=== PATIENT | female | born 1965 | race Caucasian/White ===

== ENCOUNTER 2019-06-23 15:31 | Emergency (ER) | payer OTHER, SELFPAY ==
[2019-06-23 15:43] VITALS: BP 150/81; PULSE 102; RESP 18; TEMP 36.6; O2SAT 99
--- NOTE | 2019-06-23 15:55 | ED.GENADULT ---
HPI - General Adult General Chief complaint: Upper Respiratory Infection Stated complaint: Ear/Nose/Throat Time Seen by Provider: 06/23/19 16:07 Source: patient and RN notes reviewed Mode of arrival: ambulatory Limitations: no limitations History of Present Illness HPI narrative: This patient's had onset of left ear pain without any drainage from the ear. The right eardrum is been mildly painful. She has not had any drainage from the right ear either. He is also had a sore throat without any fever. She has had no nasal drainage no cough. She is had no rashes. She has had no nausea, no vomiting, no diarrhea. She said no hematuria, no dysuria, no pyuria. She has had no rashes. Has not been traveling. She has had no known exposure to anyone with strep throat, mono, influenza, bronchitis, pneumonia that she is aware of. Related Data Allergies Allergy/AdvReac Type Severity Reaction Status Date / Time No Known Allergies Allergy Verified 05/04/19 08:27 Review of Systems Review of Systems: Narrative: CONSTITUTIONAL: Denies fever, chills, or sweats. Noncontributory except as pertains to the past medical history and history of present illness. EYES: Denies visual changes, redness, or discharge. ENT: Denies rhinorrhea, congestion, sore throat, or otalgia. CARDIOVASCULAR: Denies chest pain, palpitations, or edema. RESPIRATORY: Denies cough or dyspnea. GASTROINTESTINAL: Denies abdominal pain, nausea, vomiting, or diarrhea. GENITOURINARY: Denies dysuria or hematuria. SKIN: Denies rash or itching. MUSCULOSKELETAL: Denies back pain, joint pain, or myalgia. NEUROLOGIC: Denies headache, numbness, or weakness. PSYCHIATRIC: Denies anxiety or depression. [facility] Social History Social History Smoking status: Current every day smoker Alcohol intake: never Comments At time of signature, I have reviewed and agree with nursing past medical, surgical, social, and family history.Please see nursing chart for further information. There is no relevant family history pertinent to the presenting complaint. Exam Narrative: Exam Narrative: GENERAL: Well-appearing, well-nourished, and in no acute distress. HEAD: Normocephalic, atraumatic. EYES: PERRLA and EOMI. EARS: The right eardrum and canal are normal. The left eardrum is mildly erythematous, mildly bulging, but not perforated. The canal is clear. NOSE: Nares clear, no rhinorrhea or epistaxis. THROAT:Mucous membranes moist.Oropharynx is erythematous with mild exudates present. NECK: Supple. No adenopathy of the neck, supraclavicular, axillary, or inguinal areas. RESPIRATORY: No respiratory distress. Airway patent. Respirations non-labored. Clear to auscultation. There are no wheezes, no rales, no retractions, no use accessory muscles of respirations. Patient's not cyanotic and not dyspneic. Pulse ox on room air is 99% current temperature is 36.6 ?C. HEART: Regular rate and rhythm. No murmur heard. Normal peripheral pulses. ABDOMEN: Soft, nontender, nondistended, normal active bowel sounds.No masses. No rebound or guarding, No organomegaly. No CVA pain. No pain McBurney's point. Patient is a negative Orozco sign and negative Rovsing sign. There are no pulsatile masses and no audible bruits. EXTREMITIES: No clubbing/cyanosis/ edema Normal strength & range of motion. SKIN: Warm, dry.Normal color. There are no skin lesions or skin rashes. Patient is well-nourished well-hydrated has moist mucous membranes and no tenting of the skin. NEURO: Alert and oriented. CN 2-12 grossly intact. No focal deficits. PSYCH: Normal mood and affect. Course Vital Signs Vital signs: Vital Signs Temperature 36.6 C 06/23/19 15:43 Pulse Rate 102 H 06/23/19 15:43 Respiratory Rate 18 06/23/19 15:43 Blood Pressure 150/81 H 06/23/19 15:43 Pulse Oximetry 99 06/23/19 15:43 Temperature 36.6 C 06/23/19 15:43 Pulse Rate 102 H 06/23/19 15:43 Re
== END 2019-06-23 16:16 | disposition home or self-care (01) ==
PROVIDERS: Emergency Provider Family Medicine; PCP Internal Medicine
DX: H66.92 Otitis media, unspecified, left ear (principal); J02.9 Acute pharyngitis, unspecified; E78.00 Pure hypercholesterolemia, unspecified; I10 Essential (primary) hypertension; K21.9 Gastro-esophageal reflux disease without esophagitis; M79.7 Fibromyalgia
CPT/HCPCS: 87081; 87880; 99213; G0463

== ENCOUNTER 2019-08-10 09:36 | Outpatient (CLI) | payer OTHER, SELFPAY ==
--- NOTE | ~2019-08-10 | MR_ITS ---
EXAMINATION: MR shoulder RT wo con DATE: 08/10/2019 10:43 INDICATION: Right shoulder pain TECHNIQUE: Magnetic resonance imaging (MRI) of the right shoulder was performed without intravenous c ontrast. Sequences included axial PD-weighted FS FSE, coronal oblique PD-weighted FS FSE, coronal obl ique T2-weighted FS FSE, sagittal PD-weighted FS FSE, and sagittal T1-weighted SE. COMPARISON: Right shoulder radiographs dated 08/02/2019 FINDINGS: Coracoacromial arch: The acromion undersurface is curved in morphology (type II). The coracoacromial ligament is normal. M ild to moderate acromioclavicular osteoarthritis with small inferiorly directed osteophytes. Rotator cuff: Supraspinatus and mild infraspinatus tendinopathy without discrete tear. The subscapularis and teres minor tendons are normal. Normal rotator cuff muscle bulk and signal. Biceps tendon, glenoid labrum and glenohumeral cartilage: Long head of the biceps tendon is normal. Linear increased signal consistent with SLAP tear at the 10 :30-12:00 position of the posterosuperior glenoid labrum. Glenohumeral cartilage is normal. Fluid: Physiologic amount of fluid in the glenohumeral joint and biceps tendon sheath. No loose osteochondra l bodies. No abnormally increased fluid signal at the subacromial/subdeltoid bursa to suggest bursiti s. Bones: Likely osteoarthritis related mild marrow edema at both sides of the acromioclavicular joint. Bone ma rrow signal is otherwise normal. No fracture or pathologic marrow replacing process. IMPRESSION: 1. SLAP tear at the 10:30-12:00 position of the posterior superior glenoid labrum. 2. Moderate supraspinatus and mild infraspinatus tendinopathy without discrete tear. 3. Mild to moderate acromioclavicular osteoarthritis. Reviewed, dictated and finalized at location A. IMPRESSION: 1. SLAP tear at the 10:30-12:00 position of the posterior superior glenoid labr um. 2. Moderate supraspinatus and mild infraspinatus tendinopathy without discrete tear. 3. Mild to moderate acromioclavicular osteoarthritis.
== END 2019-08-10 09:37 | disposition home or self-care (01) ==
PROVIDERS: PCP Internal Medicine; Visit Provider Orthopaedic Surgery
DX: M19.011 Primary osteoarthritis, right shoulder (principal); S43.431A Superior glenoid labrum lesion of right shoulder, initial encounter; X58.XXXA Exposure to other specified factors, initial encounter
CPT/HCPCS: 73221

== ENCOUNTER 2019-11-10 00:35 | Outpatient (CLI) | payer OTHER, SELFPAY ==
[2019-11-10 16:19] LABS: SARS-CoV-2 RNA PCR Negative
== END 2019-11-10 00:36 | disposition home or self-care (01) ==
LOC: ANHCOVIDDT 00:35
PROVIDERS: PCP Internal Medicine; Visit Provider Orthopaedic Surgery
DX: Z01.818 Encounter for other preprocedural examination (principal); Z11.59 Encounter for screening for other viral diseases
CPT/HCPCS: 87635; C9803; U0003

== ENCOUNTER 2019-11-10 08:31 | Outpatient (CLI) | payer OTHER, SELFPAY ==
--- NOTE | 2019-11-10 | ECG_ITS ---
Measurements Intervals Murray Rate: 81 P: 22 NC: 129 QRS: 84 QRSD: 101 T: 67 QT: 396 QTc: 462 Interpretive Statements SINUS RHYTHM NORMAL ECG Electronically Signed On 11-10-2019 11:26:46 CDT by Felton Sanders D.O.
[2019-11-10 09:17] LABS: Hematocrit 39.5 % (37.0-47.0); Hemoglobin 12.7 g/dL (12.0-15.0)
== END 2019-11-10 08:32 | disposition home or self-care (01) ==
PROVIDERS: PCP Internal Medicine; Visit Provider Anesthesiology
DX: Z01.812 Encounter for preprocedural laboratory examination (principal); D64.9 Anemia, unspecified
CPT/HCPCS: 36415; 85014; 85018; 93005

== ENCOUNTER 2019-11-13 01:22 | Day surgery (SDC) | payer OTHER, SELFPAY ==
[2019-11-05 13:43] VITALS: BMI 34.5
--- NOTE | 2019-11-12 14:23 | WPDANESEPPF ---
Anes - Initial Pre Proc Eval Procedure: Operation Date: 11/13/19 07:30 Proposed Procedures p Right Shoulder Arthroscopy with Superior Labral Anterior To Posterior Tear Repair - Grayson Dubon MD Date/Time: 11/12/19 14:23 Surgeon: Grayson Dubon MD Pre Op Diagnosis: Right SLAP Tear Patient Data Age: 54 Gender: F Height: 1.5 m Weight: 77.56 kg Allergies Allergy/AdvReac Type Severity Reaction Status Date / Time No Known Allergies Allergy Verified 11/13/19 06:25 Home Medications Medication Instructions Recorded Confirmed Type aspirin 81 mg tablet,delayed 81 mg PO DAILY #30 tablet 03/29/19 11/05/19 Rx release esomeprazole magnesium 20 mg 40 mg PO DAILY #60 cap 03/29/19 11/05/19 Rx capsule,delayed release ferrous sulfate 325 mg (65 mg 325 mg PO DAILY #30 tablet 03/29/19 11/05/19 Rx iron) tablet amlodipine 10 mg tablet 10 mg PO DAILY #90 tablet 05/25/19 11/05/19 Rx atorvastatin 20 mg tablet 20 mg PO DAILY #90 tablet 05/25/19 11/05/19 Rx multivitamin 1 tablet PO DAILY 06/29/19 11/05/19 History famotidine 20 mg tablet 20 mg PO DAILY #90 tablet 09/18/19 11/05/19 Rx cyclobenzaprine 10 mg tablet 10 mg PO TID PRN #90 tablet 10/22/19 11/05/19 Rx dicyclomine 20 mg tablet 20 mg PO TID #90 tablet 10/22/19 11/05/19 Rx tramadol 50 mg tablet 50 mg PO Q6H PRN 11/01/19 11/05/19 History L.acid-L.casei-B.bif-B.sandra-FOS 2 cap PO DAILY 11/05/19 11/05/19 History [Probiotic Blend] albuterol sulfate 1.25 mg INHALATION DIRECTED PRN 11/05/19 11/05/19 History albuterol sulfate [ProAir HFA] 1 puff INHALATION QID PRN 11/05/19 11/05/19 History chlorhexidine gluconate 4 % 1 applic TOPICAL ONCE #237 ml 11/05/19 11/05/19 Rx topical liquid Patient hx anesthesia problems: none Family hx anesthesia problems: none PMFSH Past Medical History Medical History Asthma Back pain Essential (primary) hypertension Fibromyalgia Gastro-esophageal reflux disease with esophagitis Hypercholesterolemia IBS (irritable bowel syndrome) Mixed hyperlipidemia Obesity Otalgia of both ears Otalgia of left ear Pharyngitis SLAP lesion of right shoulder Tobacco abuse Family History Family History Sibling Patient's brother is in good health Family history of malignant neoplasm Father Family history of alcoholism Mother Family history of malignant neoplasm of breast in first degree relative Other Family history of arthritis Hypertension Social History Social History Smoking status: Current every day smoker Alcohol intake: never Anes - Eval Final PreProcedure Day of Procedure 11/12/19 14:23 Patient weight: obese Heart: regular rate and rhythm Lungs: clear to auscultation and normal air movement Airway: Mallampati scale class II Neurological: alert and oriented Last oral intake: >/= 8 hours ASA classification: III Emergent: no Anesthetic plan: proceed Anesthesia type and monitoring: general LMA and ETT Informed Consent: The patient's anesthetic plan and its attendant risks and benefits were discussed with the patient/family/POA. Questions were solicited and answers provided to the satisfaction of the patient/family/POA.
[2019-11-13] VITALS (8 sets, daily range): BP systolic 122–141; BP diastolic 52–79; PULSE 78–95; RESP 12–20; TEMP 36.1–36.3; O2SAT 94–100
[2019-11-13] MEDS: CELECOXIB 200 MG CAPSULE PO (06:45)
[2019-11-13] MEDS: LACTATED RINGERS 1,000 ML 30 ML IV CONT ×2 (06:45→10:04)
--- NOTE | 2019-11-13 07:00 | WPDANESPNB ---
Anes - Peripheral Nerve Block Date/Time: 11/13/19 07:00 I have discussed with the patient/family/POA the placement of a peripheral nerve block for post-operative pain management, including associated risks, benefits, complications, and side effects. Alternative methods of post-operative analgesia were detailed. Questions were solicited and answers provided to the satisfaction of the patient/family/POA. Time-Out: A pre-procedural Time-Out was completed immediately before starting the procedure and confirmed: Patient Identification, Site, Procedure, Patient Position and the Availability of Requisite Equipment. Clinical Indications: Acute post-operative pain management requested by the operative surgeon. Nerve Block Insertion Note Anes-nerve block: supraclavicular right Patient position: supine Skin prep: chlorhexidine Needle: 22 gauge, stimulating, insulated echogenic needle. Needle length: 80 mm Technique: ultrasound (in plane) Injectate: bupivacaine 0.5% with epi 5 mcg/ml (20cc) Observations: tolerated well Complications: none Procedure start time:: 730 Procedure end time::
--- NOTE | 2019-11-13 07:28 | WPDHPUPDATE1 ---
History and Physical Update Update Date/Time: 11/13/19 07:28 History and Physical has been reviewed, including an updated exam of the patient. There are NO changes in the patient's condition. Risks, benefits, and alternatives have been discussed and questions answered. Patient agrees to proceed with procedure.
[2019-11-13] MEDS: ceFAZolin 2 GM/D5W 50 ML 2 GM/50 ML BAG IVPB (07:42)
--- NOTE | 2019-11-13 09:54 | PM.OP ---
Procedure Note - Brief Procedure Note - Brief Date of procedure: 11/13/19 Pre-op diagnosis: Right SLAP Tear Post-op diagnosis: same Procedure performed: repair of slap lesion, chondroplasty and synovectomy right shoulder Anesthesia: GETA Surgeon: Grayson Dubon MD Estimated blood loss (mL): 10 Condition: stable Disposition: PACU
--- NOTE | 2019-11-13 11:50 | OP_ITS ---
DATE OF PROCEDURE: 11/13/2019 PREOPERATIVE DIAGNOSIS: Right shoulder SLAP tear. POSTOPERATIVE DIAGNOSIS: Right shoulder SLAP tear and partial articular-sided rotator cuff tear. PROCEDURE PERFORMED: Right shoulder arthroscopy with SLAP lesion repair, chondroplasty and synovectomy and rotator cuff debridement. SURGEON: Grayson Dubon M.D. ANESTHESIA: General. COMPLICATIONS: None. INDICATIONS: This is a 54-year-old female with a history of SLAP tear. She had attempted nonoperative treatments. She was unable to benefit from the treatment. She had physical therapy and injections. She was indicated for SLAP repair. DESCRIPTION OF PROCEDURE: The patient was taken to the operating room in stable condition and placed in supine position. General anesthesia was induced and she was placed in the beach chair position and the right shoulder was prepped and draped sterilely from the fingers to the axillary and cervical region. Posterior portal was used 1 cm distal and medial to the angle of the acromion and then camera was introduced. The 1st thing was noticed was the SLAP tear both in the 1 o'clock position and 11 o'clock position. The biceps tendon was intact. There was a partial articular-sided rotator cuff tear. There was chondromalacia grade 2 in the glenoid and on the humeral head. A shaver was then introduced through an anterior portal and chondroplasty was performed on the glenoid. The rotator cuff tear was then debrided. There was no full-thickness tear. The edge of the superior labrum then was also debrided and synovectomy was performed in that region as well. Once that was performed, then a bur was used to bur the superior glenoid region until there was good bleeding bone. Once that was performed, then an arthroscopic suture hook passer was placed in through the anterior labrum from medial to lateral and there was a good bite of tissue. The looped suture passer was left in and the hook was removed. Then, a #2 fiber tape then was passed through the looped suture shuttle and then eventually passed through the superior labrum. Once that was performed, then the #2 fiber tape was looped upon itself and tensioned over the labrum. A drill guide was placed on the edge of the superior anterior glenoid and a drill was used for a starter hole and the suture then was passed through an Arthrex suture anchor and the anchor then was inserted into the rim of the glenoid. There was an excellent bite. The tire shop mechanic was removed and stability of the repair was checked and it was excellent. Next, in a similar fashion, another suture passer was inserted through the posterior labrum and a #2 fiber tape also passed through the posterior labrum and cinched down. Another Arthrex suture anchor then was prepared. The drill guide was used for preliminary drill. The #2 fiber tape was passed through the suture anchor and the suture anchor was inserted into the posterior glenoid rim. The bite was excellent. Both sutures were cut. Stability of the repair was assessed. The repair was stable. The shoulder joint then was irrigated thoroughly. The instruments were removed after thorough irrigation of the shoulder joint. The wounds were approximated with 4-0 nylon suture. Sterile dressing was applied. The patient was extubated and sent to Recovery. Anjel Pavel MT: Breonna
== END 2019-11-13 12:10 | disposition home or self-care (01) ==
PROVIDERS: PCP Internal Medicine; Visit Provider Orthopaedic Surgery
PROC: (CPT 29805; principal; 2019-11-13 07:30)
DX: S43.431A Superior glenoid labrum lesion of right shoulder, initial encounter (principal); M75.101 Unspecified rotator cuff tear or rupture of right shoulder, not specified as traumatic; G89.18 Other acute postprocedural pain; I10 Essential (primary) hypertension; E78.2 Mixed hyperlipidemia; M79.7 Fibromyalgia; K21.9 Gastro-esophageal reflux disease without esophagitis; E78.00 Pure hypercholesterolemia, unspecified; K58.9 Irritable bowel syndrome, unspecified; E66.9 Obesity, unspecified; Z68.35 Body mass index [BMI] 35.0-35.9, adult; Z79.82 Long term (current) use of aspirin; F17.200 Nicotine dependence, unspecified, uncomplicated; X58.XXXA Exposure to other specified factors, initial encounter
CPT/HCPCS: 29807; 64415; A9270; J0330; J0690; J1100; J2250; J2405; J2704; J3010; J7120

== ENCOUNTER 2019-11-22 08:32 | Outpatient (CLI) | payer OTHER, SELFPAY ==
[2019-11-22 09:05] LABS: Add Urine Microscopic? YES; Appearance Urine Cloudy (Clear); Bacteria Urine Trace /hpf; Bilirubin Urine Negative (Negative); Blood Urine Negative (Negative); Color Urine Yellow (Yellow); Glucose Urine UA Negative (Negative); Ketones Urine Negative (Negative); Leukocyte Esterase Ur Trace LEU/UL (Negative); Mucus Urine Heavy /lpf; Nitrate Urine Negative (Negative); Protein Urine 1+ mg/dL (Negative); RBC Urine 0-2 /hpf (0-2); Specific Grav Ur 1.026 (1.001-1.035); Squamous Epithelial Cell Urine Many /hpf (Few)
[2019-11-22 09:13] LABS: Alanine Aminotransferase 18 U/L (4-35); Albumin Level 4.3 g/dL (3.5-5.1); Alkaline Phosphatase 103 U/L (38-126); Aspartate Amino Transferase 18 U/L (14-36); Bilirubin,Total 0.3 mg/dL (0.2-1.3); Blood Urea Nitrogen 18 mg/dL (7-17); Calcium 9.4 mg/dL (8.4-10.2); Carbon Dioxide 25 mmol/L (22-30); Chloride 106 mmol/L (98-107); Cholesterol 203 mg/dL (0-200); Estimated Glomerular Filt Rate > 60; Glucose 87 mg/dL (65-105); HDL Direct 37 mg/dL; Potassium 4.2 mmol/L (3.4-5.0); Sodium 139 mmol/L (137-145); Triglycerides 277 mg/dL (<150)
[2019-11-22 09:25] LABS: LDL Cholesterol Direct 115 mg/dL
== END 2019-11-22 08:33 | disposition home or self-care (01) ==
LOC: ANHLAB 08:33
PROVIDERS: PCP Internal Medicine; Visit Provider Nurse Practitioner
DX: E78.5 Hyperlipidemia, unspecified (principal); M54.9 Dorsalgia, unspecified
CPT/HCPCS: 36415; 80053; 80061; 81001

== ENCOUNTER 2019-12-31 12:38 | Emergency (ER) | payer OTHER, SELFPAY ==
[2019-12-31 12:45] VITALS: BP 169/81; PULSE 100; RESP 20; TEMP 36.8; O2SAT 98
--- NOTE | 2019-12-31 12:54 | ED.GENADULT ---
HPI - General Adult General Chief complaint: Upper Respiratory Infection Stated complaint: sinus congestion/cough Time Seen by Provider: 12/31/19 12:55 Source: patient and RN notes reviewed Mode of arrival: ambulatory Limitations: no limitations History of Present Illness HPI narrative: This is a 54 years old female presents to the office for an evaluation of sinus congestion for 1 week. Symptom has been worsening for the last few day. Symptoms include sinus headache, sore throat, ear pain, cough with tightness in her chest. She used to smoke a pack a day and quit recently due to her right shoulder surgery. 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 Denies direct contact with cold with patient. She supposed to go back to work on Tuesday. Related Data Home Medications Medication Instructions Recorded Confirmed multivitamin 1 tablet PO DAILY 06/29/19 12/31/19 Probiotic Blend 2 cap PO DAILY 11/05/19 12/31/19 albuterol sulfate 1.25 mg INHALATION DIRECTED PRN 11/05/19 12/31/19 albuterol sulfate [ProAir HFA] 1 puff INHALATION QID PRN 11/05/19 12/31/19 Allergies Allergy/AdvReac Type Severity Reaction Status Date / Time No Known Allergies Allergy Verified 12/31/19 12:39 Review of Systems Review of Systems: Narrative: CONSTITUTIONAL: Denies fever. Reports very tired ENT: Reports congestion, sore throat, otalgia. CARDIOVASCULAR: Denies chest pain, palpitation RESPIRATORY: Reports dyspnea with cough GASTROINTESTINAL: Denies abdominal pain, nausea, vomiting, diarrhea. SKIN: Denies rash MUSCULOSKELETAL: Reports right shoulder pain; recently had surgery. NEUROLOGIC: Denies lightheaded/dizziness All other systems reviewed are negative, except as documented in HPI. [facility] Past Medical History Medical History Asthma Back pain Essential (primary) hypertension Fibromyalgia Gastro-esophageal reflux disease with esophagitis Hypercholesterolemia IBS (irritable bowel syndrome) Mixed hyperlipidemia Obesity Otalgia of both ears Otalgia of left ear Pharyngitis SLAP lesion of right shoulder Tobacco abuse Family History Family History Sibling Patient's brother is in good health Family history of malignant neoplasm Father Family history of alcoholism Mother Family history of malignant neoplasm of breast in first degree relative Other Family history of arthritis Hypertension Social History Social History (Updated 12/31/19 @ 13:50 by VANDANA Martin) Smoking status: Former smoker Alcohol intake: never Comments At time of signature, I agree with nursing past medical, surgical, social and family history. There is no relevant family history pertinent to the presenting complaint. Exam Narrative: Exam Narrative: GENERAL: This is a well-nourished, well-developed patient, in no apparent distress. Older than state age. EYES: Sclera clear/white. Vision is grossly intact. EARS: External ears normal, auditory canals clear and without drainage, TMs normal without perforation. Hearing grossly intact. NOSE: External nose normal with no obvious nasal discharge, nares without redness, no rhinorrhea. THROAT: Mucous membranes moist, posterior pharynx erythema with drainage. NECK: Neck supple, non-tender without lymphadenopathy, masses or thyromegaly. CARDIOVASCULAR: Regular rate and rhythm without murmurs, gallops, or rubs. RESPIRATORY: Diminished breath sounds throughout, occasional noted during examination. Breath sounds equal bilaterally. No wheezes, rales, or rhonchi. GASTROINTESTINAL: Abdomen soft, non-tender, nondistended. Bowel sounds are active. No hepato-splenomegaly, or palpable masses. No guarding. SKIN: warm, intact with no suspicious lesions or rash, good texture and turgor. NEURO: awake, alert, and oriented to person, place and time. There wer
== END 2019-12-31 13:10 | disposition home or self-care (01) ==
PROVIDERS: Emergency Provider Nurse Practitioner; PCP Internal Medicine
DX: J06.9 Acute upper respiratory infection, unspecified (principal); R05 Cough; Z87.891 Personal history of nicotine dependence; J45.909 Unspecified asthma, uncomplicated; I10 Essential (primary) hypertension; M79.7 Fibromyalgia; K21.9 Gastro-esophageal reflux disease without esophagitis; E78.00 Pure hypercholesterolemia, unspecified; E78.5 Hyperlipidemia, unspecified; E66.9 Obesity, unspecified; Z68.45 Body mass index [BMI] 70 or greater, adult
CPT/HCPCS: 99213; G0463

== ENCOUNTER 2020-02-25 15:10 | Emergency (ER) | payer OTHER, SELFPAY ==
[2020-02-25 15:20] VITALS: BP 144/83; PULSE 90; RESP 24; TEMP 36.8; O2SAT 100
--- NOTE | 2020-02-25 16:13 | ED.URI ---
HPI - URI/Sore Throat General Chief Complaint: Upper Respiratory Infection Stated Complaint: right ear pain/sore throat Time Seen by Provider: 02/25/20 16:25 Source: patient and RN notes reviewed Mode of arrival: ambulatory Limitations: no limitations History of Present Illness HPI Narrative: 54 year old female who presents to [facility] with complaints of right ear pain and sore throat which started this morning. Patient states that she works for [employer] and has had known exposure to strep and needs test to return to work.Patient denies any nasal drainage or feelings of congestion, denies any acute cough with mucous production, denies any wheezing or acute shortness of breath.Patient states no fevers chills or sweats, denies any nausea, vomiting or any headache pain. Patient does have history of asthma and has had former tobacco abuse. MD elicited complaint: sore throat and other (ear pain) Pertinent past history: pneumonia and asthma Onset (ago): day(s) (this morning) Consistency: constant Severity: moderate Pain scale (0-10): 5 Able to tolerate fluids by mouth: Yes Exacerbating factors: swallowing Context: sick contacts Associated symptoms: ear pain (right) Treatments prior to arrival: other (Coricidin) Related Data Home Medications Medication Instructions Recorded Confirmed multivitamin 1 tablet PO DAILY 06/29/19 02/25/20 albuterol sulfate 1.25 mg INHALATION DIRECTED PRN 11/05/19 02/25/20 albuterol sulfate [ProAir HFA] 1 puff INHALATION QID PRN 11/05/19 02/25/20 famotidine 20 mg PO DAILY 02/25/20 02/25/20 rabeprazole 20 mg PO EVERY OTHER DAY 02/25/20 02/25/20 rabeprazole [AcipHex] 20 mg PO DAILY 02/25/20 02/25/20 Allergies Allergy/AdvReac Type Severity Reaction Status Date / Time No Known Allergies Allergy Verified 02/25/20 15:38 Review of Systems Review of Systems: Narrative: CONSTITUTIONAL: Denies fever, chills, or sweats. EYES: Denies visual changes, redness, or discharge. ENT: Denies rhinorrhea, congestion,positive for sore throat, right otalgia. CARDIOVASCULAR: Denies chest pain, palpitations, or edema. RESPIRATORY: Denies cough or dyspnea. GASTROINTESTINAL: Denies abdominal pain, nausea, vomiting, or diarrhea. GENITOURINARY: Denies dysuria or hematuria. SKIN: Denies rash or itching. MUSCULOSKELETAL: Denies back pain, joint pain, or myalgia. NEUROLOGIC: Denies headache, numbness, or weakness. PSYCHIATRIC: positive history of anxiety or depression. All systems reviewed & are unremarkable except as noted in HPI and below PMFSH Past Medical History Medical History (Updated 02/27/20 @ 12:57 by Ginna Aparicio NP) Asthma Back pain Cough Essential (primary) hypertension Fibromyalgia Gastro-esophageal reflux disease with esophagitis Hypercholesterolemia IBS (irritable bowel syndrome) Mixed hyperlipidemia Obesity Otalgia of both ears Otalgia of left ear Pharyngitis Rotator cuff tear SLAP lesion of right shoulder Tobacco abuse quit 2015 Surgical History Surgical History (Updated 02/27/20 @ 12:50 by Ginna Aparicio NP) H/O dilation and curettage H/O: hysterectomy History of carpal tunnel release of both wrists History of section History of right knee surgery related to fracture Status post shoulder surgery Family History Family History Sibling Patient's brother is in good health Family history of malignant neoplasm Father Family history of alcoholism Mother Family history of malignant neoplasm of breast in first degree relative Other Family history of arthritis Hypertension Social History Social History (Updated 02/27/20 @ 12:51 by Ginna Aparicio NP) Smoking packs per day: 1 Smoking cigarettes per day: 20.0 Years smoked: 41 Smoking pack-years: 41.00 Smoking status: Former smoker Tobacco type: cigarettes Smoking end date: 05/23/15 Alcohol intake: never Living arrangements: with family G
== END 2020-02-25 16:45 | disposition home or self-care (01) ==
PROVIDERS: Emergency Provider Registered Nurse; PCP Internal Medicine
DX: H60.91 Unspecified otitis externa, right ear (principal); J02.9 Acute pharyngitis, unspecified; Z87.891 Personal history of nicotine dependence; J45.909 Unspecified asthma, uncomplicated; I10 Essential (primary) hypertension; M79.7 Fibromyalgia; K21.9 Gastro-esophageal reflux disease without esophagitis; E78.00 Pure hypercholesterolemia, unspecified; E78.2 Mixed hyperlipidemia
CPT/HCPCS: 87081; 87880; 99213; G0463

== ENCOUNTER 2020-02-29 07:55 | Outpatient (CLI) | payer OTHER, SELFPAY ==
--- NOTE | ~2020-02-29 | MR_ITS ---
EXAMINATION: MR shoulder RT wo con DATE: 02/29/2020 08:32 INDICATION: Right shoulder pain TECHNIQUE: Magnetic resonance imaging (MRI) of the right shoulder was performed without intravenous c ontrast. Sequences included axial PD-weighted FS FSE, coronal oblique PD-weighted FS FSE, coronal obl ique T2-weighted FS FSE, sagittal PD-weighted FS FSE, and sagittal T1-weighted SE. COMPARISON: Right shoulder radiograph dated 02/08/2020 and MRI dated 08/10/2019 FINDINGS: Coracoacromial arch: The acromion undersurface is curved in morphology (type II). The coracoacromial ligament is normal. M oderate acromioclavicular osteoarthritis. Rotator cuff: Normal progression of now severe tendinopathy of the distal supraspinatus with small articular sided tear measuring approximately 5 mm AP along the superior facet footplate of the supraspinatus tendon w hich appears to involve no greater than one third of the tendon thickness. Mild infraspinatus and sub scapularis tendinopathy without discrete tear. The teres minor tendon is normal. Normal rotator cuff muscle bulk and signal. Biceps tendon, glenoid labrum and glenohumeral cartilage: Mild tendinopathy and longitudinal split tear of the long head biceps tendon. There are suture anchor s at the superior glenoid labrum consistent with prior labral repair which appears grossly intact. Re mainder of the labrum is normal. Glenohumeral cartilage is normal. Fluid: Increased fluid and mild synovitis in the long head biceps tendon sheath which is disproportionate to the physiologic amount fluid in the glenohumeral joint consistent with bicipital tenosynovitis. No l oose osteochondral bodies. Small amount of fluid in the subacromial/subdeltoid bursa consistent with mild bursitis. Bones: No fracture or pathologic marrow replacing process. IMPRESSION: 1. Interval progression of now severe supraspinatus tendinopathy with small mild articular sided tear at its superior facet footplate. 2. Bicipital tenosynovitis with mild tendinopathy and longitudinal split tearing of the long head bic eps tendon. 3. Intact appearing repair of the superior glenoid labrum. 4. Mild subacromial/subdeltoid bursitis. 5. Moderate glenohumeral osteoarthritis. Reviewed, dictated and finalized at location A. IMPRESSION: 1. Interval progression of now severe supraspinatus tendinopathy with small mil d articular sided tear at its superior facet footplate. 2. Bicipital tenosynovitis with mild tendinopathy and longitudinal split tearin g of the long head biceps tendon. 3. Intact appearing repair of the superior glenoid labrum. 4. Mild subacromial/subdeltoid bursitis. 5. Moderate glenohumeral osteoarthritis.
== END 2020-02-29 07:56 ==
PROVIDERS: PCP Internal Medicine; Visit Provider Nurse Practitioner Family
DX: M25.511 Pain in right shoulder (principal); M75.81 Other shoulder lesions, right shoulder; S46.011A Strain of muscle(s) and tendon(s) of the rotator cuff of right shoulder, initial encounter; S46.111A Strain of muscle, fascia and tendon of long head of biceps, right arm, initial encounter; M75.51 Bursitis of right shoulder; M19.011 Primary osteoarthritis, right shoulder
CPT/HCPCS: 73221

== ENCOUNTER 2020-04-18 10:01 | Outpatient (CLI) | payer OTHER, SELFPAY ==
[2020-04-18 10:47] LABS: LDL Cholesterol Direct 93 mg/dL
[2020-04-18 11:18] LABS: Alanine Aminotransferase 21 U/L (4-35); Albumin Level 4.1 g/dL (3.5-5.1); Alkaline Phosphatase 118 U/L (38-126); Anion Gap 7 mmol/L (8-16); Aspartate Amino Transferase 18 U/L (14-36); Bilirubin,Total 0.3 mg/dL (0.2-1.3); Blood Urea Nitrogen 21 mg/dL (7-17); Calcium 9.4 mg/dL (8.4-10.2); Carbon Dioxide 27 mmol/L (22-30); Chloride 107 mmol/L (98-107); Cholesterol 169 mg/dL (0-200); Estimated Glomerular Filt Rate > 60; Glucose 51 mg/dL (65-105); HDL Direct 44 mg/dL; Potassium 4.7 mmol/L (3.4-5.0); Sodium 141 mmol/L (137-145); Triglycerides 259 mg/dL (<150)
== END 2020-04-18 10:02 | disposition home or self-care (01) ==
PROVIDERS: PCP Internal Medicine; Visit Provider Nurse Practitioner
DX: E78.2 Mixed hyperlipidemia (principal); I10 Essential (primary) hypertension
CPT/HCPCS: 36415; 80053; 80061

== ENCOUNTER 2020-04-21 09:18 | Outpatient (CLI) | payer OTHER, SELFPAY ==
--- NOTE | ~2020-04-21 | XR_ITS ---
XR_[id number] 04/21/2020 09:38 Indication: Cervicalgia Procedure: 4 view cervical spine Comparison: 06/28/2017 Findings: There is mild multilevel uncinate and facet hypertrophy. Normal cervical alignment. There i s disc narrowing at C5-6 and C6-7. There are prominent ventral osteophytes at these levels. Lung apic es are normal. Odontoid process within normal limits. Impression: 1: Mild-moderate cervical spondylosis. Reviewed, dictated and finalized at location B. EMS MGR Impression: 1: Mild-moderate cervical spondylosis.
== END 2020-04-21 09:19 | disposition home or self-care (01) ==
PROVIDERS: PCP Internal Medicine; Visit Provider Internal Medicine
DX: M47.812 Spondylosis without myelopathy or radiculopathy, cervical region (principal)
CPT/HCPCS: 72040

== ENCOUNTER 2020-07-21 08:00 | Outpatient (RCR) | payer OTHER, SELFPAY ==
--- NOTE | 2020-06-23 16:20 | PTOPEVAL ---
PHYSICAL THERAPY EVALUATION Thank you for referring Ginna Allan to [facility].? Ginna was evaluated today for the dx of cervical pain/OA and right shoulder tendonitis. The patient is scheduled to be seen for therapy?2x/week for 4 weeks. Please review, sign, date and return this plan of care RASHMI. I agree with and certify that the following plan of care is medically necessary. Referring Physician Date Attending Provider: VANDANA ParsonsPT Outpatient Evaluation Start: 06/23/20 13:18 Freq: Status: Active Protocol: Document 06/23/20 15:00 MLV (Rec: 06/23/20 16:01 MLV [id number]) Assessment Status Evaluation Evaluation Information Problem Diagnosis neck pain; right RTC tendonitis Onset 10/2019 right shoulder SLAP tear repair;neck pain 03/2020 Cause none Additional Evaluation Detail The patient reports having shoulder pain creating surgical repair and the neck pain started after feeling stressed over COVID concerns. Patient reports taking meds for COVID anxiety issues. The patient's shoulder is better since surgery but still has some symptoms with daily activities. The neck pain is constant and worse when lying down. 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 Patient is active with her grandkids. The patient's pain is worse in evening after work and when trying to sleep Diagnostic Tests X-Rays For This Problem Yes: neck OA Previous Treatments Previous Treatments For This Problem home therapy after shoulder surgery;pain mgmt for neck with no relief Pain Assessment Timing of Pain Assessment Timing of Pain Assessment Assessment Pain Scale Pain Scale Used Numeric (1 - 10) Self Report Pain Assessment Right Shoulder(s) Reported Pain Level 0 Pain Description Sharp,Stabbing Pain Frequency Acute Greatest Pain Intensity 10 Pain Aggravating Factors Exercise/Activity,Lifting
--- NOTE | 2020-07-21 08:44 | PTOPEVAL ---
PHYSICAL THERAPY DISCHARGE SUMMARY Thank you for referring Ginna Allan to [facility].? The patient has been seen 8 visits for dx of cerivical and shoulder pain. The patient has met her goals partially and has peaked with skilled PT needs. D/C PT at this time. Please review, sign, date and return this plan of care. I agree with and certify the following plan of care. Referring Physician Date Attending Provider: VANDANA Parsons *PT Outpatient Discharge Start: 06/23/20 13:18 Freq: Status: Active Protocol: Document 07/21/20 07:57 MLV (Rec: 07/21/20 08:09 MLV [id number]) Assessment Status Discharge Evaluation Information Problem Diagnosis neck pain; right RTC tendonitis Onset 10/2019 right shoulder SLAP tear repair;neck pain 03/2020 Cause none Additional Evaluation Detail Patient reports her right shoulder is good/able to reach without limits and has no pain. Patient states her neck is no better with level of pain. Patient has a follow up with her MD regarding her neck pain. Patient denies trouble with her exercises and plans to continue on her own. Pain Assessment Timing of Pain Assessment Timing of Pain Assessment Assessment Pain Scale Pain Scale Used Numeric (1 - 10) Self Report Pain Assessment Right Shoulder(s) Reported Pain Level 0 Neck Reported Pain Level 7 Pain Description Burning Pain Score Pain Score 0,7: Self Report Interventions Used Interventions Used By Clinicians Education,Electrical Stimulation,Exercise,Heat, Manual Therapy Techniques Pain Relief Interventions Used By Exercise,Heat,Ice,Inactivity/ Patient Rest Cervical and Lumbar ROM Cervical ROM Cervical Flexion (0-70) 45 Query Text:Passive in Degrees Cervical Extension (0-70) 50 Query Text:Active in Degrees Cervical Lateral Flexion Right (0-50) 37 Query Text:Active in Degrees Cervical Lateral Flexion Left (0-50) 39 Query Text:Active in Degrees Cervical Rotation Right (0-90) 60 Query Text:Active in Degrees Cervical Rotation Left (0-90) 40 Query Text:Active in Degrees Cervical ROM Comments pain at left side of neck with left head rotation Palpation Assessment Palpation Palpation 50% decrease in tightnes
== END 2020-07-21 14:09 | disposition home or self-care (01) ==
LOC: ANHPT 08:00
PROVIDERS: Family Provider Internal Medicine; PCP Internal Medicine; Visit Provider Nurse Practitioner Family
DX: M54.2 Cervicalgia (principal); M75.81 Other shoulder lesions, right shoulder
CPT/HCPCS: 97014; 97110; 97140; 97162; G0283

== ENCOUNTER 2020-08-20 11:00 | Outpatient (RCR) | payer OTHER, SELFPAY ==
--- NOTE | 2020-08-05 10:25 | PTOPEVAL ---
PHYSICAL THERAPY EVALUATION AND PLAN OF CARE 08-05-20 Thank you for referring Ginna Allan to [facility], for the diagnosis of cervicalgia. Ginna is scheduled to be seen for therapy? 2 x/week for 2 weeks. Please review, sign, date and return this plan of care RASHMI. I agree with and certify that the following plan of care is medically necessary. Referring Physician Date Attending Provider: Sky Patricia DO PT Outpatient Evaluation Document 08/05/20 09:25 RAMAN (Rec: 08/05/20 10:25 RAMAN [id number]) Past Medical History Source of Past Medical History Recalled from Previous Visit, Confirmed with Patient/Family Neurological History Hx Seizures Yes: REPORTS STRESS SEIZURES- LAST 10 YEARS AGO Cardiovascular History Hx Heart Murmur Yes: R/T RHEUMATIC FEVER Hx Hypercholesterolemia Yes Hx Hypertension Yes: meds Hx Mitral Valve Prolapse Yes: meds Respiratory History Hx Asthma Yes Hx Pneumonia Yes Gastrointestinal History Hx Gastroesophageal Reflux Disease Yes Hx Irritable Bowel Yes Hx Ulcer Yes Hx Other Gastrointestinal Disorders Yes: CHRONIC BLOOD IN STOOL Genitourinary History Hx Kidney Stones Yes: surgery with stent 2x; laser 1x Hx Other Genitourinary Disorders Yes: INCONTINENCE- controlled now Musculoskeletal History Hx Arthritis Yes: RA-hands and neck Hx Back Pain Yes Hx Degenerative Disk Disease Yes: lumbar Hx Fibromyalgia Yes Hx Orthopedic Surgery Yes: FRAN CARPAL TUNNEL, LT ULNAR NERVE RELEASE, RT KNEE SURGERY Hx Other Musculoskeletal Disorders Yes: RIGHT SHOULDER SLAP TEAR October 2019 Hematological History Hx Anemia Yes Endocrine History Hx Endocrine Disorders No Significant History HEENT History Hx Tonsillectomy Yes Integumentary History Hx Other Skin Disorders Yes: SKIN GRAFTS FOR IZAGUIRRE head to toe izaguirre -1 yr hospital Reproductive History Hx Section Yes: X2 Hx Hysterectomy Yes: 2002 Hx Tubal Ligation Yes: 1991 Hx Other Reproductive Disorders Yes: D&C 1990 MISCARRIAGE Psychosocial History Hx Anxiety Yes Hx Bipolar Disorder Yes Hx Depression Yes Hx Suicide Attempt Yes Hx Other Psychiatric Disorders Yes: OCD Pain History Has Past Pain Affected Your Daily Life Yes: BACK PAIN Anesthesia History Hx Other Anesth
--- NOTE | 2020-08-20 11:46 | PTOPEVAL ---
PHYSICAL THERAPY DISCHARGE 08-20-20 Refer to the clinical summary below for her status today, compared with the initial evaluation. The goals were partially achieved. She continues to have cervical pain and headaches, with decreased active ROM of neck and L shoulder. Thank you for referring Ginna Allan to [facility].? Please review, sign, date and return this discharge RASHMI. I agree with and certify that the following plan of care is medically necessary. Referring Physician Date Attending Provider: Sky Patricia DO Document 08/20/20 11:05 RAMAN (Rec: 08/20/20 11:46 RAMAN [id number]) Assessment Status Discharge Subjective Information Ginna reports: neck pain is Query Text:As Reported By Patient/ the same; have more headaches, Family now daily and pain so bad end up crying at the end of the day; to call dr and follow up after therapy, to see about scheduling an MRI; doing home exercises for neck and stretches help neck; She agrees with discharge from PT services. Pain Assessment Timing of Pain Assessment Timing of Pain Assessment Assessment Pain Scale Pain Scale Used Numeric (1 - 10) Self Report Pain Assessment Bilateral Spine, Cervical Reported Pain Level 4 Pain Description Sharp Pain Radiation Left Shoulder Pain Frequency Chronic,Continuous Other Pain Description L side neck and posterior L shoulder Lowest Pain Intensity 4 Greatest Pain Intensity 8 Pain Aggravating Factors Exercise/Activity Other Pain Aggravating Factors move head Pain Behaviors Anxious,Grimacing,Guarding Pain Score Pain Score 4: Self Report Additional Pain Score Comments Oswestry self assessment 46% limitation in activity headache daily- start towards end of day, take tylenol and go to sleep with headache; is taking an anti inflammatory med- feel it is helping; awaken from sleep 4-5x/night due to neck pain; have home TENS unit; to obtain tape- leukotape for muscle support; Interventions Used Interventions Used By Clinicians Education,Taping Pain Relief Interventions Used By Exercise,Heat,Inactivity/Rest, Patient Medication,TENS Other Alleviating
== END 2020-08-21 11:53 | disposition home or self-care (01) ==
LOC: ANHPT 11:00
PROVIDERS: PCP Internal Medicine; Visit Provider Internal Medicine
DX: M54.2 Cervicalgia (principal)
CPT/HCPCS: 97012; 97014; 97110; 97140; 97162; G0283

== ENCOUNTER → 2020-10-18 07:50 | Outpatient (CLI) | payer OTHER, SELFPAY ==
--- NOTE | ~2020-10-18 | MM_ITS ---
EXAMINATION: MM screening ailyn BI w ambreen HISTORY: Screening TECHNIQUE: Craniocaudal and mediolateral oblique 3-D tomosynthesis images were obtained and synthetic 2-D images were generated. CAD analysis was submitted and interpreted. COMPARISON: No prior mammogram is available for comparison at this institution. BREAST PARENCHYMAL COMPOSITION: There are scattered areas of fibroglandular density. FINDINGS: There is no evidence of suspicious mass, calcification, or architectural distortion to sugg est malignancy in either breast. There has been no suspicious interval change. IMPRESSION: 1. No mammographic evidence of malignancy. 2. Recommend routine screening mammography in one year. BI-RADS Category 1: Negative Reviewed, dictated and finalized at location A.
== END ==
PROVIDERS: PCP Internal Medicine; Visit Provider Internal Medicine
DX: Z12.31 Encounter for screening mammogram for malignant neoplasm of breast (principal); R92.8 Other abnormal and inconclusive findings on diagnostic imaging of breast
CPT/HCPCS: 77063; 77067

== ENCOUNTER 2020-10-18 08:39 | Outpatient (CLI) | payer OTHER, SELFPAY ==
[2020-10-18 09:05] LABS: Alanine Aminotransferase 15 U/L (4-35); Albumin Level 4.4 g/dL (3.5-5.1); Alkaline Phosphatase 75 U/L (38-126); Anion Gap 9 mmol/L (8-16); Aspartate Amino Transferase 20 U/L (14-36); Bilirubin,Total 0.2 mg/dL (0.2-1.3); Blood Urea Nitrogen 24 mg/dL (7-17); Calcium 10.1 mg/dL (8.4-10.2); Carbon Dioxide 26 mmol/L (22-30); Chloride 109 mmol/L (98-107); Cholesterol 200 mg/dL (0-200); Estimated Glomerular Filt Rate 51; Glucose 94 mg/dL (65-105); HDL Direct 42 mg/dL; Potassium 4.9 mmol/L (3.4-5.0); Sodium 144 mmol/L (137-145); Triglycerides 223 mg/dL (<150)
[2020-10-18 09:16] LABS: LDL Cholesterol Direct 95 mg/dL
== END 2020-10-18 08:40 | disposition home or self-care (01) ==
PROVIDERS: PCP Internal Medicine; Visit Provider Internal Medicine
DX: I10 Essential (primary) hypertension (principal); Z51.81 Encounter for therapeutic drug level monitoring; E78.5 Hyperlipidemia, unspecified
CPT/HCPCS: 36415; 80053; 80061

== ENCOUNTER 2020-11-03 10:30 | Outpatient (RCR) | payer OTHER, SELFPAY ==
[2020-10-08 13:21] VITALS: BP_SYST 106
--- NOTE | 2020-10-08 14:11 | PTOPEVAL ---
PHYSICAL THERAPY EVALUATION AND PLAN OF CARE Thank you for referring Ginna Allan to [facility].? The patient is scheduled to be seen for therapy 2x/week for 3 weeks. Please review, sign, date and return this plan of care RASHMI. I agree with and certify that the following plan of care is medically necessary. Referring Physician Date Attending Provider: Grayson Dubon MD Evaluation Outpatient Past Medical History Neurological History Hx Seizures Yes: REPORTS STRESS SEIZURES- LAST 10 YEARS AGO Cardiovascular History Hx Heart Murmur Yes: R/T RHEUMATIC FEVER Hx Hypercholesterolemia Yes Hx Hypertension Yes: meds Hx Mitral Valve Prolapse Yes: meds Respiratory History Hx Asthma Yes Hx Pneumonia Yes Gastrointestinal History Hx Gastroesophageal Reflux Disease Yes Hx Irritable Bowel Yes Hx Ulcer Yes Hx Other Gastrointestinal Disorders Yes: CHRONIC BLOOD IN STOOL Genitourinary History Hx Kidney Stones Yes: surgery with stent 2x; laser 1x Hx Other Genitourinary Disorders Yes: INCONTINENCE- controlled now Musculoskeletal History Hx Arthritis Yes: RA-hands and neck Hx Back Pain Yes Hx Degenerative Disk Disease Yes: lumbar Hx Fibromyalgia Yes Hx Orthopedic Surgery Yes: FRAN CARPAL TUNNEL, LT ULNAR NERVE RELEASE, RT KNEE SURGERY Hx Other Musculoskeletal Disorders Yes: RIGHT SHOULDER SLAP TEAR October 2019 Hematological History Hx Anemia Yes Endocrine History Hx Endocrine Disorders No Significant History HEENT History Hx Tonsillectomy Yes Integumentary History Hx Other Skin Disorders Yes: SKIN GRAFTS FOR IZAGUIRRE head to toe [place]re -1 yr hospital Reproductive History Hx Section Yes: X2 Hx Hysterectomy Yes: 2002 Hx Tubal Ligation Yes: 1991 Hx Other Reproductive Disorders Yes: D&C 1990 MISCARRIAGE Psychosocial History Hx Anxiety Yes Hx Bipolar Disorder Yes Hx Depression Yes Hx Suicide Attempt Yes Hx Other Psychiatric Disorders Yes: OCD Pain History Has Past Pain Affected Your Daily Life Yes: BACK PAIN Anesthesia History Hx Other Anesthesia Reactions Yes: SEVERE SEGURA CAUSED BY SPINAL Other History Hx Cancer Yes: UTERINE CANCER- hysterectomy,no other tx> 20 yr ago Hx MRSA
--- NOTE | 2020-10-30 08:26 | PTOPEVAL ---
PHYSICAL THERAPY Thank you for referring Ginna Allan to [facility].? The patient is scheduled to be seen for therapy? 2x/week for 3 weeks for continued treatment of right shoulder and initiating treatment of cervical radiculopathy. Please review, sign, date and return this plan of care RASHMI. I agree with and certify that the following plan of care is medically necessary. 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 We have a new order to work on her neck. She is losing sleep due to neck pain. Neck pain started when she started to get anxiety in April. States it is very tight and painful. States she has done therapy for her neck before and she tries to do her exerices from then and they are just giving her headaches. Self Report Pain Assessment Spine, Cervical Reported Pain Level 7 Pain Description Sharp,Tightness Pain Frequency Chronic,Continuous Greatest Pain Intensity 10 Right Shoulder(s) Reported Pain Level 3 Pain Description Aching Pain Score Pain Score 3,7: Self Report Interventions Used Interventions Used By Clinicians Exercise,Joint Mobilization, Mobilization,Manual Therapy Techniques Cervical and Lumbar ROM Cervical ROM Cervical Rotation Right (0-90) 59 Query Text:Active in Degrees Cervical Rotation Left (0-90) 47 Query Text:Active in Degrees Upper Extremity Range of Motion Scapular/ Shoulder Range of Motion Right Shoulder Flexion - Active 140 Shoulder Abduction - Active 110 Shoulder Medial Rotation - Active right PSIS Query Text:Reach Behind the Back Upper Extremity Muscle Strength Testing Scapular/Shoulder Right Shoulder Flexion Strength 3+ Fair + Shoulder Abduction Strength 3 Fair Shoulder Medial Rotation Strength 4- Good - Shoulder Lateral Rotation Strength 4- Good - Muscle Length Testing Mus
--- NOTE | 2020-11-05 09:18 | PCPTNOTE ---
Patient did not show up for scheduled appointment this date. Called and left voicemail about missed appointment and reminded of upcoming appointment on 11/11/2020 @ 09:45am.
--- NOTE | 2020-11-11 10:12 | PCPTNOTE ---
Patient did not show up for scheduled appointment this date. Called & left a message.
--- NOTE | 2020-11-13 08:36 | PCPTNOTE ---
Patient did not show up for scheduled appointment this date. Called and left of message that she would be discharged if she does not come in for her next appointment.
--- NOTE | 2020-11-17 08:37 | PCPTNOTE ---
Patient no showed to appointment this date. Patient was called but no answer. Left voicemail asking patient to call clinic to discuss possible reschedule.
--- NOTE | 2020-11-20 07:49 | PCPTNOTE ---
Patient did not show up for scheduled appointment this date.
--- NOTE | 2020-11-20 07:49 | PCPTNOTE ---
PHYSICAL THERAPY DISCHARGE NOTE Attending Provider: Grayson Dubon MD Patient:Ginna Allan Date of :1965 Patient has not returned for any further treatments since 11/03/2020, therefore she will be discharged at this time. Patient?s initial visit was on 10/08/2020 and had a total of 8 visits. She was seen for 6 visits for her right shoulder pain and 2 visits for her neck pain. She no showed 5 visits consecutively violating the attendance policy. The goals have been partially met. Thank you for referring this patient to [facility]. Please review, sign, date and return this discharge summary RASHMI. I have been updated about the patient's current status and I agree with discharge from the above service at this time. Referring Physician Date
== END 2020-11-20 17:04 | disposition home or self-care (01) ==
LOC: ANHPT 10:30
PROVIDERS: PCP Internal Medicine; Visit Provider Orthopaedic Surgery
DX: M75.21 Bicipital tendinitis, right shoulder (principal)
CPT/HCPCS: 97014; 97110; 97140; 97161; G0283

== ENCOUNTER 2021-01-14 17:27 | Outpatient (CLI) | payer OTHER, SELFPAY ==
--- NOTE | ~2021-01-14 | CT_ITS ---
EXAMINATION: CT abdomen pelvis w con DATE: 01/14/2021 18:33 INDICATION: Gastroenteritis, colitis for one month TECHNIQUE: Computed tomography (CT) of the abdomen and pelvis was performed with 100 cc Omnipaque 350 intravenous contrast. Automated exposure control and iterative reconstruction technique were employe d. Exam dose: 577.13 mGy-cm total exam DLP. COMPARISON: None. FINDINGS: There is bilateral primarily dependent lower lobe patchy atelectasis. Normal heart size. No pericardial or pleural effusion. The liver, gallbladder, bile ducts, pancreas, pancreatic duct, spleen, and adrenal glands are unremar kable. Bilateral renal cysts are noted, measuring up to 3.5 cm on the right, 1.5 cm on the left. 2.5 mm nonobstructing lower pole right renal calculus. No ureteral calculus or hydroureteronephrosis. There is atherosclerotic calcification of the abdominal aorta but no abdominal aortic aneurysm. No in traperitoneal or retroperitoneal or pelvic mass lesion or adenopathy or ascites. Status post hysterectomy. The urinary bladder is unremarkable. There is minimal diverticulosis of the colon; no CT evidence of diverticulitis. There is a prominent amount of fecal material in the transverse and right colon. The appendix measures up to 10.7 mm diameter. There is thickening of the wall of the appendix, minima l periappendiceal fat stranding. There is some opaque material within the appendiceal lumen, possibly appendicolith. The appendix is directed cephalad, situated beneath the right hepatic lobe. Small fat containing umbilical hernia. Included skeletal structures are unremarkable other than some prominent degenerative change at the ap ophyseal joints at the lumbosacral area. IMPRESSION: The appendix measures up to 10.7 mm diameter, with wall thickening, minimal periappendic eal fat stranding, suggestive of appendicitis. Clinical correlation is advised. Minimal diverticulosis of the colon 2.5 mm nonobstructing lower pole right renal calculus Bilateral renal cysts Dr. Watson contacted Dr. France's exchange at [phone] on 01/14/2021 at 1910 hours. Reviewed, dictated and finalized at [facility]. Reviewed, dictated and finalized at location A. shortness of breath for 3 weeks IMPRESSION: The appendix measures up to 10.7 mm diameter, with wall thickening , minimal periappendiceal fat stranding, suggestive of appendicitis. Clinical c orrelation is advised. Minimal diverticulosis of the colon 2.5 mm nonobstructing lower pole right renal calculus Bilateral renal cysts Dr. Watson contacted Dr. France's exchange at [phone] on 01/14/2021 at 191 0 hours.
== END 2021-01-14 17:28 | disposition home or self-care (01) ==
LOC: ANHIMG 17:28
PROVIDERS: PCP Internal Medicine; Visit Provider Family Medicine
DX: K52.9 Noninfective gastroenteritis and colitis, unspecified (principal); K57.30 Diverticulosis of large intestine without perforation or abscess without bleeding; N20.0 Calculus of kidney; N28.1 Cyst of kidney, acquired
CPT/HCPCS: 74177; Q9967

== ENCOUNTER 2021-06-09 18:40 | Emergency (ER) | payer OTHER, SELFPAY ==
--- NOTE | ~2021-06-09 | XR_ITS ---
EXAMINATION: XR wrist LT min 3V DATE: 06/09/2021 19:00 INDICATION: Left wrist pain. TECHNIQUE: 4 views of left wrist were obtained. COMPARISON: None. FINDINGS: Bone alignment is normal. No fracture. There is mild osteoarthritis of triscaphe joint and second metacarpophalangeal joint. IMPRESSION: 1. Mild polyarticular osteoarthritis. Reviewed, dictated and finalized at location A. ERY WORKER
[2021-06-09 18:47] VITALS: BP 154/92; PULSE 120; RESP 20; TEMP 36.8; O2SAT 100
--- NOTE | 2021-06-09 18:48 | ED.UPPEXIN ---
HPI - Extremity Injury (Upper) General Chief Complaint: Extremity Injury, Upper Stated Complaint: injury to left hand/numbness Time Seen by Provider: 06/09/21 18:49 Source: patient and RN notes reviewed History of Present Illness HPI narrative: Patient is a 56-year-old female who presents the urgent care with complaints of left hand swelling, bruising, pain. Patient states that she was helping her friend who works at [employer], get down a metal container. Patient states she is not an employee at [employer]. States that the metal container fell and smashed her left hand/wrist into the wall. Patient has not done anything for pain prior to arrival. States that the incident happened approximately 25 minutes ago. No other acute complaints. Patient is visibly upset and in pain otherwise no acute distress noted. Patient aware of the plan of care. Some parts of this dictation were generated by voice recognition software and may contain typographical and/or grammatical inaccuracies. Related Data Home Medications Medication Instructions Recorded Confirmed multivitamin 1 tablet PO DAILY 06/29/19 11/06/20 albuterol sulfate 1.25 mg INHALATION DIRECTED PRN 11/05/19 11/06/20 omega-3 fatty acids 1,000 mg 1,000 mg PO DAILY 07/24/20 11/06/20 capsule Allergies Allergy/AdvReac Type Severity Reaction Status Date / Time No Known Allergies Allergy Verified 11/06/20 09:35 Review of Systems Review of Systems: CONSTITUTIONAL: Denies fever, chills, or sweats. EYES: Denies visual changes, redness, or discharge. ENT: Denies rhinorrhea, congestion, sore throat, or otalgia. CARDIOVASCULAR: Denies chest pain, palpitations, or edema. RESPIRATORY: Denies cough or dyspnea. GASTROINTESTINAL: Denies abdominal pain, nausea, vomiting, or diarrhea. GENITOURINARY: Denies dysuria or hematuria. SKIN: Abrasion to the left hand and left wrist MUSCULOSKELETAL: Reports of left hand and wrist pain and swelling NEUROLOGIC: Denies headache, numbness, or weakness. All other systems reviewed are negative, except as documented in HPI. [facility] Past Medical History Medical History Asthma Back pain Biceps tendonitis Cough Essential (primary) hypertension Fibromyalgia Gastro-esophageal reflux disease with esophagitis Hypercholesterolemia IBS (irritable bowel syndrome) Mixed hyperlipidemia Obesity Otalgia of both ears Otalgia of left ear Pharyngitis Rotator cuff tear Rotator cuff tendinitis SLAP lesion of right shoulder Tobacco abuse quit 2016 Surgical History Surgical History H/O dilation and curettage H/O: hysterectomy History of carpal tunnel release of both wrists History of section History of right knee surgery related to fracture Status post shoulder surgery Family History Family History Sibling Patient's brother is in good health Family history of malignant neoplasm Father Family history of alcoholism Mother Family history of malignant neoplasm of breast in first degree relative Other Family history of arthritis Hypertension Social History Social History Smoking packs per day: 1 Smoking cigarettes per day: 20.0 Years smoked: 41 Smoking pack-years: 41.00 Tobacco type: cigarettes Second hand tobacco smoke exposure: Yes Smoking end date: 05/23/15 Alcohol intake: never Gender identity (if verbalized by the patient): Female Comments At the time of my signature, I reviewed and agree with the nursing past medical, surgical, social, and family history. There is no relevant family history pertinent to the patient complaint. Exam Narrative: GENERAL: This is a well-nourished, well-developed patient, in no apparent distress. HEAD: normocephalic, atraumatic. EYES: PERRL. Sclera clear/white. Vision is
== END 2021-06-09 19:28 | disposition home or self-care (01) ==
PROVIDERS: Emergency Provider Nurse Practitioner Family; PCP Family Medicine
DX: S60.212A Contusion of left wrist, initial encounter (principal); S60.222A Contusion of left hand, initial encounter; X58.XXXA Exposure to other specified factors, initial encounter; J45.909 Unspecified asthma, uncomplicated; I10 Essential (primary) hypertension; K21.00 Gastro-esophageal reflux disease with esophagitis, without bleeding; E78.00 Pure hypercholesterolemia, unspecified; E78.2 Mixed hyperlipidemia; Z87.891 Personal history of nicotine dependence
CPT/HCPCS: 73110; 99213; G0463

== ENCOUNTER 2021-09-19 08:21 | Emergency (ER) | payer OTHER, SELFPAY ==
[2021-09-19 08:25] VITALS: BP 149/84; PULSE 114; RESP 22; TEMP 36.6; O2SAT 100
--- NOTE | 2021-09-19 08:26 | ED.URI ---
HPI - URI/Sore Throat General Chief Complaint: Upper Respiratory Infection Stated Complaint: nausea headache body ache sore throat Time Seen by Provider: 09/19/21 08:27 Source: patient and RN notes reviewed History of Present Illness HPI Narrative: Patient is a 56-year-old female who presents the urgent care with complaints of nausea, headache, body aches and sore throat. Patient states her symptoms started yesterday. Denies of any vomiting or abdominal pain. Denies of any known exposures to COVID or influenza. Patient states that she was forced to stay at work all day yesterday and seems like it has gotten worse. Patient has been taking DayQuil and NyQuil. No other acute complaints. No acute distress noted. Patient aware of the plan of care. Some parts of this dictation were generated by voice recognition software and may contain typographical and/or grammatical inaccuracies. Related Data Home Medications Medication Instructions Recorded Confirmed escitalopram oxalate 20 mg PO DAILY 06/09/21 09/19/21 tramadol 50 mg PO TID PRN 06/09/21 09/19/21 spironolactone 50 mg PO DAILY 09/19/21 09/19/21 Allergies Allergy/AdvReac Type Severity Reaction Status Date / Time No Known Allergies Allergy Verified 09/19/21 08:57 Review of Systems Review of Systems: CONSTITUTIONAL: Reports of chills, sweats EYES: Denies visual changes, redness, or discharge. ENT: Reports of postnasal drainage, sore throat CARDIOVASCULAR: Denies chest pain, palpitations, or edema. RESPIRATORY: Reports a mild cough without dyspnea GASTROINTESTINAL: Reports of nausea. Denies abdominal pain,vomiting, or diarrhea. GENITOURINARY: Denies dysuria or hematuria. SKIN: Denies rash or itching. MUSCULOSKELETAL: Denies back pain, joint pain. Reports body aches NEUROLOGIC: Reports of headache All other systems reviewed are negative, except as documented in HPI. [facility] Past Medical History Medical History Asthma Back pain Biceps tendonitis Cough Essential (primary) hypertension Fibromyalgia Gastro-esophageal reflux disease with esophagitis Hypercholesterolemia IBS (irritable bowel syndrome) Mixed hyperlipidemia Obesity Otalgia of both ears Otalgia of left ear Pharyngitis Rotator cuff tear Rotator cuff tendinitis SLAP lesion of right shoulder Tobacco abuse quit 2015 Surgical History Surgical History H/O dilation and curettage H/O: hysterectomy History of carpal tunnel release of both wrists History of section History of right knee surgery related to fracture Status post shoulder surgery Family History Family History Sibling Patient's brother is in good health Family history of malignant neoplasm Father Family history of alcoholism Mother Family history of malignant neoplasm of breast in first degree relative Other Family history of arthritis Hypertension Social History Social History Smoking packs per day: 1 Smoking cigarettes per day: 20.0 Years smoked: 41 Smoking pack-years: 41.00 Tobacco type: cigarettes Second hand tobacco smoke exposure: Yes Smoking end date: 05/23/15 Alcohol intake: never Gender identity (if verbalized by the patient): Female Comments At the time of my signature, I reviewed and agree with the nursing past medical, surgical, social, and family history. There is no relevant family history pertinent to the patient complaint. Exam Narrative: GENERAL: This is a well-nourished, well-developed patient. Appears fatigued HEAD: normocephalic, atraumatic. EYES: PERRL. Sclera clear/white. Vision is grossly intact. EARS: External ears normal, auditory canals clear and without drainage, TMs normal without perforation. Hearing grossly intact. NOSE: External nose normal with no obvious nasal dis
[2021-09-19] MEDS: ONDANSETRON HCL ODT 4 MG TABLET PO (08:50)
== END 2021-09-19 09:05 | disposition home or self-care (01) ==
PROVIDERS: Emergency Provider Nurse Practitioner Family; PCP Family Medicine
DX: B34.9 Viral infection, unspecified (principal); I10 Essential (primary) hypertension; F17.210 Nicotine dependence, cigarettes, uncomplicated; Z20.822 Contact with and (suspected) exposure to COVID-19
CPT/HCPCS: 87081; 87426; 87804; 87880; 99213; A9270; C9803; G0463

== ENCOUNTER 2022-02-04 09:02 | Outpatient (CLI) | payer OTHER, SELFPAY ==
--- NOTE | ~2022-02-04 | MR_ITS ---
EXAMINATION: MR shoulder RT wo con DATE: 02/04/2022 09:59 INDICATION: Right shoulder pain post injury TECHNIQUE: Magnetic resonance imaging (MRI) of the right shoulder was performed without intravenous c ontrast. Sequences included axial PD-weighted FS FSE, coronal oblique PD-weighted FS FSE, coronal obl ique T2-weighted FS FSE, sagittal PD-weighted FS FSE, and sagittal T1-weighted SE. COMPARISON: None. FINDINGS: Coracoacromial arch: The acromion undersurface is curved in morphology (type II). The coracoacromial ligament is normal. M oderate acromioclavicular osteoarthritis with subarticular edema at both sides of the joint space. Rotator cuff: Moderate to severe supraspinatus and mild infraspinatus tendinopathy without discrete tear. The teres minor tendon is normal. Mild subscapularis tendinopathy. Normal rotator cuff muscle bulk and signal. Biceps tendon, glenoid labrum and glenohumeral cartilage: Long head of the biceps tendon is normal. A couple suture anchors at the superior glenoid consistent with intact prior SLAP tear repair with no evident residual or recurrent tear. Glenohumeral cartilage is normal. Fluid: Physiologic amount of fluid in the glenohumeral joint and biceps tendon sheath. No loose osteochondr al bodies. No abnormal increased fluid signal in the subacromial/subdeltoid bursa to suggest bursitis . Bones: Aside from at the acromioclavicular joint, there is normal marrow signal with no edema, fracture or p athologic marrow replacing process. Mild cystic change at the middle facet of the greater tuberosity. IMPRESSION: 1. Moderate to severe supraspinatus tendinopathy and mild infraspinatus and subscapularis tendinopath y without discrete tear. 2. Moderate acromioclavicular osteoarthritis. 3. Intact appearing repair of the superior glenoid labrum. Reviewed, dictated and finalized at location A. IMPRESSION: 1. Moderate to severe supraspinatus tendinopathy and mild infraspinatus and sub scapularis tendinopathy without discrete tear. 2. Moderate acromioclavicular osteoarthritis. 3. Intact appearing repair of the superior glenoid labrum.
== END 2022-02-04 09:03 | disposition home or self-care (01) ==
PROVIDERS: PCP Family Medicine; Visit Provider Nurse Practitioner Family
DX: M25.519 Pain in unspecified shoulder (principal); S49.90XA Unspecified injury of shoulder and upper arm, unspecified arm, initial encounter; M75.81 Other shoulder lesions, right shoulder; M19.011 Primary osteoarthritis, right shoulder; Z98.890 Other specified postprocedural states
CPT/HCPCS: 73221

== ENCOUNTER 2022-05-11 09:58 | Emergency (ER) | payer OTHER, SELFPAY ==
[2022-05-11 10:07] VITALS: BP 109/65; PULSE 103; RESP 16; TEMP 36.5; O2SAT 100
--- NOTE | 2022-05-11 11:17 | ED.URI ---
HPI - URI/Sore Throat General Chief Complaint: Upper Respiratory Infection Stated Complaint: Ear Pain/Cough Time Seen by Provider: 05/11/22 11:26 Source: patient and RN notes reviewed Mode of arrival: ambulatory Limitations: no limitations History of Present Illness HPI Narrative: 57-year-old female presents concern for 2 day history of cough and right ear pain. Reports she started getting body aches today. She reports she has taken Robitussin without relief. Reports exposure to [place] elicited complaint: cough and sore throat Related Data Home Medications Medication Instructions Recorded Confirmed escitalopram oxalate 20 mg tablet 20 mg PO DAILY 06/09/21 05/11/22 spironolactone 50 mg tablet 50 mg PO DAILY 09/19/21 05/11/22 hydrocodone 5 mg-acetaminophen 325 1 tablet PO Q8H PRN pain 01/21/22 05/11/22 mg tablet varenicline 1 mg tablet (Chantix) 1 mg PO BID 01/21/22 05/11/22 Allergies Allergy/AdvReac Type Severity Reaction Status Date / Time No Known Allergies Allergy Verified 05/11/22 10:11 Review of Systems Review of Systems: CONSTITUTIONAL: Reports malaise. Denies chills, sweats, or fever. EYES: Denies visual changes, redness, or discharge. ENT: Reports rhinorrhea, congestion and sore throat. Reports right ear pain CARDIOVASCULAR: Denies chest pain, palpitations, or edema. RESPIRATORY: Reports cough. Denies dyspnea. GASTROINTESTINAL: Denies abdominal pain, nausea, vomiting, diarrhea SKIN: Denies rash or itching. MUSCULOSKELETAL: Reports myalgia. NEUROLOGIC: Denies headache. All systems reviewed & are unremarkable except as noted in HPI and below PMFSH Past Medical History Medical History (Updated 05/11/22 @ 11:23 by Rebekah Otero NP) Asthma Back pain Biceps tendonitis Cough Essential (primary) hypertension Fibromyalgia Gastro-esophageal reflux disease with esophagitis Hypercholesterolemia IBS (irritable bowel syndrome) Mixed hyperlipidemia Obesity Otalgia of both ears Otalgia of left ear Pharyngitis Rotator cuff injury Rotator cuff tear Rotator cuff tendinitis Shoulder injury Shoulder pain SLAP lesion of right shoulder Tobacco abuse quit 2015 Surgical History Surgical History H/O dilation and curettage H/O: hysterectomy History of carpal tunnel release of both wrists History of section History of right knee surgery related to fracture Status post shoulder surgery Family History Family History Sibling Patient's brother is in good health Family history of malignant neoplasm Father Family history of alcoholism Mother Family history of malignant neoplasm of breast in first degree relative Other Family history of arthritis Hypertension Social History Social History Smoking packs per day: 1 Smoking cigarettes per day: 20.0 Years smoked: 41 Smoking pack-years: 41.00 Smoking status: Former smoker (Pt. is on Chantix and stopped smoking on 01/15/22) Tobacco type: cigarettes Second hand tobacco smoke exposure: Yes Smoking end date: 05/23/15 Alcohol intake: never Gender identity (if verbalized by the patient): Female Comments At time of signature, agree with nursing past medical, surgical, social and family history. There is no relevant family history pertinent to the presenting complaint Exam Narrative: GENERAL: Well-appearing, well-nourished, and in no acute distress. HEAD: Normocephalic EYES: PERRLA, conjunctivae clear ENT: Nares clear, turbinates edematous and erythematous, clear discharge. Mucous membranes moist. TM pearly molina with dull light reflex bilaterally; no tragal tenderness. Oropharynx not erythematous without lesions. Tonsils not enlarged and without exudate, no drooling, no hoarseness, no trismus, uvula midline. NECK: Supple. No lymphadenopathy CHEST: Clear to auscultation, breat
== END 2022-05-11 11:33 | disposition home or self-care (01) ==
PROVIDERS: Emergency Provider Nurse Practitioner; PCP Family Medicine
DX: H66.90 Otitis media, unspecified, unspecified ear (principal); B34.9 Viral infection, unspecified; E78.2 Mixed hyperlipidemia; I10 Essential (primary) hypertension; Z87.891 Personal history of nicotine dependence; Z20.822 Contact with and (suspected) exposure to COVID-19; Z79.891 Long term (current) use of opiate analgesic
CPT/HCPCS: 87426; 99213; C9803; G0463

== ENCOUNTER 2022-09-29 09:55 | Outpatient (CLI) | payer OTHER, SELFPAY ==
--- NOTE | ~2022-09-29 | US_ITS ---
EXAMINATION:US venous doppler LE LT INDICATION:Left leg swelling TECHNIQUE: Multiple grayscale, color flow and Doppler images of the left lower extremity deep venous systems were obtained and reviewed. COMPARISON:No prior studies for comparison. FINDINGS: The common femoral, superficial femoral and popliteal veins demonstrate normal respiratory variation, augmentation and compressibility. Color flow is also seen within the posterior tibial, pe roneal, greater saphenous and profunda veins. IMPRESSION: 1: No lower extremity deep venous thrombosis. Reviewed, dictated and finalized at location B.
== END 2022-09-29 09:56 | disposition home or self-care (01) ==
PROVIDERS: PCP Family Medicine; Visit Provider Family Medicine
DX: R22.42 Localized swelling, mass and lump, left lower limb (principal)
CPT/HCPCS: 93971

== ENCOUNTER 2023-07-25 10:09 | Emergency (ER) | payer OTHER, SELFPAY ==
--- NOTE | ~2023-07-25 | XR_ITS ---
EXAMINATION: XR shoulder RT min 2V DATE: 07/25/2023 11:39 INDICATION: Right shoulder pain. Fall. TECHNIQUE: 4 views of right shoulder were obtained. COMPARISON: Right shoulder radiographs 01/21/2022 FINDINGS: Bone alignment is normal. No fracture. There is mild osteoarthritis of glenohumeral joint a nd severe osteoarthritis of acromioclavicular joint. IMPRESSION: 1. Polyarticular osteoarthritis. Reviewed, dictated and finalized at location E. Y RECORD CLERK
--- NOTE | ~2023-07-25 | CT_ITS ---
EXAMINATION: CT abdomen pelvis w con INDICATION: Epigastric pain after fall TECHNIQUE: Computed tomographic images of the abdomen and pelvis were obtained after the administrati on of 100 cc of Omnipaque 350 intravenous contrast. The dose-length product (DLP) was 1046.69 mGy-cm. Automated exposure control and iterative reconstruction technique were employed. COMPARISON: 01/14/2021 FINDINGS: Minimal dependent atelectasis is present in the lung bases. The heart size is normal. Punct ate calcifications in an otherwise normal spleen likely represent healed granulomatous disease. The l iver, pancreas, gallbladder, and adrenal glands are normal. There is mild intrahepatic and extrahepat ic biliary dilatation. There is a 2 mm nonobstructing stone of the right kidney lower pole. Cysts of the kidneys measure up to 3.2 cm on the right. There is calcified atherosclerosis of the aorta and ma ny of the other arteries. No pathologically enlarged abdominal or pelvic lymph nodes are identified. No free intraperitoneal gas or evidence of bowel obstruction. A moderate volume of colonic stool is p resent. There is midline infiltration of the subcutaneous epigastric fat. There is mild lumbar spondy losis. IMPRESSION: 1. Midline infiltration of the subcutaneous epigastric fat, consistent with history of trauma. No acu te related intra-abdominal findings. 2. Mild intrahepatic and extrahepatic biliary dilatation. Recommend correlation with liver function t ests. Consider MRCP or ERCP. Reviewed, dictated and finalized at location B. INIA LINE ATTENDANT IMPRESSION: 1. Midline infiltration of the subcutaneous epigastric fat, consistent with his tory of trauma. No acute related intra-abdominal findings. 2. Mild intrahepatic and extrahepatic biliary dilatation. Recommend correlation with liver function tests. Consider MRCP or ERCP.
[2023-07-25 10:33] VITALS: BP 175/88; PULSE 91; RESP 20; TEMP 36.4; O2SAT 96
--- NOTE | 2023-07-25 10:45 | ECG_ITS ---
Measurements Intervals [place] Rate: 96 P: 2 VT: 125 QRS: 82 QRSD: 102 T: 67 QT: 380 QTc: 481 Interpretive Statements SINUS RHYTHM BASELINE ARTIFACT- I, II, III, AVR, AVF, V4-V6 NORMAL ECG COMPARED TO ECG 11/10/2019 09:43:35 NO SIGNIFICANT CHANGES Electronically Signed On 07-25-2023 10:58:22 RADIOLOGY ORDERLY by Felton Sanders D.O.
[2023-07-25 11:13] LABS: Basophils Absolute Auto 0.1 K/mm3 (0.0-0.1); Eosinophils Absolute Auto 0.2 K/mm3 (0-0.3); Eosinophils Percent Auto 2.8 % (0-4.4); Hemoglobin 11.7 g/dL (12.0-15.0); Immature Granulocyte Absolute 0.04 K/mm3 (0.00-0.031); Immature Granulocyte Percent A 0.5 % (0-0.5); Lymphocytes Absolute Auto 2.49 K/mm3 (0.9-3.2); Lymphocytes Percent Auto 30.5 % (18.3-44.2); Mean Corpuscular HGB Conc 30.8 g/dl (32-36); Mean Corpuscular Volume 87.8 fl (80-100); Mean Platelet Volume 9.6 fl (7.4-10.4); Monocytes Absolute Auto 0.6 K/mm3 (0.1-0.6); Monocytes Percent Auto 7.8 % (2.6-8.5); Neutrophils Absolute Auto 4.7 K/mm3 (1.3-6.7); Neutrophils Percent Auto 57.4 % (45.5-73.1); Platelet Count Result 251 k/mm3 (150-375); Red Blood Count 4.33 M/mm3 (4.2-5.4); Red Cell Distribution Width 16.7 % (11.5-14.5); White Blood Count 8.2 K/mm3 (4.5-10.0)
[2023-07-25 11:24] LABS: INR 0.9; Prothrombin Time 12.6 Seconds (11.1-14.7)
--- NOTE | 2023-07-25 11:24 | PC.NURSE ---
Pt at x-ray
[2023-07-25 11:25] LABS: Alanine Aminotransferase 24 U/L (6-35); Albumin Level 4.3 g/dL (3.5-5.1); Alkaline Phosphatase 116 U/L (38-126); Anion Gap 9 mmol/L (8-16); Aspartate Amino Transferase 25 U/L (14-36); Bilirubin,Total 0.4 mg/dL (0.2-1.3); Blood Urea Nitrogen 22 mg/dL (7-17); Calcium 9.4 mg/dL (8.4-10.2); Carbon Dioxide 21 mmol/L (22-30); Chloride 108 mmol/L (98-107); Estimated Glomerular Filt Rate > 60; Glucose 93 mg/dL (65-110); Partial Thromboplastin Time 26.9 SECONDS (22.3-36.8); Potassium 3.8 mmol/L (3.4-5.0); Sodium 138 mmol/L (137-145)
[2023-07-25] MEDS: MORPHINE SULFATE (*CRX) 4 MG/ML INJ IV PUSH (11:45)
[2023-07-25 12:57] VITALS: BP 154/66; PULSE 96; RESP 16; O2SAT 100
--- NOTE | 2023-07-25 12:57 | ED.FALL ---
HPI - Fall General Chief Complaint: Fall Stated Complaint: abdominal bruising following a fall Time Seen by Provider: 07/25/23 10:45 History of Present Illness HPI Narrative: Patient is a 58-year-old female who presents ER for evaluation after 2 falls. Her last fall was 2 days ago when she just rolled out of bed on her stomach. She has bruising to her epigastric region. She denies striking her head or losing consciousness. No fevers or chills or sweats. Patient also had a fall 1 week ago where she landed on her right shoulder and has had pain and limited range of movement since then. Patient ran out of for hydrocodones at home which were helping her pain and she did not get them refilled told this morning. She thinks is why her pain is worse at this time. Related Data Home Medications Medication Instructions Recorded Confirmed escitalopram oxalate 20 mg tablet 20 mg PO DAILY 06/09/21 05/11/22 spironolactone 50 mg tablet 50 mg PO DAILY 09/19/21 05/11/22 hydrocodone 5 mg-acetaminophen 325 1 tablet PO Q8H PRN pain 01/21/22 05/11/22 mg tablet varenicline 1 mg tablet (Chantix) 1 mg PO BID 01/21/22 05/11/22 Allergies Allergy/AdvReac Type Severity Reaction Status Date / Time No Known Allergies Allergy Verified 05/11/22 10:11 Review of Systems Review of Systems: All systems reviewed & are unremarkable except as noted in HPI and below Constitutional: Constitutional: Reports no additional constitutional complaints ENT: Reports system reviewed and no additional complaints, except as documented Cardiovascular: Cardiovascular: Reports no additional cardiovascular complaints Respiratory: Respiratory: Reports no additional respiratory complaints Gastrointestinal: Gastrointestinal: Reports abdominal pain, Denies diarrhea, Denies nausea and Denies vomiting Genitourinary: Genitourinary: Reports no additional female genitourinary complaints Musculoskeletal: Musculoskeletal: Denies myalgias, Reports arthralgias and Denies joint swelling [facility] Past Medical History Medical History (Updated 07/25/23 @ 15:34 by Alen Damon MD) Asthma Back pain Biceps tendonitis Cough Essential (primary) hypertension Fibromyalgia Gastro-esophageal reflux disease with esophagitis Hypercholesterolemia IBS (irritable bowel syndrome) Mixed hyperlipidemia Obesity Otalgia of both ears Otalgia of left ear Pharyngitis Rotator cuff injury Rotator cuff tear Rotator cuff tendinitis Shoulder injury Shoulder pain SLAP lesion of right shoulder Tobacco abuse quit 2016 Surgical History Surgical History H/O dilation and curettage H/O: hysterectomy History of carpal tunnel release of both wrists History of section History of right knee surgery related to fracture Status post shoulder surgery Family History Family History Sibling Patient's brother is in good health Family history of malignant neoplasm Father Family history of alcoholism Mother Family history of malignant neoplasm of breast in first degree relative Other Family history of arthritis Hypertension Social History Social History Smoking packs per day: 1 Smoking cigarettes per day: 20.0 Years smoked: 41 Smoking pack-years: 41.00 Smoking status: Former smoker (Pt. is on Chantix and stopped smoking on 01/15/22) Tobacco type: cigarettes Second hand tobacco smoke exposure: Yes Smoking end date: 05/23/15 Alcohol intake: never Living arrangements: with family Gender identity (if verbalized by the patient): Female Exam Narrative: GENERAL: Well-appearing, well-nourished, and in no acute distress. HEAD: Normocephalic, atraumatic. EYES: PERRL and EOMI. ENT: Mucous membranes moist. NECK: Supple. CHEST: Clear to auscultation. No respiratory distress. HEART: Regular rate and rhyt
[2023-07-25 13:19] VITALS: BP 150/74; PULSE 89; RESP 20; TEMP 36.8; O2SAT 99
[2023-07-25 16:05] VITALS: BP 104/61; PULSE 88; RESP 20; TEMP 36.6; O2SAT 100
== END 2023-07-25 16:06 | disposition home or self-care (01) ==
PROVIDERS: Emergency Provider Emergency Medicine; PCP Family Medicine
DX: S30.1XXA Contusion of abdominal wall, initial encounter (principal); M19.011 Primary osteoarthritis, right shoulder; J45.909 Unspecified asthma, uncomplicated; I10 Essential (primary) hypertension; E78.00 Pure hypercholesterolemia, unspecified; E66.9 Obesity, unspecified; Z68.33 Body mass index [BMI] 33.0-33.9, adult; K21.00 Gastro-esophageal reflux disease with esophagitis, without bleeding; K58.9 Irritable bowel syndrome, unspecified; M79.7 Fibromyalgia; Z87.891 Personal history of nicotine dependence; Z90.710 Acquired absence of both cervix and uterus; Z79.82 Long term (current) use of aspirin; R93.2 Abnormal findings on diagnostic imaging of liver and biliary tract; W06.XXXA Fall from bed, initial encounter
CPT/HCPCS: 36415; 73030; 74177; 80053; 85025; 85610; 85730; 93005; 96374; 99284; J2270; Q9967

== ENCOUNTER 2023-11-12 11:21 | Emergency (ER) | payer OTHER, SELFPAY ==
--- NOTE | ~2023-11-12 | XR_ITS ---
XR foot LT min 3V DATE: 11/12/2023 12:17 INDICATION: Dropped onto, distal foot and toes. Bruising, pain TECHNIQUE: 4 views COMPARISON: None FINDINGS: There is a linear oblique mildly laterally displaced fracture of the proximal shaft of the proximal phalanx of the third digit. No other fracture or dislocation. No periosteal reaction or bone destruction. IMPRESSION: Shaft fracture of proximal phalanx of the third digit Reviewed, dictated and finalized at location A.
[2023-11-12 11:29] VITALS: BP 158/70; PULSE 87; RESP 20; TEMP 36.5; O2SAT 100
--- NOTE | 2023-11-12 12:15 | ED.LOWEXIN ---
HPI - Extremity Injury (Lower) General Chief Complaint: Extremity Injury, Lower Stated Complaint: Left Foot Injury Time Seen by Provider: 11/12/23 12:15 Source: patient, RN notes reviewed and old records reviewed Mode of arrival: ambulatory Limitations: no limitations History of Present Illness HPI Narrative: 58-year-old female to [facility] for left foot pain since yesterday. Patient reports that last night she dropped her from metal cup from waist height onto her left dorsal foot/ toes. Patient states it was full, with ice, and was really heavy. Patient has attempted to treat at home with Tylenol without relief. Patient endorses numbness to 2nd and 3rd toe. Patient denies ankle pain or pain radiating to the leg. Patient states she has been ambulating on left heel to prevent additional pain. Patient hypertensive in triage. Patient very anxious regarding pain. Respirations even and nonlabored. Patient in no acute distress Related Data Home Medications Medication Instructions Recorded Confirmed spironolactone 50 mg tablet 50 mg PO DAILY 09/19/21 11/12/23 hydrocodone 5 mg-acetaminophen 325 1 tablet PO Q8H PRN pain 01/21/22 11/12/23 mg tablet levetiracetam 500 mg tablet 500 mg PO BID 11/12/23 11/12/23 montelukast 10 mg tablet 10 mg PO DAILY 11/12/23 11/12/23 pantoprazole 40 mg tablet,delayed mg PO 11/12/23 release phentermine 37.5 mg tablet 37.5 mg PO DAILY 11/12/23 11/12/23 pregabalin 100 mg capsule 100 mg PO TID 11/12/23 11/12/23 Allergies Allergy/AdvReac Type Severity Reaction Status Date / Time No Known Allergies Allergy Verified 05/11/22 10:11 Review of Systems Review of Systems: All systems reviewed & are unremarkable except as noted in HPI and below Constitutional: Constitutional: Reports no additional constitutional complaints Eyes: Eyes: Reports no additional eye complaints ENT: Reports system reviewed and no additional complaints, except as documented Cardiovascular: Cardiovascular: Reports no additional cardiovascular complaints, Denies chest pain and Denies dyspnea Respiratory: Respiratory: Reports no additional respiratory complaints, Denies cough and Denies dyspnea Musculoskeletal: Musculoskeletal: Reports as per HPI (left dorsal foot pain and pain in all toes per pt), Denies deformity, Reports limited range of motion ( all digits left foot) and Reports numbness ( 2nd and 3rd toe of left foot) Neurologic: Reports system reviewed and no additional complaints, except as documented Psychiatric: Psychiatric: Reports no additional psychiatric complaints [facility] Past Medical History Medical History Asthma Back pain Biceps tendonitis Cough Essential (primary) hypertension Fibromyalgia Gastro-esophageal reflux disease with esophagitis Hypercholesterolemia IBS (irritable bowel syndrome) Mixed hyperlipidemia Obesity Otalgia of both ears Otalgia of left ear Pharyngitis Rotator cuff injury Rotator cuff tear Rotator cuff tendinitis Shoulder injury Shoulder pain SLAP lesion of right shoulder Tobacco abuse quit 2015 Surgical History Surgical History H/O dilation and curettage H/O: hysterectomy History of carpal tunnel release of both wrists History of section History of right knee surgery related to fracture Status post shoulder surgery Family History Family History Sibling Patient's brother is in good health Family history of malignant neoplasm Father Family history of alcoholism Mother Family history of malignant neoplasm of breast in first degree relative Other Family history of arthritis Hypertension Social History Social History Smoking packs per day: 1 Smoking cigarettes per day: 20.0 Years smoked: 41 Smoking p
== END 2023-11-12 13:08 | disposition home or self-care (01) ==
PROVIDERS: Emergency Provider Nurse Practitioner Family; PCP Physician Assistant
DX: S92.512A Displaced fracture of proximal phalanx of left lesser toe(s), initial encounter for closed fracture (principal); W20.8XXA Other cause of strike by thrown, projected or falling object, initial encounter; Z87.891 Personal history of nicotine dependence; J45.909 Unspecified asthma, uncomplicated; I10 Essential (primary) hypertension; M79.7 Fibromyalgia; K21.00 Gastro-esophageal reflux disease with esophagitis, without bleeding; E78.00 Pure hypercholesterolemia, unspecified; E78.2 Mixed hyperlipidemia; E66.9 Obesity, unspecified; Z68.30 Body mass index [BMI] 30.0-30.9, adult
CPT/HCPCS: 73630; 99214; G0463

== ENCOUNTER 2023-12-09 23:15 | Emergency (ER) | payer OTHER, SELFPAY ==
[2023-12-09 23:16] VITALS: BP 159/74; PULSE 82; RESP 20; TEMP 36.6; O2SAT 100
[2023-12-09 23:18] VITALS: PULSE 82; RESP 17; O2SAT 100
[2023-12-09 23:19] VITALS: BP 159/74; PULSE 82; RESP 19; O2SAT 100
[2023-12-09 23:21] VITALS: PULSE 83
--- NOTE | 2023-12-09 23:21 | ECG_ITS ---
Test Date: 2023-12-09 23:25:35 Measurements Intervals [place] Rate: 77 P: 34 GA: 128 QRS: 78 QRSD: 90 T: 68 QT: 396 QTc: 451 Interpretive Statements SINUS RHYTHM BORDERLINE ST-T WAVE ABNORMALITY- LAT/HIGH LAT LEADS BORDERLINE ECG No previous ECG available for comparison Electronically Signed On 12-10-2023 08:50:09 CDT by Felton Sanders D.O.
[2023-12-09 23:30] VITALS: PULSE 83; RESP 14; O2SAT 99
[2023-12-09 23:31] VITALS: BP 151/79; PULSE 79; RESP 14; O2SAT 100
[2023-12-10] VITALS (21 sets, daily range): BP systolic 100–151; BP diastolic 40–80; PULSE 66–87; RESP 12–17; O2SAT 90–100
[2023-12-10 00:11] LABS: Basophils Absolute Auto 0.1 K/mm3 (0.0-0.1); Basophils Percent Auto 0.8 % (0.2-1.2); Eosinophils Absolute Auto 0.2 K/mm3 (0-0.3); Eosinophils Percent Auto 2.8 % (0-4.4); Hematocrit 35.9 % (37.0-47.0); Hemoglobin 11.5 g/dL (12.0-15.0); Immature Granulocyte Absolute 0.02 K/mm3 (0.00-0.031); Immature Granulocyte Percent A 0.3 % (0-0.5); Lymphocytes Percent Auto 26.6 % (18.3-44.2); Mean Corpuscular Hemoglobin 27.4 pg (26-34); Mean Corpuscular Volume 85.7 fl (80-100); Mean Platelet Volume 10.3 fl (7.4-10.4); Monocytes Absolute Auto 0.7 K/mm3 (0.1-0.6); Monocytes Percent Auto 11.6 % (2.6-8.5); Neutrophils Absolute Auto 3.7 K/mm3 (1.3-6.7); Neutrophils Percent Auto 57.9 % (45.5-73.1); Platelet Count Result 179 k/mm3 (150-375); Red Blood Count 4.19 M/mm3 (4.2-5.4); Red Cell Distribution Width 14.8 % (11.5-14.5); White Blood Count 6.4 K/mm3 (4.5-10.0)
[2023-12-10 00:23] LABS: Alanine Aminotransferase 14 U/L (6-35); Albumin Level 4.2 g/dL (3.5-5.1); Alkaline Phosphatase 103 U/L (38-126); Anion Gap 14 mmol/L (4-12); Aspartate Amino Transferase 20 U/L (14-36); Bilirubin,Total 0.4 mg/dL (0.2-1.3); Blood Urea Nitrogen 21 mg/dL (7-17); Calcium 9.7 mg/dL (8.4-10.2); Carbon Dioxide 20 mmol/L (22-30); Chloride 105 mmol/L (98-107); Estimated Glomerular Filt Rate 35; Glucose 103 mg/dL (65-110); Potassium 3.3 mmol/L (3.4-5.0); Sodium 139 mmol/L (137-145)
[2023-12-10 00:36] LABS: INR 1.1; Prothrombin Time 15.1 Seconds (11.1-14.7)
[2023-12-10 00:37] LABS: Partial Thromboplastin Time 33.9 Seconds (22.3-36.8)
[2023-12-10] MEDS: ONDANSETRON INJ 4 MG/2 ML VIAL IV PUSH (01:23)
[2023-12-10] MEDS: SODIUM CHLORIDE 0.9% IV 1,000 ML 999 ML IV CONT (01:23)
--- NOTE | 2023-12-10 01:41 | ED.GENADULT ---
HPI - General Adult General Chief complaint: Unspecified Stated complaint: Dizziness / Fluctuating B/P Time Seen by Provider: 12/10/23 00:21 History of Present Illness HPI narrative: This is a 58-year-old female presenting for high blood pressure. The patient had an episode of low blood pressure unknown reasons on September 22 of this year. Since then she has been keeping very close track of her blood pressure. Today she had an episode of vomiting in morning had some dry heaves later in the day. When she took her blood pressure when she was nauseous and vomiting was elevated in the 180s. She then came to the hospital for evaluation. At this time the patient is asymptomatic. She denies fevers chills chest pain difficulty breathing or abdominal pain. She denies having low blood pressure readings today. Related Data Home Medications Medication Instructions Recorded Confirmed spironolactone 50 mg tablet 50 mg PO DAILY 09/19/21 11/12/23 hydrocodone 5 mg-acetaminophen 325 1 tablet PO Q8H PRN pain 01/21/22 11/12/23 mg tablet levetiracetam 500 mg tablet 500 mg PO BID 11/12/23 11/12/23 montelukast 10 mg tablet 10 mg PO DAILY 11/12/23 11/12/23 pantoprazole 40 mg tablet,delayed mg PO 11/12/23 release phentermine 37.5 mg tablet 37.5 mg PO DAILY 11/12/23 11/12/23 pregabalin 100 mg capsule 100 mg PO TID 11/12/23 11/12/23 duloxetine 60 mg capsule,delayed mg PO 12/09/23 release esomeprazole magnesium 20 mg 20 mg PO DAILY 12/09/23 12/09/23 capsule,delayed release ibuprofen 800 mg tablet mg 12/09/23 varenicline 1 mg tablet mg 12/09/23 Allergies Allergy/AdvReac Type Severity Reaction Status Date / Time No Known Allergies Allergy Verified 12/09/23 23:22 [facility] Past Medical History Medical History Asthma Back pain Biceps tendonitis Cough Essential (primary) hypertension Fibromyalgia Gastro-esophageal reflux disease with esophagitis Hypercholesterolemia IBS (irritable bowel syndrome) Mixed hyperlipidemia Obesity Otalgia of both ears Otalgia of left ear Pharyngitis Rotator cuff injury Rotator cuff tear Rotator cuff tendinitis Shoulder injury Shoulder pain SLAP lesion of right shoulder Tobacco abuse quit 2016 Surgical History Surgical History H/O dilation and curettage H/O: hysterectomy History of carpal tunnel release of both wrists History of section History of right knee surgery related to fracture Status post shoulder surgery Family History Family History Sibling Patient's brother is in good health Family history of malignant neoplasm Father Family history of alcoholism Mother Family history of malignant neoplasm of breast in first degree relative Other Family history of arthritis Hypertension Social History Social History Smoking packs per day: 1 Smoking cigarettes per day: 20.0 Years smoked: 41 Smoking pack-years: 41.00 Smoking status: Former smoker (Pt. is on Chantix and stopped smoking on 01/15/22) Tobacco type: cigarettes Second hand tobacco smoke exposure: Yes Smoking end date: 05/23/15 Alcohol intake: never Living arrangements: with family Gender identity (if verbalized by the patient): Female Exam Narrative: APPEARANCE: No apparent distress. Head: atraumatic. EYES: EOMI, NOSE: Atraumatic NECK: Trachea midline RESPIRATORY: No increased rate of breathing, clear to auscultation CARDIOVASCULAR: RRR, no peripheral edema ABDOMINAL: Non-distended soft nontender no guarding rebound MUSCULOSKELETAl: No obvious deformities NEURO: Alert. Moving 4/4 extremities SKIN:: Warm, dry. Normal color PSYCHIATRIC: Normal affect Course Vital Signs Vital signs: Vital Signs Temperature 97.8 F 12/09/23 23:16 Pulse Rate 82 12/09/23 2
[2023-12-10] MEDS: POTASSIUM CHLORIDE 20 MEQ PACKET (FOR LIQUID) 40 MEQ PO (02:04)
[2023-12-10 03:39] LABS: Appearance Urine Clear (Clear); Bacteria Urine None Seen /hpf; Bilirubin Urine Negative (Negative); Blood Urine Negative (Negative); Color Urine Yellow (Yellow); Glucose Urine UA Negative (Negative); Hyaline Casts Urine Present /lpf; Ketones Urine Trace mg/dL (Negative); Leukocyte Esterase Ur Trace LEU/UL (Negative); Need Manual Microscopic Reviewed; Nitrate Urine Negative (Negative); Non Pathogenic Casts >20; Protein Urine Negative (Negative); RBC Urine 0-2 /hpf (0-2); Specific Grav Ur 1.015 (1.001-1.035); Squamous Epithelial Cell Urine Occasional /hpf (Few); Urobilinogen Urine 0.2 mg/dL (<2.0); WBC Urine 0-5 /hpf (0-3); pH Urine 5.5 (5.0-9.0)
[2023-12-10 03:40] LABS: Add Urine Microscopic? YES
== END 2023-12-10 05:06 | disposition home or self-care (01) ==
PROVIDERS: Physician Assistant; Emergency Provider Emergency Medicine; PCP Physician Assistant
DX: R11.2 Nausea with vomiting, unspecified (principal); I10 Essential (primary) hypertension; J45.909 Unspecified asthma, uncomplicated; E78.2 Mixed hyperlipidemia; E66.9 Obesity, unspecified; K21.00 Gastro-esophageal reflux disease with esophagitis, without bleeding; K58.9 Irritable bowel syndrome, unspecified; Z87.891 Personal history of nicotine dependence; Z90.710 Acquired absence of both cervix and uterus; R94.31 Abnormal electrocardiogram [ECG] [EKG]; Z79.82 Long term (current) use of aspirin; Z79.899 Other long term (current) drug therapy
CPT/HCPCS: 36415; 80053; 81001; 85025; 85610; 85730; 93005; 96361; 96374; 99284; A9270; J2405; J7030

== ENCOUNTER 2024-05-03 18:03 | Observation (INO) | payer MEDICAID, SELFPAY ==
--- NOTE | ~2024-05-03 | XR_ITS ---
EXAMINATION: XR chest 1V portable DATE: 05/03/2024 18:38 INDICATION: Chest pain. TECHNIQUE: A single frontal view of the chest was obtained. COMPARISON: Chest 2 views 04/28/19, CT abdomen and pelvis 07/25/2023 FINDINGS: There is no pneumonia, pleural effusion, or pneumothorax. The heart size is normal. IMPRESSION: 1. No acute cardiopulmonary disease. Reviewed, dictated and finalized at location A. [employer]
--- NOTE | 2024-05-03 09:05 | ECG_ITS ---
Test Date: 2024-05-03 21:07:46 Measurements Intervals [place] Rate: 84 P: 40 MN: 104 QRS: 83 QRSD: 98 T: 65 QT: 421 QTc: 499 Interpretive Statements SINUS RHYTHM WITH SHORT MN INTERVAL Compared to ECG 05/03/2024 17:59:03 No significant changes Electronically Signed On 05-04-2024 18:34:51 COPY SUPERVISOR by Abraham Marsh M.D.
[2024-05-03 17:55] VITALS: PULSE 98; RESP 20; TEMP 36.7; O2SAT 100
--- NOTE | 2024-05-03 18:03 | ECG_ITS ---
Test Date: 2024-05-03 17:59:03 Measurements Intervals [place] Rate: 92 P: 48 MA: 119 QRS: 81 QRSD: 98 T: 73 QT: 393 QTc: 487 Interpretive Statements SINUS RHYTHM WITH SHORT MA INTERVAL Compared to ECG 12/09/2023 23:25:35 no changes Electronically Signed On 05-04-2024 18:32:42 [facility] by Abraham Marsh M.D.
[2024-05-03 18:05] VITALS: PULSE 92
[2024-05-03 18:06] VITALS: O2SAT 100
[2024-05-03 18:20] LABS: Basophils Absolute Auto 0.1 K/mm3 (0.0-0.1); Basophils Percent Auto 1.2 % (0.2-1.2); Eosinophils Absolute Auto 0.2 K/mm3 (0-0.3); Eosinophils Percent Auto 2.6 % (0-4.4); Hematocrit 35.8 % (37.0-47.0); Hemoglobin 11.4 g/dL (12.0-15.0); Immature Granulocyte Absolute 0.01 K/mm3 (0.00-0.031); Immature Granulocyte Percent A 0.2 % (0-0.5); Lymphocytes Percent Auto 36.7 % (18.3-44.2); Mean Corpuscular HGB Conc 31.8 g/dl (32-36); Mean Corpuscular Hemoglobin 27.6 pg (26-34); Mean Corpuscular Volume 86.7 fl (80-100); Mean Platelet Volume 9.7 fl (7.4-10.4); Monocytes Absolute Auto 0.5 K/mm3 (0.1-0.6); Monocytes Percent Auto 9.3 % (2.6-8.5); Neutrophils Absolute Auto 2.9 K/mm3 (1.3-6.7); Platelet Count Result 228 k/mm3 (150-375); Red Blood Count 4.13 M/mm3 (4.2-5.4); Red Cell Distribution Width 15.9 % (11.5-14.5); White Blood Count 5.7 K/mm3 (4.5-10.0)
[2024-05-03 18:26] LABS: Alanine Aminotransferase 11 U/L (6-35); Albumin Level 3.8 g/dL (3.5-5.1); Alkaline Phosphatase 102 U/L (38-126); Anion Gap 6 mmol/L (4-12); Aspartate Amino Transferase 15 U/L (14-36); Bilirubin,Total 0.3 mg/dL (0.2-1.3); Blood Urea Nitrogen 13 mg/dL (7-17); Carbon Dioxide 18 mmol/L (22-30); Chloride 117 mmol/L (98-107); Estimated Glomerular Filt Rate > 60; Glucose 94 mg/dL (65-110); Lipase 317 U/L (23-300); Sodium 141 mmol/L (137-145)
[2024-05-03 18:32] LABS: INR 1.1; Partial Thromboplastin Time 27.6 Seconds (22.3-36.8)
[2024-05-03 18:41] LABS: Troponin I 0.039 ng/mL (0.000-0.034)
[2024-05-03 19:37] VITALS: BP 109/95; PULSE 99; RESP 16; O2SAT 98
--- NOTE | 2024-05-03 19:51 | ED_ITS ---
HPI - Chest Pain General Chief Complaint: Chest Pain Stated Complaint: multiple complaints Time Seen by Provider: 05/03/24 18:30 Source: patient, EMS and RN notes reviewed Mode of arrival: EMS Limitations: no limitations History of Present Illness HPI narrative: Patient presents after report of a seizure versus pseudo-seizure. She has a history of this and family was with her witnessed 60-90 seconds of seizure-like activity after which she was reportedly postictal by EMS; family thought it looked like her normal seizure semiology. She states she continues to be tired, exhausted and drained which is common for her after having a seizure. Her neurologist is Dr. Rios through [facility] in [place]. She takes Keppra daily. When EMS arrived she was complaining of intermittent chest pain. She states this has happened before. It had resolved at the time of presentation to the emergency department she does state it comes and goes. She has been nauseated and vomiting and has Zofran at home for this. She has a prescription for acetaminophen p.r.n. and she occasionally takes this when her headaches are bad but she also was alternating this with [id number] Tylenol in between. Her eyes have been dry, burning and itchy which she attributed to allergies. No vision changes/blurred vision/diplopia. No trauma. Not on anticoagulation. No fever. She does have neck pain but she believes secondary to known stenosis since this is chronic. Has photophobia and phonophobia. No eye pain. Her chest pain has been occurring intermittently. Denies any cardiac history other than having paroxysmal afib while having covid in 2019, no afib since to her knowledge. Also history of a murmur since having rheumatic fever earlier. EMS administered an additional 3 tablets 81mg asa since she took 81mg this AM. She gets SOB with her CP. Had become diaphoretic during. Patient previously saw Dr. Allen Kaplan as her PCP. After they , she saw someone else briefly who helped manage her medical conditions but she is due to establish with Dr Watson coming up. In regarsds to cardiac history, previously told HTN but now hypotension after losing weight. History of hyperlipidemia. No CT/TIA/CVA. Has been cutting down on smoking, still smokes but less so while on Chantix for the past 3 months. Related Data Home Medications ?Medication ?Instructions ?Recorded ?Confirmed ?Last Taken ?Type hydrocodone 5 mg-acetaminophen 325 1 tablet PO Q8H PRN pain 01/21/22 05/04/24 Unknown History mg tablet montelukast 10 mg tablet 10 mg PO DAILY 11/12/23 05/04/24 05/04/24 History pantoprazole 40 mg tablet,delayed 40 mg PO DAILY 11/12/23 05/04/24 05/03/24 History release pregabalin 100 mg capsule 100 mg PO TID 11/12/23 05/04/24 Unknown History duloxetine 60 mg capsule,delayed 60 mg PO DAILY 12/09/23 05/04/24 05/04/24 History release esomeprazole magnesium 20 mg 20 mg PO DAILY 12/09/23 05/04/24 05/04/24 History capsule,delayed release Allergies Allergy/AdvReac Type Severity Reaction Status Date / Time No Known Allergies Allergy Verified 12/09/23 23:22 [facility] Past Medical History Medical History (Updated 05/03/24 @ 21:38 by Iram Diaz MD) Paroxysmal A-fib in 2019 when had COVID Rotator cuff injury Shoulder pain Shoulder injury Biceps tendonitis Rotator cuff tendinitis Rotator cuff tear Cough Obesity Tobacco abuse quit 2015 Back pain IBS (irritable bowel syndrome) Asthma Hypercholesterolemia SLAP lesion of right shoulder Pharyngitis Otalgia of left ear Otalgia of both ears Essential (primary) hypertension Fibromyalgia Gastro-esophageal reflux disease with esophagitis Mixed hyperlipidemia Surgical History Surgical History History of right knee surgery related to fracture H/O dilation and curettage History of carpal tunnel release of both wrists History of section H/O: hysterectomy Status post shoulder surgery Family History Family History Sibling Patient's brother is in good health Family history of malignant neoplasm Father Family history of alcoholism Mother Family history of malignant neoplasm of breast in first degree relative Other Family history of arthritis Hypertension Social History Social History Smoking packs per day: 1 Smoking cigarettes per day: 20.0 Years smoked: 49 Smoking pack-years: 49.00 Smoking status: Current every day smoker Tobacco type: cigarettes Second hand tobacco smoke exposure: Yes Smoking end date: 05/23/15 Additional smoking assessment comments: on chantex Alcohol intake: never Substance use: never Do You Feel Safe in your Home?: Yes Lack of Transportation: No Lack of Food: Never True Current Housing: I Have Housing Concerned About Future Housing: No Difficulty Paying Gas/Electric Bills: No Difficulty Paying for Meds: YES Currently Unemployed: No Education: High School Diploma/GED Difficulty w/ Childcare or Family Care: No Living arrangements: with family Gender identity (if verbalized by the patient): Female Spiritual care concerns: No Exam 2 Narrative: GENERAL: Well-appearing, well-nourished, and in no acute distress. HEAD: Normocephalic, atraumatic. EYES: Non injected, non icteric. PERRL. ENT: Nares clear, no rhinorrhea or epistaxis. NECK: Supple. Patient states history of stenosis but is able to demonstrate significant ROM. Not held in fixed position. CHEST: Speaking in full sentences. No respiratory distress. HEART: Regular rate and rhythm. . ABDOMEN: Soft, nondistended. EXTREMITIES: Normal range of motion. No lower extremity edema. SKIN: Warm, dry, no rash. NEURO: No focal deficits. Alert and oriented x3. No sensory deficits throughout. Speaks clearly without aphasia or dysarthria. No abnormal movements appreciated. PSYCH: Normal mood and affect. Course Vital Signs Vital signs: Vital Signs Temperature 98.0 F 05/03/24 17:55 Pulse Rate 98 05/03/24 17:55 Respiratory Rate 20 05/03/24 17:55 Pulse Oximetry 100 05/03/24 17:55 Oxygen Delivery Room Air 05/03/24 17:55 Temperature 97.5 F L 05/04/24 12:00 Pulse Rate 96 05/04/24 16:00 Respiratory Rate 20 05/04/24 12:00 Blood Pressure 121/62 05/04/24 12:00 Pulse Oximetry 99 05/04/24 16:00 Oxygen Delivery Room Air 05/04/24 16:00 MDM - Chest Pain MDM Narrative Medical decision making narrative: Patient presents after seizure versus pseudoseizure by report. 60-90 seconds of seizure like activity was witnessed after which patient was reportedly postictal. On Keppra. Patient was complaining of a post-seizure headache but also intermittent chest pain. In the emergency department she is afebrile with vital signs notable for elevation in diastolic blood pressure. HEART SCORE History 2 highly suspicious 1 moderately suspicious 0 slightly suspicious History score [address] depression/elevation not due to LBBB, LVH, or digoxin [address] depression but LBBB, LVH, nonspecific repolarization changes 0 normal ECG score 0 Age 2 >/= 65 1 45-64 0 <45 Age score 1 Risk factors (HTN, hypercholesterolemia, DM, obesity with BMI >30, current smoker or cessation </=3mo), positive fam hx with parent or sibling with CVD before age 65, atherosclerotic disease (prior CT, PCI/CABG, CVA/TIA, or peripheral arterial disease) 2 >/= 3 risk factors or history of atherosclerotic dz 1 - 1-2 risk factors 0 no known risk factors Risk factor score 2 (HLD, borderline obesity, smoking history, family history) Initial Troponin 2 >3 times normal limit 1 1-3 times normal limit 0 less than or equal to normal limit Troponin score 1 Total HEART Score 4 with a positive troponin. Patient takes a daily 81 mg of aspirin and EMS had already administered 3 additional tablets. After obtaining the patient's history and performing a physical exam, the headache is most likely due to benign etiology. The neurological examination is non-focal, there are no high-risk features on history, vital signs are stable, and the patient is non-toxic appearing. The Ddx for the patient's headache is tension headache, migraine, or other headache of non-emergent etiology. Unlikely SAH: headache is non-thunderclap. Headache is gradual, non-maximal at onset and similar to headaches in the past. Unlikely subdural/epidural hematoma: no history of trauma, no anticoagulation Unlikely meningitis: afebrile, no meningismus, mild photophobia Unlikely temporal arteritis: No vision changes. Unlikely acute angle glaucoma: PERRL, no eye pain Unlikely carbon monoxide poisoning: no other house members with similar symptoms The patient's headache was treated symptomatically with ketorolac, benadryl compazine. On reassessment, headache improving but still present. Will give magnesium. Second troponin rising but EKG continues to be normal. Patient to be admitted to the IMU for continued monitoring. Heparing gtt started. Notified cardiology Dr Demarco. Patient discussed with Dr Meier. Differential Diagnosis Differential diagnosis: Likely stable angina, unstable angina pectoris, atypical chest pain, st elevation myocardial infarction, chest pain, biliary colic and other (acetaminophen overdose (accidental); ) Lab Data Attestation: I reviewed the patient's lab results. Lab results narrative: Normocytic anemia, stable from previous 05/04/24 02:03 05/03/24 18:11 Labs: Lab Results 05/03/24 05/03/24 05/03/24 Range/Units 18:10 18:11 21:04 WBC 5.7 (4.5-10.0) K/mm3 RBC 4.13 L (4.2-5.4) M/mm3 Hgb 11.4 L (12.0-15.0) g/dL Hct 35.8 L (37.0-47.0) % MCV 86.7 (80-100) fl MCH 27.6 (26-34) pg MCHC 31.8 L (32-36) g/dl RDW 15.9 H (11.5-14.5) % Plt Count 228 (150-375) k/mm3 MPV 9.7 (7.4-10.4) fl Immature Gran % (Auto) 0.2 (0-0.5) % Neut % (Auto) 50.0 (45.5-73.1) % Lymph % (Auto) 36.7 (18.3-44.2) % [place] % (Auto) 9.3 H (2.6-8.5) % Eos % (Auto) 2.6 (0-4.4) % Baso % (Auto) 1.2 (0.2-1.2) % Lymph # (Auto) 2.10 (0.9-3.2) K/mm3 [place] # (Auto) 0.5 (0.1-0.6) K/mm3 Eos # (Auto) 0.2 (0-0.3) K/mm3 Baso # (Auto) 0.1 (0.0-0.1) K/mm3 Abs Immat Gran (auto) 0.01 (0.00-0.031) K/mm3 Absolute Neuts (auto) 2.9 (1.3-6.7) K/mm3 Absolute Nucleated RBC 0.000 (0.0-0.012) K/mm3 Nucleated RBC % 0.0 (0.0-0.2) % PT 14.0 (11.1-14.7) Seconds INR 1.1 APTT 27.6 (22.3-36.8) Seconds Sodium 141 (137-145) mmol/L Potassium 4.0 (3.4-5.0) mmol/L Chloride 117 H (98-107) mmol/L Carbon Dioxide 18 L (22-30) mmol/L Anion Gap 6 (4-12) mmol/L BUN 13 D (7-17) mg/dL Creatinine 0.80 (0.7-1.0) mg/dL Estim Creat Clear Calc Not Reportable Estimated GFR > 60 (59 - ) Glucose 94 (65-110) mg/dL Calcium 9.0 (8.4-10.2) mg/dL Magnesium 1.6 (1.6-2.3) mg/dL Total Bilirubin 0.3 (0.2-1.3) mg/dL AST 15 (14-36) U/L ALT 11 (6-35) U/L Alkaline Phosphatase 102 (38-126) U/L Troponin I 0.039 H* 0.051 H* D (0.000-0.034) ng/mL Total Protein 6.0 L (6.3-8.2) g/dL Albumin 3.8 (3.5-5.1) g/dL Lipase 317 H (23-300) U/L Salicylates 1.2 L (2-20) mg/dL Acetaminophen < 10 L (10-30) ug/mL Imaging Data Radiologist's impression: No acute cardiopulmonary disease ECG Data EKG #1: Attestation: I personally reviewed and interpreted this ECG as follows: ECG completion date: 05/03/24 ECG completion time: 17:59 Interpretation: Normal sinus rhythm at a rate of 92 beats per minute. ID interval 119. QRS 98. QT/QTC 393/442. Good R-wave progression across the precordial leads. No T- wave inversions. Normal axis. EKG #2: Attestation: I personally reviewed and interpreted this ECG as follows: ECG completion date: 05/03/24 ECG completion time: 21:07 Interpretation: Normal sinus rhythm at a rate of 84 beats per minute. ID interval 104. QRS 98. QT/QTC 421/462. Good R-wave progression across the precordial leads. No T- wave inversions. Normal axis. Discharge Plan Discharge Clinical Impression: Non-ST elevation CT (NSTEMI), Normocytic anemia, Headache, Seizure-like activity Patient Disposition: Still a Patient Condition: Stable
[2024-05-03 20:29] LABS: Acetaminophen < 10 ug/mL (10-30); Salicylate 1.2 mg/dL (2-20)
[2024-05-03] MEDS: SODIUM CHLORIDE 0.9% IV 1,000 ML 999 ML IV CONT (20:38)
[2024-05-03] MEDS: PROCHLORPERAZINE EDISYLATE 10 MG/2 ML VIAL 5 MG IV PUSH (20:38)
[2024-05-03] MEDS: KETOROLAC 15 MG/ML VIAL (*BKC) IV PUSH (20:39)
[2024-05-03] MEDS: diphenhydrAMINE HCl INJ 50 MG/ML VIAL 25 MG IV PUSH (20:39)
[2024-05-03 20:40] LABS: Magnesium 1.6 mg/dL (1.6-2.3)
[2024-05-03] MEDS: MAGNESIUM SULF 1 GM/D5W 100 ML 1 GM/100 ML BAG IVPB (21:20)
[2024-05-03 21:38] LABS: Troponin I 0.051 ng/mL (0.000-0.034)
[2024-05-03] MEDS: HEPARIN SODIUM 5,000 UNITS/ML VIAL 3000 UNITS IV PUSH (22:20)
[2024-05-03] MEDS: HEPARIN SOD/D5W 100 UNITS/ML 25,000 UNITS/250 ML BAG 6 UNITS IV CONT (22:20)
[2024-05-03] MEDS: NITROGLYCERIN SL 0.4 MG TABLET SUBLINGUAL (22:21)
[2024-05-03 22:24] VITALS: BP 127/61; PULSE 88; RESP 14; O2SAT 100
[2024-05-03 23:36] VITALS: BP 107/62; PULSE 67; RESP 14; O2SAT 100
[2024-05-04] VITALS (9 sets, daily range): BP systolic 111–132; BP diastolic 62–70; PULSE 76–96; RESP 15–20; TEMP 36.4–37.1; O2SAT 99–100; BMI 29.4
--- NOTE | 2024-05-04 | ECHO_ITS ---
Patient Info Name: Ginna Allan Age: 59 years : 1965 Gender: Female Ht: 51 in Wt: 145 lbs BSA: 1.59 m2 HR: 94 bpm BP: 111 / 70 mmHg Technical Quality: Fair Exam Date: 05/04/2024 11:29 AM Exam Location: Echo Lab Patient Status: Outpatient Admit Date: 05/03/2024 Staff Ordering Physician: Stefan Brewer MD/juan) Cafe Site Attendant: Celestine Ro RDCS Attending Provider: John Meier MD Referring Physician: Osman JOHNSON; Exam Type: CA echo doppler color flow Study Info Indications - TYPE 2 CT - SEIZURE Complete two-dimensional, color flow and Doppler transthoracic echocardiogram is performed. Summary 1. Complete two-dimensional, color flow and Doppler transthoracic echocardiogram is performed. 2. Left atrial chamber dimension is enlarged. 3. Left ventricular chamber dimension is normal. 4. Left ventricular wall thickness is mildly increased. 5. Left ventricular systolic function is normal with an ejection fraction by Biplane Method of Discs of 56 %. 6. The left ventricular diastolic function is grade I diastolic dysfunction. 7. Right ventricular chamber dimension is normal. 8. Right ventricular systolic function is normal. 9. The mitral valve has normal leaflets. 10. There is moderate to severe mitral valve regurgitation. Recommendations * Consider ANGY to further assess mitral valve. Left Ventricle Left ventricular chamber dimension is normal. Left ventricular wall thickness is mildly increased. Left ventricular systolic function is normal with an ejection fraction by Biplane Method of Discs of 56 %. The left ventricular diastolic function is grade I diastolic dysfunction. Right Ventricle Right ventricular chamber dimension is normal. Right ventricular systolic function is normal. Left Atria Left atrial chamber dimension is enlarged. Right Atria Right atrial chamber dimension is normal. Mitral Valve There is moderate to severe mitral valve regurgitation. The mitral valve has normal leaflets. Tricuspid Valve There is mild tricuspid valve regurgitation. Pericardium/Pleural There is no pericardial effusion. Inferior Vena Cava Normal inferior vena cava with >50% collapse upon inspiration consistent with normal right atrial pressure, 3 mmHg. Aorta The aortic root size at the sinus of Valsalva is normal. The prox ascending aorta size is normal. Left Ventricular Outflow Tract Name Value Normal LVOT 2D LVOT Diameter 2.1 cm LVOT Doppler LVOT Peak Gradient 4 mmHg LVOT Mean Gradient 2 mmHg LVOT VTI 24 cm LVOT VTI/AV VTI Ratio 0.8 LVOT Stroke Volume 85 ml LVOT CO 6.3 l/min LVOT CI 4.0 l/min/m2 Pulmonic Valve Name Value Normal RVOT Doppler RVOT Peak Gradient 1 mmHg PV Doppler PV Peak Gradient 3 mmHg Mitral Valve Name Value Normal MV Doppler MV Peak Gradient 11 mmHg MV Mean Gradient 6 mmHg MV Decel [place] 922 cm/s2 MV PHT 36 ms MV Area (PHT) 6.1 cm2 4.0-5.0 MV Area (Cont Eq VTI) 1.9 cm2 MV Regurgitation Doppler MR ERO (PISA) 0.13 cm2 MR Volume (PISA) 24 ml MV Diastolic Function MV E Peak Velocity 114 cm/s MV A Peak Velocity 122 cm/s MV E/A 0.9 MV Decel Time 124 ms MV Annular TDI MV E/e' (Septal) 17.0 <=8.0 MV E/e' (Lateral) 19.0 <=8.0 MV E/e' (Average) 18.0 Tricuspid Valve Name Value Normal TV Regurgitation Doppler TR Peak Velocity 266 cm/s TR Peak Gradient 28 mmHg Estimated PAP/RSVP RA Pressure 3 mmHg <=5 PA Systolic Pressure 31 mmHg <36 RV Systolic Pressure 31 mmHg <36 Aorta Name Value Normal Ascending Aorta Ao Root Diameter (MM) 2.8 cm Ao Root Diam Index (MM) 1.8 cm/m2 Aortic Valve Name Value Normal AV Doppler AV Peak Velocity 144 cm/s AV Peak Gradient 7 mmHg AV Mean Gradient 4 mmHg AV VTI 30 cm AV Area (Cont Eq VTI) 2.8 cm2 >=3.0 AV Area (Cont Eq Olegario) 2.7 cm2 AV Regurgitation 2D LVOT Area 3.6 cm2 Ventricles Name Value Normal LV Dimensions 2D/MM IVS Diastolic Thickness (2D) 1.1 cm 0.6-1.0 LVID Diastole (2D) 4.5 cm 3.8-5.2 LVIW Diastolic Thickness (2D) 1.3 cm 0.6-0.9 LVID Systole (2D) 3.3 cm 2.2-3.5 LVOT Diameter 2.1 cm LV Mass (2D Cubed) 200.82 g 67.00-162.00 LV Mass Index (2D Cubed) 127 g/m2 43-95 Relative Wall Thickness (2D) 0.58 LV Fractional Shortening/Ejection Fraction 2D/MM LV Fractional Shortening (2D) 27 % 27-45 LV EF (2D Teicholz) 52 % 54-74 LV Diastolic Volume (4C MOD) 80 ml LV EF (4C MOD) 51 % LV Diastolic Volume (2C MOD) 73 ml LV EF (2C MOD) 63 % LV Diastolic Volume (BP MOD) 77 ml 46-106 LV Diastolic Volume Index (BP MOD) 48 ml/m2 29-61 LV Systolic Volume (BP MOD) 34 ml 14-42 LV Systolic Volume Index (BP MOD) 21 ml/m2 8-24 LV EF (BP MOD) 56 % 54-74 LV Diastolic Length (4C) 6.7 cm LV Systolic Length (4C) 5.4 cm LV Stroke Volume (4C MOD) 41 ml Atria Name Value Normal LA Dimensions LA Dimension (MM) 4.3 cm 2.7-3.8 LA Volume (4C A-L) 83 ml LA Volume (BP A-L) 67 ml RA Dimensions RA Area (4C) 9.9 cm2 <=18.0 Report Signatures
--- NOTE | 2024-05-04 00:03 | P.HP_ITS ---
H&P: HPI History of Present Illness Date/Time: 05/04/24 00:03 Chief Complaint: Seizure Narrative: This 59-year-old female with past medical history significant for COPD/emphysema, tobacco dependence, seizure disorder, chronic back pain, fibromyalgia, GERD. patient was brought to the emergency room after family witnessed a seizure episode. Patient has no recollection of events states that has had a productive cough with pearly thick white sputum however has improved denies any wheezing denies fevers rigors or chills denies nausea vomiting or diarrhea denies abdominal pain. In the emergency room patient was complaining of chest pain and preliminary workup was significant for slight elevation of troponins with a normal looking EKG. Patient states that she is not aware of any heart conditions. Patient has been admitted for further evaluation management and treatment. EXAMINATION: XR chest 1V portable DATE: 05/03/2024 18:38 INDICATION: Chest pain. TECHNIQUE: A single frontal view of the chest was obtained. COMPARISON: Chest 2 views 04/28/19, CT abdomen and pelvis 07/25/2023 FINDINGS: There is no pneumonia, pleural effusion, or pneumothorax. The heart size is normal. IMPRESSION: 1. No acute cardiopulmonary disease. Review of Systems Review of Systems: Seizure disorder, productive cough improving PMFSH Past Medical History Medical History (Updated 05/03/24 @ 21:38 by Iram Diaz MD) Paroxysmal A-fib in 2019 when had COVID Rotator cuff injury Shoulder pain Shoulder injury Biceps tendonitis Rotator cuff tendinitis Rotator cuff tear Cough Obesity Tobacco abuse quit 2016 Back pain IBS (irritable bowel syndrome) Asthma Hypercholesterolemia SLAP lesion of right shoulder Pharyngitis Otalgia of left ear Otalgia of both ears Essential (primary) hypertension Fibromyalgia Gastro-esophageal reflux disease with esophagitis Mixed hyperlipidemia Surgical History Surgical History History of right knee surgery related to fracture H/O dilation and curettage History of carpal tunnel release of both wrists History of section H/O: hysterectomy Status post shoulder surgery Family History Family History Sibling Patient's brother is in good health Family history of malignant neoplasm Father Family history of alcoholism Mother Family history of malignant neoplasm of breast in first degree relative Other Family history of arthritis Hypertension Social History Social History Smoking packs per day: 1 Smoking cigarettes per day: 20.0 Years smoked: 49 Smoking pack-years: 49.00 Smoking status: Current every day smoker Tobacco type: cigarettes Second hand tobacco smoke exposure: Yes Smoking end date: 05/23/15 Additional smoking assessment comments: on chantex Alcohol intake: never Substance use: never Do You Feel Safe in your Home?: Yes Lack of Transportation: No Lack of Food: Never True Current Housing: I Have Housing Concerned About Future Housing: No Difficulty Paying Gas/Electric Bills: No Difficulty Paying for Meds: YES Currently Unemployed: No Education: High School Diploma/GED Difficulty w/ Childcare or Family Care: No Living arrangements: with family Gender identity (if verbalized by the patient): Female Spiritual care concerns: No Meds Home Medications and Allergies Home Medications ?Medication ?Instructions ?Recorded ?Confirmed ?Type aspirin 81 mg tablet,delayed 81 mg PO DAILY #30 tabs 03/29/19 11/12/23 Rx release ferrous sulfate 325 mg (65 mg 325 mg PO DAILY #30 tabs 03/29/19 11/12/23 Rx iron) tablet dicyclomine 20 mg tablet See Rx Instructions .Route 12/09/20 11/12/23 Rx .COMPLEX #90 tabs cyclobenzaprine 10 mg tablet See Rx Instructions .Route 01/12/21 11/12/23 Rx .COMPLEX #90 tabs spironolactone 50 mg tablet 50 mg PO DAILY 09/19/21 11/12/23 History atorvastatin 40 mg tablet 40 mg PO DAILY #90 tabs 10/21/21 11/12/23 Rx hydrocodone 5 mg-acetaminophen 325 1 tablet PO Q8H PRN pain 01/21/22 11/12/23 History mg tablet levetiracetam 500 mg tablet 500 mg PO BID 11/12/23 11/12/23 History montelukast 10 mg tablet 10 mg PO DAILY 11/12/23 11/12/23 History pantoprazole 40 mg tablet,delayed mg PO 11/12/23 History release phentermine 37.5 mg tablet 37.5 mg PO DAILY 11/12/23 11/12/23 History pregabalin 100 mg capsule 100 mg PO TID 11/12/23 11/12/23 History duloxetine 60 mg capsule,delayed mg PO 12/09/23 History release esomeprazole magnesium 20 mg 20 mg PO DAILY 12/09/23 12/09/23 History capsule,delayed release ibuprofen 800 mg tablet mg 12/09/23 History varenicline 1 mg tablet mg 12/09/23 History ondansetron 4 mg disintegrating 4 mg PO Q8H PRN nausea and 12/10/23 Rx tablet vomiting #30 tabs Allergies Allergy/AdvReac Type Severity Reaction Status Date / Time No Known Allergies Allergy Verified 12/09/23 23:22 Vital Signs Vital Signs - 24 hr 05/03/24 17:55 05/03/24 18:05 05/03/24 18:06 Temperature 98.0 F Pulse Rate 98 92 Respiratory Rate 20 Blood Pressure Pulse Oximetry 100 100 Oxygen Delivery Room Air Room Air 05/03/24 19:37 05/03/24 22:24 05/03/24 23:36 Temperature Pulse Rate 99 88 67 Respiratory Rate 16 14 14 Blood Pressure 109/95 H 127/61 107/62 Pulse Oximetry 98 100 100 Oxygen Delivery Exam Narrative: patient is laying in a stretcher. Const: General: comfortable, no acute distress, well developed, alert, awake and average body habitus Nutritional Appearance: average body habitus Orientation/consciousness: patient oriented x3 Other: looks older than his stated age HENMT: Head: normal to inspection, normocephalic and atraumatic Ears: hearing grossly normal bilaterally Face/Nose/Sinus: normal facial exam Face and sinus: normal facial exam Eyes: General: appearance normal, both eyes and all related structures Pupils: Equal, round and reactive pupils present EOM: EOMs intact bilaterally Neck: Neck: full ROM, no lymphadenopathy and no JVD Thyroid: thyroid normal Lymphatic: no lymphadenopathy noted Resp: Effort & Inspection: normal respiratory effort and able to speak in complete sentences Auscultation: clear to auscultation bilaterally and diminished lung sounds Cardio: Jugular venous distension: no JVD Rate: regular rate Rhythm: regular rhythm Heart sounds: S1 normal heart sound present and S2 normal heart sound present GI: GI Palp: Yes Soft to palpation and Yes No hepatosplenomegaly present : General: Yes deferred Skin: Rashes: no rashes Wounds: no wounds Neuro: General: patient oriented x3 and CN's II-XI intact bilaterally Cranial nerves: Yes CN's II-XII intact bilaterally and Yes Equal, round and reactive pupils present Cognition (Neuro): normal cognition Speech: normal speech Gait exam (Neuro): Unable to assess gait Motor exam (neuro): 5/5 motor strength present throughout Extrem: General: normal to inspection, full ROM, no joint enlargement and no pedal edema H&P: Results Labs Labs: Short CBC 05/03/24 Range/Units 18:11 WBC 5.7 (4.5-10.0) K/mm3 Hgb 11.4 L (12.0-15.0) g/dL Hct 35.8 L (37.0-47.0) % Plt Count 228 (150-375) k/mm3 BMP 05/03/24 18:11 Sodium 141 Potassium 4.0 Chloride 117 H Carbon Dioxide 18 L BUN 13 D Creatinine 0.80 Glucose 94 Calcium 9.0 Cardiac Enzymes 05/03/24 05/03/24 Range/Units 18:11 21:04 Troponin I 0.039 H* 0.051 H* D (0.000-0.034) ng/mL Liver Function 05/03/24 Range/Units 18:11 Total Bilirubin 0.3 (0.2-1.3) mg/dL AST 15 (14-36) U/L ALT 11 (6-35) U/L Alkaline Phosphatase 102 (38-126) U/L Albumin 3.8 (3.5-5.1) g/dL Assessment and Plan Assessment and plan (1) Seizure-like activity: Code(s): R56.9 - Unspecified convulsions Status: Acute Assessment and Plan: admit to IMU seizure precautions supportive care continue to monitor (2) Non-ST elevation OK (NSTEMI): Code(s): I21.4 - Non-ST elevation (NSTEMI) myocardial infarction Status: Acute Assessment and Plan: currently on heparin drip cardiology consult (3) Normocytic anemia: Code(s): D64.9 - Anemia, unspecified Status: Acute Assessment and Plan: follow-up in outpatient setting (4) Gastro-esophageal reflux disease with esophagitis: Code(s): K21.0 - Gastro-esophageal reflux disease with esophagitis Status: Acute Assessment and Plan: PPI (5) Essential (primary) hypertension: Code(s): I10 - Essential (primary) hypertension Status: Acute Assessment and Plan: resume home meds as needed (6) Back pain: Code(s): M54.9 - Dorsalgia, unspecified Status: Acute Assessment and Plan: Tylenol p.r.n. (7) Fibromyalgia: Code(s): M79.7 - Fibromyalgia Status: Acute Assessment and Plan: resume home meds Hospitalist [facility] Advance Care Plan I have confirmed that the patient's Advanced Care Plan is present, code status is documented, or surrogate decision maker is listed in patient medical record.: Yes Medication Reconciliation I have utilized all available resources to obtain, update and review the patients current medications (includes all prescriptions, OTC, herbals, cannabis, and nutritional supplements).: Yes
--- NOTE | 2024-05-04 01:25 | ADMGEN ---
This patient, Ginna Allan, was admitted to IMU Room 205-01. Patient/family oriented to hospital policies and general routines including ID bracelet, bed and alarms, visiting hours, pain management, procedures, bathroom and other care routines, personal items, smoking policy, room service/diet, and visiting hours. Information on how to activate the Rapid Response Team has been discussed. Patient/Family are encouraged to report perceived risks to care and to ask questions if they do not understand what they are told or what they should do.
[2024-05-04 02:07] LABS: Basophils Absolute Auto 0.1 K/mm3 (0.0-0.1); Basophils Percent Auto 1.2 % (0.2-1.2); Eosinophils Absolute Auto 0.2 K/mm3 (0-0.3); Eosinophils Percent Auto 3.4 % (0-4.4); Hematocrit 32.8 % (37.0-47.0); Hemoglobin 10.7 g/dL (12.0-15.0); Immature Granulocyte Absolute 0.01 K/mm3 (0.00-0.031); Immature Granulocyte Percent A 0.2 % (0-0.5); Lymphocytes Absolute Auto 2.44 K/mm3 (0.9-3.2); Mean Corpuscular HGB Conc 32.6 g/dl (32-36); Mean Corpuscular Hemoglobin 28.5 pg (26-34); Mean Corpuscular Volume 87.5 fl (80-100); Mean Platelet Volume 9.5 fl (7.4-10.4); Monocytes Absolute Auto 0.4 K/mm3 (0.1-0.6); Monocytes Percent Auto 7.4 % (2.6-8.5); Neutrophils Absolute Auto 2.7 K/mm3 (1.3-6.7); Neutrophils Percent Auto 45.8 % (45.5-73.1); Platelet Count Result 199 k/mm3 (150-375); Red Blood Count 3.75 M/mm3 (4.2-5.4); White Blood Count 5.8 K/mm3 (4.5-10.0)
[2024-05-04 02:29] LABS: Troponin I 0.029 ng/mL (0.000-0.034)
[2024-05-04 03:02] LABS: Partial Thromboplastin Time 67.5 Seconds (22.3-36.8)
[2024-05-04] MEDS: HEPARIN SODIUM 5,000 UNITS/ML VIAL 2000 UNITS IV PUSH (06:31)
[2024-05-04] MEDS: ACETAMINOPHEN 325 MG TABLET 650 MG PO ×2 (09:08→13:15)
[2024-05-04 09:57] LABS: Add Urine Microscopic? NO; Appearance Urine Clear (Clear); Bilirubin Urine Negative (Negative); Blood Urine Negative (Negative); Color Urine Yellow (Yellow); Glucose Urine UA Negative (Negative); Ketones Urine Negative (Negative); Leukocyte Esterase Ur Negative LEU/UL (Negative); Nitrate Urine Negative (Negative); Protein Urine Negative (Negative); Specific Grav Ur 1.015 (1.001-1.035); Urobilinogen Urine 0.2 mg/dL (<2.0); pH Urine 5.5 (5.0-9.0)
[2024-05-04] MEDS: levETIRAcetam 500 MG TABLET PO (10:39)
--- NOTE | 2024-05-04 14:42 | P.CONCA_ITS ---
Assessment and Plan Assessment and plan (1) Seizure-like activity: Code(s): R56.9 - Unspecified convulsions Status: Acute Plan 1. Type 2 VT, in the setting of seizure 2. Chronic smoker -this presentation most likely is due to type 2 VT in the setting of a seizure activity. However her history is suggestive of stable angina -discussed with her we will get exercise MPI done for her -aspirin once daily, moderate intensity - Statin to be started -low-dose beta-maurice to be started and symptoms to be monitored -heparin can be discontinued History of Present Illness History of Present Illness Consult date/time: 05/04/24 14:42 Reason For Visit: NSTEMI Narrative: Ms Ginna Allan is a 59-year-old pleasant lady who is known to have seizure on Keppra, chronic smoker, has normal was admitted within the episode of seizure- like activity. Cardiology consulted for chest pain and elevated troponin. While EN route from home to the hospital after the seizure she felt retrosternal chest pain which resolved by itself. Her EKG shows normal sinus rhythm with no dynamic ST or T-wave changes In flat; 0.039, 0.05, 0.029 She does give a history of intermittent episodes of retrosternal chest pain on [id number] exertion she improved with activity. She did have a stress test done 5 years ago for these episodes which was apparently normal (not available for me to review) She denies any prior CAD, mi or CVA She has been smoking for the past 40 he has plans to quit now Review of Systems 2 Review of Systems: Seizure disorder, productive cough improving PMFSH Past Medical History Medical History (Updated 05/03/24 @ 21:38 by Iram Diaz MD) Paroxysmal A-fib in 2019 when had COVID Rotator cuff injury Shoulder pain Shoulder injury Biceps tendonitis Rotator cuff tendinitis Rotator cuff tear Cough Obesity Tobacco abuse quit 2016 Back pain IBS (irritable bowel syndrome) Asthma Hypercholesterolemia SLAP lesion of right shoulder Pharyngitis Otalgia of left ear Otalgia of both ears Essential (primary) hypertension Fibromyalgia Gastro-esophageal reflux disease with esophagitis Mixed hyperlipidemia Surgical History Surgical History History of right knee surgery related to fracture H/O dilation and curettage History of carpal tunnel release of both wrists History of section H/O: hysterectomy Status post shoulder surgery Family History Family History Sibling Patient's brother is in good health Family history of malignant neoplasm Father Family history of alcoholism Mother Family history of malignant neoplasm of breast in first degree relative Other Family history of arthritis Hypertension Social History Social History Smoking packs per day: 1 Smoking cigarettes per day: 20.0 Years smoked: 49 Smoking pack-years: 49.00 Smoking status: Current every day smoker Tobacco type: cigarettes Second hand tobacco smoke exposure: Yes Smoking end date: 05/23/15 Additional smoking assessment comments: on chantex Alcohol intake: never Substance use: never Do You Feel Safe in your Home?: Yes Lack of Transportation: No Lack of Food: Never True Current Housing: I Have Housing Concerned About Future Housing: No Difficulty Paying Gas/Electric Bills: No Difficulty Paying for Meds: YES Currently Unemployed: No Education: High School Diploma/GED Difficulty w/ Childcare or Family Care: No Living arrangements: with family Gender identity (if verbalized by the patient): Female Spiritual care concerns: No Meds Home Medications and Allergies Home Medications ?Medication ?Instructions ?Recorded ?Confirmed ?Type aspirin 81 mg tablet,delayed 81 mg PO DAILY #30 tabs 03/29/19 05/04/24 Rx release ferrous sulfate 325 mg (65 mg 325 mg PO DAILY #30 tabs 03/29/19 05/04/24 Rx iron) tablet dicyclomine 20 mg tablet See Rx Instructions .Route 12/09/20 05/04/24 Rx .COMPLEX #90 tabs cyclobenzaprine 10 mg tablet See Rx Instructions .Route 01/12/21 05/04/24 Rx .COMPLEX #90 tabs spironolactone 50 mg tablet 50 mg PO DAILY 09/19/21 05/04/24 History atorvastatin 40 mg tablet 40 mg PO DAILY #90 tabs 10/21/21 05/04/24 Rx hydrocodone 5 mg-acetaminophen 325 1 tablet PO Q8H PRN pain 01/21/22 05/04/24 History mg tablet levetiracetam 500 mg tablet 500 mg PO BID 11/12/23 05/04/24 History montelukast 10 mg tablet 10 mg PO DAILY 11/12/23 05/04/24 History pantoprazole 40 mg tablet,delayed 40 mg PO DAILY 11/12/23 05/04/24 History release pregabalin 100 mg capsule 100 mg PO TID 11/12/23 05/04/24 History duloxetine 60 mg capsule,delayed 60 mg PO DAILY 12/09/23 05/04/24 History release esomeprazole magnesium 20 mg 20 mg PO DAILY 12/09/23 05/04/24 History capsule,delayed release ondansetron 4 mg disintegrating 4 mg PO Q8H PRN nausea and 12/10/23 05/04/24 Rx tablet vomiting #30 tabs Allergies Allergy/AdvReac Type Severity Reaction Status Date / Time No Known Allergies Allergy Verified 12/09/23 23:22 Vital Signs Vital Signs - 24 hr 05/03/24 17:55 05/03/24 18:05 05/03/24 18:06 Temperature 36.7 C Pulse Rate 98 92 Respiratory Rate 20 Blood Pressure Pulse Oximetry 100 100 Oxygen Delivery Room Air Room Air 05/03/24 19:37 05/03/24 22:24 05/03/24 23:36 Temperature Pulse Rate 99 88 67 Respiratory Rate 16 14 14 Blood Pressure 109/95 H 127/61 107/62 Pulse Oximetry 98 100 100 Oxygen Delivery 05/04/24 01:24 05/04/24 02:00 05/04/24 04:00 Temperature 36.6 C 36.8 C Pulse Rate 84 79 76 Respiratory Rate 15 16 Blood Pressure 119/62 132/62 Pulse Oximetry 100 100 Oxygen Delivery 05/04/24 04:00 05/04/24 04:00 05/04/24 06:00 Temperature Pulse Rate 76 79 77 Respiratory Rate 16 Blood Pressure Pulse Oximetry 100 Oxygen Delivery Room Air 05/04/24 08:00 05/04/24 08:00 05/04/24 08:00 Temperature 37.1 C Pulse Rate 94 90 Respiratory Rate 18 Blood Pressure 111/70 Pulse Oximetry 99 99 Oxygen Delivery Room Air 05/04/24 10:00 05/04/24 12:00 05/04/24 12:00 Temperature 36.4 C L Pulse Rate 96 86 Respiratory Rate 20 Blood Pressure 121/62 Pulse Oximetry 100 100 Oxygen Delivery Room Air Exam 2 Narrative: patient is laying in a stretcher. Const: General: comfortable, no acute distress, well developed, alert, awake and average body habitus Nutritional Appearance: average body habitus O rientation/consciousness: patient oriented x3 Other: looks older than his stated age HENMT: Head: normal to inspection, normocephalic and atraumatic Ears: h earing grossly normal bilaterally Face/Nose/Sinus: normal facial exam Face and sinus: normal facial exam Eyes: General: appearance normal, both eyes and all related structures P upils: Equal, round and reactive pupils present EOM: EOMs intact bilaterally Neck: Neck: full ROM, no lymphadenopathy and no JVD Thyroid: thyroid normal Lymphatic: no lymphadenopathy noted Resp: Effort & Inspection: normal respiratory effort and able to speak in complete sentences Auscultation: clear to auscultation bilaterally and diminished lung sounds Cardio: Jugular venous distension: no JVD Rate: regular rate Rhythm: r egular rhythm Heart sounds: S1 normal heart sound present and S2 normal heart sound present : General: Yes deferred Skin: Rashes: no rashes Wounds: no wounds Neuro: General: patient oriented x3, CN's II-XI intact bilaterally and Unable to assess gait Cranial nerves: Yes CN's II-XII intact bilaterally and Yes Equal, round and reactive pupils present Cognition (Neuro): normal cognition Speech: normal speech Gait exam (Neuro): Unable to assess gait Motor exam (neuro): 5/5 motor strength present throughout Extrem: General: normal to inspection, full ROM, no joint enlargement and no pedal edema Results Labs and Meds 05/04/24 02:03 05/03/24 18:11 Lab results: Cardiac Enzymes 05/03/24 05/03/24 05/04/24 Range/Units 18:11 21:04 02:03 AST 15 (14-36) U/L Troponin I 0.039 H* 0.051 H* D 0.029 D (0.000-0.034) ng/mL Coagulation 05/03/24 05/04/24 Range/Units 18:11 02:02 PT 14.0 (11.1-14.7) Seconds APTT 27.6 67.5 H (22.3-36.8) Seconds CBC 05/03/24 05/04/24 Range/Units 18:11 02:03 WBC 5.7 5.8 (4.5-10.0) K/mm3 RBC 4.13 L 3.75 L (4.2-5.4) M/mm3 Hgb 11.4 L 10.7 L (12.0-15.0) g/dL Hct 35.8 L 32.8 L (37.0-47.0) % Plt Count 228 199 (150-375) k/mm3 Lymph # (Auto) 2.10 2.44 (0.9-3.2) K/mm3 [place] # (Auto) 0.5 0.4 (0.1-0.6) K/mm3 Eos # (Auto) 0.2 0.2 (0-0.3) K/mm3 Baso # (Auto) 0.1 0.1 (0.0-0.1) K/mm3 Comprehensive Metabolic Panel 05/03/24 Range/Units 18:11 Sodium 141 (137-145) mmol/L Potassium 4.0 (3.4-5.0) mmol/L Chloride 117 H (98-107) mmol/L Carbon Dioxide 18 L (22-30) mmol/L BUN 13 D (7-17) mg/dL Creatinine 0.80 (0.7-1.0) mg/dL Glucose 94 (65-110) mg/dL Calcium 9.0 (8.4-10.2) mg/dL AST 15 (14-36) U/L ALT 11 (6-35) U/L Alkaline Phosphatase 102 (38-126) U/L Total Protein 6.0 L (6.3-8.2) g/dL Albumin 3.8 (3.5-5.1) g/dL Intake and Output 05/03/24 05/04/24 05/04/24 23:59 07:59 15:59 Intake Total 1100 49 240 Output Total 400 300 Balance 1100 -351 -60 Intake: IV 1100 49 Heparin Sod/D5w 100 Units/ml 25 49 ,000 units In 250 ml @ 700 UNITS/HR 7 mls/hr IV CONT .Q24H [facility] Rx#:[id number] Sodium Chloride 0.9% IV 1,000 1000 ml @ 999 mls/hr IV CONT .Q1H1M STA Rx#:[id number] Magnesium Sulf 1 gm/D5w 100 ml 100 1 gm In 100 ml @ 100 mls/hr IVPB ONCE ONE Rx#:[id number] Oral 240 Output: Urine 400 300 Patient Weight 05/04/24 23:59 Weight 66.1 kg
--- NOTE | 2024-05-04 16:39 | P.DS_ITS ---
DS: Admitting Diagnosis Discharge Date 05/04/24 Admitting Diagnosis Chest Discomfort DS: Discharge Diagnosis Discharge Diagnosis (1) Non-ST elevation DE (NSTEMI): Code(s): I21.4 - Non-ST elevation (NSTEMI) myocardial infarction Status: Acute Assessment and Plan: - Initial Troponin mildly elevated but repeat level wnl. - EKG with no ischemic changes and pt maintains SR on telemetry monitoring. - Pt had ECHO done that shows mod-severe mitral regurgitation. - Case discussed in details with cardiology and she's been cleared for discharge. - Patient will f/u outpatient with air control electronics operator for ANGY and Stress-test. - Pt denies any symptoms and states she feels normal and wants to go home. - Patient initially presented with seizure-like activity but states it was just muscle tightness and not a seizure. Denies Hx of seizures. - Patient currently has no symptoms and is medically stable for discharge, with no acute distress noted or reported prior to discharge. - Continue aspirin and statin. - Unable to tolerate beta blockers due to episodes of low BP. Plan Discharge Home. DS: Summary Hospital Course Reason for hospitalization: Chest Discomfort Hospital Course: - Patient was admitted for further work-up on chest discomfort. She had 2 troponin levels checked, initial with mild elevation and repeat level normal. EKG was normal and did not show any acute ischemic changes. Pt has also maintained SR on telemetry. Pt had TT ECHO done that shows mod-severe mitral regurgitation. Patient case discussed in details with cardiology and she's been cleared for discharge, to f/u outpatient with air control electronics operator for ANGY and Stress-test. Pt denies any symptoms and states she feels normal and wants to go home. Patient initially presented with seizure-like activity but states it was just muscle tightness and not a seizure. She's been on seizure medications but she ran out, but states she hasn't had any seizures in a long while, can't recall last seizure. Patient currently has no symptoms and is medically stable for discharge, with no acute distress noted or reported prior to discharge. As mentioned, pt to f/u with the air control electronics operator outpatient for ANGY and Stress Test. Patient also counseled on smoking cessation and states she has been cutting down and doesn't think will smoke any more after hospital admission. Declines nicotine patch or gums and states has been working on cessation and is determined not to smoke again and daugther with to offer support. Time spent discussing smoking cessation with patient: 3 to 10 minutes Status at Discharge Functional status at discharge: independent ambulation Overall status at discharge: patient is back to baseline Time Spent with Patient Time attestation: Total time spent providing and/or coordinating discharge services: Time spent: Greater than 30 minutes Exam Narrative: General: Well appearing, no acute distress. HEENT: Atraumatic, PERRL, EOM, moist mucosa. NECK: Supple. Lungs: Clear bilaterally. Heart: RRR, no murmurs. Abdomen: Soft, non-tender, non-distended, +ve bowel sounds X4 quadrants. Extremities: Acyanotic, no edema. Skin: Warm and dry with no lesions. Neuro: Well oriented. CN II-XII grossly intact. Psych: Calm and co-operative. DS: Data Data Completed and Pending Labs on day of discharge: Labs from last 24 hours 05/04/24 05/04/24 05/04/24 09:51 02:03 02:02 WBC 5.8 RBC 3.75 L Hgb 10.7 L Hct 32.8 L MCV 87.5 MCH 28.5 MCHC 32.6 RDW 16.0 H Plt Count 199 MPV 9.5 Immature Gran % (Auto) 0.2 Neut % (Auto) 45.8 Lymph % (Auto) 42.0 [place] % (Auto) 7.4 Eos % (Auto) 3.4 Baso % (Auto) 1.2 Lymph # (Auto) 2.44 [place]pson # (Auto) 0.4 Eos # (Auto) 0.2 Baso # (Auto) 0.1 Abs Immat Gran (auto) 0.01 Absolute Neuts (auto) 2.7 Absolute Nucleated RBC 0.000 Nucleated RBC % 0.0 PT INR APTT 67.5 H Sodium Potassium Chloride Carbon Dioxide Anion Gap BUN Creatinine Estim Creat Clear Calc Estimated GFR Glucose Calcium Magnesium Total Bilirubin AST ALT Alkaline Phosphatase Troponin I 0.029 D Total Protein Albumin Lipase Urine Color Yellow Urine Appearance Clear Urine pH 5.5 Ur Specific [place] 1.015 Urine Protein Negative Urine Glucose (UA) Negative Urine Ketones Negative Ur Blood (Man) Negative Urine Nitrate Negative Urine Bilirubin Negative Urine Urobilinogen 0.2 Leukocyte Esterase Rfl Negative Salicylates Acetaminophen 05/03/24 05/03/24 05/03/24 21:04 18:11 18:10 WBC 5.7 RBC 4.13 L Hgb 11.4 L Hct 35.8 L MCV 86.7 MCH 27.6 MCHC 31.8 L RDW 15.9 H Plt Count 228 MPV 9.7 Immature Gran % (Auto) 0.2 Neut % (Auto) 50.0 Lymph % (Auto) 36.7 [place] % (Auto) 9.3 H Eos % (Auto) 2.6 Baso % (Auto) 1.2 Lymph # (Auto) 2.10 [place] # (Auto) 0.5 Eos # (Auto) 0.2 Baso # (Auto) 0.1 Abs Immat Gran (auto) 0.01 Absolute Neuts (auto) 2.9 Absolute Nucleated RBC 0.000 Nucleated RBC % 0.0 PT 14.0 INR 1.1 APTT 27.6 Sodium 141 Potassium 4.0 Chloride 117 H Carbon Dioxide 18 L Anion Gap 6 BUN 13 D Creatinine 0.80 Estim Creat Clear Calc Not Reportable Estimated GFR > 60 Glucose 94 Calcium 9.0 Magnesium 1.6 Total Bilirubin 0.3 AST 15 ALT 11 Alkaline Phosphatase 102 Troponin I 0.051 H* D 0.039 H* Total Protein 6.0 L Albumin 3.8 Lipase 317 H Urine Color Urine Appearance Urine pH Ur Specific [place] Urine Protein Urine Glucose (UA) Urine Ketones Ur Blood (Man) Urine Nitrate Urine Bilirubin Urine Urobilinogen Leukocyte Esterase Rfl Salicylates 1.2 L Acetaminophen < 10 L Discharge Plan Discharge Attending physician on discharge: Elpidio Carcamo Consulting providers: Jl Demarco Discharging Clinician: Shania Barnes Anticipated Discharge Date/Time: 05/04/24 17:01 Patient Disposition: Home, Self-Care Activity: as tolerated Diet: heart healthy Patient Instructions: Antibiotic Form Patient Language: Bulgarian Stand Alone Forms: General Discharge Information Follow-up/Referrals: Jl Demarco MD [Physician] - 1 Week Ranjan Watson MD [Primary Care Provider] - 1 Week Discharge Medications: New metoprolol tartrate 25 mg Tablet 6.25 mg PO Q12HR Qty: 30 0RF Continued montelukast 10 mg tablet 10 mg PO DAILY pantoprazole 40 mg tablet,delayed release (DR/EC) 40 mg PO DAILY pregabalin 100 mg capsule 100 mg PO TID aspirin 81 mg tablet,delayed release (DR/EC) 81 mg PO DAILY Qty: 30 0RF ferrous sulfate 325 mg (65 mg iron) tablet 325 mg PO DAILY Qty: 30 0RF hydrocodone-acetaminophen 5-325 mg tablet 1 tablet PO Q8H PRN (Reason: pain) esomeprazole magnesium 20 mg Capsule,Delayed Release(Dr/Ec) 20 mg PO DAILY duloxetine 60 mg capsule,delayed release(DR/EC) 60 mg PO DAILY ondansetron 4 mg tablet,disintegrating 4 mg PO Q8H PRN (Reason: nausea and vomiting) Qty: 30 0RF levetiracetam 500 mg tablet 500 mg PO BID Qty: 60 0RF dicyclomine 20 mg tablet See Rx Instructions .ROUTE .COMPLEX Qty: 90 4RF Dose Instruction: TAKE 1 TABLET BY MOUTH THREE TIMES A DAY Rx Instructions: TAKE 1 TABLET BY MOUTH THREE TIMES A DAY cyclobenzaprine 10 mg tablet See Rx Instructions .ROUTE .COMPLEX Qty: 90 0RF Dose Instruction: TAKE 1 TABLET BY MOUTH 3 TIMES A DAY NEEDED FOR MUSCLE SPASM Rx Instructions: TAKE 1 TABLET BY MOUTH 3 TIMES A DAY NEEDED FOR MUSCLE SPASM atorvastatin 40 mg tablet 40 mg PO DAILY Qty: 90 1RF Changed spironolactone 50 mg tablet 25 mg PO DAILY Qty: 30 0RF Date of admission: 05/03/24 21:42 Primary Care Provider: Ranjan Watson Admitting Provider: John Meier V. Attending physician on admission: John Meier V. Condition: Stable Quality If No VTE Prophylaxis Answer both mechanical and pharmacologic: Reason no mechanical VTE proph: low risk/not indicated Reason no pharmacologic proph: low risk/not indicated Hospitalist MIPS Heart Failure (Exclusion) Patient has history of Heart Transplant or Left Ventricular Assistive Device?: No IF YES, STOP HERE Heart Failure (Qualifier) Patient has current or prior documentation of LVEF less than or equal to 40%, or mod/servere depressed LVSF?: No IF NO, STOP HERE
== END 2024-05-04 17:57 | disposition home or self-care (01) ==
LOC: ANHED 19:19 → ANHIMU 05-04 08:25
PROVIDERS: Admitting Provider Internal Medicine; Emergency Provider Student in an Organized Health Care Education/Training Program; PCP Family Medicine; Visit Provider Internal Medicine
DX: I21.4 Non-ST elevation (NSTEMI) myocardial infarction (principal); I34.0 Nonrheumatic mitral (valve) insufficiency; R56.9 Unspecified convulsions; D64.9 Anemia, unspecified; K21.00 Gastro-esophageal reflux disease with esophagitis, without bleeding; I10 Essential (primary) hypertension; M79.7 Fibromyalgia; M54.9 Dorsalgia, unspecified; G89.29 Other chronic pain; R51.9 Headache, unspecified; F17.210 Nicotine dependence, cigarettes, uncomplicated; J43.9 Emphysema, unspecified; E78.2 Mixed hyperlipidemia; Z98.890 Other specified postprocedural states; Z79.82 Long term (current) use of aspirin; Z79.899 Other long term (current) drug therapy; Z86.16 Personal history of COVID-19
CPT/HCPCS: 36415; 71045; 80053; 80143; 80179; 81003; 83690; 83735; 84484; 85025; 85610; 85730; 93005; 93306; 96361; 96365; 96366; 96375; 99285; A9270; G0378; G0379; J0780; J1200; J1644; J1885; J3475; J7030

== ENCOUNTER 2024-07-15 12:22 | Emergency (ER) | payer MEDICAID, SELFPAY ==
--- NOTE | ~2024-07-15 | XR_ITS ---
EXAMINATION: XR chest 2V DATE: 07/15/2024 13:02 INDICATION: Productive cough. TECHNIQUE: Frontal and lateral views of the chest were obtained on 3 radiographs. COMPARISON: Chest single view 05/03/2024 FINDINGS: There is no pneumonia, pleural effusion, or pneumothorax. The heart size is normal. There a re old healed right rib fractures. IMPRESSION: 1. No acute cardiopulmonary disease. Reviewed, dictated and finalized at location A. E ASSISTANT
[2024-07-15 12:33] VITALS: BP 147/79; PULSE 111; RESP 16; TEMP 37.1; O2SAT 98
--- NOTE | 2024-07-15 12:51 | ED.URI ---
HPI - URI/Sore Throat General Chief Complaint: Upper Respiratory Infection Stated Complaint: ear pain,bodyaches,fever Time Seen by Provider: 07/15/24 12:23 Source: patient Mode of arrival: ambulatory Limitations: no limitations History of Present Illness HPI Narrative: 59-year-old female presents to [facility] with complaints of body aches, nonproductive cough, chest congestion, decreased appetite intermittent fevers for the past 4-5 days. Patient reports that she recently watched her grandchild who was recently diagnosed with influenza A. Patient is an ex-smoker, reporting that she quit smoking 90 days ago. Patient reports history of asthma. Patient has been taking [id number] NyQuil and zinc with little relief. Patient's has been currently similar symptoms. MD elicited complaint: rhinorrhea and nasal congestion Onset (ago): day(s) (4-5) Able to tolerate fluids by mouth: Yes Treatments prior to arrival: cold medicine Related Data Home Medications ?Medication ?Instructions ?Recorded ?Confirmed ?Last Taken ?Type montelukast 10 mg tablet 10 mg PO DAILY 11/12/23 07/15/24 06/06/24 History pantoprazole 40 mg tablet,delayed 40 mg PO DAILY 11/12/23 07/15/24 06/06/24 History release pregabalin 100 mg capsule 100 mg PO TID 11/12/23 07/15/24 06/06/24 History duloxetine 60 mg capsule,delayed 60 mg PO DAILY 12/09/23 07/15/24 06/06/24 History release esomeprazole magnesium 20 mg 40 mg PO DAILY 12/09/23 07/15/24 06/06/24 History capsule,delayed release varenicline tartrate 1 mg tablet 1 mg PO BID 06/06/24 07/15/24 06/06/24 History nitroglycerin 0.4 mg sublingual 0.4 mg sublingual Q5M PRN chest 07/15/24 07/15/24 Unknown History tablet pain Allergies Allergy/AdvReac Type Severity Reaction Status Date / Time No Known Allergies Allergy Verified 07/15/24 12:25 Review of Systems Constitutional: Constitutional: Reports chills, Reports fatigue and Reports fever(s) ENT: Denies epistaxis, Reports nasal congestion and Denies sore throat Respiratory: Respiratory: Reports chest congestion, Reports cough, Denies dyspnea and Denies wheezing Gastrointestinal: Gastrointestinal: Denies diarrhea, Denies nausea and Denies vomiting Integumentary/Breasts: Skin/Breast: Denies erythema and Denies rash Neurologic: Denies dizziness, Denies syncope and Denies headache(s) [facility] Past Medical History Medical History Paroxysmal A-fib in 2019 when had COVID Rotator cuff injury Shoulder pain Shoulder injury Biceps tendonitis Rotator cuff tendinitis Rotator cuff tear Cough Obesity Tobacco abuse quit 2016 Back pain IBS (irritable bowel syndrome) Asthma Hypercholesterolemia SLAP lesion of right shoulder Pharyngitis Otalgia of left ear Otalgia of both ears Essential (primary) hypertension Fibromyalgia Gastro-esophageal reflux disease with esophagitis Mixed hyperlipidemia Surgical History Surgical History History of right knee surgery related to fracture H/O dilation and curettage History of carpal tunnel release of both wrists History of section H/O: hysterectomy Status post shoulder surgery Family History Family History Sibling Patient's brother is in good health Family history of malignant neoplasm Father Family history of alcoholism Mother Family history of malignant neoplasm of breast in first degree relative Other Family history of arthritis Hypertension Social History Social History Smoking packs per day: 1 Smoking cigarettes per day: 20.0 Years smoked: 49 Smoking pack-years: 49.00 Smoking status: Current every day smoker Tobacco type: cigarettes Second hand tobacco smoke exposure: Yes Smoking end date: 05/23/15 Additional smoking assessment comments: on chantex Alcohol intake: never Substance use: never Substance use type: marijuana Do You Feel Safe in your Home?: Yes Lack of Transportation: No Lack of Food: Never True Current Housing: I Have Housing Concerned About Future Housing: No Difficulty Paying Gas/Electric Bills: No Difficulty Paying for Meds: YES Currently Unemployed: No Education: High School Diploma/GED Difficulty w/ Childcare or Family Care: No Living arrangements: with family Gender identity (if verbalized by the patient): Female Spiritual care concerns: No Comments At time of signature, I agree with nursing past medical, surgical, social and family history. There is no relevant family history pertinent to the presenting complaint. Exam Const: General: healthy appearing and no acute distress Nutritional Appearance: well nourished Orientation/consciousness: patient oriented x3 Limitations: no limitations HENMT: Head: normal to inspection Ears: external ears normal, TM's normal bilaterally and EAC's normal Mouth: Yes Normal oral and palatal mucosa present, Yes lip normal and Yes moist mucous membranes Teeth and gingiva: dentition normal Throat: posterior oropharynx normal and uvula midline Eyes: Conjunctivae: conjunctivae normal Neck: Neck: normal visual inspection Resp: Effort & Inspection: normal respiratory effort Auscultation: clear to auscultation bilaterally, no crackles, no rales, no rhonchi and wheezes expiratory wheezes ( Noted throughout, worse to left lower lobe) Cardio: Rate: regular rate Rhythm: regular rhythm Heart sounds: no murmurs Skin: General skin exam: normal color Rashes: no rashes Wounds: no wounds Neuro: General: patient oriented x3 and moves all extremities Speech: normal speech Gait exam (Neuro): Normal gait present Psych: Affect: normal affect Attitude: cooperative Course Course Level of Care: Express Care Visit Vital Signs Vital signs: Vital Signs Temperature 37.1 C 07/15/24 12:33 Pulse Rate 111 H 07/15/24 12:33 Respiratory Rate 16 07/15/24 12:33 Blood Pressure 147/79 H 07/15/24 12:33 Pulse Oximetry 98 07/15/24 12:33 Oxygen Delivery Room Air 07/15/24 12:33 Temperature 37.1 C 07/15/24 12:33 Pulse Rate 111 H 07/15/24 12:33 Respiratory Rate 16 07/15/24 12:33 Blood Pressure 147/79 H 07/15/24 12:33 Pulse Oximetry 98 07/15/24 12:33 Oxygen Delivery Room Air 07/15/24 12:33 MDM - URI/Sore Throat MDM Narrative Medical decision making narrative: discussed positive influenza A results and negative chest x-ray with patient. Will place patient on prednisone and cough medication due to wheezing. Patient understands importance of follow-up with primary care provider in 24-48 hours. Patient understands importance of proceeding to the emergency room if symptoms worsen. Differential Diagnosis Differential diagnosis: Likely sinusitis, viral infection and bronchitis Lab Data Labs: positive influenza, negative COVID Imaging Data Radiologist's impression: Ordering Physician: Meenu Rivas APRN Date of Service: 07/15/24 Procedure(s): XR chest 2V Accession Number(s): [id number] cc: Ranjan Watson MD; Meenu Rivas APRN~ EXAMINATION: XR chest 2V DATE: 07/15/2024 13:02 INDICATION: Productive cough. TECHNIQUE: Frontal and lateral views of the chest were obtained on 3 radiographs. COMPARISON: Chest single view 05/03/2024 FINDINGS: There is no pneumonia, pleural effusion, or pneumothorax. The heart size is normal. There are old healed right rib fractures. IMPRESSION: 1. No acute cardiopulmonary disease. Reviewed, dictated and finalized at location A. PULLING MACHINE TENDER Please be advised this is a medical document. It is intended for [id number] communication. It is written in medical language and may contain unfamiliar abbreviations or verbiage. Medical documents are intended to carry relevant information, facts as evident, and the clinical opinion of the practitioner at the time of the encounter. This report may have been done utilizing a voice recognition system. Attempts have been made to correct errors. However, there may be uncorrected grammatical, spelling, and recognition errors present. The file time of this note does not necessarily represent the time of service. Dictated By: Sami Griffith MD 07/15/24 1306 Signed By: <Electronically signed by Sami Griffith MD in OV> 07/15/24 1307 Critical Care Time Critical Care Time Critical Care Time: No Discharge Plan Discharge Clinical Impression: Influenza Patient Disposition: Home, Self-Care Condition: Stable Instructions: Influenza (ED) Additional Instructions: you are testing positive today for influenza a, please self quarantine until you are fever free for 24 hours without the help of Motrin or Tylenol take prednisone as prescribed Take cough medication as needed follow-up with primary care provider in 48 hours to re-evaluate symptoms Proceed immediately to the emergency room if symptoms worsen Patient Language: Greek Prescriptions: New prednisone 20 mg tablet 40 mg PO DAILY 5 Days Qty: 10 0RF benzonatate 100 mg capsule 100 mg PO BID PRN (Reason: cough) Qty: 14 0RF No Action montelukast 10 mg tablet 10 mg PO DAILY pantoprazole 40 mg tablet,delayed release (DR/EC) 40 mg PO DAILY pregabalin 100 mg capsule 100 mg PO TID nitroglycerin 0.4 mg tablet, sublingual 0.4 mg sublingual Q5M PRN (Reason: chest pain) aspirin 81 mg tablet,delayed release (DR/EC) 81 mg PO DAILY Qty: 30 0RF ferrous sulfate 325 mg (65 mg iron) tablet 325 mg PO DAILY Qty: 30 0RF esomeprazole magnesium 20 mg Capsule,Delayed Release(Dr/Ec) 40 mg PO DAILY duloxetine 60 mg capsule,delayed release(DR/EC) 60 mg PO DAILY ondansetron 4 mg tablet,disintegrating 4 mg PO Q8H PRN (Reason: nausea and vomiting) Qty: 30 0RF levetiracetam 500 mg tablet 500 mg PO BID Qty: 60 0RF varenicline tartrate 1 mg tablet 1 mg PO BID dicyclomine 20 mg tablet See Rx Instructions .ROUTE .COMPLEX Qty: 90 4RF Dose Instruction: TAKE 1 TABLET BY MOUTH THREE TIMES A DAY Rx Instructions: TAKE 1 TABLET BY MOUTH THREE TIMES A DAY atorvastatin 40 mg tablet 40 mg PO DAILY Qty: 90 1RF Follow-up/Referrals: Ranjan Watson MD [Primary Care Provider] -
[2024-07-15 13:29] LABS: EDCOVIDSCREEN Negative (Negative); EDINFLUASCREEN Positive (Negative); EDINFLUBSCREEN Negative (Negative)
== END 2024-07-15 13:22 | disposition home or self-care (01) ==
PROVIDERS: Emergency Provider Nurse Practitioner Family; PCP Family Medicine
DX: J10.1 Influenza due to other identified influenza virus with other respiratory manifestations (principal); Z20.822 Contact with and (suspected) exposure to COVID-19; Z87.891 Personal history of nicotine dependence; E78.2 Mixed hyperlipidemia; I10 Essential (primary) hypertension; I48.91 Unspecified atrial fibrillation; E66.9 Obesity, unspecified; Z68.32 Body mass index [BMI] 32.0-32.9, adult; J45.909 Unspecified asthma, uncomplicated; E78.00 Pure hypercholesterolemia, unspecified; M79.7 Fibromyalgia; K21.00 Gastro-esophageal reflux disease with esophagitis, without bleeding
CPT/HCPCS: 71046; 87426; 87804; 99213; G0463

== ENCOUNTER 2024-07-26 10:46 | Outpatient (CLI) | payer MEDICAID, SELFPAY ==
--- NOTE | ~2024-07-26 | XR_ITS ---
XR hip LT 2V w AP pelvis Ordering provider: Ranjan Watson MD History: . M54.50 - Low back pain, unspecified . Comparison: None. FINDINGS: BONES: No acute fracture or dislocation. HIP JOINT SPACES: Normal. SACROILIAC JOINT SPACES/LUMBAR SPINE: The sacroiliac joint shows a right sacroiliitis. Mild degenerat haroon changes of the visualized lower lumbar spine. PUBIC SYMPHYSIS: Normal. SOFT TISSUES: Normal. IMPRESSION: No acute osseous abnormality pelvis and left hip. Right sacroiliitis. Reviewed, dictated and finalized at location A. [place] STORE ASSOCIATE
--- NOTE | ~2024-07-26 | XR_ITS ---
3 VIEWS LUMBAR SPINE Ordering provider: Ranjan Watson MD History: . M54.50 - Low back pain, unspecified . Comparison: None. FINDINGS: VERTEBRAL BODIES: No visible fracture or subluxation. Dextroscoliosis. Degenerative changes of the sp ine. Severe bending of the coccyx. DISK SPACES: Normal. Facet joint disease at the level of L5-S1. SOFT TISSUES: Atherosclerotic changes of the aorta. IMPRESSION: No acute osseous abnormality lumbar spine. Reviewed, dictated and finalized at location A. AINABLE AGRICULTURE SPECIALIST
--- NOTE | ~2024-07-26 | XR_ITS ---
HISTORY: M54.6 - Pain in thoracic spine COMPARISON: Reference is made to a plain film evaluation of the chest dated 07/15/2024 TECHNIQUE: 2 views of the thoracic spine were performed. FINDINGS: No acute compression fracture is present. Degenerative disease is identified at the level of T9/T10 with osteophyte formation, disc space narro wing and endplate changes. Diffuse bony demineralization is also present. 9 degrees of levoscoliotic curvature of the lower thoracic spine is present. IMPRESSION: Degenerative disease without acute compression fracture, as detailed above. Reviewed, dictated and finalized at location A. ASSEMBLER FOR PULLER OVER IMPRESSION: Degenerative disease without acute compression fracture, as detail ed above.
--- OUTSIDE RECORDS SUMMARY | 2024-07-26 12:24 | XMS_ITS | Clinical Summary ---
Author Organization [facility] Address [address] [place] [address] Care Team Providers Care Rectifier Operator Name Role Phone Taty West PA Unavailable [phone] Esperanza Moffett NP Unavailable [phone] Ranjan Watson MD Primary Care Provider [phone] Allergies No known active allergies Medications aspirin 81 mg chewable tablet Take 1 tablet (81 mg total) by mouth daily Active multivitamin capsule Take 1 capsule by mouth daily Active escitalopram (LEXAPRO) 10 mg tablet Take 1 tablet (10 mg total) by mouth daily Active atorvastatin (LIPITOR) 40 mg tablet Take 1 tablet (40 mg total) by mouth daily Active pantoprazole DR (PROTONIX) 40 mg EC tabletIndication s:Mucositis Prophylaxis Take 1 tablet (40 mg total) by mouth daily 30 tablet 11 4 09/27/19 25 Active albuterol HFA (PROVENTIL HFA,VENTOLIN HFA,PROAIR HFA) 90 mcg/actuation inhaler INHALE 2 PUFFS BY MOUTH FOUR TIMES DAILY NEEDED FOR SHORTNESS OF BREATH 8 Active spironolactone (ALDACTONE) 50 mg tablet Take 1 tablet (50 mg total) by mouth daily Active pregabalin (LYRICA) 100 mg capsule Take 1 capsule (100 mg total) by mouth 3 (three) times a day Active DULoxetine DR (CYMBALTA) 60 mg capsule Take 1 tablet by mouth daily Active esomeprazole DR (NexIUM) 40 mg capsule Take by mouth 9 Active HYDROcodone-acet aminophen (NORCO) 5-325 mg per tablet Take 1 tablet by mouth every 6 (six) hours as needed 2 Active ferrous sulfate 325 mg (65 mg of elemental iron) tablet Take by mouth 9 Active levETIRAcetam (KEPPRA) 500 mg tabletIndication s: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) Take 1 tablet (500 mg total) by mouth 2 (two) times a day 60 tablet 11 4 10/08/19 25 Active oxyCODONE-acetam inophen (PERCOCET) 5-325 mg per tabletIndication s:Pain Take 1 tablet by mouth every 4 (four) hours as needed for pain 20 tablet 4 Active Additional Information Patient not taking.Reported on 06/21/2024 tiZANidine (ZANAFLEX) 4 mg tablet TAKE 1 TABLET BY MOUTH THREE TIMES DAILY NEEDED FOR MUSCLE PAIN Active nitroglycerin (NITROSTAT) 0.4 mg SL tabletIndication s:Chest tightness PLACE 1 TABLET UNDER THE TONGUE EVERY 5 MINUTES NEEDED FOR CHEST PAIN(MAX= 3 TABLETS) 50 tablet 5 Active Active Problems Problem Noted Date Diagnosed Date Coronary artery disease invo lving [place] coronary artery of [place] heart without angina pectoris 06/21/2024 Tobacco abuse 05/10/2024 Nonrheumatic mitral valve regurgitation 05/10/20 24 Elevated troponin 05/10/2024 Musculoskeletal chest pain 05/10/2024 Hyperlipidemia LDL goal <70 05/10/2024 Epigastric abdominal pain 11/03/2023 Nausea and vomiting 11/03/2023 Esophageal dysphagia 11/03/2023 BRBPR (bright red blood per rectum) 11/03/2023 Low iron 11/03/2023 Abdominal pain 11/03/2023 Complex partial seizure evolving to generalized seizure 09/23/2023 Moderate malnutrition 12/18/2020 COVID-19 12/17/2020 Assessment & Plan (12/17/2020 11:18 AM CDT): No respiratory compromise, will treat symptomatically and monitor for worsening symptoms. Requires minimum of 10 day isolation from the date of symptom onset (12/15/20). Dehydration 12/17/2020 Assessment & Plan (12/17/2020 11:11 AM CDT): Due to poor appetite, vomiting, and diarrhea from COVID-19. Patient has been attempting to increase fluid intake, but has not been enough to keep up with her losses. Given IV fluid resuscitation in the ED, will continue maintenance IV fluids while p.o. intake is poor. Acute kidney injury 12/17/2020 Assessment & Plan (12/17/2020 11:12 AM CDT): Baseline renal function is unknown, however there may be some baseline CKD with the patient's history polycystic kidney disease. Monitor creatinine with IV hydration. Acute bacterial sinusitis 12/17/2020 Assessment & Plan (12/17/2020 11:18 AM CDT): The thick, yellow sputum expectorated is concerning for acute bacterial sinusitis with tenderness to palpation under her eyes and nasal congestion and lack of pulmonary infiltrates or consolidation on chest x-ray (imaging personally reviewed). Will start 5 day course of Augmentin. Polycystic kidney disease IBS (irritable bowel syndrome) Hypertension GERD (gastroesophageal reflux disease) Anxiety Low back pain Encounters Date Type Department Care Team Description 06/21/2024 8:00 AM LINTING MACHINE OPERATOR Office Visit [facility] Medical [facility] Cardiology [address] [place] [address] [place] [phone] Jl Demarco MD Coronary artery disease involving [place] coronary artery of [place] heart without angina pectoris (Primary Dx); Nonrheumatic mitral valve regurgitation; Primary hypertension; Hyperlipidemia LDL goal <70; Musculoskeletal chest pain 06/21/2024 Orders Only [facility] Medical [facility] Cardiology [address] [place] [phone] Ishmael Breen MD 06/14/2024 Orders Only [facility] Medical [facility] Cardiology [address] [place] [phone] David Perera MD 06/07/2024 Orders Only [facility] Information Management [facility] [address] David Perera MD 05/18/2024 Telephone [facility] Medical [facility] Cardiology [address] [place] [address] [address] [place] [phone] Jl Demarco MD 05/10/2024 1:15 PM LINTING MACHINE OPERATOR Office Visit [facility] Cardiology [address] [place] [address] [place] [phone] Jl Demarco MD Elevated troponin (Primary Dx); Nonrheumatic mitral valve regurgitation; Primary hypertension; 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); Tobacco abuse; Chest tightness; Hyperlipidemia LDL goal <70 05/10/2024 Orders Only [facility] Cardiology [address] [place] [address] [place] [phone] Ishmael Breen MD 05/10/2024 Telephone [facility] Cardiology [address] [place] [address] [place] [phone] Jl Demarco MD [facility] from Last 3 Months Surgical History Surgery Date Site/Laterality Comments SKIN GRAFT All body TONSILLECTOMY HYSTERECTOMY HAND SURGERY SHOULDER ARTHROSCOPY W/ SUPE RIOR LABRAL ANTERIOR POSTERIOR LESION REPAIR R shoulder Medical History Medical History Date Comments Hypertension GERD (gastroesophageal reflux disease) IBS (irritable bowel syndrome) Murmur Polycystic kidney disease Anxiety Low back pain Family History Medical History Relation Name Comments Alcohol abuse Brother Drug abuse Brother Cancer Maternal Grandmother breast Tuberculosis Maternal Grandmother Cancer Mother breast Heart attack Mother Alcohol abuse Sister Drug abuse Sister Relation Name Status Comments Brother Maternal Grandmother Mother Sister Social History Tobacco Use Types Packs/Day Years Used Date Smoking Tobacco: Every Day Cigarettes 0.8 88 Tobacco Cessation:Ready to Q uit: Not Asked; Counseling Given: Not Answered AUDIT-C Answer Date Recorded Q1: How often do you have a drink containing alc ohol? Never 09/23/2023 Average Number of Drinks Not on file 024 Frequency of Binge Drinking Not on file 07/2023 Personal Safety Answer Date Recorded Have you ever been in or are you currently in a harmful physical or emotional relationship or is someone making you feel afraid or unsafe? Denies 12/07/2023 Comments No Sex and Gender Information Value Date Recorded Sex Assigned at Not on file Legal Sex Female 10:58 AM LINTING MACHINE OPERATOR Gender Identity Not on file Sexual Orientation Not on file Obstetrics History Last Filed Vital Signs Vital Sign Reading Time Taken Comments Blood Pressure 98/60 06/21/2024 7:56 AM LINTING MACHINE OPERATOR Pulse 74 06/21/2024 7:56 AM LINTING MACHINE OPERATOR Temperature 36.6 C (97.9 F) 12/07/2023 11:08 AM CDT Respiratory Rate 16 12/07/2023 11:08 AM CDT Oxygen Saturation 99% 06/21/2024 7:56 AM LINTING MACHINE OPERATOR Inhaled Oxygen Concentration - - Weight 72.6 kg (160 lb) 06/21/2024 7:56 AM LINTING MACHINE OPERATOR Height 149.9 cm (4' 11 ) 06/21/2024 7:56 AM LINTING MACHINE OPERATOR Body Mass Index 32.32 06/21/2024 7:56 AM LINTING MACHINE OPERATOR Plan of Treatment Health Maintenance Due Date Last Done Comments Breast Cancer Screening-Mammogram 1963 Colon Cancer Screening-Colonoscopy 1963 Depression Screening 1963 Hepatitis C Screening 1963 DTaP/Tdap/Td Vaccine (1 - Tdap) 1974 Hepatitis B Screening 1981 Regular Well Visit/Exam 18-64 1981 Lung Cancer Screening 2013 Zoster Vaccine (2 of 2) 03/06/2018 01/09/2018, 11/07 Pneumococcal vaccine <65 (2 of 2 - PCV) 02/28/2019 02/28/2018 Covid-19 Vaccine (2023-2 5 season) 2024 02/22/2022, 01/27/2021, 01/06/2021, Additional history exists Influenza Vaccine (#1) 2024 , 04/22/2021, 03/01/2020, Additional history exists Procedures Procedure Name Priority Date/Time Associated Diagnosis Comments CARDIOLOGY DOCUMENT SCAN Routine 06/07/2024 1:11 PM LINTING MACHINE OPERATOR TRANSTHORACIC ECHO (TTE) COMPLETE W DOPPLER/CF Routine 06/07/2024 9:05 AM LINTING MACHINE OPERATOR CARDIOLOGY DOCUMENT SCAN 06/07/2024 POCT LIPID PANEL Routine 05/10/2024 1:08 PM LINTING MACHINE OPERATOR Hyperlipidemia LDL goal <70 TRANSTHORACIC ECHO (TTE) COMPLETE W DOPPLER/CF Routine 05/03/2024 3:54 PM LINTING MACHINE OPERATOR ECG 12-LEAD Routine 05/03/2024 3:54 PM LINTING MACHINE OPERATOR from Last 3 Months Results * Cardiology Document Scan (06/07/2024 1:11 PM LINTING MACHINE OPERATOR) Anatomical Region Laterality Modality Other Result [facility] David Perera MD CV CARDIAC SERVICES PROCEDURES F inal Result * Transthoracic Echo (TTE) Complete W Doppler/CF (06/07/2024 9:05 AM LINTING MACHINE OPERATOR) Anatomical Region Laterality Modality Ultrasound Result [facility] Historical Provider CV ECHO PROCEDURES Edited Result - Final * Cardiology Document Scan (06/07/2024) Anatomical Region Laterality Modality Other Result [facility] David Perera MD CV CARDIAC SERVICES PROCEDURES F inal Result * POCT lipid panel (05/10/2024 1:08 PM LINTING MACHINE OPERATOR) Cholesterol, POC 154 mg/dL HDL, POC 39 mg/dL Triglycerides, POC 176 mg/dL LDL Cholesterol POC 80 mg/dL Chol/HDL Ratio, POC 2.0 Non-HDL Cholesterol, POC 115 mg/dL Cholesterol Total, POC 154 mg/dL Capillary blood 05/10/2024 1 :08 PM LINTING MACHINE OPERATOR Result [facility] Jl Demarco MD POINT OF CARE TEST ORDERA BLES Final Result * Transthoracic Echo (TTE) Complete W Doppler/CF (05/03/2024 3:54 PM LINTING MACHINE OPERATOR) Anatomical Region Laterality Modality Ultrasound Result [facility] Historical Provider CV ECHO PROCEDURES Edited Result - Final * ECG 12 lead (05/03/2024 3:54 PM LINTING MACHINE OPERATOR) Result [facility] Historical Provider ECG ORDERABLES Edited Re sult - Final from Last 3 Months Insurance [facility] IDPA Advance Directives For more information, please contact: [phone] * Full Code (Latest Code Status on File) Date Activated Date Inactivated Comments 09/24/2023 12:54 AM 09/26/2023 7:18 PM * Full Code Date Activated Date Inactivated Comments 12/17/2020 6:54 AM 12/18/2020 10:48 PM Care Teams Rectifier Operator Relationship Specialty Start Date End Date Ranjan Watson MD [address] [place] [address] PCP - General Family Practice 1/30/25 Taty West PA [address] [facility] [address] [place] [address] Gastroenterology 09/26/23 Esperanza Moffett NP [address] [facility] [address] [place] [address] Neurology 09/26/23
--- OUTSIDE RECORDS SUMMARY | 2024-07-26 12:24 | XMS_ITS | Encounter Summary ---
Author Organization [facility] Healthcare Address [address] [place] [address] Care Team Providers Care Electrical Apprentice Name Role Phone Taty West Unavailable [phone] Esperanza Moffett NP Unavailable [phone] Darnell Blanchard Primary Care Provider + Ranjan Watson MD Primary Care Provider [phone] Reason for Visit * Auth/Cert Specialty Diagnoses / Procedures Referred By Surekha t Referred To Contact Diagnoses Epigastric abdominal pain Nausea and vomiting, unspecified vomiting type Esophageal dysphagia Gastroesophageal reflux disease, unspecified whether esophagitis present BRBPR (bright red blood per rectum) Low iron Abdominal pain Epigastric abdominal pain [R10.13] Nausea and vomiting, unspecified vomiting type [R11.2] Esophageal dysphagia [R13.19] Gastroesophageal reflux disease, unspecified whether esophagitis present [K21.9] BRBPR (bright red blood per rectum) [K62.5] Low iron [E61.1] Abdominal pain [R10.9] Procedures SD COLONOSCOPY FLX DX W/COLLJ SPEC WHEN PFRMD SD ESOPHAGOGASTRODUODENOSCOPY TRANSORAL DIAGNOSTIC COLONOSCOPY ESOPHAGOGASTRODUODENOSCOPY Referral ID Status Reason Start Date Expiration Date Visits Re quested Visits Authorized [id number] 1 1 Encounter Details Date Type Department Care Team (Late st Contact Info) Description 02/02/2024 Hospital Encounter [facility] [address] [place] [phone] Jesus Tay MD [address] [place] [address] [place] [address] Social History Tobacco Use Types Packs/Day Years Used Date Smoking Tobacco: Every Day Cigarettes 0.8 88 AUDIT-C Answer Date Recorded Q1: How often [...] on file Legal Sex Female 10:58 AM SPINAL SURGEON Gender Identity Not on file Sexual Orientation Not on file documented as of this encounter Plan of Treatment Not on file documented as of this encounter Visit Diagnoses Diagnosis GERD (gastroesophageal reflux disease) Esophageal reflux Epigastric abdominal pain Abdominal pain, epigastric Nausea and vomiting Nausea with vomiting Esophageal dysphagia Dysphagia, pharyngoesophageal phase BRBPR (bright red blood per rectum) Hemorrhage of rectum and anus Low iron Unspecified iron deficiency anemia Abdominal pain Abdominal pain, unspecified site documented in this encounter Admitting Diagnoses Diagnosis GERD (gastroesophageal reflux disease) Esophageal reflux Epigastric abdominal pain Abdominal pain, epigastric Nausea and vomiting Nausea with vomiting Esophageal dysphagia Dysphagia, pharyngoesophageal phase BRBPR (bright red blood per rectum) Hemorrhage of rectum and anus Low iron Unspecified iron deficiency anemia Abdominal pain Abdominal pain, unspecified site documented in this encounter Care Teams Electrical Apprentice Relationship Specialty Start Date End Date Darnell Blanchard PA [address] [place] [address] PCP - General Internal Medicine 10/13/23 06/20/24 Ranjan Watson MD [address] [place] [address] PCP - General Family Practice 06/21/24 Taty West PA [address] [facility] [address] [place] [address] Gastroenterology 09/26/23 Esperanza Moffett NP [address] [facility] [address] [place] [address] Neurology 09/26/23 documented as of this encounter
--- OUTSIDE RECORDS SUMMARY | 2024-07-26 12:24 | XMS_ITS | Encounter Summary ---
Author Organization [facility] Healthcare Address [address] [place] [address] Care Team Providers Care Back Up Worker Name Role Phone Taty West Unavailable [phone] SQL DEVELOPER Unavailable [phone] Darnell Blanchard Primary Care Provider + Ranjan Watson MD Primary Care Provider [phone] Encounter Details Date Type Department Care Team (Late st Contact Info) Description 06/07/2024 Orders Only [facility] [place] Information Management [address] [place] [id number] David Perrea MD [address] [address] Social History Tobacco Use Types Packs/Day Years [...] on file Legal Sex 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:58 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 Gender Identity Not on file Sexual Orientation Not on file documented as of this encounter Plan of Treatment Not on file documented as of this encounter Procedures Procedure Name Priority Date/Time Associated Diagnosis Comments CARDIOLOGY DOCUMENT SCAN 06/07/2024 documented in this encounter Results * Cardiology Document Scan (06/07/2024) Anatomical Region Laterality Modality Other David Perera MD CV CARDIAC SERVICES PROCEDURES F inal Result documented in this encounter Visit Diagnoses Not on filedocumented in this encounter Care Teams Back Up Worker Relationship Specialty Start Date End Date Darnell Blanchard PA [address] [place] [address] PCP - General Internal Medicine 10/13/23 06/20/24 Ranjan Watson MD [address] [place] [address] PCP - General Family Practice 06/21/24 Taty West PA [address] [place] [address] [address] [place] [address] Gastroenterology 09/26/23 Esperanza Moffett NP [address] [place] [address] [address] [place] [address] Neurology 09/26/23 documented as of this encounter
--- OUTSIDE RECORDS SUMMARY | 2024-07-26 12:24 | XMS_ITS | Referral Summary ---
Author Organization [facility] Address [address] [place] [address] Care Team Providers Care Telephone Assembler Name Role Phone Chay Peñaloza MD Primary Care Provider [phone] Source Comments [facility] [employer],non-owned Affiliates and Associated Physician Practices is amultiple site organization consisting of ambulatory clinics and hospital sitesin [place], [place], [place] and [place]. This disclosure is being madepursuant to the Care Everywhere program and may not contain all information available regarding this patient. Last updated 18.[facility] [employer] Allergies No known active allergies Medications * Be aware that medications may not be up to date on this document. Alwaysverify current medications with the patient. Medication Sig Dispensed Refills Start Date End Date Status ATORVASTATIN CALCIUM PO Active CYCLOBENZAPRINE HCL PO Active AMLODIPINE BESYLATE PO Active DICYCLOMINE HCL PO Active Esomeprazole Magnesium (NEXIUM PO) Active albuterol HFA (PROAIR HFA) 108 (90 BASE) MCG/ACT inhaler Inhale 2 puffs by mouth every 4 hours as needed for Shortness of Breath, Wheezing or Cough 1 Inhaler 05/28/2017 Active lisinopril (PRINIVIL; ZESTRIL) 10 MG tablet Take 10 mg by mouth once daily Active busPIRone (BUSPAR) 10 MG tablet Take 10 mg by mouth 3 times daily Active etodolac (LODINE) 300 MG capsule Take 300 mg by mouth 2 times daily Active [place]-3 Fatty Acids (FISH OIL PO) Active Social History Tobacco Use Types Packs/Day Years Used Date Smoking Tobacco: Passive [place]o [place] Exposure - Never Smoker Smokeless Tobacco: Never Sex and Gender Information Value Date Recorded Sex Assigned at Not on file Gender Identity Not on file Sexual Orientation Not on file Last Filed Vital Signs Vital Sign Reading Time Taken Comments Blood Pressure 128/76 08/01/2020 7:28 PM ASSISTANT CORPORATE CONTROLLER Pulse 102 08/01/2020 7:28 PM ASSISTANT CORPORATE CONTROLLER Temperature 36.7 C (98.1 F) 08/01/2020 7:28 PM ASSISTANT CORPORATE CONTROLLER Respiratory Rate 20 08/01/2020 7:28 PM ASSISTANT CORPORATE CONTROLLER Oxygen Saturation 92% 08/01/2020 7:28 PM ASSISTANT CORPORATE CONTROLLER Inhaled Oxygen Concentration - - Weight 73.5 kg (162 lb) 05/28/2017 11:53 AM ASSISTANT CORPORATE CONTROLLER Height 149.9 cm (4' 11 ) 05/28/2017 11:53 AM ASSISTANT CORPORATE CONTROLLER Body Mass Index 32.72 05/28/2017 11:53 AM ASSISTANT CORPORATE CONTROLLER Plan of Treatment Not on file Care Teams Telephone Assembler Relationship Specialty Start Date End Date Chay Peñaloza MD [address] [place] [phone] PCP - General 08/11/21
--- OUTSIDE RECORDS SUMMARY | 2024-07-26 12:24 | XMS_ITS | Patient Health Summary ---
Author Organization [facility] Address [address] [place] [address] Care Team Providers Care Field Specialist Name Role Phone Chay Peñaloza MD Primary Care Provider [phone] Note from [facility],non-owned Affiliates and Associated Physician Practices is amultiple site organization consisting of ambulatory clinics and hospital sitesin [place], [place], [place] and [place]. This disclosure is being madepursuant to the Care Everywhere program and may not contain all information available regarding this patient. Last updated 18.[facility] Allergies No known active allergies Medications * Be aware that medications may not be up to date on this document. Alwaysverify current medications with the patient. * ATORVASTATIN CALCIUM PO * CYCLOBENZAPRINE HCL PO * AMLODIPINE BESYLATE PO * DICYCLOMINE HCL PO * Esomeprazole Magnesium (NEXIUM PO) * albuterol HFA (PROAIR HFA) 108 (90 BASE) MCG/ACT inhaler(Started 05/28/2017) Inhale 2 puffs by mouth every 4 hours as needed for Shortness of Breath, Wheezing or Cough * lisinopril (PRINIVIL; ZESTRIL) 10 MG tablet Take 10 mg by mouth once daily * busPIRone (BUSPAR) 10 MG tablet Take 10 mg by mouth 3 times daily * etodolac (LODINE) 300 MG capsule Take 300 mg by mouth 2 times daily * [place]-3 Fatty Acids (FISH OIL PO) Social History Tobacco Use Types Packs/Day Years Used Date Smoking Tobacco: Passive Smo [place] Exposure - Never Smoker Smokeless Tobacco: Never Sex and Gender Information Value Date Recorded Sex Assigned at Not on file Gender Identity Not on file Sexual Orientation Not on file Last Filed Vital Signs Vital Sign Reading Time Taken Comments Blood Pressure 128/76 08/01/2020 7:28 PM TELETYPESETTER OPERATOR Pulse 102 08/01/2020 7:28 PM TELETYPESETTER OPERATOR Temperature 36.7 C (98.1 F) 08/01/2020 7:28 PM TELETYPESETTER OPERATOR Respiratory Rate 20 08/01/2020 7:28 PM TELETYPESETTER OPERATOR Oxygen Saturation 92% 08/01/2020 7:28 PM TELETYPESETTER OPERATOR Inhaled Oxygen Concentration - - Weight 73.5 kg (162 lb) 05/28/2017 11:53 AM TELETYPESETTER OPERATOR Height 149.9 cm (4' 11 ) 05/28/2017 11:53 AM TELETYPESETTER OPERATOR Body Mass Index 32.72 05/28/2017 11:53 AM TELETYPESETTER OPERATOR Procedures * STREP A SCREEN - POINT OF CARE (AMB) STL(Performed 08/01/2020) Performed for Acute nasopharyngitis (common cold) * STREP A SCREEN - POINT OF CARE (AMB) STL(Performed 05/28/2017) Performed for Acute maxillary sinusitis, recurrence not specified Results * STREP A SCREEN - POINT OF CARE (AMB) STL (08/01/2020 7:43 PM TELETYPESETTER OPERATOR) Only the most recent of2 resultswithin the time period is included. Strep A Rapid POCT Negative Negative [facility] Strep A Internal Control Present [facility] Lot # [id number] [facility] Expiration Date 05/22/21 [facility] Throat ENTIRE THROAT (SURFACE REGION OF NECK) / Unknown 08/01/2020 7:43 PM TELETYPESETTER OPERATOR Telma Mcallister [place] [employer] MANAGER LAB - POINT OF CA RE ORDERABLES [facility] [address] [place] [id number], [facility] [phone] Care Teams Field Specialist Relationship Specialty Start Date End Date Chay Peñaloza MD [address] [place] [address] PCP - General 08/11/21
--- OUTSIDE RECORDS SUMMARY | 2024-07-26 12:24 | XMS_ITS | Referral Summary ---
Author Organization [facility] Address [address] [place] [address] Care Team Providers Care Vertical Boring Mill Operator Name Role Phone Taty West PA Unavailable [phone] Esperanza Moffett NP Unavailable [phone] Ranjan Watson MD Primary Care Provider [phone] Encounters Date Type Department Care Team Description 06/21/2024 Orders Only [facility] Medical [facility] Cardiology [address] [facility] [address] [place] [phone] ProviderIshmael MD 06/21/2024 8:00 AM OFFICE ADMINISTRATOR Office Visit [facility] Cardiology [address] [place] [address] [address] [place] [phone] Jl Demarco MD Coronary artery disease involving levelock coronary artery of levelock heart without angina pectoris (Primary Dx); Nonrheumatic mitral valve regurgitation; Primary hypertension; Hyperlipidemia LDL goal <70; Musculoskeletal chest pain 06/14/2024 Orders Only [facility] Medical [facility] Cardiology [address] [facility] [address] [place] [phone] David Perera MD 06/07/[address] [facility] Health Information Management [address] [place] [phone] David Perera MD 05/18/2024 Telephone [facility] Medical [facility] Cardiology [address] [facility] [address] [place] [phone] Jl Demarco MD 05/10/2024 Orders Only [facility] Medical [facility] Cardiology [address] [place] [phone] ProviderIshmael MD 05/10/2024 Telephone [facility] Cardiology [address] [place] [phone] Jl Demarco MD [facility] 05/10/2024 1:15 PM OFFICE ADMINISTRATOR Office Visit [facility] Cardiology [address] [place] [phone] Jl Demarco MD Elevated troponin (Primary Dx); Nonrheumatic mitral valve regurgitation; Primary hypertension; 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); Tobacco abuse; Chest tightness; Hyperlipidemia LDL goal <70 from Last 3 Months Allergies No known active allergies Medications aspirin [...] Diagnosed Date Coronary artery disease invo lving levelock coronary artery of levelock heart without angina pectoris 06/21/2024 Tobacco abuse [...] (gastroesophageal reflux disease) Anxiety Low back pain Social History Tobacco Use Types Packs/Day Years [...] on file Legal Sex Female 10:58 AM OFFICE ADMINISTRATOR Gender Identity Not on file Sexual Orientation Not on file Last Filed Vital Signs Vital Sign Reading Time Taken Comments Blood Pressure 98/60 06/21/2024 7:56 AM OFFICE ADMINISTRATOR Pulse 74 06/21/2024 7:56 AM OFFICE ADMINISTRATOR Temperature 36.6 C (97.9 F) 12/07/2023 11:08 AM CDT Respiratory Rate 16 12/07/2023 11:08 AM CDT Oxygen Saturation 99% 06/21/2024 7:56 AM OFFICE ADMINISTRATOR Inhaled Oxygen Concentration - - Weight 72.6 kg (160 lb) 06/21/2024 7:56 AM OFFICE ADMINISTRATOR Height 149.9 cm (4' 11 ) 06/21/2024 7:56 AM OFFICE ADMINISTRATOR Body Mass Index 32.32 06/21/2024 7:56 AM OFFICE ADMINISTRATOR Plan of Treatment Not on file Procedures Procedure Name Priority Date/Time Associated Diagnosis Comments CARDIOLOGY DOCUMENT SCAN Routine 06/07/2024 1:11 PM OFFICE ADMINISTRATOR TRANSTHORACIC ECHO (TTE) COMPLETE W DOPPLER/CF Routine 06/07/2024 9:05 AM OFFICE ADMINISTRATOR CARDIOLOGY DOCUMENT SCAN 06/07/2024 POCT LIPID PANEL Routine 05/10/2024 1:08 PM OFFICE ADMINISTRATOR Hyperlipidemia LDL goal <70 TRANSTHORACIC ECHO (TTE) COMPLETE W DOPPLER/CF Routine 05/03/2024 3:54 PM OFFICE ADMINISTRATOR ECG 12-LEAD Routine 05/03/2024 3:54 PM OFFICE ADMINISTRATOR from Last 3 Months Results * Cardiology Document Scan (06/07/2024 1:11 PM OFFICE ADMINISTRATOR) Anatomical Region Laterality Modality Other us David Perera MD CV CARDIAC SERVICES PROCEDURES F inal Result * Transthoracic Echo (TTE) Complete W Doppler/CF (06/07/2024 9:05 AM OFFICE ADMINISTRATOR) Anatomical Region Laterality Modality Ultrasound Ishmael Breen MD CV ECHO PROCEDURES Edited Result - Final * Cardiology Document Scan (06/07/2024) Anatomical Region Laterality Modality Other David Perera MD CV CARDIAC SERVICES PROCEDURES F inal Result * POCT lipid panel (05/10/2024 1:08 PM OFFICE ADMINISTRATOR) Cholesterol, POC 154 mg/dL HDL, POC 39 mg/dL Triglycerides, POC 176 mg/dL LDL Cholesterol POC 80 mg/dL Chol/HDL Ratio, POC 2.0 Non-HDL Cholesterol, POC 115 mg/dL Cholesterol Total, POC 154 mg/dL Capillary blood 05/10/2024 1 :08 PM OFFICE ADMINISTRATOR Jl Demarco MD POINT OF CARE TEST ORDERA BLES Final Result * Transthoracic Echo (TTE) Complete W Doppler/CF (05/03/2024 3:54 PM OFFICE ADMINISTRATOR) Anatomical Region Laterality Modality Ultrasound Historical Provider CV ECHO PROCEDURES Edited Result - Final * ECG 12 lead (05/03/2024 3:54 PM OFFICE ADMINISTRATOR) Historical Provider ECG ORDERABLES Edited Re sult - Final from Last 3 Months Insurance Advance Directives For more information, please contact: [phone] * Full Code (Latest Code Status on File) Date Activated Date Inactivated Comments 09/24/2023 12:54 AM 09/26/2023 7:18 PM * Full Code Date Activated Date Inactivated Comments 12/17/2020 6:54 AM 12/18/2020 10:48 PM Care Teams Vertical Boring Mill Operator Relationship Specialty Start Date End Date Ranjan Watson MD [address] [place] [address] PCP - General Family Practice 06/21/24 Taty West PA [address] [place] [address] [address] [place] [address] Gastroenterology 09/26/23 Esperanza Moffett, SENIOR APPLICATIONS DEVELOPER [address] [place] [address] [address] [place] [address] Neurology 09/26/23
--- OUTSIDE RECORDS SUMMARY | 2024-07-26 12:24 | XMS_ITS | Clinical Summary ---
Author Organization [facility] Address [address] [place] [address] Care Team Providers Care Director Of Grants Name Role Phone Chay Peñaloza MD Primary Care Provider [phone] Source Comments [facility],non-owned Affiliates and Associated Physician Practices is amultiple site organization consisting of ambulatory clinics and hospital sitesin [place], [place], [place] and [place]. This disclosure is being madepursuant to the Care Everywhere program and may not contain all information available regarding this patient. Last updated 18.[facility] Allergies No known active allergies Medications * [...] mg by mouth 2 times daily Active [place]-3 Fatty Acids (FISH OIL PO) Active Social [...] Comments Blood Pressure 128/76 08/01/2020 7:28 PM DRYWALL HANGER HELPER Pulse 102 08/01/2020 7:28 PM DRYWALL HANGER HELPER Temperature 36.7 C (98.1 F) 08/01/2020 7:28 PM DRYWALL HANGER HELPER Respiratory Rate 20 08/01/2020 7:28 PM DRYWALL HANGER HELPER Oxygen Saturation 92% 08/01/2020 7:28 PM DRYWALL HANGER HELPER Inhaled Oxygen Concentration - - Weight 73.5 kg (162 lb) 05/28/2017 11:53 AM DRYWALL HANGER HELPER Height 149.9 cm (4' 11 ) 05/28/2017 11:53 AM DRYWALL HANGER HELPER Body Mass Index 32.72 05/28/2017 11:53 AM DRYWALL HANGER HELPER Plan of Treatment Health Maintenance Due Date Last Done Comments COLOGUARD (AGES 45-75) - COL ON CA SCREENING 1963 COLON MONITORING 1963 COLONOSCOPY - COLON CA SCREENING 1963 CT COLONOGRAPHY - COLON CA SCREENING 1963 Colorectal Cancer Screening 1963 FIT - COLON CA SCREENING 1963 FLEX SIG - COLON CA SCREENING 1963 MAMMOGRAM 1963 PAP SMEAR 1963 HIV SCREENING 1978 HEPATITIS C SCREENING 04/14/1981 DTAP/TDAP/TD VACCINES (1 - Tdap) 1982 PNEUMOCOCCAL VACCINE 50+ (1 of 1 - PCV) 2013 ZOSTER VACCINE (1 of 2) 2013 COVID-19 VACCINE (2 - 2023-2 5 season) 2024 07/28/2020 INFLUENZA VACCINE (#1) 2024 0, 02/10/2019, 02/28/2018 DEPRESSION SCREENING 05/23/2024 Respiratory Syncytial Virus (RSV) Vaccine Pt: or over 60 yrs (1 - 1-dose 75+ series) 2038 HEPATITIS B VACCINE Aged Out No longe r eligible based on patient's age to complete this topic HIB VACCINE Aged Out No longer eligi ble based on patient's age to complete this topic HPV VACCINE Aged Out No longer eligi ble based on patient's age to complete this topic MENINGOCOCCAL (Group B) VACCINE Aged Out No longer eligible b ased on patient's age to complete this topic MENINGOCOCCAL VACCINE Aged Out No sandra ranjana eligible based on patient's age to complete this topic PNEUMOCOCCAL VACCINE Aged Out No long er eligible based on patient's age to complete this topic Care Teams Director Of Grants Relationship Specialty Start Date End Date Chay Peñaloza MD [address] [place] [address] PCP - General 08/11/21
--- OUTSIDE RECORDS SUMMARY | 2024-07-26 12:25 | XMS_ITS | CONTINUITY OF CARE DOCUMENT ---
Author Name alejandra roberts Address Unknown Organization [place] [facility] Address [address] [place] [address] Phone [phone] Care Team Providers Care Finish Inspector Name Role Phone Marcy Gomez MD Unavailable [phone] ANDREE HUSAIN Unavailable [phone] ANDREE HUSAIN Unavailable [phone] PROBLEMS Condition Status Date Provider Notes Tobacco abuse active Shahram Thomas MD Chest pain - nl echo and stress test 06/2018 active Shahram Thomas MD Shortness of breath active Shahram Thomas MD Atypical chest pain completed - Shahram Thomas MD Asthma active ? Shahram Thomas MD (History of) Hyperlipidemia active ? Shahram Thomas MD Hypertension active ? Shahram Thomas MD ENCOUNTERS Date Type Provider Location Encounter Diag nosis - In-person encounter Office Visit Shahram Thomas MD [facility] Chest pain - nl echo and stress test 06/24 019 - In-person encounter Office Visit Shahram Thomas MD [facility] - In-person encounter Office Visit Shahram Thomas MD [facility] HypertensionHyperlipidemiaAsthmaAtypical chest painShortness of breathChest pain - nl echo and stress test 06/2018Tobacco abuse VITAL SIGNS Date Observation Value Provider Body Mass Index (Ratio) 35.95 kg/m2 Nelson Thomas MD oxygen saturation, oximetry 98 % Chastity Gillian respiratory rate E&M 16 /min Jorge y Gillian blood pressure, diastolic 70 mm[Hg] Candie French blood pressure, systolic 130 mm[Hg] Nevaeh French pulse rate 101 /min Nereyda French weight E&M 178 [lb_av] [facility] height E&M 59 [in_i] [facility] Body Mass Index (Ratio) 34.94 kg/m2 Nelson Thomas MD respiratory rate E&M 17 /min Rosa Maria Her pulse rate 108 /min Rosa Maria glover oxygen saturation, oximetry 98 % Rosa Maria Arden blood pressure, cuff size regular Cr adele Arden blood pressure, diastolic 60 mm[Hg] Cr [facility] blood pressure, systolic 120 mm[Hg] Cry stal Arden weight E&M 173 [lb_av] Rosa Maria glover height E&M 59 [in_i] Rosa Maria glover Body Mass Index (Ratio) 35.95 kg/m2 Nelson Thomas MD blood pressure, resting Yes Amadeo guadarrama Gillian oxygen saturation, oximetry 98 % [facility] blood pressure, diastolic 60 mm[Hg] Candie French blood pressure, systolic 120 mm[Hg] Nevaeh French respiratory rate E&M 16 /min Jorge French pulse rate 93 /min Nereyda French height E&M 59 [in_i] [facility] Gill[facility] weight E&M 178 [lb_av] [facility] ALLERGIES No Known Drug Allergies HISTORY OF MEDICATION USE Medication Status Instructions Dates Provider Indications Com ments ADVAIR HFA 230-21 MCG/ACT INHALATION AEROSOL active 2 puffs twice daily Lyric Donato PROAIR RESPICLICK 108 (90 BASE) MCG/ACT INH AEPB active use as needed for shortness of breath, 2 puffs up to 4 times per day Shahram Thoams MD ASPIRIN 325 MG ORAL TABLET active ONE TAB. DAILY Shahram Thomas MD MEDROL 4 MG ORAL TABLET THERAPY PACK active Take as directed. Shahram Thomas MD ACIDOPHILUS PROBIOTIC TABLET active one tab daily Chastity Gillian MULTIVITAMINS ORAL CAPSULE active ONE TAB. DAILY Chastity Gillian FERROUS SULFATE 325 (65 FE) MG ORAL TABLET active ONE PER DAY Chastity Gillian CYCLOBENZAPRINE HCL 10 MG ORAL TABLET active one tab three times daily Chastity Gillian #0.09, 30 days supply, Prescribed by HANS EARL, Filled 02/01/2018 DICYCLOMINE HCL 20 MG ORAL TABLET active one tab three times daily Chastity Gillian #0.09, 30 days supply, Prescribed by HANS EARL, Filled 02/01/2018 FAMOTIDINE 20 MG ORAL TABLET active one tab daily Chastity Gillian #0.03, 30 days supply, Prescribed by VLAD SHOEMAKER, Filled 01/14/2018 NEXIUM 40 MG ORAL CAPSULE DELAYED RELEASE active one tab daily Chastity Gillian AMLODIPINE BESYLATE 10 MG ORAL TABLET active one tab daily Chastity Gillian #0.03, 30 days supply, Prescribed by VLAD SHOEMAKER, Filled 01/21/2018 ATORVASTATIN CALCIUM 20 MG ORAL TABLET active one tab daily Chastity Gillian #0.03, 30 days supply, Prescribed by EBENEZER JON, Filled 01/21/2018 SOCIAL HISTORY Date Observation Value Provider number of grandchildren Shahram Thomas MD T francois Thomas MD smoking/tobacco cess ation, patient education and counseling yes Shahram Thomas MD social history reviewed E&M revi ewed - no changes required Shahram Thomas MD social history E&M Patient tuan causey smokes every day. A lcohol Use - no Smoking History: P atient currently smokes every day. P atient has been counseled to quit. Shahram Thomas MD alcohol use no Nevaehstity Gillian number of years as a smoker 42 a Nevaehstmaria luisa French smoking history, total pack/day 0.5 Nevaehity Gillian cigarette use yes Nevaehstity Gillian smoking status Current every day smoker C mike French cigarette use yes Rosa Maria Guevara ms smoking status Current every day smoker C leanne Her social history reviewed E&M revi ewed - no changes required Shahram Thomas MD social history E&M Patient tuan causey smokes every day. A lcohol Use - no Smoking History: P atient currently smokes every day. Shahram Thomas MD smoking history, total pack/day 0.5 Shahram Thomas MD number of years as a smoker 42 a Nevaehmaria luisa French cigarette use yes [facility] smoking status current every day smoker T francois Thomas MD FAMILY HISTORY Family Member Condition Mother Family History of Nesha ng Cancer: Mother Family History Breas t Cancer: INSURANCE PROVIDERS Payer name Policy type / Coverage type [place] [employer] party ID [employer] MEDICAID Medicaid [id number] ADVANCE DIRECTIVES Name Date POWER OF TEACHER EDUCATION INSTRUCTOR LIVING WILL ON FILE TREATMENT PLAN Date Name Performer Cardiology Shahram Thomas MD Cardiology Shahram Thomas MD Cardiology Shahram Thomas MD Cardiology Shahram Thomas MD Cardiology Shahram Thomas MD Cardiology Shahram Thomas MD Cardiology Shahram Thomas MD Cardiology:BP today: 120/60 H er updated medication list for this problem includes: Aspirin 325 Mg Oral Tablet (Aspirin) ..... One tab. daily Amlodipine Besylate 10 Mg Oral Tablet (Amlodipine besylate) ..... One tab daily Shahram Thomas MD Cardiology: W ill prescribe aspirin and medrol pack W ill do echo, adenosine cardiolyte and PFT and f/u s/p tests. Shahram Thomas MD Cardiology:Will do e cho, adenosine cardiolyte and PFT and f/u s/p tests. Shahram Thomas MD Cardiology:BP today: 120/60 H er updated medication list for this problem includes: Aspirin 325 Mg Oral Tablet (Aspirin) ..... One tab. daily Amlodipine Besylate 10 Mg Oral Tablet (Amlodipine besylate) ..... One tab daily Shahram Thomas MD Cardiology:Began 3 w eeks ago, and has become progressively worse. Stabbing, sharp pain is nonexertional and has associated sob. Associated regional tenderness at onset of chest pain, especially with deep inspiration. Had previous cardiac testing: stress test 2018. Uses albuterol as needed for her asthma. Had gestational diabetets with one of her children: 31, 33, 26. W ill prescribe aspirin and medrol pack, since I suspect this may be COPD exacerbation. W ill do echo, adenosine cardiolyte and PFT and f/u s/p tests. Shahram Thomas MD Cardiology:Began 3 w eeks ago, and has become progressively worse. Stabbing, sharp pain is nonexertional and has associated sob. Associated regional tenderness at onset of chest pain, especially with deep inspiration. Had previous cardiac testing: stress test 2018. Uses albuterol as needed for her asthma. Had gestational diabetets with one of her children: 31, 33, 26. Will do echo, adenosine cardiolyte and PFT and f/u s/p tests. Shahram Thomas MD Date Name DLCO - 63613 FRC - 27713 FVC - 20341 Stress Exercise Card iolite Complete Echo HISTORY OF PROCEDURES Procedure Date Procedure Name Provider Procedure Notes S tatus Stress EKG Reji Sim MD complet ed Cardiolite, 2 units Reji Sim MD completed SPECT Images Reji Sim MD compl eted FVC / MVV with bronchodilator - 17404 Shahram Thomas MD completed BLOOD COUNT HEMOGLOBIN Shahram Thomas MD completed FRC - 23858 Shahram Thomas MD complete d SpO2 w/o 6min walk/titration Shahram Thomas MD completed DLCO - 17197 Shahram Thomas MD complet ed
--- OUTSIDE RECORDS SUMMARY | 2024-07-26 12:25 | XMS_ITS | Clinical Summary ---
Author Organization [facility] Address [address] [place] [address] Phone Care Team Providers Care Professional Services Manager Name Role Phone Gallo France MD Primary Care Provider [phone] Allergies No known active allergies Medications HYDROcodone-jagdish taminophen (NORCO) 5-325 MG TabletIndicatio ns:Rib fractures Take 1 Tablet by mouth every 6 hours as needed for Moderate or more severe pain. 15 Tablet 07/27/2021 Active methylPREDNISol one (MEDROL DOSPACK) 4 MG Tablet Therapy Pack See product package insert for dosing schedule 21 Tablet 07/27/2021 Active Social History Tobacco Use Types Packs/Day Years Used Date Smoking Tobacco: Every Day Cigarettes Smokeless Tobacco: Never Comments No Sex and Gender Information Value Date Recorded Sex Assigned at Not on file Legal Sex Female 10:38 PM CDT Gender Identity Not on file Sexual Orientation Not on file Last Filed Vital Signs Vital Sign Reading Time Taken Comments Blood Pressure 119/55 07/27/2021 5:50 PM FRAME BENDER Pulse 97 07/27/2021 5:50 PM FRAME BENDER Temperature 36.3 C (97.4 F) 07/27/2021 3:53 PM FRAME BENDER Respiratory Rate 32 07/27/2021 3:53 PM FRAME BENDER Oxygen Saturation 100% 07/27/2021 5:50 PM FRAME BENDER Inhaled Oxygen Concentration - - Weight 57.2 kg (126 lb) 07/27/2021 3:53 PM FRAME BENDER Height 149.9 cm (4' 11 ) 07/27/2021 3:53 PM FRAME BENDER Body Mass Index 25.45 07/27/2021 3:53 PM FRAME BENDER Plan of Treatment Health Maintenance Due Date Last Done Comments Hepatitis C Virus (HCV) Screening 1965 TdaP Immunization 1965 Colonoscopy 2008 Colorectal Cancer Screening 2008 Cologuard 2013 Immunochemical Fecal Occult Blood 2013 Mammogram 2013 Zoster Immunization (2 of 2) 03/06/2018 01/09/2018, 11/07/2017 Pneumococcal Immunization (50+ years) (2 of 2 - PCV) 02/28/2019 02/28/2018 Influenza Immunization (#1) 2024 12/0 05/2020, 03/01/2020, 02/10/2019, Additional history exists SARS-COV-2 Immunization ( season) 2024 01/27/2021, 01/06/2021, 07/28/2020 Respiratory Syncytial Virus (RSV) Immunization (Adult) (1 - 1-dose 75+ series) 2038 Pneumococcal Immunization Combined Discontinued 02/28/2018 Hepatitis B Immunization Aged Out No longer eligible based on patient's age to complete this topic Meningococcal Immunization (ACWY) Aged Out No longer eligible based on patient's age to complete this topic Rotavirus Immunization Aged Out No lo nger eligible based on patient's age to complete this topic Insurance MEDICAID [place] Care Teams Professional Services Manager Relationship Specialty Start Date End Date Gallo France MD [address] [place] [address] [place] [address] PCP - General Mangle Roll Operator 07/27/21
== END 2024-07-26 10:47 | disposition home or self-care (01) ==
PROVIDERS: PCP Family Medicine; Visit Provider Family Medicine
DX: M51.34 Other intervertebral disc degeneration, thoracic region (principal); M46.1 Sacroiliitis, not elsewhere classified
CPT/HCPCS: 72070; 72100; 73502

== ENCOUNTER 2024-08-24 10:23 | Outpatient (CLI) | payer MEDICAID, SELFPAY ==
--- OUTSIDE RECORDS SUMMARY | 2024-08-24 10:52 | XMS_ITS | Clinical Summary ---
Author Organization [facility] Address [address] [place] [address] Care Team Providers Care Lead Ios Developer Name Role Phone Chay Peñaloza MD Primary Care Provider [phone] Source Comments [facility],non-owned Affiliates and Associated Physician Practices is amultiple site organization consisting of ambulatory clinics and hospital sitesin [place], [place], [place] and [place]. This disclosure is being madepursuant to the Care Everywhere program and may not contain all information available regarding this patient. Last updated 18.[facility] Allergies No known active allergies Medications * [...] mg by mouth 2 times daily Active [place]-3 Fatty Acids (FISH OIL PO) Active Social [...] Comments Blood Pressure 128/76 08/01/2020 7:28 PM SHEETFED PRESS OPERATOR Pulse 102 08/01/2020 7:28 PM SHEETFED PRESS OPERATOR Temperature 36.7 C (98.1 F) 08/01/2020 7:28 PM SHEETFED PRESS OPERATOR Respiratory Rate 20 08/01/2020 7:28 PM SHEETFED PRESS OPERATOR Oxygen Saturation 92% 08/01/2020 7:28 PM SHEETFED PRESS OPERATOR Inhaled Oxygen Concentration - - Weight 73.5 kg (162 lb) 05/28/2017 11:53 AM SHEETFED PRESS OPERATOR Height 149.9 cm (4' 11 ) 05/28/2017 11:53 AM SHEETFED PRESS OPERATOR Body Mass Index 32.72 05/28/2017 11:53 AM SHEETFED PRESS OPERATOR Plan of Treatment Health Maintenance Due [...] complete this topic MENINGOCOCCAL (Group B) VACCINE SHARED DECISION-MAKING Aged Out No longer eligible based on patient's age to complete this topic MENINGOCOCCAL GROUPS A/C/Y/W VACCINE Aged Out No longer eligible b ased on patient's age to complete this topic PNEUMOCOCCAL VACCINE Aged Out No long er eligible based on patient's age to complete this topic Care Teams Lead Ios Developer Relationship Specialty Start Date End Date Chay Peñaloza MD [address] [place] [address] PCP - General 08/11/21
--- OUTSIDE RECORDS SUMMARY | 2024-08-24 10:52 | XMS_ITS | CONTINUITY OF CARE DOCUMENT ---
Author Name alejandra roberts Address Unknown Organization [facility] Address [address] [facility] [address] [place] [address] Phone [phone] Care Team Providers Care Pipe Fitter Maintenance Name Role Phone Marcy Gomez MD Unavailable ANDREE HUSAIN Unavailable ANDREE HUSAIN Unavailable PROBLEMS Condition Status Date Provider Notes Hypertension active ? Shahram Thomas MD Hyperlipidemia active ? Shahram Thomas MD Asthma active ? Shahram Thomas MD (History of) Atypical chest pain completed - Shahram Thomas MD Shortness of breath active Shahram Thomas MD Chest pain - nl echo and stress test 06/2018 active Shahram Thomas MD Tobacco abuse active Shahram Thomas MD ENCOUNTERS Date Type Provider Location Encounter Diag nosis - In-person encounter Office Visit Shahram Thomas MD [facility] Chest pain - nl echo and stress test 06/24 019 - In-person encounter Office Visit Shahram Thomas MD [facility] - In-person encounter Office Visit Shahram Thomas MD [facility] HypertensionHyperlipidemiaAsthmaAtypical chest painShortness of breathChest pain [...] /min Nereyda French weight E&M 178 [lb_av] [facility] Gillian height E&M 59 [in_i] [facility] Body Mass Index (Ratio) 34.94 kg/m2 Nelson Thomas MD respiratory rate E&M 17 /min Rosa Maria Her pulse rate 108 /min Rosa Maria glover oxygen saturation, oximetry 98 % Rosa Maria Arden blood pressure, cuff size regular Cr adele Arden blood pressure, diastolic 60 mm[Hg] Cr [facility] blood pressure, systolic 120 mm[Hg] Cry stal Arden weight E&M 173 [lb_av] Rosa Maria glover height E&M 59 [in_i] Rosa Maria glover Body Mass Index (Ratio) 35.95 kg/m2 Nelson Thomas MD blood pressure, resting Yes Amadeo guadarrama Gillian oxygen saturation, oximetry 98 % [facility] blood [facility], diastolic 60 mm[Hg] Candie French blood pressure, systolic 120 mm[Hg] Nevaeh French respiratory rate E&M 16 /min Jorge French pulse rate 93 /min Nereyda French height E&M 59 [in_i] [facility] Gillian weight E&M 178 [lb_av] [facility] ALLERGIES No Known Drug Allergies HISTORY OF MEDICATION USE Medication Status Instructions Dates Provider Indications Com ments ADVAIR HFA 230-21 MCG/ACT INHALATION AEROSOL active 2 puffs twice daily Lyric Donato PROAIR RESPICLICK 108 (90 BASE) MCG/ACT INH AEPB active use as needed for shortness of breath, 2 puffs up to 4 times per day Shahram Thomas MD ASPIRIN 325 MG ORAL TABLET active [...] Gillian #0.03, 30 days supply, Prescribed by VLDA SHOEMAKER, Filled 01/21/2018 ATORVASTATIN CALCIUM 20 MG [...] a Nevaehmaria luisa French cigarette use yes [facility] Gillian smoking status current every day smoker T francois Thomas MD FAMILY HISTORY Family Member Condition Mother Family History of Nesha ng Cancer: Mother Family History Breas t Cancer: INSURANCE PROVIDERS Payer name Policy type / Coverage type Lotus red republican ID [id number] MEDICAID Medicaid [id number] ADVANCE DIRECTIVES Name Date POWER OF MINE BOSS LIVING WILL ON FILE TREATMENT PLAN Date [...] Shahram Thomas MD Date Name DLCO - 22739 FRC - 98757 FVC - 13816 Stress Exercise Card iolite Complete Echo HISTORY OF PROCEDURES Procedure Date Procedure Name Provider Procedure Notes S tatus Stress EKG Reji Sim MD complet ed Cardiolite, 2 units Reji Sim MD completed SPECT Images Reji Sim MD compl eted FVC / MVV with bronchodilator - 86747 Shahram Thomas MD completed BLOOD COUNT HEMOGLOBIN Shahram Thomas MD completed FRC - 01125 Shahram Thomas MD complete d SpO2 w/o 6min walk/titration Shahram Thomas MD completed DLCO - 25632 Shahram Thomas MD complet ed
--- OUTSIDE RECORDS SUMMARY | 2024-08-24 10:52 | XMS_ITS | Clinical Summary ---
Author Organization [facility] Address [address] [place] [address] Care Team Providers Care Etcher Aircraft Name Role Phone Taty West PA Unavailable [phone] Esperanza Moffett NP Unavailable [phone] Ranjan Watson MD Primary Care Provider [phone] Allergies No known active allergies Medications aspirin [...] Diagnosed Date Coronary artery disease invo lving [place] coronary artery of [place] heart without angina pectoris 06/21/2024 Tobacco abuse [...] Department Care Team Description 06/21/2024 8:00 AM ELECTRICAL APPLIANCE PREPARER Office Visit [facility] Medical [facility] Cardiology [address] [place] [address] [place] [phone] Jl Demarco MD Coronary artery disease involving [place] coronary artery of [place] heart without angina pectoris (Primary Dx); Nonrheumatic mitral valve regurgitation; Primary hypertension; Hyperlipidemia LDL goal <70; Musculoskeletal chest pain 06/21/2024 Orders Only [facility] Medical [facility] Cardiology [address] [place] [phone] Ishmael Breen MD 06/14/2024 Orders Only [facility] Medical [facility] Cardiology [address] [place] [phone] David Perera MD 06/07/2024 Orders Only [facility] Health Information Management [place] [address] David Perera MD from Last 3 Months Surgical History Surgery [...] on file Legal Sex Female 10:58 AM ELECTRICAL APPLIANCE PREPARER Gender Identity Not on file Sexual Orientation Not on file Obstetrics History Last Filed Vital Signs Vital Sign Reading Time Taken Comments Blood Pressure 98/60 06/21/2024 7:56 AM ELECTRICAL APPLIANCE PREPARER Pulse 74 06/21/2024 7:56 AM ELECTRICAL APPLIANCE PREPARER Temperature 36.6 C (97.9 F) 12/07/2023 11:08 AM CDT Respiratory Rate 16 12/07/2023 11:08 AM CDT Oxygen Saturation 99% 06/21/2024 7:56 AM ELECTRICAL APPLIANCE PREPARER Inhaled Oxygen Concentration - - Weight 72.6 kg (160 lb) 06/21/2024 7:56 AM ELECTRICAL APPLIANCE PREPARER Height 149.9 cm (4' 11 ) 06/21/2024 7:56 AM ELECTRICAL APPLIANCE PREPARER Body Mass Index 32.32 06/21/2024 7:56 AM ELECTRICAL APPLIANCE PREPARER Plan of Treatment Health Maintenance Due Date [...] 2 - PCV) 02/28/2019 02/28/2018 Covid-19 Vaccine (6 - 2023-2 5 season) 2024 02/22/2022, 01/27/2021, 01/06/2021, Additional history exists Influenza Vaccine (Season Ended) 2025 02/22/2022, 04/22/2021, 03/01/2020, Additional history exists Procedures Procedure Name Priority Date/Time Associated Diagnosis Comments CARDIOLOGY DOCUMENT SCAN Routine 025 1:11 PM ELECTRICAL APPLIANCE PREPARER TRANSTHORACIC ECHO (TTE) COMPLETE W DOPPLER/CF Routine 06/07/2024 9:05 AM ELECTRICAL APPLIANCE PREPARER CARDIOLOGY DOCUMENT SCAN 06/07/2024 from Last 3 Months Results * Cardiology Document Scan (06/07/2024 1:11 PM ELECTRICAL APPLIANCE PREPARER) Anatomical Region Laterality Modality Other David Perera MD CV CARDIAC SERVICES PROCEDURES F inal Result * Transthoracic Echo (TTE) Complete W Doppler/CF (06/07/2024 9:05 AM ELECTRICAL APPLIANCE PREPARER) Anatomical Region Laterality Modality Ultrasound Historical Provider CV ECHO PROCEDURES Edited Result - Final * Cardiology Document Scan (06/07/2024) Anatomical Region Laterality Modality Other David Perera MD CV CARDIAC SERVICES PROCEDURES F inal Result from Last 3 Months Insurance IDPA IDPA Member Subscriber Plan / Payer (Ef fective 2024-) Name:Ginna Romero Relation to Subscriber:Self Name:ChetnaHaroon tsaiconchita Willis Payer ID:[id number] Group ID:Not on file Type:MEDICAID MD Address: [place] [id number] Advance Directives For more information, please contact: [phone] * Full Code (Latest Code Status on File) Date Activated Date Inactivated Comments 09/24/2023 12:54 AM 09/26/2023 7:18 PM * Full Code Date Activated Date Inactivated Comments 12/17/2020 6:54 AM 12/18/2020 10:48 PM Care Teams Etcher Aircraft Relationship Specialty Start Date End Date Ranjan Watson MD [address] [place] [address] PCP - General Family Practice 06/21/24 Taty West PA [address] [place] [address] [place] [address] Gastroenterology 09/26/23 Esperanza Moffett CONSTRUCTION HELPER [address] [place] [address] [address] Neurology 09/26/23
--- OUTSIDE RECORDS SUMMARY | 2024-08-24 10:52 | XMS_ITS | Referral Summary ---
Author Organization [facility] Address [address] [place] [address] Care Team Providers Care Skirt Panel Assembler Name Role Phone Taty West PA Unavailable [phone] Esperanza Moffett NP Unavailable [phone] Ranjan Watson MD Primary Care Provider [phone] Encounters Date Type Department Care Team Description 06/21/2024 Orders Only [facility] Cardiology [address] [place] [address] [place] [phone] Ishmael Breen MD 06/21/2024 8:00 AM MIXER HELPER Office Visit [facility] Medical [facility] Cardiology [address] [place] [address] [address] Jl Demarco MD Coronary artery disease involving [place] coronary artery of [place] heart without angina pectoris (Primary Dx); Nonrheumatic mitral valve regurgitation; Primary hypertension; Hyperlipidemia LDL goal <70; Musculoskeletal chest pain 06/14/2024 Orders Only [facility] Medical [facility] Cardiology [address] [place] [address] [address] [place] [phone] David Perera MD 06/07/2024 Orders Only [facility] Health Information Management [address] [place] [address] David Perera MD from Last 3 Months Allergies No known [...] mg total) by mouth daily 30 tablet 4 09/27/19 25 Active albuterol HFA (PROVENTIL [...] 2 (two) times a day 60 tablet 4 10/08/19 25 Active oxyCODONE-acetam inophen (PERCOCET) [...] Diagnosed Date Coronary artery disease invo lving [place] coronary artery of [place] heart without angina pectoris 06/21/2024 Tobacco abuse [...] on file Legal Sex Female 10:58 AM MIXER HELPER Gender Identity Not on file Sexual Orientation Not on file Last Filed Vital Signs Vital Sign Reading Time Taken Comments Blood Pressure 98/60 06/21/2024 7:56 AM MIXER HELPER Pulse 74 06/21/2024 7:56 AM MIXER HELPER Temperature 36.6 C (97.9 F) 12/07/2023 11:08 AM CDT Respiratory Rate 16 12/07/2023 11:08 AM CDT Oxygen Saturation 99% 06/21/2024 7:56 AM MIXER HELPER Inhaled Oxygen Concentration - - Weight 72.6 kg (160 lb) 06/21/2024 7:56 AM MIXER HELPER Height 149.9 cm (4' 11 ) 06/21/2024 7:56 AM MIXER HELPER Body Mass Index 32.32 06/21/2024 7:56 AM MIXER HELPER Plan of Treatment Not on file Procedures Procedure Name Priority Date/Time Associated Diagnosis Comments CARDIOLOGY DOCUMENT SCAN Routine 025 1:11 PM MIXER HELPER TRANSTHORACIC ECHO (TTE) COMPLETE W DOPPLER/CF Routine 06/07/2024 9:05 AM MIXER HELPER CARDIOLOGY DOCUMENT SCAN 06/07/2024 from Last 3 Months Results * Cardiology Document Scan (06/07/2024 1:11 PM MIXER HELPER) Anatomical Region Laterality Modality Other us David Perera MD CV CARDIAC SERVICES PROCEDURES F inal Result * Transthoracic Echo (TTE) Complete W Doppler/CF (06/07/2024 9:05 AM MIXER HELPER) Anatomical Region Laterality Modality Ultrasound Historical Provider CV ECHO PROCEDURES Edited Result - Final * Cardiology Document Scan (06/07/2024) Anatomical Region Laterality Modality Other David Perera MD CV CARDIAC SERVICES PROCEDURES F inal Result from Last 3 Months Insurance IDPA IDPA Advance Directives For more information, please contact: [phone] * Full Code (Latest Code Status on File) Date Activated Date Inactivated Comments 09/24/2023 12:54 AM 09/26/2023 7:18 PM * Full Code Date Activated Date Inactivated Comments 12/17/2020 6:54 AM 12/18/2020 10:48 PM Care Teams Skirt Panel Assembler Relationship Specialty Start Date End Date Ranjan Watson MD [address] [place] [address] PCP - General Family Practice 06/21/24 Taty West PA [address] [place] [address] [address] [place] [address] Gastroenterology 09/26/23 Esperanza Moffett, BROADCAST OPERATIONS DIRECTOR [address] [place] [address] [address] [place] [address] Neurology 09/26/23
--- OUTSIDE RECORDS SUMMARY | 2024-08-24 10:52 | XMS_ITS | Clinical Summary ---
Author Organization [facility] Address [address] [place] [address] Phone Care Team Providers Care Char Filter Tank Tender Head Name Role Phone Gallo France MD Primary Care Provider [phone] Allergies No known active allergies Medications HYDROcodone-jagdish [...] Comments Blood Pressure 119/55 07/27/2021 5:50 PM STRIP TANK TENDER Pulse 97 07/27/2021 5:50 PM STRIP TANK TENDER Temperature 36.3 C (97.4 F) 07/27/2021 3:53 PM STRIP TANK TENDER Respiratory Rate 32 07/27/2021 3:53 PM STRIP TANK TENDER Oxygen Saturation 100% 07/27/2021 5:50 PM STRIP TANK TENDER Inhaled Oxygen Concentration - - Weight 57.2 kg (126 lb) 07/27/2021 3:53 PM STRIP TANK TENDER Height 149.9 cm (4' 11 ) 07/27/2021 3:53 PM STRIP TANK TENDER Body Mass Index 25.45 07/27/2021 3:53 PM STRIP TANK TENDER Plan of Treatment Health Maintenance Due Date Last Done Comments Hepatitis C Virus (HCV) Screening 1965 TdaP Immunization 1965 Colonoscopy 2008 Colorectal Cancer Screening 2008 Cologuard 2013 Immunochemical Fecal Occult Blood 2013 Zoster Immunization (2 of 2) 03/06/2018 [...] this topic Insurance MEDICAID [place] Care Teams Char Filter Tank Tender Head Relationship Specialty Start Date End Date Gallo France MD [address] [place] [address] [place] [address] PCP - General Health Advocate 07/27/21
--- OUTSIDE RECORDS SUMMARY | 2024-08-24 10:52 | XMS_ITS | Encounter Summary ---
Author Organization [facility] Healthcare Address [address] [place] [address] Care Team Providers Care Casting Cleaner Name Role Phone Taty West Unavailable [phone] Esperanza Moffett LOGISTICS CLERK Unavailable [phone] Darnell Blanchard Primary Care Provider + Ranjan Watson MD Primary Care Provider [phone] Encounter Details Date Type Department Care Team (Late st Contact Info) Description 06/07/2024 Orders Only [facility] Health Information Management [address] [place] [address] David Perera MD [address] [address] Social History Tobacco Use Types [...] on file Legal Sex Female 10:58 AM DIRECTOR OF PROMOTIONS Gender Identity Not on file Sexual Orientation [...] on filedocumented in this encounter Care Teams Casting Cleaner Relationship Specialty Start Date End Date Darnell Blanchard PA [address] [place] [address] PCP - General Internal Medicine 10/13/23 06/20/24 Ranjan Watson MD [address] [place] [address] PCP - General Family Practice 06/21/24 Taty West PA [address] [place] [address] [address] [place] [address] Gastroenterology 09/26/23 Esperanza Moffett NP [address] [place] [address] [address] [place] [address] Neurology 09/26/23 documented as of this encounter
--- OUTSIDE RECORDS SUMMARY | 2024-08-24 10:52 | XMS_ITS ---
Author Organization [facility] Address [address] [place] [address] Care Team Providers Care Oracle Financials Developer Name Role Phone Chay Peñaloza Primary Care Provider Medications Medication SIG (Take, Route, Frequency, Duration) Notes Start Date End Date Status Fluticasone Propionate 50 MCG/ACT 2 SPRAYS DAILY EACH NOSTRIL Nasally at night 02/03/2024 Active Baclofen 20 MG 1 tablet Administer without regards to meals as needed Orally Twice a day for 30 days As needed neck and back pain 02/03/2024 Active Social History Sex Assigned At : Social History Observation Description Sex Assigned At Female Encounters Encounter Location Date Provider Diagnosis [address] [address] 02/07/2024 Chay Peñaloza Eustachian tube dysfunction, right H69.81 and Cervicalgia M54.2 Assessments Encounter Date Diagnosis (ICD Code) Assessment Notes Treatment Notes Treatment Clinical Notes Section Notes 02/07/2024 Eustachian tube dysfunction, right (ICD-10 - H69.81) 02/07/2024 Cervicalgia (ICD-10 - M54.2) Plan Of Treatment Medication Medication Name Sig Start Date Stop Date Notes Fluticasone Propionate 50 MCG/ACT 2 SPRAYS DAILY EACH NOSTRIL Nasally at night 02/03/2024 Baclofen 20 MG 1 tablet Administer without regards to meals as needed Orally Twice a day for 30 days 02/03/2024 Progress Notes * Samantha ALLANOB:1965 (58 yo F)Acc No.[id number]:02/07/2024 Patient: Ginna SANDOVAL :1965 A ge:58 Y S ex:Female Address:[address] [place] [address] * Refills Refill Fluticasone Propionate Suspension, 50 MCG/ACT, Nasally, 1, 2 SPRAYS DAILY EACH NOSTRIL, at night, Refills=5 Refill Baclofen Tablet, 20 MG, Orally, 60 Tablet, 1 tablet Administer without regards to meals as needed, Twice a day, 30 days, Refills=0 * true * Date: Generated for Fawn mckinley/Renetta/Ruperto on: 0 08/24/2024 09:48 AM CDT
--- OUTSIDE RECORDS SUMMARY | 2024-08-24 10:52 | XMS_ITS | Encounter Summary ---
Author Organization [facility] Healthcare Address [address] [place] [address] Care Team Providers Care Intramural Director Name Role Phone Taty West Unavailable [phone] Esperanza Moffett NP Unavailable [phone] Darnell Blanchard Primary Care Provider + Ranjan Watson MD Primary Care Provider [phone] Reason for Visit * Auth/Cert Specialty Diagnoses [...] Low iron [E61.1] Abdominal pain [R10.9] Procedures FL COLONOSCOPY FLX DX W/COLLJ SPEC WHEN PFRMD FL ESOPHAGOGASTRODUODENOSCOPY TRANSORAL DIAGNOSTIC COLONOSCOPY ESOPHAGOGASTRODUODENOSCOPY Referral ID Status Reason Start Date Expiration Date Visits Re quested Visits Authorized [id number] 1 1 Encounter Details Date Type Department Care Team (Late st Contact Info) Description 02/02/2024 Hospital Encounter [facility] [address] [place] [address] Jesus Tay MD [address] [place] [address] [place] [address] Social History Tobacco Use Types Packs/Day Years [...] file Legal Sex Female 10:58 AM MIXER DRY FOOD PRODUCTS Gender Identity Not on file Sexual Orientation [...] site documented in this encounter Care Teams Intramural Director Relationship Specialty Start Date End Date Darnell Blanchard PA [address] [place] [address] PCP - General Internal Medicine 10/13/23 06/20/24 Ranjan Watson MD [address] [place] [address] PCP - General Family Practice 06/21/24 Taty West PA [address] [facility] [address] [place] [address] Gastroenterology 09/26/23 Esperanza Moffett NP [address] [facility] [address] [place] [address] Neurology 09/26/23 documented as of this encounter
[2024-08-24 11:01] LABS: Add Urine Microscopic? YES; Appearance Urine Cloudy (Clear); Bacteria Urine None Seen /hpf; Bilirubin Urine Negative (Negative); Blood Urine 3+ (Negative); Color Urine Yellow (Yellow); Glucose Urine UA Negative (Negative); Ketones Urine Negative (Negative); Leukocyte Esterase Ur 3+ LEU/UL (Negative); Nitrate Urine Negative (Negative); Non Pathogenic Casts 0-2; Protein Urine Negative (Negative); RBC Urine 0-2 /hpf (0-2); Specific Grav Ur 1.006 (1.001-1.035); Squamous Epithelial Cell Urine None Seen /hpf (Few); Urobilinogen Urine 0.2 mg/dL (<2.0); WBC Urine >100 /hpf (0-3); pH Urine 5.5 (5.0-9.0)
== END 2024-08-24 10:24 | disposition home or self-care (01) ==
LOC: ANHLAB 10:26
PROVIDERS: PCP Family Medicine; Visit Provider Nurse Practitioner Family
DX: R30.0 Dysuria (principal)
CPT/HCPCS: 81001; 87086

== ENCOUNTER 2024-08-30 12:48 | Outpatient (CLI) | payer MEDICAID, SELFPAY ==
--- NOTE | ~2024-08-30 | XR_ITS ---
Right Humerus Technique: AP and lateral views were obtained. Clinical History: Pain Findings: No fracture or dislocation is seen. Osseous alignment is anatomic. Visualized joint spaces are grossly preserved. Soft tissues are unremarkable. Impression: Unremarkable examination. No fracture or dislocation. Reviewed, dictated and finalized at location . Impression: Unremarkable examination. No fracture or dislocation.
--- NOTE | ~2024-08-30 | XR_ITS ---
AP and lateral views of the right femur Clinical History: Pain Findings: No acute fracture or dislocation is seen. Osseous alignment is anatomic. Visualized joint s paces are grossly preserved. Soft tissues are unremarkable. Impression: Unremarkable right femoral radiographs. Reviewed, dictated and finalized at location M. Impression: Unremarkable right femoral radiographs.
--- OUTSIDE RECORDS SUMMARY | 2024-08-30 13:10 | XMS_ITS | Referral Summary ---
Author Organization [facility] Address [address] [place] [address] Care Team Providers Care Circulation Manager Name Role Phone Taty West PA Unavailable [phone] Esperanza Moffett NP Unavailable [phone] Ranjan Watson MD Primary Care Provider [phone] Encounters Date Type Department Care Team Description 06/21/2024 Orders Only [facility] Cardiology [address] [place] [phone] Ishmael Breen MD 06/21/2024 8:00 AM CURING ROOM SUPERVISOR Office Visit [facility] Medical [facility] Cardiology [address] [place] [address] [address] Jl Demarco MD Coronary artery disease involving [place] coronary artery of [place] heart without angina pectoris (Primary Dx); Nonrheumatic mitral valve regurgitation; Primary hypertension; Hyperlipidemia LDL goal <70; Musculoskeletal chest pain 06/14/2024 Orders Only [facility] Medical [facility] Cardiology [address] [place] [address] [address] [place] [phone] David Perera MD 06/07/[address] [facility] Health Information Management [address] [place] [address] David Perera MD from Last 3 Months [...] Diagnosed Date Coronary artery disease invo lving [place] coronary artery of [place] heart without angina pectoris 06/21/2024 Tobacco abuse [...] on file Legal Sex Female 10:58 AM CURING ROOM SUPERVISOR Gender Identity Not on file Sexual Orientation Not on file Last Filed Vital Signs Vital Sign Reading Time Taken Comments Blood Pressure 98/60 06/21/2024 7:56 AM CURING ROOM SUPERVISOR Pulse 74 06/21/2024 7:56 AM CURING ROOM SUPERVISOR Temperature 36.6 C (97.9 F) 12/07/2023 11:08 AM CDT Respiratory Rate 16 12/07/2023 11:08 AM CDT Oxygen Saturation 99% 06/21/2024 7:56 AM CURING ROOM SUPERVISOR Inhaled Oxygen Concentration - - Weight 72.6 kg (160 lb) 06/21/2024 7:56 AM CURING ROOM SUPERVISOR Height 149.9 cm (4' 11 ) 06/21/2024 7:56 AM CURING ROOM SUPERVISOR Body Mass Index 32.32 06/21/2024 7:56 AM CURING ROOM SUPERVISOR Plan of Treatment Not on file Procedures Procedure Name Priority Date/Time Associated Diagnosis Comments CARDIOLOGY DOCUMENT SCAN Routine 025 1:11 PM CURING ROOM SUPERVISOR TRANSTHORACIC ECHO (TTE) COMPLETE W DOPPLER/CF Routine 06/07/2024 9:05 AM CURING ROOM SUPERVISOR CARDIOLOGY DOCUMENT SCAN 06/07/2024 from Last 3 Months Results * Cardiology Document Scan (06/07/2024 1:11 PM CURING ROOM SUPERVISOR) Anatomical Region Laterality Modality Other us David Perera MD CV CARDIAC SERVICES PROCEDURES F inal Result * Transthoracic Echo (TTE) Complete W Doppler/CF (06/07/2024 9:05 AM CURING ROOM SUPERVISOR) Anatomical Region Laterality Modality Ultrasound Historical Provider CV ECHO PROCEDURES Edited Result - Final * Cardiology Document Scan (06/07/2024) Anatomical Region Laterality Modality Other David Perera MD CV CARDIAC SERVICES PROCEDURES F inal Result from Last 3 Months Insurance IDPA IDPA Advance Directives For more information, please contact: [phone] * Full Code (Latest Code Status on File) Date Activated Date Inactivated Comments 09/24/2023 12:54 AM 09/26/2023 7:18 PM * Full Code Date Activated Date Inactivated Comments 12/17/2020 6:54 AM 12/18/2020 10:48 PM Care Teams Circulation Manager Relationship Specialty Start Date End Date Ranjan Watson MD [address] [place] [address] PCP - General Family Practice 06/21/24 Taty West PA [address] [place] [address] [address] [place] [address] Gastroenterology 09/26/23 Esperanza Moffett, MUCKING MACHINE OPERATOR [address] [place] [address] [address] [place] [address] Neurology 09/26/23
--- OUTSIDE RECORDS SUMMARY | 2024-08-30 13:10 | XMS_ITS | Encounter Summary ---
Author Organization [facility] Healthcare Address [address] [place] [address] Care Team Providers Care Addressograph Operator Name Role Phone Taty West Unavailable [phone] Esperanza Moffett FORGE HAND Unavailable [phone] Darnell Blanchard Primary Care Provider + Ranjan Watson MD Primary Care Provider [phone] Encounter Details Date Type Department Care Team (Late st Contact Info) Description 06/07/2024 Orders Only [facility] Information Management [address] [place] [address] David Perera MD [address] [address] Social History Tobacco Use Types [...] on file Legal Sex Female 10:58 AM DENTAL CERAMIST ASSISTANT Gender Identity Not on file Sexual Orientation [...] on filedocumented in this encounter Care Teams Addressograph Operator Relationship Specialty Start Date End Date Darnell Blanchard PA [address] [place] [address] PCP - General Internal Medicine 10/13/23 06/20/24 Ranjan Watson MD [address] [place] [address] PCP - General Family Practice 06/21/24 Taty West PA [address] [place] [address] [address] [place] [address] Gastroenterology 09/26/23 Esperanza Moffett NP [address] [place] [address] [address] [place] [address] Neurology 09/26/23 documented as of this encounter
--- OUTSIDE RECORDS SUMMARY | 2024-08-30 13:10 | XMS_ITS | CONTINUITY OF CARE DOCUMENT ---
Author Name alejandra roberts Address Unknown Organization [facility] Address [address] [facility] [address] [place] [address] Phone [phone] Care Team Providers Care Instrumentation Manager Name Role Phone Marcy Gomez MD Unavailable ANDREE HUSAIN Unavailable ANDREE HUSAIN Unavailable PROBLEMS Condition Status Date Provider Notes Shortness of breath active Shahram Thomas MD Chest pain - nl echo and stress test 06/2018 active Shahram Thomas MD Tobacco abuse active Shahram Thomas MD Atypical chest pain completed - Shahram Thomas MD Asthma active ? Shahram Thomas MD (History of) Hyperlipidemia active ? Shahram Thomas MD Hypertension active ? Shahram Thomas MD ENCOUNTERS Date Type Provider Location Encounter Diag nosis - In-person encounter Office Visit Shahram Thmoas MD [facility] Chest pain - nl echo and stress test 06/24 019 - In-person encounter Office Visit Shahram Thomas MD [facility] - In-person encounter Office Visit Shahram Thomas MD [facility] HypertensionHyperlipidemiaAsthmaAtypical chest painShortness of breathChest pain [...] /min Nereyda French weight E&M 178 [lb_av] [facility] height E&M 59 [in_i] [facility] Body Mass Index (Ratio) 34.94 kg/m2 Nelson Thomas MD respiratory rate E&M 17 /min Rosa Maria Her pulse rate 108 /min Rosa Maria glover oxygen saturation, oximetry 98 % Rosa Maria Arden blood pressure, cuff size regular Cr adele Arden blood pressure, diastolic 60 mm[Hg] Cr [facility] blood pressure, systolic 120 mm[Hg] Cry stal Arden weight E&M 173 [lb_av] Rosa Maria glover height E&M 59 [in_i] Rosa Maria glover Body Mass Index (Ratio) 35.95 kg/m2 Nelson Thomas MD blood pressure, resting Yes Amadeo guadarrama Gillian oxygen saturation, oximetry 98 % [facility], diastolic 60 mm[Hg] Candie French blood pressure, systolic 120 mm[Hg] Nevaeh French respiratory rate E&M 16 /min Jorge French pulse rate 93 /min Nereyda French height E&M 59 [in_i] [facility] weight E&M 178 [lb_av] [facility] No Known Drug Allergies [...] atient has been counseled to quit. Shahram Tohmas MD alcohol use no Nevaehstity Gillian number of years as a smoker 44 a Nevaehstmaria luisa French smoking history, total pack/day 0.5 Nevaehity Gillian cigarette use yes Nevaehstity Gillian smoking status Current every day smoker C mike rFench cigarette use yes Rosa Maria Guevara ms [...] a Nevaehmaria luisa French cigarette use yes [facility] smoking status current every day smoker T francois Thomas MD FAMILY HISTORY Family Member Condition Mother Family History of Nesha ng Cancer: Mother Family History Breas t Cancer: INSURANCE PROVIDERS Payer name Policy type / Coverage type [place] red libertarian [id number] MEDICAID Medicaid [id number] ADVANCE DIRECTIVES Name Date POWER OF INFORMATION SECURITY ASSOCIATE LIVING WILL ON FILE TREATMENT PLAN Date [...] Shahram Thomas MD Date Name DLCO - 91380 FRC - 61422 FVC - 87387 Stress Exercise Card iolite Complete Echo HISTORY OF PROCEDURES Procedure Date Procedure Name Provider Procedure Notes S tatus Stress EKG Reji Sim MD complet ed Cardiolite, 2 units Reji Sim MD completed SPECT Images Reji Sim MD compl eted FVC / MVV with bronchodilator - 89921 Shahram Thomas MD completed BLOOD COUNT HEMOGLOBIN Shahram Thomas MD completed FRC - 31501 Shahram Thomas MD complete d SpO2 w/o 6min walk/titration Shahram Thomas MD completed DLCO - 18828 Shahram Thomas MD complet ed
--- OUTSIDE RECORDS SUMMARY | 2024-08-30 13:10 | XMS_ITS | Clinical Summary ---
Author Organization [facility] Address [address] [place] [address] Care Team Providers Care Honeycomb Decapper Name Role Phone Taty West PA Unavailable [phone] Esperanza Moffett NP Unavailable [phone] Ranjan Watson MD Primary Care Provider [phone] Allergies No known active allergies Medications aspirin [...] Diagnosed Date Coronary artery disease invo lving coushatta coronary artery of [place] heart without angina pectoris 06/21/2024 Tobacco abuse [...] Department Care Team Description 06/21/2024 8:00 AM ENGAGEMENT MGR Office Visit [facility] Medical [facility] Cardiology [address] [place] [address] [place] [phone] Jl Demarco MD Coronary artery disease involving coushatta coronary artery of coushatta heart without angina pectoris (Primary Dx); Nonrheumatic mitral valve regurgitation; Primary hypertension; Hyperlipidemia LDL goal <70; Musculoskeletal chest pain 06/21/[address] [facility] Medical [facility] Cardiology [address] [place] [phone] Ishmael Breen MD 06/14/[address] [facility] Medical [facility] Cardiology [address] [place] [phone] David Perera MD 06/07/2024 Orders Only [facility] Health Information Management 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 Gender Identity Not on file Sexual Orientation Not on file Obstetrics History Last Filed Vital Signs Vital Sign Reading Time Taken Comments Blood Pressure 98/60 06/21/2024 7:56 AM ENGAGEMENT MGR Pulse 74 06/21/2024 7:56 AM ENGAGEMENT MGR Temperature 36.6 C (97.9 F) 12/07/2023 11:08 AM CDT Respiratory Rate 16 12/07/2023 11:08 AM CDT Oxygen Saturation 99% 06/21/2024 7:56 AM ENGAGEMENT MGR Inhaled Oxygen Concentration - - Weight 72.6 kg (160 lb) 06/21/2024 7:56 AM ENGAGEMENT MGR Height 149.9 cm (4' 11 ) 06/21/2024 7:56 AM ENGAGEMENT MGR Body Mass Index 32.32 06/21/2024 7:56 AM ENGAGEMENT MGR Plan of Treatment Health Maintenance Due Date [...] CARDIOLOGY DOCUMENT SCAN Routine 025 1:11 PM ENGAGEMENT MGR TRANSTHORACIC ECHO (TTE) COMPLETE W DOPPLER/CF Routine 06/07/2024 9:05 AM ENGAGEMENT MGR CARDIOLOGY DOCUMENT SCAN 06/07/2024 from Last 3 Months Results * Cardiology Document Scan (06/07/2024 1:11 PM ENGAGEMENT MGR) Anatomical Region Laterality Modality Other David Perera MD CV CARDIAC SERVICES PROCEDURES F inal Result * Transthoracic Echo (TTE) Complete W Doppler/CF (06/07/2024 9:05 AM ENGAGEMENT MGR) Anatomical Region Laterality Modality Ultrasound Historical Provider [...] Payer ID:[id number] Group ID:Not on file Type:MEDICAID [place] Address: [place] [address] Advance Directives For more information, please contact: [phone] * Full Code (Latest Code Status on File) Date Activated Date Inactivated Comments 09/24/2023 12:54 AM 09/26/2023 7:18 PM * Full Code Date Activated Date Inactivated Comments 12/17/2020 6:54 AM 12/18/2020 10:48 PM Care Teams Honeycomb Decapper Relationship Specialty Start Date End Date Ranjan Watson MD [address] [place] [address] PCP - General Family Practice 06/21/24 Taty West PA [address] [place] [address] [place] [address] Gastroenterology 09/26/23 Esperanza Moffett HEALTH INFORMATION DIRECTOR [address] [place] [address] [address] Neurology 09/26/23
--- OUTSIDE RECORDS SUMMARY | 2024-08-30 13:10 | XMS_ITS | Clinical Summary ---
Author Organization [facility] Address [address] [facility] [place] [address] Care Team Providers Care Last Model Department Supervisor Name Role Phone Chay Peñaloza MD Primary Care Provider [phone] Source Comments [facility],non-owned Affiliates and Associated Physician Practices is amultiple site organization consisting of ambulatory clinics and hospital sitesin [place], [place], [place] and [place]. This disclosure is being madepursuant to the Care Everywhere program and may not contain all information available regarding this patient. Last updated 18.[facility] Allergies No known active allergies Medications * [...] mg by mouth 2 times daily Active Motley-3 Fatty Acids (FISH OIL PO) Active Social [...] Comments Blood Pressure 128/76 08/01/2020 7:28 PM FILE CLERK Pulse 102 08/01/2020 7:28 PM FILE CLERK Temperature 36.7 C (98.1 F) 08/01/2020 7:28 PM FILE CLERK Respiratory Rate 20 08/01/2020 7:28 PM FILE CLERK Oxygen Saturation 92% 08/01/2020 7:28 PM FILE CLERK Inhaled Oxygen Concentration - - Weight 73.5 kg (162 lb) 05/28/2017 11:53 AM FILE CLERK Height 149.9 cm (4' 11 ) 05/28/2017 11:53 AM FILE CLERK Body Mass Index 32.72 05/28/2017 11:53 AM FILE CLERK Plan of Treatment Health Maintenance Due Date [...] (2 - 2023-2 5 season) 2024 07/28/2020 DEPRESSION SCREENING 05/23/2024 INFLUENZA VACCINE (Season Ended) 2025 03/01/2020, 02/10/2019, 02/28/2018 Respiratory Syncytial Virus (RSV) Vaccine Pt: or [...] age to complete this topic Care Teams Last Model Department Supervisor Relationship Specialty Start Date End Date Chay Peñaloza MD [address] [place] [address] PCP - General 08/11/21
--- OUTSIDE RECORDS SUMMARY | 2024-08-30 13:10 | XMS_ITS | Clinical Summary ---
Author Organization [facility] Address [address] [place] [address] Phone Care Team Providers Care Pharmacy Intake Technician Name Role Phone Gallo France MD Primary Care Provider [phone] Allergies No known active allergies Medications HYDROcodone-jagdish [...] Comments Blood Pressure 119/55 07/27/2021 5:50 PM JUICE BAR TEAM MEMBER Pulse 97 07/27/2021 5:50 PM JUICE BAR TEAM MEMBER Temperature 36.3 C (97.4 F) 07/27/2021 3:53 PM JUICE BAR TEAM MEMBER Respiratory Rate 32 07/27/2021 3:53 PM JUICE BAR TEAM MEMBER Oxygen Saturation 100% 07/27/2021 5:50 PM JUICE BAR TEAM MEMBER Inhaled Oxygen Concentration - - Weight 57.2 kg (126 lb) 07/27/2021 3:53 PM JUICE BAR TEAM MEMBER Height 149.9 cm (4' 11 ) 07/27/2021 3:53 PM JUICE BAR TEAM MEMBER Body Mass Index 25.45 07/27/2021 3:53 PM JUICE BAR TEAM MEMBER Plan of Treatment Health Maintenance Due Date [...] this topic Insurance MEDICAID [place] Care Teams Pharmacy Intake Technician Relationship Specialty Start Date End Date Gallo France MD [address] [place] [address] [place] [address] PCP - General Commissary Production Supervisor 07/27/21
--- OUTSIDE RECORDS SUMMARY | 2024-08-30 13:10 | XMS_ITS | Encounter Summary ---
Author Organization [facility] Healthcare Address [address] [place] [address] Care Team Providers Care Car Sales Consultant Name Role Phone Taty West Unavailable Esperanza Moffett NP Unavailable [phone] Darnell Blanchard Primary Care Provider + Ranjan Watson MD Primary Care Provider [phone] Reason for Visit * Auth/Cert Specialty Diagnoses [...] Low iron [E61.1] Abdominal pain [R10.9] Procedures OR COLONOSCOPY FLX DX W/COLLJ SPEC WHEN PFRMD OR ESOPHAGOGASTRODUODENOSCOPY TRANSORAL DIAGNOSTIC COLONOSCOPY ESOPHAGOGASTRODUODENOSCOPY Referral ID Status Reason Start Date Expiration Date Visits Re quested Visits Authorized [id number] 1 1 Encounter Details Date Type Department Care Team (Late st Contact Info) Description 02/02/2024 Hospital Encounter [facility] [address] [place] [address] Jesus Tay MD [address] [place] [address] [place] [address] Social History Tobacco Use Types Packs/Day Years [...] on file 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
== END 2024-08-30 12:49 | disposition home or self-care (01) ==
PROVIDERS: PCP Family Medicine; Visit Provider Family Medicine
DX: M79.651 Pain in right thigh (principal); M79.621 Pain in right upper arm; W19.XXXA Unspecified fall, initial encounter
CPT/HCPCS: 73060; 73552

== ENCOUNTER 2024-09-20 09:32 | Outpatient (CLI) | payer MEDICAID, SELFPAY | END 2024-09-20 09:33 | disposition home or self-care (01) | LOC: MICIMG 09:36 | PROVIDERS: PCP Family Medicine; Visit Provider Family Medicine | DX: M25.561 Pain in right knee (principal) | CPT/HCPCS: 73562 ==

== ENCOUNTER 2024-09-27 18:38 | Emergency (ER) | payer MEDICAID, SELFPAY ==
--- NOTE | ~2024-09-27 | XR_ITS ---
HISTORY: fall COMPARISON: None TECHNIQUE: One view of the pelvis was performed FINDINGS: Age-appropriate mineralization is present. Superior lateral joint space narrowing and sclerosis is identified within the bilateral femoral aceta bular joint spaces. Joint space narrowing and sclerosis is present within the pubic symphysis. No acute fracture or dislocation is appreciated. IMPRESSION: Degenerative disease, without acute fracture. Reviewed, dictated and finalized at location A.
--- NOTE | ~2024-09-27 | XR_ITS ---
HISTORY: fall COMPARISON: 07/26/2024 TECHNIQUE: 2 view lumbar spine. FINDINGS: Straightening of the normal lordotic curvature of the lumbar spine is identified. There are 5 non-rib bearing lumbar vertebral bodies. Disc spaces and vertebral body heights are well maintained. There are no lytic or sclerotic lesions. Paraspinal soft tissues demonstrate calcified atherosclerotic disease. IMPRESSION: Degenerative disease, without acute fracture. Reviewed, dictated and finalized at location A.
[2024-09-27 18:40] VITALS: BP 134/68; PULSE 122; RESP 16; TEMP 36.9; O2SAT 99
--- OUTSIDE RECORDS SUMMARY | 2024-09-27 18:40 | XMS_ITS | Referral Summary ---
Author Organization [facility] Address [address] [place] [address] Care Team Providers Care Blocker And Polisher Name Role Phone Taty West Unavailable [phone] Esperanza Moffett NP Unavailable [phone] Ranjan Watson MD Primary Care Provider [phone] Encounters Date Type Department Care Team Description 09/27/2024 Telephone [facility] Vascular and Vein Surgery at [address] [phone] Bailey Mcdonald [facility] 09/20/2024 Telephone [facility] Vascular and Vein Surgery at [address] [place] [phone] [facility] 09/20/2024 8:30 AM CDT Office Visit [facility] Cardiology at [address] [address] Jl Demarco MD Coronary artery disease involving g[place]ana coronary artery of [place] heart without angina pectoris (Primary Dx); Hyperlipidemia LDL goal <70; Primary hypertension; Nonrheumatic mitral valve regurgitation; Dizziness from Last 3 Months Allergies No known [...] Active pantoprazole DR (PROTONIX) 40 mg EC tabletIndications :Mucositis Prophylaxis Take 1 tablet (40 mg total) by mouth daily 30 tablet 11 4 Active albuterol HFA (PROVENTIL HFA,VENTOLIN HFA,PROAIR HFA) 90 mcg/actuation inhaler INHALE 2 PUFFS BY MOUTH FOUR TIMES DAILY NEEDED FOR SHORTNESS OF BREATH 8 Active spironolactone (ALDACTONE) 50 mg tablet Take 0.5 tablets (25 mg total) by mouth daily Active pregabalin (LYRICA) 100 mg capsule Take 1 capsule (100 mg total) by mouth 3 (three) times a day Active DULoxetine DR (CYMBALTA) 60 mg capsule Take 1 tablet by mouth daily Active esomeprazole DR (NexIUM) 40 mg capsule Take by mouth 9 Active HYDROcodone-aceta minophen (NORCO) 5-325 mg per tablet Take 1 tablet by mouth every 6 (six) hours as needed 2 Active ferrous sulfate 325 mg (65 mg of elemental iron) tablet Take by mouth 9 Active levETIRAcetam (KEPPRA) 500 mg tabletIndications :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) Take 1 tablet (500 mg total) by mouth 2 (two) times a day 60 tablet 11 4 025 Active oxyCODONE-acetami nophen (PERCOCET) 5-325 mg per tabletIndications :Pain Take 1 tablet by mouth every 4 (four) hours as needed for pain 20 tablet 4 Active Additional Information Patient not taking.Reported on 09/20/2024 tiZANidine (ZANAFLEX) 4 mg tablet TAKE 1 TABLET BY MOUTH THREE TIMES DAILY NEEDED FOR MUSCLE PAIN Active nitroglycerin (NITROSTAT) 0.4 mg SL tabletIndications :Chest tightness PLACE 1 TABLET UNDER THE TONGUE EVERY 5 MINUTES NEEDED FOR CHEST PAIN(MAX= 3 TABLETS) 50 tablet 5 Active QUEtiapine (SEROquel) 25 mg tablet Take 1 tablet (25 mg total) by mouth nightly Active losartan (COZAAR) 25 mg tabletIndications :Coronary artery disease involving gulkana coronary artery of g[place]ana heart without angina pectoris,Primary hypertension,Nonr heumatic mitral valve regurgitation Take 0.5 tablets (12.5 mg total) by mouth daily 15 tablet 11 5 026 Active Active Problems Problem Noted Date Diagnosed Date Dizziness 09/20/2024 Coronary artery disease invo lving gulkana coronary artery of [place] heart without angina pectoris 06/21/2024 Tobacco abuse [...] Smoking Tobacco: Every Day Cigarettes 0.8 88 Smokeless Tobacco: Never Tobacco Cessation:Ready to Q uit: Not Asked; [...] on file 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 Gender Identity Not on file Sexual Orientation Not on file Last Filed Vital Signs Vital Sign Reading Time Taken Comments Blood Pressure 120/76 09/20/2024 8:14 AM CDT Pulse 60 09/20/2024 8:14 AM CDT Temperature 36.6 C (97.9 F) 12/07/2023 11:08 AM CDT Respiratory Rate 16 12/07/2023 11:08 AM CDT Oxygen Saturation 97% 09/20/2024 8:14 AM CDT Inhaled Oxygen Concentration - - Weight 72.1 kg (159 lb) 09/20/2024 8:14 AM CDT Height 149.9 cm (4' 11 ) 09/20/2024 8:14 AM CDT Body Mass Index 32.11 09/20/2024 8:14 AM CDT Plan of Treatment Not on file Procedures Procedure Name Priority Date/Time Associated Diagnosis Comments POCT LIPID PANEL Routine 09/20/2024 8:08 AM CDT Coronary artery disease involving gulkana coronary artery of gulkana heart without angina pectoris Hyperlipidemia LDL goal <70 from Last 3 Months Results * (ABNORMAL) POCT lipid panel (09/20/2024 8:08 AM CDT) Cholesterol, POC 138 <200 MG/DL HDL, POC 39(A) >=40 mg/dL Triglycerides, POC 99 <=149 mg/dL LDL Cholesterol POC 80 <=129 mg/dL Chol/HDL Ratio, POC 3.6 NONE Non-HDL Cholesterol, POC 100 NONE mg/dL Cholesterol Total, POC 138 30 - 199 mg/dL Capillary blood 09/20/2024 8 :08 AM CDT Jl Demarco MD POINT OF CARE TEST ORDERA BLES Final Result from Last 3 Months Insurance IDPA IDPA Advance Directives For more information, please contact: [phone] * Full Code (Latest Code Status on File) Date Activated Date Inactivated Comments 09/24/2023 12:54 AM 09/26/2023 7:18 PM * Full Code Date Activated Date Inactivated Comments 12/17/2020 6:54 AM 12/18/2020 10:48 PM Care Teams Blocker And Polisher Relationship Specialty Start Date End Date Ranjan Watson MD [address] [place] [address] PCP - General Family Practice 06/21/24 Taty West PA [address] [place] [address] [address] [place] [address] Gastroenterology 09/26/23 Esperanza Moffett, GIFTY [address] [place] [address] [address] [place] [address] Neurology 09/26/23
--- OUTSIDE RECORDS SUMMARY | 2024-09-27 18:40 | XMS_ITS | Clinical Summary ---
Author Organization [facility] Address [address] [place] [address] Phone Care Team Providers Care Line Service Technician Name Role Phone Gallo France MD Primary Care Provider [phone]- [phone] Allergies No known active allergies Medications HYDROcodone-jagdish [...] Comments Blood Pressure 119/55 07/27/2021 5:50 PM ADVANCE SCOUT Pulse 97 07/27/2021 5:50 PM ADVANCE SCOUT Temperature 36.3 C (97.4 F) 07/27/2021 3:53 PM ADVANCE SCOUT Respiratory Rate 32 07/27/2021 3:53 PM ADVANCE SCOUT Oxygen Saturation 100% 07/27/2021 5:50 PM ADVANCE SCOUT Inhaled Oxygen Concentration - - Weight 57.2 kg (126 lb) 07/27/2021 3:53 PM ADVANCE SCOUT Height 149.9 cm (4' 11 ) 07/27/2021 3:53 PM ADVANCE SCOUT Body Mass Index 25.45 07/27/2021 3:53 PM ADVANCE SCOUT Plan of Treatment Health Maintenance Due Date [...] this topic Insurance MEDICAID [place] Care Teams Line Service Technician Relationship Specialty Start Date End Date Gallo France MD [address] [place] [address] [place] [address] PCP - General Porcelain Waxer 07/27/21
--- OUTSIDE RECORDS SUMMARY | 2024-09-27 18:40 | XMS_ITS | Patient Health Record ---
Author Organization [facility] Address [address] [place] [address] Care Team Providers Care Material Mover Name Role Phone Chay Peñaloza Primary Care Provider Allergies No Known Allergies Reason For Referral Reason GRIEF FROM BROTHER'S JAN 09 2024, CHRONIC MOOD DISORDER, CHRONIC PAIN Diagnosis 1 Mood disorder (F39) Referral Organization [facility] Referring Provider First Name Batsheva Referring Provider Last Name Thania Referring Provider Speciality Behavioral Health Referred Provider Specialty Behavioral H [facility] Clinical Notes Elin Vila 01/20/2024 01:45:53 PM >MICHEAL called client to explain the process of initiating therapy, no answer, vm left for client to return my call.Julito Kristina L 01/24/2024 08:12:34 AM >MICHEAL called client and left a second VM for client to return a call to explain the process of starting therapy., Elin Vila 01/27/2024 08:09:42 AM >MICHEAL called client. Client did not answer the phone. This was the 3rd try contacting client. HN mailed out the paperwork with the instructions to initiate therapy to the client (close out 02-10-24) Referral Priority Routine Reason right shoulder adhes haroon capsulitis with possible rotator cuff injury due to fall 02/29/24. Diagnosis 1 Adhesive capsulitis of right shoulder (M75.01) Referral Organization [facility] Referring Provider First Name Chay Referring Provider Last Name Jh Referring Provider Speciality Internal M edicine Referred Provider Specialty Physical The rapist General Notes Referral sent to [facility]. Letter sent to patient. Clinical Notes [facility], [employer], ph: [phone], fax: [phone] Referral Priority Routine Medications Medication SIG (Take, Route, Frequency, Duration) Notes Start Date End Date Status Baclofen 20 MG 1 tablet Administer without regards to meals as needed Orally Twice a day for 30 days As needed neck and back pain 02/03/2024 Active Ferrous Sulfate 325 (65 Fe) MG 1 tablet Orally Three times a Week Active Aspirin 81 81 MG 1 tablet Orally Once a day Active NexIUM 20 MG 1 capsule Orally Onc e a day Active hydrOXYzine Pamoate 50 MG 1 capsule at bedtime as needed Orally Once a day for 15 days As needed INSOMNIA 01/20/2024 Active Atorvastatin Calcium 40 MG 1 tablet Oral ly Once a day Active ARIPiprazole 10 MG 1 tablet Orally Once a day Active Pregabalin 100 MG 1 capsule Orally Onc e a day Active Escitalopram Oxalate 20 MG 1 tablet Oral ly Once a day Active Dicyclomine HCl 20 MG 1 tablet Orally Th ree times a day Active levETIRAcetam 500 MG 1 tablet Orally marcus ry 12 hrs Active DULoxetine HCl 60 MG 1 capsule Orally On ce a day Active Spironolactone 50 MG 1 tablet Orally Onc e a day Active Pantoprazole Sodium 40 MG 1 tablet Orall y Once a day Active ZyrTEC 10 MG 1 tablet Orally Once a day Active Montelukast Sodium 10 MG 1 tablet Orally Once a day Active Fluticasone Propionate 50 MCG/ACT 2 SPRAYS DAILY EACH NOSTRIL Nasally at night 02/03/2024 Active Zinc 50 MG 1 tablet Orally Once a day Active Acetaminophen 500 MG two tablets Orally every 6 hrs As needed pain (maximum of 6 tablets in 24 hours) 03/01/2024 Active tiZANidine HCl 4 MG 1 tablet Orally three times a day for 30 days As needed muscle pain 03/01/2024 Active Varenicline Tartrate 1 MG 1 tablet after eating with a full glass of water (BEGIN AFTER COMPLETING 0.5 MG TAB) Orally Twice a day for 30 days Active Social History Tobacco Use: Social History Observation Description Date Details (start date - stop date) Current Smoker NA - NA Sex Assigned At : Social History Observation Description Sex Assigned At Female Tobacco Control (Standard) Question Answer Notes Tobacco use: Current smoker How often do you smoke cigarettes? Every day How many cigarettes a day do you smoke? 6-10 Problems Problem Type SNOMED Code ICD Code Onset Dates Problem Status W/U Status Risk Notes Problem Tobacco user (087087309) Nicotine dependence, unspecified, uncomplicated (F17.200) Active confirmed Problem Mood disorder (52115445) Mood disorder (F39) Active confirmed Problem Chronic pain (G89.29) Active confirmed Vital Signs Heart Rate 114 /min 03/01/2024 Respiratory Rate 16 /min 03/01/2024 Blood pressure diastolic 90 mm Hg 03/01/2024 Oximetry 98 % 03/01/2024 Height 60 in 03/01/2024 Blood pressure systolic 140 mm Hg 03/01/2024 Weight 147.6 lbs 03/01/2024 BMI 28.82 kg/m2 03/01/2024 Encounters Encounter Location Date Provider Diagnosis [facility] [address] [place] [address] 01/20/2024 Chay Peñaloza Dorsalgia of multipl e sites in spine M54.9 ; Mood disorder F39 ; Screening for osteoporosis Z13.820 ; Chronic pain G89.29 ; Nicotine dependence, unspecified, uncomplicated F17.200 ; Screening for colon cancer Z12.11 and Breast cancer screening by mammogram Z12.31 [facility] [address] [place] [address] 02/03/2024 Chay Peñaloza [facility] [address] [place] [address] 02/03/2024 Chay Peñaloza Cervicalgia M54.2 an d Eustachian tube dysfunction, right H69.[address] [place] [address] 03/01/2024 Chay Peñaloza Right shoulder pain M25.511 ; Adhesive capsulitis of right shoulder M75.01 and Nicotine dependence, unspecified, uncomplicated F17.[address] [place] [address] 02/03/[address] [place] [address] 02/07/[address] [place] [address] 02/07/2024 Chay Peñaloza [address] [place] [address] 02/07/2024 Chay Peñaloza Eustachian tube dysfunction, right H69.81 and Cervicalgia M54.2 Assessments Encounter Date Diagnosis (ICD Code) Assessment Notes Treatment Notes Treatment Clinical Notes Section Notes 01/20/2024 Mood disorder (ICD-10 - F39) 01/20/2024 Dorsalgia of multiple sites in spine (ICD-10 - M54.9) 02/03/2024 Cervicalgia (ICD-10 - M54.2) 02/03/2024 Eustachian tube dysfunction, right (ICD-10 - H69.81) 02/07/2024 Eustachian tube dysfunction, right (ICD-10 - H69.81) 03/01/2024 Adhesive capsulitis of right shoulder (ICD-10 - M75.01) 03/01/2024 Right shoulder pain (ICD-10 - M25.511) ICE INTERMITTENTLY AT 30 MIN INTERVALS FOR FIRST 48-72 HOURS AFTER INJURY, THEN HEAT. 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 MELANIA SIGNED FOR [facility] [place], [facility] FOR ALL RECORDS FROM 2023. 03/01/2024 Other NO LABS RECEIVED FROM [facility] YET. DISCUSSED WITH HER THAT WILL NEED BLOOD DRAW AT F/U IN 6 WEEKS IF RESULTS NOT RECEIVED BY THEN. Plan Of Treatment Future Test Test Name Order Date DEXA Hip and Spine 01/20/[address]: Lung Cancer Screening 01/19 Mammogram Breast - Bilateral Screening 0 01/20/2024 Xray : Shoulder, right 03/01/2024 Insurance Providers Payer Name Payer Address Payer Phone Subscriber Number Group Number Insured Name Patient Relationship to Insured Coverage Start Date Coverage End Date MEDICAID [address] [facility] [place] [address] [id number] Ginna Allan Self - patient is the insured [address] [phone] [id number] Ginna Allan Self - patient is the insured 4 4 MEDICAID TELEHE[employer] [address] [facility] [place] [address] [id number] Ginna Allan Self - patient is the insured 4 Medical (General) History Surgical History Surgery Date(Month/Year) appendectomy tonsillectomy right knee repair 2c-section partial hysterectomy bilateral carpel tunnel ulner nerve release slap tear repair right shoulder Hospitalization History Reason Date(Month/Year) seizure 09/2023 Sylvie
--- OUTSIDE RECORDS SUMMARY | 2024-09-27 18:40 | XMS_ITS | CONTINUITY OF CARE DOCUMENT ---
Author Name alejandra roberts Address Unknown Organization [facility] Address [address] [place] [address] Phone [phone] Care Team Providers Care Carpenter And Joiner Name Role Phone Marcy Gomez MD Unavailable [...] In-person encounter Office Visit Shahram Thomas MD [facility] Chest pain - nl echo and stress test 06/24 019 - In-person encounter Office Visit Shahram Thomas MD [facility] - In-person encounter Office Visit Shahram Thomas MD [facility] HypertensionHyperlipidemiaAsthmaAtypical chest painShortness of breathChest pain [...] /min Nereyda French weight E&M 178 [lb_av] [facility] height E&M 59 [in_i] [facility] Body Mass Index (Ratio) 34.94 kg/m2 Nelson Thomas MD respiratory rate E&M 17 /min Rosa Maria Her pulse rate 108 /min Rosa Maria glover oxygen saturation, oximetry 98 % Rosa Maria Arden blood pressure, cuff size regular Cr adele Arden blood pressure, diastolic 60 mm[Hg] Cr [facility] blood pressure, systolic 120 mm[Hg] Cry stal Arden weight E&M 173 [lb_av] Rosa Maria glover height E&M 59 [in_i] Rosa Maria glover Body Mass Index (Ratio) 35.95 kg/m2 Nelson Thomas MD blood pressure, resting Yes Amadeo guadarrama Gillian oxygen saturation, oximetry 98 % [facility] pressure, diastolic 60 mm[Hg] Candie French blood pressure, systolic 120 mm[Hg] Nevaeh French respiratory rate E&M 16 /min Jorge French pulse rate 93 /min Nereyda French height E&M 59 [in_i] [facility] weight E&M 178 [lb_av] [facility] ALLERGIES No Known Drug Allergies HISTORY [...] a Nevaehmaria luisa French cigarette use yes [facility] smoking status current every day smoker T francois Thomas MD FAMILY HISTORY Family Member Condition Mother Family History of Nesha ng Cancer: Mother Family History Breas t Cancer: INSURANCE PROVIDERS Payer name Policy type / Coverage type [place] red green party ID [id number] MEDICAID Medicaid [id number] ADVANCE DIRECTIVES Name Date POWER OF ANNEALER HELPER LIVING WILL ON FILE TREATMENT PLAN Date [...] Shahram Thomas MD Date Name DLCO - 08165 FRC - 44422 FVC - 62721 Stress Exercise Card iolite Complete Echo HISTORY OF PROCEDURES Procedure Date Procedure Name Provider Procedure Notes S tatus Stress EKG Reji Sim MD complet ed Cardiolite, 2 units Reji Sim MD completed SPECT Images Reji Sim MD compl eted FVC / MVV with bronchodilator - 51788 Shahram Thomas MD completed BLOOD COUNT HEMOGLOBIN Shahram Thomas MD completed FRC - 41547 Shahram Thomas MD complete d SpO2 w/o 6min walk/titration Shahram Thomas MD completed DLCO - 74265 Shahram Thomas MD complet ed
--- OUTSIDE RECORDS SUMMARY | 2024-09-27 18:40 | XMS_ITS | Clinical Summary ---
Author Organization [facility] Address [address] [place] [address] Care Team Providers Care Splunk Developer Name Role Phone Taty West Unavailable [phone] Esperanza Moffett NP Unavailable [phone] Ranjan Watson MD Primary Care Provider [phone] Allergies No known active allergies Medications aspirin [...] 25 mg tabletIndications :Coronary artery disease involving [place] coronary artery of [place] heart without angina pectoris,Primary hypertension,Nonr heumatic mitral valve regurgitation Take 0.5 tablets (12.5 mg total) by mouth daily 15 tablet 11 5 026 Active Active Problems Problem Noted Date Diagnosed Date Dizziness 09/20/2024 Coronary artery disease invo lving [place] coronary artery of [place] heart without angina pectoris 06/21/2024 Tobacco abuse [...] Type Department Care Team Description 09/27/2024 Telephone [facility] Vascular and Vein Surgery at [address] [place] [address] Bailey Mcdonald RDMS 09/20/2024 8:30 AM CDT Office Visit [facility] Cardiology at [address] [place] [address] Jl Demarco MD Coronary artery disease involving [place] coronary artery of [place] heart without angina pectoris (Primary Dx); Hyperlipidemia LDL goal <70; Primary hypertension; Nonrheumatic mitral valve regurgitation; Dizziness 09/20/2024 Telephone [facility] Vascular and Vein Surgery at [address] [place] [address] Bailey Mcdonald RDMS from Last 3 Months Surgical History Surgery [...] on file 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 Gender Identity Not on file Sexual Orientation [...] 09/20/2024 8:14 AM CDT Plan of Treatment Health Maintenance Due Date [...] 8:08 AM CDT Coronary artery disease involving [place] coronary artery of [place] heart without angina pectoris Hyperlipidemia LDL goal [...] Result from Last 3 Months Insurance IDPA Member Subscriber Plan / Payer (Ef fective 2024-Present) Name:Ginna Romero Relation to Subscriber:Self Name:Ginna Romero Payer ID:[id number] Group ID:Not on file Type:[place] Address: [place] [id number] IDPA Member Subscriber Plan / Payer (Ef fective 2024-Present) Name:Ginna Romero Relation to Subscriber:Self Name:Ginna Romero Payer ID:[id number] Group ID:Not on file Type:[place] Address: [address] Advance Directives For more information, please contact: [phone] * Full Code (Latest Code Status on File) Date Activated Date Inactivated Comments 09/24/2023 12:54 AM 09/26/2023 7:18 PM * Full Code Date Activated Date Inactivated Comments 12/17/2020 6:54 AM 12/18/2020 10:48 PM Care Teams Splunk Developer Relationship Specialty Start Date End Date Ranjan Watson MD [address] [place] [address] PCP - General Family Practice 06/21/24 Taty West PA [address] [place] [address] [address] [place] [address] Gastroenterology 09/26/23 Esperanza Moffett NP [address] [place] [address] [address] [place] [address] Neurology 09/26/23
--- OUTSIDE RECORDS SUMMARY | 2024-09-27 18:40 | XMS_ITS | Encounter Summary ---
Author Organization [facility] Healthcare Address [address] [place] [address] Care Team Providers Care Human Resources Benefits Assistant Name Role Phone Taty West Unavailable [phone] Esperanza Moffett NP Unavailable [phone] Darnell Blanchard Primary Care Provider + Ranjan Watson MD Primary Care Provider [phone] Reason for Visit * Auth/Cert Specialty Diagnoses / Procedures Referred By Surekha sierra Referred To Contact Diagnoses Epigastric abdominal pain [...] Low iron [E61.1] Abdominal pain [R10.9] Procedures CA COLONOSCOPY FLX DX W/COLLJ SPEC WHEN PFRMD CA ESOPHAGOGASTRODUODENOSCOPY TRANSORAL DIAGNOSTIC COLONOSCOPY ESOPHAGOGASTRODUODENOSCOPY Referral ID Status Reason Start Date Expiration Date Visits Re quested Visits Authorized [id number] 1 1 Encounter Details Date Type Department Care Team (Late st Contact Info) Description 02/02/2024 Hospital Encounter [facility] [address] [place] [address] Jesus Tay MD [address] [place] [address] [address] Social History Tobacco Use Types Packs/Day Years Used Date Smoking Tobacco: Every Day Cigarettes 0.8 88 Smokeless Tobacco: Never AUDIT-C Answer Date Recorded Q1: How often [...] on file 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 Gender Identity Not on file Sexual Orientation [...] site documented in this encounter Care Teams Human Resources Benefits Assistant Relationship Specialty Start Date End Date Darnell Blanchard PA [address] [place] [address] PCP - General Internal Medicine 10/13/23 06/20/24 Ranjan Watson MD [address] [place] [address] PCP - General Family Practice 06/21/24 Taty West PA [address] [facility] [facility] [address] [place] [address] Gastroenterology 09/26/23 Esperanza Moffett NP [address] [facility] [facility] [address] [place] [address] Neurology 09/26/23 documented as of this encounter
--- OUTSIDE RECORDS SUMMARY | 2024-09-27 18:40 | XMS_ITS | Clinical Summary ---
Author Organization [facility] [employer] Address [address] [facility] [place] [address] Care Team Providers Care Structural Fitter Name Role Phone Chay Peñaloza MD Primary Care Provider [phone] Source Comments [facility] [employer]),non-owned Affiliates and Associated Physician Practices is amultiple site organization consisting of ambulatory clinics and hospital sitesin [place], [place], [place] and [place]. This disclosure is being madepursuant to the Care Everywhere program and may not contain all information available regarding this patient. Last updated 18.[facility] Allergies No known active allergies Medications * Be aware that medications may not be up to date on this document. Alwaysverify current medications with the patient. ATORVASTATIN CALCIUM PO Active CYCLOBENZAPRINE HCL PO Active AMLODIPINE BESYLATE PO Active DICYCLOMINE HCL PO Active Esomeprazole Magnesium (NEXIUM PO) Active albuterol HFA (PROAIR HFA) 108 (90 BASE) MCG/ACT inhaler Inhale 2 puffs by mouth every 4 hours as needed for Shortness of Breath, Wheezing or Cough 1 Inhaler 8 Active lisinopril (PRINIVIL; ZESTRIL) 10 MG tablet Take 10 mg by mouth once daily Active busPIRone (BUSPAR) 10 MG tablet Take 10 mg by mouth 3 times daily Active etodolac (LODINE) 300 MG capsule Take 300 mg by mouth 2 times daily Active [place]-3 Fatty Acids (FISH OIL PO) Active Social History Tobacco Use Types Packs/Day Years Used Date Smoking Tobacco: Passive Smo ke Exposure - Never Smoker Smokeless Tobacco: Never Comments No Sex and Gender Information Value Date Recorded Sex Assigned at Not on file Legal Sex Female 6:28 PM BUSINESS CENTER MANAGER Gender Identity Not on file Sexual Orientation Not on file Last Filed Vital Signs Vital Sign Reading Time Taken Comments Blood Pressure 128/76 08/01/2020 7:28 PM BUSINESS CENTER MANAGER Pulse 102 08/01/2020 7:28 PM BUSINESS CENTER MANAGER Temperature 36.7 C (98.1 F) 08/01/2020 7:28 PM BUSINESS CENTER MANAGER Respiratory Rate 20 08/01/2020 7:28 PM BUSINESS CENTER MANAGER Oxygen Saturation 92% 08/01/2020 7:28 PM BUSINESS CENTER MANAGER Inhaled Oxygen Concentration - - Weight 73.5 kg (162 lb) 05/28/2017 11:53 AM BUSINESS CENTER MANAGER Height 149.9 cm (4' 11 ) 05/28/2017 11:53 AM BUSINESS CENTER MANAGER Body Mass Index 32.72 05/28/2017 11:53 AM BUSINESS CENTER MANAGER Plan of Treatment Health Maintenance Due Date Last Done Comments COLOGUARD (AGES 45-75) - COL ON CA SCREENING 1963 COLON MONITORING 1963 COLONOSCOPY - COLON CA SCREENING 1963 CT COLONOGRAPHY - COLON CA SCREENING 1963 Colorectal Cancer Screening 1963 FIT - COLON CA SCREENING 1963 FLEX SIG - COLON CA SCREENING 1963 MAMMOGRAM 1963 HIV SCREENING 1978 HEPATITIS C SCREENING [...] patient's age to complete this topic Insurance [facility] Care Teams Structural Fitter Relationship Specialty Start Date End Date Chay Peñaloza MD [address] [facility] [address] [place] [address] PCP - General 08/11/21
--- OUTSIDE RECORDS SUMMARY | 2024-09-27 18:40 | XMS_ITS | Encounter Summary ---
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 Call disconnected, unable to leave voicemail. documented in this encounter Plan of Treatment Not on file documented as of this encounter Visit Diagnoses Not on filedocumented in this encounter Care Teams Supervisor Enrobing Relationship Specialty Start Date End Date Ranjan Watson MD [address] [place] [address] PCP - General Family Practice 06/21/24 Taty West PA [address] [place] [address] [address] [place] [address] Gastroenterology 09/26/23 Esperanza Moffett NP [address] [place] [address] [address] [place] [address] Neurology 09/26/23 documented as of this encounter
--- OUTSIDE RECORDS SUMMARY | 2024-09-27 18:40 | XMS_ITS | Encounter Summary ---
Author Organization [facility] Healthcare Address [address] [place] [address] Care Team Providers Care Screen Making Technician Name Role Phone Taty West Unavailable [phone] Esperanza Moffett NP Unavailable [phone] Darnell Blanchard Primary Care Provider + Ranjan Watson MD Primary Care Provider [phone] Encounter Details Date Type Department Care Team (Late st Contact Info) Description 06/07/2024 Orders Only [facility] Health Information Management [address] [place] [address] David Perera MD [address] [facility] [address] [place] [address] Social History Tobacco Use Types Packs/Day [...] on file 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 Gender Identity Not on file Sexual Orientation [...] on filedocumented in this encounter Care Teams Screen Making Technician Relationship Specialty Start Date End Date Darnell Blanchard PA [address] [place] [address] PCP - General Internal Medicine 10/13/23 06/20/24 Ranjan Watson MD [address] [place] [address] PCP - General Family Practice 06/21/24 Taty West PA [address] [place] [address] [address] [place] [address] Gastroenterology 09/26/23 Esperanza Moffett NP [address] [facility] [address] [place] [address] Neurology 09/26/23 documented as of this encounter
--- OUTSIDE RECORDS SUMMARY | 2024-09-27 18:41 | XMS_ITS | Data Portability ---
Author Organization [place] - [facility] [employer], Main Office Address [address] [place] [address] Care Team Providers Care Development Assistant Name Role Phone ANDREE BLANCHARD Primary Care Provider ANDREE BLANCHARD Referring Provider [phone] Assessment No assessment recorded. Plan of Treatment Reminders Order Date Submit Date Provider Last Modified By Organization Details Last Modified Time Details Appointments None recorded. Lab vitamin B12 + folate, serum or blood 2023 024 [email or web address] (Lab), [address] [place], [address], 4 08:35:23 vitamin D, 25-hydroxy, total, serum 2023 024 [email or web address] 2 [facility] (Lab), [address] [place], [address], 4 08:35:23 magnesium, serum or plasma 2023 024 [email or web address] 2 [facility] (Lab), [address] [place], [address], 4 08:35:23 lipid panel, serum 2023 024 [email or web address] 2 [facility] (Lab), [address] [place], [address], 4 08:35:23 CMP, serum or plasma 2023 024 [email or web address] 2 [facility] (Lab), [address] [place], [address], 4 08:35:23 CK (creatine kinase), total, serum 2023 024 [email or web address] 2 [facility] (Lab), [address] [place], [address], 4 08:35:24 TSH, serum or plasma 2023 024 [email or web address] 2 [facility] (Lab), [address] [place], [address], 4 08:35:24 CBC w/ auto diff 2023 024 [email or web address] 2 [facility] (Lab), [address] [place], [address], 4 08:35:24 glycohemogl obin, total, blood 2023 024 [email or web address] 2 [facility] (Lab), [address] [place], [address], 4 08:35:24 Referral physical therapist referral - sciatica, physical therapy has helped before Please call pt to schedule 2023 024 [email or web address] 256 [facility], [address], [place], [address], 4 08:53:59 cardiologis t referral - BP drops suddenly . Please eval and treat. Please call patient to schedule an appointment . Thank you 2023 024 [email or web address] [facility] Referral Fax Line, [address], [place], [address], 4 08:45:29 neurologist referral - Frequent falls. Please eval and treat. Please call patient to schedule an appointment . Thank you 2023 024 [email or web address] Otto Douglas MD, [address], [place], [address], 08:50:[address] referral - vascular lesion left forearm . Please biopsy . Please call patient to schedule an appointment . Thank you 2023 024 [email or web address] [facility] - Dermatology, [address] [facility], [place], [address], 08:51:58 pain management referral - BULGING DISCS LUMBAR RADICULOPAT HY. Please call patient to schedule appointment . 2023 024 [email or web address] Rogers Herrera MD, [address] [facility], [place], [address], 4 08:57:06 Procedures None recorded. Surgeries None recorded. Imaging MAMMO, screening, digital, bilateral - *Please call pt to schedule* 2023 024 [email or web address] 256 [facility], [address] [place] [address] Dr, [place], [address], 4 09:57:50 MRI, brain + brain stem, w/wo contrast - *Please call pt to schedule* 2023 024 [email or web address] 256 [facility] (Radiology), [address] [place], [address], 4 09:21:44 Medication Orders Chantix Starting Month Box 0.5 mg (11)-1 mg (42) tablets in dose pack 2023 024 [facility] #53351, [address] [facility], [place], [place], [id number], 4 09:45:34 hydrocodone 5 mg-acetamin ophen 325 mg tablet 2023 024 [facility] #22955, [address], [place], [id number], 4 09:33:20 hydrocodone 5 mg-acetamin ophen 325 mg tablet 2023 024 [email or web address], [address], [place], [id number], 4 09:14:13 ferrous sulfate 325 mg (65 mg iron) tablet 2023 024 [facility] #66428, [address], [place], [id number], 4 10:18:55 naproxen 500 mg tablet 2023 024 [facility] #36461, [address], [place], [id number], 4 10:22:44 cyclobenzap rine 10 mg tablet 2023 024 [facility] #21983, [address], [place], [id number], 4 10:18:58 aripiprazol e 2 mg tablet 2023 024 [facility] #94988, [address], [place], [id number], 4 10:18:56 triamcinolo ne acetonide 0.1 % topical ointment 2023 024 [facility] #03048, [address], [place], [id number], 4 10:25:00 hydrocodone 5 mg-acetamin ophen 325 mg tablet 2023 024 [facility] #37701, [address], [place], [id number], 4 09:14:13 aripiprazol e 2 mg tablet 2023 024 [email or web address] 200 [facility] #89957, [address], [place], [id number], 4 10:50:23 Chantix Starting Month Box 0.5 mg (11)-1 mg (42) tablets in dose pack 2023 024 [facility] #11762, [address], [place], [id number], 4 10:00:23 hydrocodone 5 mg-acetamin ophen 325 mg tablet 2023 024 [facility] #37821, [address], [place], [id number], 4 09:14:13 Contrave 8 mg-90 mg tablet,exte nded release 2023 024 [facility] [employer] [facility] #06055, [address], [place], [id number], 4 09:57:51 Depo-Medrol 80 mg/mL suspension for injection 2023 024 [email or web address] Not available 4 10:03:41 duloxetine 60 mg capsule,del ayed release 2023 024 [facility] #64065, [address], [place], [id number], 4 09:31:30 Rexulti 0.5 mg tablet 2023 024 [facility] #12826, [address] [place], [id number], 09:59:43 Patient TargetsNo targets recorded. Patient Instructions Encounter Date Encounter Id Patient Instructions Last Modified By Organization Details Last Modified Time 05/26/2023 [id number] recheck BP here free in 7 days [email or web address] Not available 05/28/2023 17:34:41 07/25/2023 [id number] recheck BP on own [email or web address] Not avai lable 07/31/2023 16:35:11 01/19/2024 [id number] counseled , wrot e down book [employer] ...... , get a therapist , sarah shelton . call neuro about her falls , she has his number . she has a walker. 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 [email or web address] Not available 01/23/2024 15:58:47 Reason for Referral Pain Management Referral for Prolapsed lumbar intervertebral disc BULGING DISCS LUMBAR RADICULOPATHY. Please call patient to schedule appointment. Referring Physician: Family Sendy Pavon, Encounter Date: 05/26/2023 Neurologist Referral for Rec urrent falls Frequent falls. Please eval and treat. Please call patient to schedule an appointment. Thank you Referring Physician: Family Sendy Pavon, Encounter Date: 08/31/2023 [employer]mut[employer]er Referral for S kin lesion vascular lesion left forearm . Please biopsy . Please call patient to schedule an appointment. Thank you Referring Physician: Family Sendy Pavon, Encounter Date: 08/31/2023 [employer] Technician Referral for He art murmur BP drops suddenly . Please eval and treat. Please call patient to schedule an appointment. Thank you Referring Physician: Family Sendy Pavon, Encounter Date: 10/19/2023 Physical Therapist Referral for Spinal stenosis of lumbar region sciatica, physical therapy has helped before Please call pt to schedule Referring Physician: Family Sendy Pavon, Encounter Date: 01/19/2024 Results Created Date Observation Date Name Description Value Unit Range Abnormal Flag Note LastModifiedBy Organization Detail LastModifiedTime 07/25/19 24 07/25/2023 XR, shoul davis, 2 or more view No observ ation record ed. [email or web address] [facility] [address] [facility] [address], [place], [address], 08/04/2023 10:51:12 07/25/19 24 07/25/2023 CT, abdom en + pelvi s, w/ contr ast No observ ation record ed. [email or web address] [facility] [address], [place], [address], 08/31/2023 10:16:35 05/04/20 24 05/03/2024 XR, chest , 2 view No observ ation record ed. [place] [id number] [facility] [address], [place], [address], 05/11/2024 09:25:09 Result Notes None recorded. Problems Name Problem SNOMED Code Status Onset Date Resolution Date Notes Provider Name and Address Organization Details Recorded Time Contusion of left hand 4145482052672 9109 Active 2021 Not Available [facility] 3 08:10:17 Complex regional pain syndrome 617303874 Active 2021 Not Available [facility] 3 08:10:17 Hyperchole sterolemia 41252341 Active 2020 Not Available [facility] 3 08:10:17 Asthma 672472334 Active 2020 Not Available [facility] 3 08:10:17 Gastroesop hageal reflux disease 416527927 Active 2020 Not Available [facility] 3 08:10:17 Carpal tunnel syndrome of left wrist 3837729173495 02 Active 2021 Not Available [facility] 3 08:10:18 Pain of left hand 3015199422532 03 Active 2021 Not Available [facility] 3 08:10:18 Pain of left hip joint 5626121419637 00 Active 2021 Not Available [facility] 3 08:10:18 Trochanter ic bursitis of left hip 8152631860418 03 Active 2021 Not Available [facility] 3 08:10:18 Depressive disorder 19575334 Active 2020 Not Available [facility] 3 08:10:18 Hypertensi ve disorder 58581653 Active 2020 Not Available [facility] 3 08:10:18 Anxiety 74585028 Active 2020 Not Available [facility] 3 08:10:18 Carpal tunnel syndrome 33866994 Active 2021 Not Available [facility] 3 08:10:18 Pulmonary emphysema 48032684 Active 2020 Not Available [facility] 3 08:10:18 Heart murmur 71281668 Active 2020 Not Available [facility] 3 08:10:18 Seizure 52751509 Active 2020 Not Available [facility] 3 08:10:18 Pain of left thigh 1187671816188 05 Active 2022 Not Available [facility] 3 08:10:18 Pain of left calf 0201054639801 109 Active 2022 Not Available [facility] 3 08:10:17 Overweight 343266360 Active 2022 Not Available [facility] 3 08:10:18 Acute sinusitis 96740777 Active 2022 Not Available [facility] 3 08:10:17 Lumbago with sciatica 560232032 Active 2022 Not Available [facility] 3 08:10:17 Spinal stenosis of lumbar region 95123091 Active 2022 Not Available [facility] 3 08:10:17 Acute serous otitis media of right ear 4587467114037 105 Active 2022 Not Available [facility] 3 08:10:17 Pain of left knee joint 8212208702596 07 Active 2022 Not Available [facility] 3 08:10:18 Obesity 165319553 Active 2022 Not Available [facility] 3 08:10:18 Swelling of lower leg 203784937 Active 2022 Not Available [facility] 3 08:10:18 Chronic low back pain 350994582 Active 2022 Not Available [facility] 3 08:10:18 Chronic neck pain 3071830582242 Active 2022 Not Available [facility] 3 08:10:17 Nausea 054408753 Active 2022 Not Available [facility] 3 08:10:18 Urinary symptoms 446450122 Active 2022 Not Available [facility] 3 08:10:18 Lumbosacra l radiculopa thy 3021553 Active 2022 Not Available [facility] 3 08:10:18 Acute folliculit is 330815692 Active 2022 Not Available [facility] 3 08:10:17 Acute serous otitis media of left ear 6098581909779 101 Active 2022 Not Available [facility] 3 08:10:17 Diarrhea 46167657 Active 2022 Not Available [facility] 3 08:10:18 Pain in left lower limb 868329278 Active 2022 Not Available [facility] 3 08:10:18 Neuropathy 255778924 Active 2022 Not Available [facility] 3 08:10:18 Hyperlipid emia 24245249 Active 2022 Not Available [facility] 3 08:10:18 Bronchitis 61380680 Active 2022 Not Available [facility] 3 08:10:18 Nicotine dependence 50842666 Active 2023 [facility] [address] [facility] [facility] [address], [place], [address] , [facility] 4 09:32:47 Prolapsed lumbar interverte bral disc 503936514 Active 2023 [facility] [address], [place], [address] , [facility] 4 09:39:23 Recurrent falls 939324099 Active 2023 [facility] [address], [place], [address] , [facility] 4 10:17:05 Skin lesion 95198824 Active 2023 [facility] [address], [place], [address] , [facility] 4 10:24:00 Spasm 68522433 Active 2023 [facility] [address], [place], [address] , [facility] 4 09:24:33 Screening for malignant neoplasm of breast Active 2023 [facility] [address], [place], [address] , [facility] 4 09:29:49 At increased risk of nutritiona l deficit 611702759 Active 2023 [facility] [address], [place], [address] , [facility] 4 09:36:48 Hypotensiv e syncope 29149921 Active 2023 [facility] [address], [place], [address] , [facility] 4 09:39:50 Obese 597248877 Active 2023 [facility] [address], [place], [address] , [facility] 4 16:03:03 Fracture of phalanx of foot 48401738 Active 2023 Paul Jolly RN null, [facility] 4 14:39:34 Dysuria 00644895 Active 2023 [facility] [address], [place], [address] , [facility] 4 17:12:29 Adult health examinatio n Active 2023 [facility] [address], [place], [address] , [facility] 4 09:58:15 Normal grief reaction 775714448 Active 2023 [facility] [address], [place], [address] , [facility] 4 10:10:33 Problem Notes None recorded. Procedures Surgical History Date Name Laterality Status Provider Name and Address Organization Details Recorded Time 02/15/20 Family Practice Trigger Point Injection completed Gallo France MD [address], [place], [address], [facility] 02/14/2023 18:35:31 10/13/19 Family Practice Trigger Point Injection completed Gallo France MD [address], [place], [address], [facility] 10/12/2022 18:26:29 Dilation and curettage completed Not Available [facility] 07/21/2022 07:41:20 Carpal tunnel completed [facility] Available [facility] 07/21/2022 07:41:20 neuroplasty of ulnar nerve at elbow completed Not Available [facility] 07/21/2022 07:41:20 Shoulder completed Not Available [facility] 07:41:20 Skin Graft completed Not Available [facility] 07/21/2022 07:41:20 [facility]sterectomy [facility] 07/21/2022 07:41:20 completed Not Available [facility] 0 07/21/2022 07:41:20 Knee completed Not Available [facility] 05/2022 07:41:20 Imaging Results Imaging Date Name Status LastModified by Organiz ation Details LastModified Time 07/25/2023 XR, shoulder, 2 or more view completed [email or web address] [address] [place] [address], [address], 08/04/2023 10:51:12 07/25/2023 CT, abdomen + pelvis, w/ contrast completed [email or web address] [address], [address], 08/31/2023 10:16:35 05/03/2024 XR, chest, 2 view completed [email or web address] [address], [address], 05/11/2024 09:25:09 Procedure Notes None recorded. Medical Equipment None Reported. Allergies No known drug allergies Medications Name Sig Start Date Stop Date Status Note LastModified by Organization Details LastModified Time Prescript ion - Prior Authoriza tion Request 07/24 completed Not Available Not Available Not Available cyclobenz aprine 10 mg tablet TAKE 1 TABLET BY MOUTH EVERY NIGHT AT BEDTIME active Not Available Not Available No t Available haloperid ol 0.5 mg tablet 11/04 completed Not Available Not Available Not Available fluconazo le 100 mg tablet TAKE 1 TABLET BY MOUTH EVERY DAY 04/23 completed Not Available Not Available Not Available atorvasta tin 40 mg tablet TAKE 1 TABLET BY MOUTH EVERY DAY active Not Available Not Available No t Available buspirone 5 mg tablet Take 1 tablet twice a day by oral route. active Not Available Not Available No t Available doxepin 50 mg capsule 11/04 completed Not Available Not Available Not Available promethaz ine-DM 6.25 mg-15 mg/5 mL oral syrup TAKE 5 ML BY MOUTH EVERY 4 HOURS FOR 10 DAYS 07/24 completed Not Available Not Available Not Available neomycin- polymyxin -hydrocor t 3.5 mg/mL-10, 000 unit/mL-1 % ear solution INSTILL 4 DROPS INTO AFFECTED EAR(S) 3 TIMES A DAY 10/12 completed Not Available Not Available Not Available atorvasta tin 80 mg tablet TAKE 1/2 TABLET (40MG) ONCE DAILY 11/04 completed Not Available Not Available Not Available prednison e 10 mg tablet PLEASE SEE ATTACHED FOR DETAILED DIRECTIO NS 05/27 completed Not Available Not Available Not Available rabeprazo le 20 mg tablet,de layed release TAKE 1 TABLET BY MOUTH EVERY DAY 11/04 completed Not Available Not Available Not Available atorvasta tin 20 mg tablet TAKE 1 TABLET BY MOUTH EVERY DAY 11/04 completed Not Available Not Available Not Available naproxen 375 mg tablet 08/30 completed Not Available Not Available Not Available albuterol sulfate 2.5 mg/3 mL (0.083 %) solution for nebulizat ion USE 3 ML VIA NEBULIZE R FOUR TIMES DAILY active Not Available Not Available No t Available etodolac 300 mg capsule TAKE 1 CAPSULE BY MOUTH TWICE A DAY 04/06 completed Not Available Not Available Not Available azithromy mahnaz 250 mg tablet TAKE 2 TABLETS BY MOUTH TODAY, THEN TAKE 1 TABLET DAILY FOR 4 DAYS 07/30 completed Not Available Not Available Not Available ibuprofen 800 mg tablet TAKE 1 TABLET BY MOUTH THREE TIMES DAILY WITH MEALS 01/18 completed too strong , causes heartbur n Not Available Not Available Not Available tizanidin e 4 mg tablet TAKE 1 TABLET BY MOUTH THREE TIMES DAILY NEEDED FOR MUSCLE PAIN active Not Available Not Available No t Available levetirac etam 500 mg tablet TAKE 1 TABLET BY MOUTH TWICE A DAY active Not Available Not Available No t Available hydrocodo ne 5 mg-acetam inophen 325 mg tablet Take 1 tablet twice a day by oral route as needed for 30 days. active Not Available Not Available No t Available lisinopri l 20 mg tablet TAKE 1 TABLET BY MOUTH EVERY DAY 04/23 completed Not Available Not Available Not Available ondansetr on HCl 4 mg tablet TAKE 1 TABLET BY MOUTH EVERY 6 HOURS NEEDED FOR NAUSEA 06/26 completed Not Available Not Available Not Available famotidin e 40 mg tablet 11/04 completed Not Available Not Available Not Available prednison e 20 mg tablet TAKE 2 TABLETS BY MOUTH EVERY DAY WITH FOOD FOR 5 DAYS 01/18 completed Not Available Not Available Not Available hydroxyzi ne pamoate 50 mg capsule TAKE 1 CAPSULE BY MOUTH DAILY AT BEDTIME FOR 15 DAYS NEEDED FOR INSOMNIA active Not Available Not Available No t Available metronida zole 500 mg tablet TAKE 1 TABLET BY MOUTH TWICE A DAY 04/23 completed Not Available Not Available Not Available phentermi ne 37.5 mg tablet TAKE 1 TABLET BY MOUTH EVERY DAY 01/18 completed Not Available Not Available Not Available acetamino phen 300 mg-codein e 30 mg tablet TAKE 1 TABLET BY MOUTH EVERY 6 HOURS NEEDED 01/31 completed Not Available Not Available Not Available amlodipin e 5 mg tablet active Not Available Not Available Not Available prochlorp erazine maleate 10 mg tablet 11/04 completed Not Available Not Available Not Available ciproflox acin 500 mg tablet TAKE 1 TABLET BY MOUTH EVERY 12 HOURS 01/18 completed Not Available Not Available Not Available hydrocodo ne 10 mg-acetam inophen 325 mg tablet TAKE 1 TABLET BY MOUTH EVERY 4 HOURS active Not Available Not Available No t Available omeprazol e 40 mg capsule,d elayed release TAKE 1 CAPSULE BY MOUTH EVERY DAY active Not Available Not Available No t Available tramadol 50 mg tablet TAKE 1 TABLET BY MOUTH EVERY 6 HOURS active Not Available Not Available No t Available acetamino phen 500 mg tablet TAKE 2 TABLETS BY MOUTH EVERY 6 HOURS NEEDED FOR PAIN. MAXIMUM OF 6 TABLETS IN 24 HOURS active Not Available Not Available No t Available Depo-Medr ol 80 mg/mL suspensio n for injection Take 1 mL by injectio n route. 2023 active Not Available Not Available Not Avai lable prednison e 10 mg tablets in a dose pack Take 1 tab by mouth, 3 times a day for 3 daysTake 1 tab by mouth 2 times a day for 2 daysTake 1 tab by mouth once a day for 1 day 05/27 completed Not Available Not Available Not Available oxycodone -acetamin ophen 5 mg-325 mg tablet TAKE 1 TABLET BY MOUTH EVERY 4 HOURS NEEDED FOR PAIN 01/18 completed Not Available Not Available Not Available ofloxacin 0.3 % ear drops INSTILL 10 DROPS TO RIGHT EAR DAILY FOR 7 DAYS 11/04 completed Not Available Not Available Not Available amoxicill in 875 mg tablet TAKE 1 TABLET BY MOUTH EVERY 12 HOURS FOR 10 DAYS 05/27 completed Not Available Not Available Not Available famotidin e 20 mg tablet TAKE 1 TABLET BY MOUTH EVERY DAY 11/04 completed Not Available Not Available Not Available dicyclomi ne 20 mg tablet TAKE 1 TABLET BY MOUTH THREE TIMES DAILY active Not Available Not Available No t Available Kenalog 10 mg/mL suspensio n for injection In office injectio n administ ered by the provider 05/27 completed [facility]: [phone] Not Available Not Available Not Available amlodipin e 10 mg tablet TAKE 1 TABLET BY MOUTH DAILY 04/23 completed Not Available Not Available Not Available benzonata te 100 mg capsule TAKE 1 CAPSULE BY MOUTH 3 TIMES A DAY NEEDED FOR COUGH 11/04 completed Not Available Not Available Not Available cephalexi n 500 mg capsule 11/04 completed Not Available Not Available Not Available pantopraz ole 40 mg tablet,de layed release TAKE 1 TABLET BY MOUTH EVERY DAY. active Not Available Not Available No t Available triamcino lone acetonide 0.1 % topical ointment APPLY THIN LAYER TOPICALL Y TO THE AFFECTED AREA TWICE DAILY active Not Available Not Available No t Available buspirone 10 mg tablet TAKE 1 TABLET BY MOUTH TWICE DAILY 08/30 completed Not Available Not Available Not Available buspirone 7.5 mg tablet TAKE 1 TABLET BY MOUTH THREE TIMES A DAY 11/04 completed Not Available Not Available Not Available montel[facility] 10 mg tablet TAKE 1 TABLET BY MOUTH EVERY DAY active Not Available Not Available No t Available mupirocin 2 % topical ointment APPLY SMALL AMOUNT TOPICALL Y TO THE AFFECTED AREA THREE TIMES DAILY 07/24 completed Not Available Not Available Not Available diclofena c sodium 50 mg tablet,de layed release active Not Available Not Available Not Available levofloxa mahnaz 500 mg tablet Take 1 tablet every 24 hours by oral route. active Not Available Not Available No t Available methylpre dnisolone 4 mg tablets in a dose pack FOLLOW PACKAGE DIRECTIO NS 02/03 completed Not Available Not Available Not Available albuterol sulfate HFA 90 mcg/actua tion aerosol inhaler INHALE 2 PUFFS BY MOUTH FOUR TIMES DAILY NEEDED FOR SHORTNES S OF BREATH active Not Available Not Available No t Available ondansetr on 4 mg disintegr ating tablet DISSOLVE 1 TABLET ON THE TONGUE EVERY 8 HOURS NEEDED FOR NAUSEA OR VOMITING active Not Available Not Available No t Available topiramat e 100 mg tablet 11/04 completed Not Available Not Available Not Available fluticaso ne propionat e 50 mcg/actua tion nasal spray,jose pension SHAKE LIQUID AND USE 2 SPRAYS IN EACH NOSTRIL DAILY AT NIGHT active Not Available Not Available No t Available doxycycli ne hyclate 100 mg tablet TAKE 1 TABLET BY MOUTH TWICE A DAY FOR 10 DAYS 02/03 completed Not Available Not Available Not Available naproxen 500 mg tablet TAKE 1 TABLET BY MOUTH TWICE DAILY WITH MEALS active Not Available Not Available No t Available spironola ctone 50 mg tablet TAKE 1 TABLET BY MOUTH EVERY DAY active Not Available Not Available No t Available amoxicill in 875 mg-potass ium clavulana te 125 mg tablet TAKE 1 TABLET BY MOUTH EVERY 12 HOURS 10/18 completed Not Available Not Available Not Available escitalop kimberly 10 mg tablet TAKE 1 TABLET BY MOUTH EVERY DAY 07/02 completed Not Available Not Available Not Available escitalop kimberly 20 mg tablet TAKE 1 TABLET BY MOUTH EVERY DAY active Not Available Not Available No t Available ciproflox acin 0.3 %-dexamet hasone 0.1 % ear drops,jose pension INSTILL 4 DROPS INTO AFFECTED EAR(S) TWICE A DAY FOR 7 DAYS 10/12 completed Not Available Not Available Not Available duloxetin e 30 mg capsule,d elayed release TAKE 1 CAPSULE BY MOUTH EVERY DAY 08/30 completed dose adjustme nt Not Available Not Available Not Available duloxetin e 60 mg capsule,d elayed release TAKE 1 CAPSULE BY MOUTH EVERY DAY 2024 active Not Available Not Available Not Avai lable pregabali n 50 mg capsule TAKE 1 CAPSULE BY MOUTH THREE TIMES DAILY 07/24 completed Not Available Not Available Not Available pregabali n 100 mg capsule TAKE ONE CAPSULE BY MOUTH THREE TIMES DAILY 2023 active Not Available Not Available Not Avai lable varenicli ne tartrate 1 mg tablet TAKE 1 TABLET BY MOUTH AFTER A MEAL WITH A FULL GLASS OF WATER TWICE DAILY. BEGIN AFTER FINISHIN G THE 0.5MG TABLETS active Not Available Not Available No t Available varenicli ne tartrate 0.5 mg tablet Take 1 tablet twice a day by oral route for 3 days. active Not Available Not Available No t Available varenicli ne tartrate 0.5 mg (11)-1 mg (42) tablets in a dose pack FOLLOW PACKAGE DIRECTIO NS active Not Available Not Available No t Available aripipraz ole 2 mg tablet TAKE 1 TABLET BY MOUTH EVERY DAY active Not Available Not Available No t Available FeroSul 325 mg (65 mg iron) tablet TAKE 1 TABLET BY MOUTH EVERY DAY 2024 active Not Available Not Available Not Avai lable ropivacai ne (PF) 5 mg/mL (0.5 %) injection solution In office injectio n administ ered by the provider 05/27 completed Not Available Not Available Not Available Contrave 8 mg-90 mg tablet,ex tended release Take 2 tablets twice a day by oral route for 30 days. 08/30 completed Not Available Not Available Not Available Fluzone Quad 4001-0380 60 mcg (15 mcg x 4)/0.5 mL IM suspensio n 11/04 completed Not Available Not Available Not Available Rexulti 0.5 mg tablet Take by oral route for 30 days. 08/30 completed Not Available Not Available Not Available Vitals Date Recorded Body height Body mass index (BMI) Body weight Body temperature Heart rate Oxygen saturation Oxygen saturation in Arterial blood by Pulse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
[2024-09-27] MEDS: HYDROmorphone HCL INJ (*CRX) 2 MG/ML VIAL 1 MG IM (20:42)
[2024-09-27] MEDS: LIDOCAINE 5% PATCH 1 PATCH TRANSDERM (20:44)
[2024-09-27] MEDS: dexAMETHasone SOD PHOS INJ 10 MG/ML 1 ML VIAL IM (20:44)
[2024-09-27] MEDS: methocarbamoL 750 MG TABLET PO (20:44)
--- OUTSIDE RECORDS SUMMARY | 2024-09-27 20:51 | XMS_ITS | Clinical Summary ---
Author Organization [facility] Address [address] [place] [address] Care Team Providers Care Car Pre Cooler Name Role Phone Chay Peñaloza MD Primary Care Provider [phone] Source Comments [facility],non-owned Affiliates and Associated Physician Practices is amultiple site organization consisting of ambulatory clinics and hospital sitesin [place], [place], [place] and [place]. This disclosure is being madepursuant to the Care Everywhere program and may not contain all information available regarding this patient. 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 Gender Identity Not on file Sexual Orientation Not on file Last Filed Vital Signs Vital Sign Reading Time Taken Comments Blood Pressure 128/76 08/01/2020 7:28 PM OPTOMETRIC TECHNOLOGIST Pulse 102 08/01/2020 7:28 PM OPTOMETRIC TECHNOLOGIST Temperature 36.7 C (98.1 F) 08/01/2020 7:28 PM OPTOMETRIC TECHNOLOGIST Respiratory Rate 20 08/01/2020 7:28 PM OPTOMETRIC TECHNOLOGIST Oxygen Saturation 92% 08/01/2020 7:28 PM OPTOMETRIC TECHNOLOGIST Inhaled Oxygen Concentration - - Weight 73.5 kg (162 lb) 05/28/2017 11:53 AM OPTOMETRIC TECHNOLOGIST Height 149.9 cm (4' 11 ) 05/28/2017 11:53 AM OPTOMETRIC TECHNOLOGIST Body Mass Index 32.72 05/28/2017 11:53 AM OPTOMETRIC TECHNOLOGIST Plan of Treatment Health Maintenance Due Date [...] age to complete this topic [place] [facility] [place] Address: [address] [address] [facility] [place] Address: [address] [address] [facility] Care Teams Car Pre Cooler Relationship Specialty Start Date End Date Chay Peñaloza MD [address] [facility] [address] [place] [address] PCP - General 08/11/21
--- OUTSIDE RECORDS SUMMARY | 2024-09-27 20:51 | XMS_ITS | Encounter Summary ---
Author Organization [facility] Healthcare Address [address] [place] [address] Care Team Providers Care Artificial Flower Maker Name Role Phone Taty West Unavailable [phone] Esperanza Moffett NP Unavailable [phone] Darnlel Blanchard Primary Care Provider + Ranjan Watson MD Primary Care Provider [phone] Reason for Visit * Auth/Cert Specialty Diagnoses [...] Low iron [E61.1] Abdominal pain [R10.9] Procedures NH COLONOSCOPY FLX DX W/COLLJ SPEC WHEN PFRMD NH ESOPHAGOGASTRODUODENOSCOPY TRANSORAL DIAGNOSTIC COLONOSCOPY ESOPHAGOGASTRODUODENOSCOPY Referral ID Status Reason Start Date Expiration Date Visits Re quested Visits Authorized [id number] 1 1 Encounter Details Date Type Department Care Team (Late st Contact Info) Description 02/02/2024 Hospital Encounter [facility] [address] [place] [address] Jesus Tay MD [address] [place] [address] [address] Social History Tobacco Use Types Packs/Day Years [...] on file 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
--- OUTSIDE RECORDS SUMMARY | 2024-09-27 20:51 | XMS_ITS | Encounter Summary ---
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
--- OUTSIDE RECORDS SUMMARY | 2024-09-27 20:51 | XMS_ITS | CONTINUITY OF CARE DOCUMENT ---
Author Name alejandra roberts Address Unknown Organization [facility] Address [address] [place] [address] Phone [phone] Care Team Providers Care Line Fixer Name Role Phone Marcy Gomez MD Unavailable ANDREE HUSAIN Unavailable ANDREE HUSAIN Unavailable [phone] PROBLEMS Condition Status Date Provider Notes Hypertension active ? Shahram Thomas MD Hyperlipidemia active ? Shahram Thomas MD Asthma active ? Shahram Thmoas MD (History of) Atypical chest pain completed - Shahram Thomas MD Shortness of breath active Shahram Thomas MD Chest pain - nl echo and stress test 06/2018 active Shahram Thomas MD Tobacco abuse active Shahram Thomas MD ENCOUNTERS Date Type Provider Location Encounter Diag nosis - In-person encounter Office Visit Shahram Thomas MD [facility] Chest pain - nl echo and stress test 06/24 019 - In-person encounter Office Visit Shahram Thomas MD [facility] - In-person encounter Office Visit hSahram Thomas MD [facility] HypertensionHyperlipidemiaAsthmaAtypical chest painShortness of breathChest pain [...] /min Nereyda French weight E&M 178 [lb_av] [facility] height E&M 59 [in_i] [facility] Body Mass Index (Ratio) 34.94 kg/m2 Nelson Thomas MD respiratory rate E&M 17 /min Rosa Maria Her pulse rate 108 /min Rosa Maria glover oxygen saturation, oximetry 98 % Rosa Maria Arden blood pressure, cuff size regular Cr adele Arden blood pressure, diastolic 60 mm[Hg] Cr [facility] blood pressure, systolic 120 mm[Hg] Cry stal Arden weight E&M 173 [lb_av] Rosa Maria glover height E&M 59 [in_i] Rosa Maria glover Body Mass Index (Ratio) 35.95 kg/m2 Nelson Thomas MD blood pressure, resting Yes Amadeo guadarrama Gillian oxygen saturation, oximetry 98 % [facility] blood pressure, diastolic 60 mm[Hg] Candie French blood pressure, systolic 120 mm[Hg] Nevaeh French respiratory rate E&M 16 /min Jorge French pulse rate 93 /min Nereyda French height E&M 59 [in_i] [facility] weight E&M 178 [lb_av] [facility] ALLERGIES No Known Drug Allergies HISTORY [...] ORAL TABLET active one tab daily Chastity Igllian #0.03, 30 days supply, Prescribed by EBENEZER JON, Filled 01/21/2018 SOCIAL HISTORY Date Observation Value Provider number of grandchildren Shahram Thomas MD T francois Thomas MD smoking/tobacco cess ation, patient education and counseling yes Sahhram Thomas MD social history reviewed E&M revi [...] a Nevaehmaria luisa French cigarette use yes [facility] smoking status current every day smoker T francois Thomas MD FAMILY HISTORY Family Member Condition Mother Family History of Nesha ng Cancer: Mother Family History Breas t Cancer: INSURANCE PROVIDERS Payer name Policy type / Coverage type [place] [employer] party ID [place] MEDICAID Medicaid [id number] ADVANCE DIRECTIVES Name Date 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 LIVING WILL ON FILE TREATMENT PLAN Date [...] Shahram Thomas MD Date Name DLCO - 58407 FRC - 26845 FVC - 60273 Stress Exercise Card iolite Complete Echo HISTORY OF PROCEDURES Procedure Date Procedure Name Provider Procedure Notes S tatus Stress EKG Reji Smi MD complet ed Cardiolite, 2 units Reji Sim MD completed SPECT Images Reji Sim MD compl eted FVC / MVV with bronchodilator - 86750 Shahram Thomas MD completed BLOOD COUNT HEMOGLOBIN Shahram Thomas MD completed FRC - 90288 Shahram Thomas MD complete d SpO2 w/o 6min walk/titration Shahram Thomas MD completed DLCO - 59653 Shahram Thomas MD complet ed
--- OUTSIDE RECORDS SUMMARY | 2024-09-27 20:51 | XMS_ITS | Encounter Summary ---
Author Organization [facility] Healthcare Address [address] [place] [address] Care Team Providers Care Heading Maker Name Role Phone Taty West Unavailable [phone] Esperanza Moffett NP Unavailable [phone] Darnell Blanchard Primary Care Provider + Ranjan Watson MD Primary Care Provider [phone] Encounter Details Date Type Department Care Team (Late st Contact Info) Description 06/07/2024 Orders Only [facility] [place] Health Information Management [address] [place] [address] David Perera MD [address] [place] [address] Social History Tobacco Use Types Packs/Day [...] on file 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 Gender Identity Not on file Sexual [...] on filedocumented in this encounter Care Teams Heading Maker Relationship Specialty Start Date End Date Darnell Blanchard PA [address] [place] [address] PCP - General Internal Medicine 10/13/23 06/20/24 Ranjan Watson MD [address] [place] [address] PCP - General Family Practice 06/21/24 Taty West PA [address] [place] [address] [address] [place] [address] Gastroenterology 09/26/23 Esperanza Moffett NP [address] [facility] [address] [address] [place] [address] Neurology 09/26/23 documented as of this encounter
--- OUTSIDE RECORDS SUMMARY | 2024-09-27 20:51 | XMS_ITS | Clinical Summary ---
Author Organization [facility] Address [address] [place] [address] Phone Care Team Providers Care Cigar Packer And Sorter Name Role Phone Gallo France MD Primary Care Provider [phone] Allergies No known active allergies Medications HYDROcodone-jagdish [...] Comments Blood Pressure 119/55 07/27/2021 5:50 PM ROLL MILL OPERATOR Pulse 97 07/27/2021 5:50 PM ROLL MILL OPERATOR Temperature 36.3 C (97.4 F) 07/27/2021 3:53 PM ROLL MILL OPERATOR Respiratory Rate 32 07/27/2021 3:53 PM ROLL MILL OPERATOR Oxygen Saturation 100% 07/27/2021 5:50 PM ROLL MILL OPERATOR Inhaled Oxygen Concentration - - Weight 57.2 kg (126 lb) 07/27/2021 3:53 PM ROLL MILL OPERATOR Height 149.9 cm (4' 11 ) 07/27/2021 3:53 PM ROLL MILL OPERATOR Body Mass Index 25.45 07/27/2021 3:53 PM ROLL MILL OPERATOR Plan of Treatment Health Maintenance Due [...] this topic Insurance MEDICAID [place] Care Teams Cigar Packer And Sorter Relationship Specialty Start Date End Date Gallo France MD [address] [place] [address] [place] [address] PCP - General Drama Director 07/27/21
--- OUTSIDE RECORDS SUMMARY | 2024-09-27 20:51 | XMS_ITS | Clinical Summary ---
Author Organization [facility] Address [address] [place] [address] Care Team Providers Care In Service Educator Name Role Phone Taty West Unavailable [phone] Esperanza Moffett NP Unavailable [phone] Ranjan Watson MD Primary Care Provider [phone] Allergies No known active allergies Medications aspirin [...] 25 mg tabletIndications :Coronary artery disease involving [place] coronary artery of [place] heart without angina pectoris,Primary hypertension,Nonr heumatic mitral valve regurgitation Take 0.5 tablets (12.5 mg total) by mouth daily 15 tablet 11 5 026 Active Active Problems Problem Noted Date Diagnosed Date Dizziness 09/20/2024 Coronary artery disease invo lving united [place] coronary artery of [place] heart without angina pectoris 06/21/2024 Tobacco abuse [...] Type Department Care Team Description 09/27/2024 Telephone [facility] Group Vascular and Vein Surgery at [address] [place] [address] Bailey Mcdonald RDMS 09/20/2024 8:30 AM CDT Office Visit [facility] Medical Group Cardiology at [address] [place] [address] Jl Demarco MD Coronary artery disease involving [place] coronary artery of [place] heart without angina pectoris (Primary Dx); Hyperlipidemia LDL goal <70; Primary hypertension; Nonrheumatic mitral valve regurgitation; Dizziness 09/20/2024 Telephone [facility] Medical Group Vascular and Vein Surgery at [address] [place] [address] Bailey Mcdonald RDMS from Last [...] file 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 Gender Identity Not on file Sexual Orientation [...] 8:08 AM CDT Coronary artery disease involving [place] coronary artery of [place] heart without angina pectoris Hyperlipidemia LDL goal [...] Payer ID:[id number] Group ID:Not on file Type:[place]ID [place] Address: [place] [id number] IDPA Member Subscriber Plan / Payer (Ef fective 2024-Present) Name:Ginna Romero Relation to Subscriber:Self Name:Ginna Romero Payer ID:[id number] Group ID:Not on file Type:[place]ICAID [place] Address: [address] Advance Directives For more information, please contact: [phone] * Full Code (Latest Code Status on File) Date Activated Date Inactivated Comments 09/24/2023 12:54 AM 09/26/2023 7:18 PM * Full Code Date Activated Date Inactivated Comments 12/17/2020 6:54 AM 12/18/2020 10:48 PM Care Teams In Service Educator Relationship Specialty Start Date End Date Ranjan Watson MD [address] [place] [address] PCP - General Family Practice 06/21/24 Taty West PA [address] [place] [address] [address] [place] [address] Gastroenterology 09/26/23 Esperanza Moffett NP [address] [place] [address] [address] [place] [address] Neurology 09/26/23
--- OUTSIDE RECORDS SUMMARY | 2024-09-27 20:51 | XMS_ITS | Referral Summary ---
Author Organization [facility] Address [address] [place] [address] Care Team Providers Care Loan Collector Name Role Phone Taty West Unavailable [phone] Esperanza Moffett NP Unavailable [phone] Ranjan Watson MD Primary Care Provider [phone] Encounters Date Type Department Care Team Description 09/27/[address] [facility] Medical Group Vascular and Vein Surgery at [address] [phone] [facility] 09/20/[address] [facility] Medical Group Vascular and Vein Surgery at [address] [place] [phone] [facility] 09/20/2024 8:30 AM CDT Office Visit [facility] Medical Group Cardiology at [address] [address] Jl Demarco MD Coronary artery disease involving osage coronary artery of osage heart without angina pectoris (Primary Dx); Hyperlipidemia [...] 25 mg tabletIndications :Coronary artery disease involving os[place] coronary artery of osage heart without angina pectoris,Primary hypertension,Nonr heumatic mitral valve regurgitation Take 0.5 tablets (12.5 mg total) by mouth daily 15 tablet 11 5 026 Active Active Problems Problem Noted Date Diagnosed Date Dizziness 09/20/2024 Coronary artery disease invo lving osage coronary artery of osage heart without angina pectoris 06/21/2024 Tobacco abuse [...] on file 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 Gender Identity Not on file Sexual [...] 8:08 AM CDT Coronary artery disease involving osage coronary artery of osage heart without angina pectoris Hyperlipidemia LDL goal [...] Advance Directives For more information, please contact: [phone] * Full Code (Latest Code Status on File) Date Activated Date Inactivated Comments 09/24/2023 12:54 AM 09/26/2023 7:18 PM * Full Code Date Activated Date Inactivated Comments 12/17/2020 6:54 AM 12/18/2020 10:48 PM Care Teams Loan Collector Relationship Specialty Start Date End Date Ranjan Watson MD [address] [place] [address] PCP - General Family Practice 06/21/24 Taty West PA [address] [place] [address] [address] [place] [address] Gastroenterology 09/26/23 Esperanza Moffett, GIFTY [address] [place] [address] [address] [place] [address] Neurology 09/26/23
--- NOTE | 2024-09-27 21:55 | ED.LOWEXIN ---
HPI - Extremity Injury (Lower) General Chief Complaint: Extremity Injury, Lower Stated Complaint: left sciatic nerve pain Time Seen by Provider: 09/27/24 20:20 History of Present Illness HPI Narrative: 59-year-old female with history of fibromyalgia presenting to the emergency department with lower back pain. Patient states that she fell yesterday while missing a step and landed on her left-sided hip/tailbone. She states she was able to get up but did not strike her head or lose consciousness. No blood thinner use. Has been walking around on a but states that the pain is worse in her left hip and radiates down her left leg. Patient is very tearful in triage. No saddle anesthesia, weakness, footdrop. No incontinence to urine or stool. Has not taken anything besides Tylenol and ibuprofen for pain. Denies any chest pain, shortness a breath, abdominal pain, flank pain, weakness, paresthesias. Was otherwise in her normal state of health. Related Data Home Medications ?Medication ?Instructions ?Recorded ?Confirmed ?Last Taken ?Type montelukast 10 mg tablet 10 mg PO DAILY 11/12/23 08/24/24 06/06/24 History pantoprazole 40 mg tablet,delayed 40 mg PO DAILY 11/12/23 08/24/24 06/06/24 History release pregabalin 100 mg capsule 100 mg PO TID 11/12/23 08/24/24 06/06/24 History duloxetine 60 mg capsule,delayed 60 mg PO DAILY 12/09/23 08/24/24 06/06/24 History release esomeprazole magnesium 20 mg 40 mg PO DAILY 12/09/23 08/24/24 06/06/24 History capsule,delayed release nitroglycerin 0.4 mg sublingual 0.4 mg sublingual Q5M PRN chest 07/15/24 08/24/24 Unknown History tablet pain Allergies Allergy/AdvReac Type Severity Reaction Status Date / Time No Known Allergies Allergy Verified 09/27/24 18:43 Review of Systems Review of Systems: Reviewed above in HPI [facility] Past Medical History Medical History Paroxysmal A-fib in 2019 when had COVID Rotator cuff injury Shoulder pain Shoulder injury Biceps tendonitis Rotator cuff tendinitis Rotator cuff tear Cough Obesity Tobacco abuse quit 2016 Back pain IBS (irritable bowel syndrome) Asthma Hypercholesterolemia SLAP lesion of right shoulder Pharyngitis Otalgia of left ear Otalgia of both ears Essential (primary) hypertension Fibromyalgia Gastro-esophageal reflux disease with esophagitis Mixed hyperlipidemia Surgical History Surgical History History of right knee surgery related to fracture H/O dilation and curettage History of carpal tunnel release of both wrists History of section H/O: hysterectomy Status post shoulder surgery Family History Family History Sibling Patient's brother is in good health Family history of malignant neoplasm Father Family history of alcoholism Mother Family history of malignant neoplasm of breast in first degree relative Other Family history of arthritis Hypertension Social History Social History Years smoked: 49 Smoking status: Former smoker Tobacco type: cigarettes Second hand tobacco smoke exposure: Yes Smoking end date: 05/04/24 Additional smoking assessment comments: on chantex Alcohol intake: never Substance use: never Substance use type: marijuana Do You Feel Safe in your Home?: Yes Lack of Transportation: No Lack of Food: Never True Current Housing: I Have Housing Concerned About Future Housing: No Difficulty Paying Gas/Electric Bills: No Difficulty Paying for Meds: YES Currently Unemployed: No Education: High School Diploma/GED Difficulty w/ Childcare or Family Care: No Living arrangements: with family Gender identity (if verbalized by the patient): Female Spiritual care concerns: No Exam Narrative: GENERAL: Tearful but not any acute distress HEAD: [Normocephalic, atraumatic.] EYES: [PERRLA and EOMI.] ENT: Nares clear, no rhinorrhea or epistaxis. Mucous membranes moist. NECK: Supple. CHEST: [Clear to auscultation. No respiratory distress.] HEART: [Regular rate and rhythm]. No murmur heard. [Normal peripheral pulses.] ABDOMEN: [Soft, nondistended], [nontender], [No rigidity or guarding] EXTREMITIES: Tenderness to palpation over the left-sided paraspinal lumbar muscles, no overlying skin changes. No midline tenderness. Reproducible pain over the buttock on left side with pain reproducible down the left leg. EHL and FHL 5/5 good strength. Good range of motion of the hip, knee and ankle. Able to ambulate. SKIN: Warm, dry, no rash. NEURO: [No focal deficits]. Alert and oriented [x3.] Full strength and sensation throughout both arms and legs. EHL and FHL 5/5. No footdrop. No saddle anesthesia. No paresthesias. PSYCH: [Normal mood and affect.] Course Vital Signs Vital signs: Vital Signs Temperature 36.9 C 09/27/24 18:40 Pulse Rate 122 H 09/27/24 18:40 Respiratory Rate 16 09/27/24 18:40 Blood Pressure 134/68 09/27/24 18:40 Pulse Oximetry 99 09/27/24 18:40 Temperature 36.9 C 09/27/24 18:40 Pulse Rate 122 H 09/27/24 18:40 Respiratory Rate 16 09/27/24 18:40 Blood Pressure 134/68 09/27/24 18:40 Pulse Oximetry 99 09/27/24 18:40 MDM - Extremity Injury (Lower) MDM Narrative Medical decision making narrative: 59-year-old female with history of fibromyalgia presenting to the emergency department after a slip and fall. Patient states she laid on her left-sided hip and tailbone. Patient is complaining of pain in her left-sided low paraspinal lumbar region muscles. She has full range of motion of the bilateral lower extremities with good neuro vasculature, no red flag signs or symptoms of cauda equina or conus medullaris or any midline back injury. She has good distal pulses and strength without any footdrop or neurological complaints. No saddle anesthesia. She is given intramuscular Dilaudid and Decadron as well as a lidocaine patch and p.o. Robaxin. X-rays of the pelvis and lumbar spine were obtained. X-rays were reviewed and shows degenerative disease but no acute fractures or dislocations. Patient's pain is improved. She is stable for discharge will be sent home with a Medrol Curtis, lidocaine patches and Robaxin. Medical Records Attestation: I reviewed the patient's medical records. Imaging Data Attestation: I personally reviewed and interpreted this imaging study as follows: My impression: Impressions Lumbar Spine X-Ray 09/27/24 21:08 IMPRESSION: Degenerative disease, without acute fracture. Pelvis X-Ray 09/27/24 21:31 IMPRESSION: Degenerative disease, without acute fracture. Discharge Plan Discharge Clinical Impression: Low back pain, Sciatica of left side Patient Disposition: Home Condition: Stable Instructions: Antibiotic Form Additional Instructions: Your x-rays do not show any injuries. We will send you home with some medications for symptom control including steroids, lidocaine patch and muscle relaxers. Follow-up with regular doctor. Return with any emergent concerns. Return to the ER if you have increased pain in your back, you develop lower extremity weakness/numbness/paralysis, you have numbness or tingling in your private parts, or you are unable to control your ability to urinate/stool. Patient Language: Grenadian Prescriptions: New methocarbamol 750 mg tablet 750 mg PO TID PRN (Reason: pain) Qty: 20 0RF lidocaine 5 % adhesive patch,medicated 1 patch topical DAILY Qty: 15 0RF Rx Instructions: leave on most painful area for up to 12 hrs methylprednisolone [Medrol (Curtis)] 4 mg tablets,dose pack See Rx Instructions .ROUTE .COMPLEX Qty: 21 0RF Rx Instructions: orally per package directions No Action montelukast 10 mg tablet 10 mg PO DAILY pantoprazole 40 mg tablet,delayed release (DR/EC) 40 mg PO DAILY pregabalin 100 mg capsule 100 mg PO TID nitroglycerin 0.4 mg tablet, sublingual 0.4 mg sublingual Q5M PRN (Reason: chest pain) benzonatate 100 mg capsule 100 mg PO BID PRN (Reason: cough) Qty: 14 0RF aspirin 81 mg tablet,delayed release (DR/EC) 81 mg PO DAILY Qty: 30 0RF ferrous sulfate 325 mg (65 mg iron) tablet 325 mg PO DAILY Qty: 30 0RF hydrocodone-acetaminophen 5-325 mg tablet 1 tablet PO Q8H PRN (Reason: pain) Qty: 30 0RF fluticasone propion-salmeterol [Advair HFA] 230-21 mcg/actuation HFA aerosol inhaler 2 puff inhalation Q12H Qty: 12 1RF Rx Instructions: administer with spacer quetiapine [Seroquel] 25 mg tablet 25 mg PO QHS Qty: 30 0RF phenazopyridine 200 mg tablet 200 mg PO TID PRN (Reason: pain) Qty: 6 0RF esomeprazole magnesium 20 mg Capsule,Delayed Release(Dr/Ec) 40 mg PO DAILY duloxetine 60 mg capsule,delayed release(DR/EC) 60 mg PO DAILY ondansetron 4 mg tablet,disintegrating 4 mg PO Q8H PRN (Reason: nausea and vomiting) Qty: 30 0RF levetiracetam 500 mg tablet 500 mg PO BID Qty: 60 0RF atorvastatin 40 mg tablet 40 mg PO DAILY Qty: 90 1RF tizanidine 4 mg capsule 4 mg PO TID PRN (Reason: muscle spasticity) Qty: 90 0RF dicyclomine 20 mg tablet See Rx Instructions .ROUTE .COMPLEX Qty: 90 1RF Dose Instruction: TAKE 1 TABLET BY MOUTH THREE TIMES A DAY Rx Instructions: TAKE 1 TABLET BY MOUTH THREE TIMES A DAY albuterol sulfate [Ventolin HFA] 90 mcg/actuation HFA aerosol inhaler 1 inh inhalation Q4H PRN (Reason: shortness of breath or wheezing) Qty: 8.5 1RF Follow-up/Referrals: Ranjan Watson MD [Primary Care Provider] - Time of Disposition: 22:02
[2024-09-27 22:25] VITALS: BP 130/84; PULSE 93; RESP 15; O2SAT 98
== END 2024-09-27 22:26 | disposition home or self-care (01) ==
PROVIDERS: Emergency Provider Student in an Organized Health Care Education/Training Program; PCP Family Medicine
DX: M54.42 Lumbago with sciatica, left side (principal); W10.8XXA Fall (on) (from) other stairs and steps, initial encounter; E78.00 Pure hypercholesterolemia, unspecified; J45.909 Unspecified asthma, uncomplicated; I10 Essential (primary) hypertension; K21.9 Gastro-esophageal reflux disease without esophagitis; E78.2 Mixed hyperlipidemia; Z87.891 Personal history of nicotine dependence
CPT/HCPCS: 72100; 72170; 96372; 99284; A9270; J1100; J1171

== ENCOUNTER 2024-12-30 00:59 | Emergency (ER) | payer MEDICARE, MEDICAID, SELFPAY ==
--- OUTSIDE RECORDS SUMMARY | 2024-12-30 01:02 | XMS_ITS | Patient Health Record ---
Author Organization [facility] [place] Address [address] [facility] [address] [place] [address] Care Team Providers Care Boat Rental Clerk Name Role Phone Ron Galaviz Unavailable [phone] Reason For Referral No Information Medications Medication SIG (Take, Route, Frequency, Duration) Notes Start Date End Date Status Doxycycline Hyclate 100 MG Oral Active HYDROcodone-Acetaminophen 5-325 MG Oral Active methylPREDNISolone 4 MG Oral Active Amoxicillin-Pot Clavulanate 875-125 MG Oral Activ e Ofloxacin 0.30% Otic Acti ve Benzonatate 100 MG Oral A ctive Cyclobenzaprine HCl 10 MG Oral Active Famotidine 20 MG Oral Act haroon Atorvastatin Calcium 40 MG Oral Active Dicyclomine HCl 20 MG Oral Active amLODIPine Besylate 10 MG Oral Active Atorvastatin Calcium 20 MG Oral Active RABEprazole Sodium 20 MG Oral Active FLUBLOK QUAD 2260-6957 (PF) 180 MCG (45 MCG X 4)/0.5 ML IM SYRINGE *Reorder from [employer] for eRx and Interaction Alerts* Active busPIRone HCl 7.5 MG Oral Active Etodolac 300 MG Oral Acti ve Atorvastatin Calcium 80 MG Oral Active Plan Of Treatment No Information Insurance Providers Payer Name Payer Address Payer Phone Subscriber Number Group Number Insured Name Patient Relationship to Insured Coverage Start Date Coverage End Date [employer] - [facility] [address] [place] [address] [id number] HEIDI BARRETT Self - patient is the insured
--- OUTSIDE RECORDS SUMMARY | 2024-12-30 01:02 | XMS_ITS | Clinical Summary ---
Author Organization [facility] Address [address] [place] [address] Phone Care Team Providers Care Thermometer Production Worker Name Role Phone Gallo France MD Primary Care Provider +- [phone] Allergies No known active allergies Medications HYDROcodone-jagdish [...] Comments Blood Pressure 119/55 07/27/2021 5:50 PM DRONE PILOT Pulse 97 07/27/2021 5:50 PM [facility] P[facility] Temperature 36.3 C (97.4 F) 07/27/2021 3:53 PM DRONE PILOT Respiratory Rate 32 07/27/2021 3:53 PM DRONE PILOT Oxygen Saturation 100% 07/27/2021 5:50 PM DRONE PILOT Inhaled Oxygen Concentration - - Weight 57.2 kg (126 lb) 07/27/2021 3:53 PM DRONE PILOT Height 149.9 cm (4' 11) 07/27/2021 3:53 PM DRONE PILOT Body Mass Index 25.45 07/27/2021 3:53 PM DRONE PILOT Plan of Treatment Health Maintenance Due Date Last Done Comments Hepatitis C Virus (HCV) Screening 1965 TdaP Immunization 1965 Cologuard 2008 Colonoscopy 2008 Colorectal Cancer Screening 2008 Immunochemical Fecal Occult Blood 2008 Zoster Immunization (2 of 2) 03/06/2018 01/09/2018, 11/07/2017 Pneumococcal Immunization (50+ years) (2 of 2 - PCV) 02/28/2019 02/28/2018 SARS-COV-2 Immunization ( season) 2024 01/27/2021, 01/06/2021, 07/28/2020 Influenza Immunization (#1) 2025 12/0 05/2020, 03/01/2020, 02/10/2019, Additional history exists Respiratory Syncytial Virus (RSV) Immunization (Adult) (1 - 1-dose 75+ series) 2038 Pneumococcal Immunization Combined Discontinued 02/28/2018 Hepatitis B Immunization Aged Out No longer eligible based on patient's age to complete this topic Human Papillomavirus (HPV) Immunization Aged Out No longer eligible based on patient's age to complete this topic Meningococcal Immunization (ACWY) Aged Out No longer eligible based on patient's age to complete this topic Rotavirus Immunization Aged Out No lo nger eligible based on patient's age to complete this topic Insurance MEDICAID [place] Care Teams Thermometer Production Worker Relationship Specialty Start Date End Date Gallo France MD [address] [place] [address] [place] [address] PCP - General Business Objects Developer 07/27/21
[2024-12-30 01:04] VITALS: BP 109/60; PULSE 98; RESP 18; TEMP 36.6; O2SAT 99
--- NOTE | 2024-12-30 02:34 | ECG_ITS ---
Test Date: 2024-12-30 02:49:12 Measurements Intervals Superior Rate: 95 P: 48 OH: 155 QRS: 71 QRSD: 87 T: 69 QT: 371 QTc: 467 Interpretive Statements SINUS RHYTHM NORMAL ECG Compared to ECG 05/03/2024 21:07:46 NO SIGNIFICANT CHANGE Electronically Signed On 12-30-2024 07:53:21 CDT by Felton Sanders D.O.
[2024-12-30 02:35] LABS: Hematocrit 30.9 % (37.0-47.0); Hemoglobin 9.6 g/dL (12.0-15.0); Immature Granulocyte Percent A 0.4 % (0-0.5); Lymphocytes Absolute Auto 1.53 K/mm3 (0.9-3.2); Mean Corpuscular HGB Conc 31.1 g/dl (32-36); Mean Corpuscular Hemoglobin 28.3 pg (26-34); Mean Corpuscular Volume 91.2 fl (80-100); Nucleated Red Blood Cells Absolute Auto 0.000 K/mm3 (0.0-0.012); Nucleated Red Blood Cells Perc 0.0 % (0.0-0.2); Platelet Count Result 242 k/mm3 (150-375); Red Blood Count 3.39 M/mm3 (4.2-5.4); White Blood Count 13.1 K/mm3 (4.5-10.0)
[2024-12-30 02:45] LABS: Alanine Aminotransferase 57 U/L (6-35); Albumin Level 3.8 g/dL (3.5-5.1); Alkaline Phosphatase 121 U/L (38-126); Anion Gap 9 mmol/L (4-12); Aspartate Amino Transferase 45 U/L (14-36); Bilirubin,Total 0.5 mg/dL (0.2-1.3); Blood Urea Nitrogen 20 mg/dL (7-17); Calcium 9.4 mg/dL (8.4-10.2); Carbon Dioxide 20 mmol/L (22-30); Chloride 108 mmol/L (98-107); Estimated Glomerular Filt Rate > 60; Glucose 105 mg/dL (65-110); Potassium 3.9 mmol/L (3.4-5.0); Sodium 137 mmol/L (137-145); Total Protein 6.5 g/dL (6.3-8.2)
[2024-12-30 02:47] LABS: Add Urine Microscopic? YES; Appearance Urine Cloudy (Clear); Glucose Urine UA Trace mg/dL (Negative); Leukocyte Esterase Ur Trace LEU/UL (Negative); Need Manual Microscopic Reviewed; Nitrate Urine Negative (Negative); Specific Grav Ur 1.019 (1.001-1.035)
--- OUTSIDE RECORDS SUMMARY | 2024-12-30 02:50 | XMS_ITS | Clinical Summary ---
Author Organization [facility] Address [address] [place] [address] Phone Care Team Providers Care Clean Up Worker Name Role Phone Gallo France MD Primary Care Provider +- [phone] Allergies No known active allergies Medications HYDROcodone-jagdish [...] Comments Blood Pressure 119/55 07/27/2021 5:50 PM [employer]OM [employer]ORAGE Pulse 97 07/27/2021 5:50 PM [employer] STOR[employer] Temperature 36.3 C (97.4 F) 07/27/2021 3:53 PM [employer] STORAGE Respiratory Rate 32 07/27/2021 3:53 PM [employer] STORAGE Oxygen Saturation 100% 07/27/2021 5:50 PM [employer] STOR[employer] Inhaled Oxygen Concentration - - Weight 57.2 kg (126 lb) 07/27/2021 3:53 PM [employer] STORAGE Height 149.9 cm (4' 11) 07/27/2021 3:53 PM [employer] STORAGE Body Mass Index 25.45 07/27/2021 3:53 PM BO[employer] STORAGE Plan of Treatment Health Maintenance Due Date [...] this topic Insurance MEDICAID [place] Care Teams Clean Up Worker Relationship Specialty Start Date End Date Gallo France MD [address] [place] [address] [place] [address] PCP - General Urogynaecologist 07/27/21
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
--- NOTE | 2024-12-30 03:21 | PC.NURSE ---
This RN received report from Darcy CONNOLLY. This RN assumed care of pt at this time.
--- NOTE | 2024-12-30 03:48 | ED_ITS ---
HPI - Nausea/Vomiting/Diarrhea General Chief complaint: Nausea/Vomiting/Diarrhea Stated complaint: n/v Time Seen by Provider: 12/30/24 02:37 History of Present Illness HPI Narrative: 59-year-old female presenting to the emergency department after an episode of nauseousness, diaphoresis and some lightheadedness after she stood up from her porch. She states she has been dealing with a urinary infection probably for last few days with some burning urination and some blood with urination. History of kidney stones but denies any pain at this time. States she felt hot in fuzzy when she stood up suddenly from her porch and almost passed out but did not have a full syncopal event. EMS administered 300 mL of fluid as she had some initially soft blood pressure readings but this of normalized throughout to the emergency department. Current blood pressure 134/61. Patient is resting comfortably in the stretcher in, denies any abdominal complaints or headache, vision changes, present nauseousness, diarrhea. Was otherwise in her normal state of health. Related Data Home Medications ?Medication ?Instructions ?Recorded ?Confirmed ?Last Taken ?Type montelukast 10 mg tablet 10 mg PO DAILY 11/12/23 11/06/24 06/06/24 History pantoprazole 40 mg tablet,delayed 40 mg PO DAILY 11/12/23 11/06/24 06/06/24 History release duloxetine 60 mg capsule,delayed 60 mg PO DAILY 12/09/23 11/06/24 06/06/24 History release esomeprazole magnesium 20 mg 40 mg PO DAILY 12/09/23 11/06/24 06/06/24 History capsule,delayed release nitroglycerin 0.4 mg sublingual 0.4 mg sublingual Q5M PRN chest 07/15/24 11/06/24 Unknown History tablet pain Allergies Allergy/AdvReac Type Severity Reaction Status Date / Time No Known Allergies Allergy Verified 12/30/24 01:08 Review of Systems 2 Review of Systems: As reviewed above in [facility] Past Medical History Medical History Paroxysmal A-fib in 2019 when had COVID Rotator cuff injury Shoulder pain Shoulder injury Biceps tendonitis Rotator cuff tendinitis Rotator cuff tear Cough Obesity Tobacco abuse quit 2016 Back pain IBS (irritable bowel syndrome) Asthma Hypercholesterolemia SLAP lesion of right shoulder Pharyngitis Otalgia of left ear Otalgia of both ears Essential (primary) hypertension Fibromyalgia Gastro-esophageal reflux disease with esophagitis Mixed hyperlipidemia Surgical History Surgical History History of right knee surgery related to fracture H/O dilation and curettage History of carpal tunnel release of both wrists History of section H/O: hysterectomy Status post shoulder surgery Family History Family History Sibling Patient's brother is in good health Family history of malignant neoplasm Father Family history of alcoholism Mother Family history of malignant neoplasm of breast in first degree relative Other Family history of arthritis Hypertension Social History Social History Years smoked: 49 Smoking status: Former smoker Tobacco type: cigarettes Second hand tobacco smoke exposure: Yes Smoking end date: 05/04/24 Additional smoking assessment comments: on chantex Alcohol intake: never Substance use: never Substance use type: marijuana Do You Feel Safe in your Home?: Yes Lack of Transportation: No Lack of Food: Never True Current Housing: I Have Housing Concerned About Future Housing: No Difficulty Paying Gas/Electric Bills: No Difficulty Paying for Meds: YES Currently Unemployed: No Education: High School Diploma/GED Difficulty w/ Childcare or Family Care: No Living arrangements: with family Gender identity (if verbalized by the patient): Female Spiritual care concerns: No Exam 2 Narrative: GENERAL: [Well-appearing, well-nourished, and in no acute distress.] HEAD: [Normocephalic, atraumatic.] EYES: [PERRLA and EOMI.] ENT: Nares clear, no rhinorrhea or epistaxis. Mucous membranes moist. NECK: Supple. CHEST: [Clear to auscultation. No respiratory distress.] HEART: [Regular rate and rhythm]. No murmur heard. [Normal peripheral pulses.] ABDOMEN: [Soft, nondistended], [nontender], [No rigidity or guarding] EXTREMITIES: Normal range of motion. [No edema.] SKIN: Warm, dry, no rash. NEURO: [No focal deficits]. Alert and oriented [x3.] PSYCH: [Normal mood and affect.] Course Vital Signs Vital signs: Vital Signs Temperature 36.6 C 12/30/24 01:04 Pulse Rate 98 12/30/24 01:04 Respiratory Rate 18 12/30/24 01:04 Blood Pressure 109/60 12/30/24 01:04 Pulse Oximetry 99 12/30/24 01:04 Oxygen Delivery Room Air 12/30/24 01:04 Temperature 36.6 C 12/30/24 01:04 Pulse Rate 98 12/30/24 01:04 Respiratory Rate 18 12/30/24 01:04 Blood Pressure 109/60 12/30/24 01:04 Pulse Oximetry 99 12/30/24 01:04 Oxygen Delivery Room Air 12/30/24 01:04 MDM - Nausea/Vomiting/Diarrhea MDM Narrative Medical decision making narrative: 59-year-old female presenting to the emergency department after an episode of nauseousness, diaphoresis and some lightheadedness after she stood up from her porch. She states she has been dealing with a urinary infection probably for last few days with some burning urination and some blood with urination. History of kidney stones but denies any pain at this time. States she felt hot in fuzzy when she stood up suddenly from her porch and almost passed out but did not have a full syncopal event. EMS administered 300 mL of fluid as she had some initially soft blood pressure readings but this of normalized throughout to the emergency department. Current blood pressure 134/61. Patient is resting comfortably in the stretcher in, denies any abdominal complaints or headache, vision changes, present nauseousness, diarrhea. Was otherwise in her normal state of health. Patient is overall very well-appearing not any acute distress, given her complaints of potential urinary tract infection symptoms with burning urination and some blood in urine last few days combined with her potential orthostatic versus vasovagal presyncope today laboratory studies were obtained as well as urinalysis, CBC, CMP and EKG. Patient placed on manager monitoring and pulse oximetry. Her normal vital signs are reassuring and she is not tachycardia, fever, hypoxic or having blood pressure concerns at this time. Urinalysis shows signs of urinary infection consistent with her history. She has a slight leukocytosis of 13.1, slight anemia but seems chronic. Electrolytes are unremarkable. Normal creatinine, normal glucose. EKG obtained shows sinus rhythm, no significant interval change compared to prior EKGs. No ST segment elevations, depressions. Patient re-evaluated and still remained asymptomatic. Given a dose of Rocephin for UTI and will be sent home with cefdinir. Patient comfortable with the plan and given return precautions. She tells me she will call her doctor on Tuesday morning to schedule a follow-up visit. Medical Records Attestation: I reviewed the patient's medical records. Lab Data Attestation: I reviewed the patient's lab results. 12/30/24 02:19 12/30/24 02:19 Labs: Lab Results 12/30/24 Range/Units 02:19 WBC 13.1 H (4.5-10.0) K/mm3 RBC 3.39 L (4.2-5.4) M/mm3 Hgb 9.6 L (12.0-15.0) g/dL Hct 30.9 L (37.0-47.0) % MCV 91.2 (80-100) fl MCH 28.3 (26-34) pg MCHC 31.1 L (32-36) g/dl RDW 14.5 (11.5-14.5) % Plt Count 242 (150-375) k/mm3 MPV 9.6 (7.4-10.4) fl Immature Gran % (Auto) 0.4 (0-0.5) % Neut % (Auto) 79.2 H (45.5-73.1) % Lymph % (Auto) 11.7 L (18.3-44.2) % [place] % (Auto) 7.1 (2.6-8.5) % Eos % (Auto) 1.0 (0-4.4) % Baso % (Auto) 0.6 (0.2-1.2) % Lymph # (Auto) 1.53 (0.9-3.2) K/mm3 [place]nam # (Auto) 0.9 H (0.1-0.6) K/mm3 Eos # (Auto) 0.1 (0-0.3) K/mm3 Baso # (Auto) 0.1 (0.0-0.1) K/mm3 Abs Immat Gran (auto) 0.05 H (0.00-0.031) K/mm3 Absolute Neuts (auto) 10.3 H (1.3-6.7) K/mm3 Absolute Nucleated RBC 0.000 (0.0-0.012) K/mm3 Nucleated RBC % 0.0 (0.0-0.2) % Sodium 137 (137-145) mmol/L Potassium 3.9 (3.4-5.0) mmol/L Chloride 108 H (98-107) mmol/L Carbon Dioxide 20 L (22-30) mmol/L Anion Gap 9 (4-12) mmol/L BUN 20 H (7-17) mg/dL Creatinine 0.88 (0.7-1.0) mg/dL Estim Creat Clear Calc Not Reportable Estimated GFR > 60 (59 - ) Glucose 105 (65-110) mg/dL Calcium 9.4 (8.4-10.2) mg/dL Total Bilirubin 0.5 (0.2-1.3) mg/dL AST 45 H (14-36) U/L ALT 57 H (6-35) U/L Alkaline Phosphatase 121 (38-126) U/L Total Protein 6.5 (6.3-8.2) g/dL Albumin 3.8 (3.5-5.1) g/dL Urine Color Yellow (Yellow) Urine Appearance Cloudy H (Clear) Urine pH 6.5 (5.0-9.0) Ur Specific [place] 1.019 (1.001-1.035) Urine Protein 3+ H (Negative) mg/dL Urine Glucose (UA) Trace H (Negative) mg/dL Urine Ketones Negative (Negative) mg/dL Ur Blood (Man) Negative (Negative) Urine Nitrate Negative (Negative) Urine Bilirubin Negative (Negative) Urine Urobilinogen 1.0 (<2.0) mg/dL Add Ur Microanalysis Reviewed Leukocyte Esterase Rfl Trace H (Negative) ASHLEY/UL Urine RBC 3-5 H (0-2) /hpf Urine WBC 21-50 H (0-3) /hpf Ur Squamous Epith Cells Occasional (Few) /hpf Urine Bacteria None seen /hpf Urine Casts 11-20 Discharge Plan Discharge Clinical Impression: UTI (urinary tract infection), Postural dizziness with presyncope Patient Disposition: Home Condition: Stable Instructions: Antibiotic Form, Urinary Tract Infection in Women (DC) Additional Instructions: You have a urinary tract infection which we will treat with antibiotics. Follow-up with your doctor on outpatient visit. Return with any emergent or new concerns. Patient Language: Belarusian Prescriptions: New cefdinir 300 mg capsule 300 mg PO Q12H 7 Days Qty: 14 0RF No Action montelukast 10 mg tablet 10 mg PO DAILY pantoprazole 40 mg tablet,delayed release (DR/EC) 40 mg PO DAILY nitroglycerin 0.4 mg tablet, sublingual 0.4 mg sublingual Q5M PRN (Reason: chest pain) aspirin 81 mg tablet,delayed release (DR/EC) 81 mg PO DAILY Qty: 30 0RF ferrous sulfate 325 mg (65 mg iron) tablet 325 mg PO DAILY Qty: 30 0RF lidocaine 5 % adhesive patch,medicated 1 patch topical DAILY Qty: 15 3RF Rx Instructions: leave on most painful area for up to 12 hrs fluticasone propion-salmeterol [Advair HFA] 230-21 mcg/actuation HFA aerosol inhaler 2 puff inhalation Q12H Qty: 12 1RF Rx Instructions: administer with spacer quetiapine [Seroquel] 25 mg tablet 25 mg PO QHS Qty: 30 0RF phenazopyridine 200 mg tablet 200 mg PO TID PRN (Reason: pain) Qty: 6 0RF fluticasone fur. 200 mcg-umeclid 62.5 mcg-vilant 25 mcg inhalat.powder 200-62.5-25 mcg blister with device 0RF albuterol sulfate 2.5 mg /3 mL (0.083 %) solution for nebulization 2.5 mg inhalation Q4H PRN (Reason: shortness of breath or wheezing) Qty: 90 0RF [place] Saline 0.65 % drops 2 drp intranasal Q2H PRN (Reason: dry nasal passages) Qty: 50 0RF esomeprazole magnesium 20 mg Capsule,Delayed Release(Dr/Ec) 40 mg PO DAILY duloxetine 60 mg capsule,delayed release(DR/EC) 60 mg PO DAILY ondansetron 4 mg tablet,disintegrating 4 mg PO Q8H PRN (Reason: nausea and vomiting) Qty: 30 0RF methocarbamol 750 mg tablet 750 mg PO TID PRN (Reason: pain) Qty: 20 0RF levetiracetam 500 mg tablet 500 mg PO BID Qty: 60 0RF atorvastatin 40 mg tablet 40 mg PO DAILY Qty: 90 1RF albuterol sulfate [Ventolin HFA] 90 mcg/actuation HFA aerosol inhaler 1 inh inhalation Q4H PRN (Reason: shortness of breath or wheezing) Qty: 8.5 1RF tizanidine 4 mg capsule 4 mg PO TID PRN (Reason: muscle spasticity) Qty: 90 0RF varenicline tartrate [Chantix Starting Month Box] 0.5 mg (11)- 1 mg (42) tablets,dose pack See Rx Instructions PO PER PKG DIR Qty: 53 0RF Rx Instructions: PO PER PKG DIR pregabalin 100 mg capsule 100 mg PO TID PRN (Reason: pain) Qty: 75 0RF hydrocodone-acetaminophen 5-325 mg tablet 1 tablet PO Q8H PRN (Reason: pain) Qty: 30 0RF dicyclomine 20 mg tablet See Rx Instructions .ROUTE .COMPLEX Qty: 90 1RF Dose Instruction: TAKE 1 TABLET BY MOUTH THREE TIMES A DAY Rx Instructions: TAKE 1 TABLET BY MOUTH THREE TIMES A DAY Follow-up/Referrals: Ranjan Watson MD [Primary Care Provider] -
[2024-12-30] MEDS: cefTRIAXone 1 GM in SODIUM CHLORIDE 0.9% IV 50 ML 100 ML IVPB (04:02)
[2024-12-30 04:08] VITALS: BP 98/50; PULSE 104; RESP 19; O2SAT 93
[2024-12-30 04:11] VITALS: BP 117/62; PULSE 105; RESP 18; O2SAT 94
[2024-12-30 04:45] VITALS: BP 127/55; PULSE 101; RESP 14; TEMP 36.8; O2SAT 96
== END 2024-12-30 04:30 | disposition home or self-care (01) ==
PROVIDERS: Emergency Provider Student in an Organized Health Care Education/Training Program; PCP Family Medicine
DX: N39.0 Urinary tract infection, site not specified (principal); R55 Syncope and collapse; R42 Dizziness and giddiness; J45.909 Unspecified asthma, uncomplicated; I10 Essential (primary) hypertension; E78.2 Mixed hyperlipidemia; M79.7 Fibromyalgia; K58.9 Irritable bowel syndrome, unspecified; K21.00 Gastro-esophageal reflux disease with esophagitis, without bleeding; Z87.442 Personal history of urinary calculi; Z86.16 Personal history of COVID-19; Z90.710 Acquired absence of both cervix and uterus; Z87.891 Personal history of nicotine dependence; Z79.899 Other long term (current) drug therapy; Z79.82 Long term (current) use of aspirin
CPT/HCPCS: 36415; 80053; 81001; 85025; 87086; 93005; 96365; 99284; J0696

== ENCOUNTER 2025-01-02 13:24 | Outpatient (CLI) | payer MEDICARE, MEDICAID, SELFPAY ==
--- OUTSIDE RECORDS SUMMARY | 2025-01-02 13:28 | XMS_ITS | Clinical Summary ---
Author Organization [facility] Address [address] [place] [address] Phone Care Team Providers Care Material Controller Name Role Phone Gallo France MD Primary Care Provider [phone]- [phone] Allergies No known active allergies Medications HYDROcodone-jagdish [...] Comments Blood Pressure 119/55 07/27/2021 5:50 PM PUPIL PERSONNEL WORKER Pulse 97 07/27/2021 5:50 PM PUPIL PERSONNEL WORKER Temperature 36.3 C (97.4 F) 07/27/2021 3:53 PM PUPIL PERSONNEL WORKER Respiratory Rate 32 07/27/2021 3:53 PM PUPIL PERSONNEL WORKER Oxygen Saturation 100% 07/27/2021 5:50 PM PUPIL PERSONNEL WORKER Inhaled Oxygen Concentration - - Weight 57.2 kg (126 lb) 07/27/2021 3:53 PM PUPIL PERSONNEL WORKER Height 149.9 cm (4' 11) 07/27/2021 3:53 PM PUPIL PERSONNEL WORKER Body Mass Index 25.45 07/27/2021 3:53 PM PUPIL PERSONNEL WORKER Plan of Treatment Health Maintenance Due Date [...] this topic Insurance MEDICAID [place] Care Teams Material Controller Relationship Specialty Start Date End Date Gallo France MD [address] [place] [address] [place] [address] PCP - General Commanding Officer Garage 07/27/21
--- OUTSIDE RECORDS SUMMARY | 2025-01-02 13:28 | XMS_ITS | Patient Health Record ---
Author Organization [facility] As [employer] Address [address] [place] [address] Care Team Providers Care Shot Examiner Name Role Phone Ron Galaviz Unavailable [phone] Reason For Referral No Information Medications Medication [...] Sodium 20 MG Oral Active FLUBLOK QUAD 4231-0761 (PF) 180 MCG (45 MCG X 4)/0.5 ML IM SYRINGE *Reorder from [employer] for eRx and Interaction Alerts* Active busPIRone HCl 7.5 MG Oral Active Etodolac 300 MG Oral Acti ve Atorvastatin Calcium 80 MG Oral Active Plan Of Treatment No Information Insurance Providers Payer Name Payer Address Payer Phone Subscriber Number Group Number Insured Name Patient Relationship to Insured Coverage Start Date Coverage End Date [facility] - [facility] [address] [place] [address] [id number] HEIDI BARRETT Self - patient is the insured
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
[2025-01-02 14:16] LABS: Hematocrit 34.5 % (37.0-47.0); Hemoglobin 10.7 g/dL (12.0-15.0); Immature Granulocyte Percent A 0.3 % (0-0.5); Lymphocytes Absolute Auto 1.63 K/mm3 (0.9-3.2); Mean Corpuscular HGB Conc 31.0 g/dl (32-36); Mean Corpuscular Hemoglobin 27.6 pg (26-34); Mean Corpuscular Volume 89.1 fl (80-100); Nucleated Red Blood Cells Absolute Auto 0.000 K/mm3 (0.0-0.012); Nucleated Red Blood Cells Perc 0.0 % (0.0-0.2); Platelet Count Result 274 k/mm3 (150-375); Red Blood Count 3.87 M/mm3 (4.2-5.4); White Blood Count 6.2 K/mm3 (4.5-10.0)
[2025-01-02 16:42] LABS: Iron 46 ug/dL (37-170)
[2025-01-02 16:52] LABS: Percent Iron Saturation 12 % (20-50)
[2025-01-02 16:57] LABS: Alanine Aminotransferase 32 U/L (6-35); Albumin Level 4.4 g/dL (3.5-5.1); Alkaline Phosphatase 105 U/L (38-126); Anion Gap 11 mmol/L (4-12); Aspartate Amino Transferase 27 U/L (14-36); Bilirubin,Total 0.5 mg/dL (0.2-1.3); Blood Urea Nitrogen 21 mg/dL (7-17); Calcium 9.7 mg/dL (8.4-10.2); Carbon Dioxide 19 mmol/L (22-30); Chloride 107 mmol/L (98-107); Estimated Glomerular Filt Rate 42; Glucose 92 mg/dL (65-110); Potassium 4.5 mmol/L (3.4-5.0); Sodium 137 mmol/L (137-145); Total Protein 7.7 g/dL (6.3-8.2)
[2025-01-02 17:20] LABS: Ferritin 28.40 ng/mL (11.1-264)
[2025-01-02 18:10] LABS: Vitamin B12 309.0 pg/mL (239-931)
== END 2025-01-02 13:25 | disposition home or self-care (01) ==
LOC: ANHLAB 13:27
PROVIDERS: PCP Family Medicine; Visit Provider Nurse Practitioner Family
DX: D64.9 Anemia, unspecified (principal); R42 Dizziness and giddiness
CPT/HCPCS: 36415; 80053; 82607; 82728; 82746; 83540; 83550; 85025

== ENCOUNTER 2025-01-07 01:38 | Day surgery (SDC) | payer MEDICARE, MEDICAID, SELFPAY ==
[2025-01-01 14:21] VITALS: BMI 32.9
--- OUTSIDE RECORDS SUMMARY | 2025-01-07 01:41 | XMS_ITS | Clinical Summary ---
Author Organization [facility] Address [address] [place] [address] Care Team Providers Care Upholstery Covers Inspector Name Role Phone Taty West Unavailable [phone] Esperanza Moffett NP Unavailable Ranjan Watson MD Primary Care Provider [phone] Allergies No known active allergies Medications aspirin [...] iron) tablet Take by mouth 9 Active oxyCODONE-acetami nophen (PERCOCET) 5-325 mg per [...] 25 mg tabletIndications :Coronary artery disease involving suquamish coronary artery of [place]quamish heart without angina pectoris,Primary hypertension,Nonr heumatic mitral valve regurgitation Take 0.5 tablets (12.5 mg total) by mouth daily 15 tablet 11 5 026 Active levETIRAcetam (KEPPRA) 500 mg tabletIndications :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) TAKE 1 TABLET(500 MG) BY MOUTH TWICE DAILY 60 tablet 5 5 Active Active Problems Problem Noted Date Diagnosed Date Dizziness 09/20/2024 Coronary artery disease invo lving suquamish coronary artery of [place]qu[place] heart without angina pectoris 06/21/2024 Tobacco abuse [...] Encounters Date Type Department Care Team Description 01/03/2025 Telephone [facility] Cardiology [address] [place] [address] Jl Demarco MD from Last 3 Months Surgical History [...] on file 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 Gender Identity Not on file Sexual [...] 8:14 AM CDT Height 149.9 cm (4' 11) 09/20/2024 8:14 AM CDT Body Mass Index [...] 01/06/2021, Additional history exists Influenza Vaccine (#1) 2025 , 04/22/2021, 03/01/2020, Additional history exists Insurance IDPA Member Subscriber Plan / Payer (Ef fective 2024-Present) Name:Ginna Romero Relation to Subscriber:Self Name:Ginna Romero Payer ID:[id number] Group ID:Not on file Type:[place]ICAID [place] Address: [place] [id number] IDPA Advance Directives For more information, please contact: [phone] * Full Code (Latest Code Status on File) Date Activated Date Inactivated Comments 09/24/2023 12:54 AM 09/26/2023 7:18 PM * Full Code Date Activated Date Inactivated Comments 12/17/2020 6:54 AM 12/18/2020 10:48 PM Care Teams Upholstery Covers Inspector Relationship Specialty Start Date End Date Ranjan Watson MD [address] [place] [address] PCP - General Family Practice 06/21/24 Taty West PA [address] [place] [address] [address] [place] [address] Gastroenterology 09/26/23 Esperanza Moffett NP [address] [place] [address] [address] [place] [address] Neurology 09/26/23
--- OUTSIDE RECORDS SUMMARY | 2025-01-07 01:41 | XMS_ITS | Encounter Summary ---
Author Organization [facility] Address [address] [place] [address] Care Team Providers Care Housing Manager Name Role Phone Brett Taty Flores PA Unavailable [phone] Esperanza Moffett PLANT SENIOR MANAGER Unavailable [phone] Ranjan Watson MD Primary Care Provider [phone] Encounter Details Date Type Department Care Team (Late st Contact Info) Description 01/03/2025 Telephone [facility] Medical Group Cardiology [address] [place] [address] Jl Demarco MD [address] [facility] [address] [place] [address] Social History Tobacco Use Types Packs/Day Years [...] on file 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 * Telephone Encounter - Siria Guo - 01/03/2025 12:25 PM CDT Risa with [facility] requesting most recent office visit note be faxed to their office. Thank you. Contact: documented in this encounter Plan of Treatment Not on file documented as of this encounter Visit Diagnoses Not on filedocumented in this encounter Care Teams Housing Manager Relationship Specialty Start Date End Date Ranjan Watson MD [address] [place] [address] PCP - General Family Practice 06/21/24 Taty West PA [address] [place] [address] [address] [place] [address] Gastroenterology 09/26/23 Esperanza Moffett NP [address] [place] [address] [address] [place] [address] Neurology 09/26/23 documented as of this encounter
--- OUTSIDE RECORDS SUMMARY | 2025-01-07 01:41 | XMS_ITS | Patient Health Record ---
Author Organization [facility] As [employer] Address [address] [facility] [address] [place] [address] Care Team Providers Care Commercial Door Installer Name Role Phone Ron Galaviz Unavailable [phone] Reason For Referral No Information Medications Medication [...] Sodium 20 MG Oral Active FLUBLOK QUAD 1053-5918 (PF) 180 MCG (45 MCG X 4)/0.5 ML IM SYRINGE *Reorder from [employer] for eRx and Interaction Alerts* Active busPIRone HCl 7.5 MG Oral Active Etodolac 300 MG Oral Acti ve Atorvastatin Calcium 80 MG Oral Active Plan Of Treatment No Information Insurance Providers Payer Name Payer Address Payer Phone Subscriber Number Group Number Insured Name Patient Relationship to Insured Coverage Start Date Coverage End Date [facility] - [facility] [address] [place] [address] [id number] HEIDI BARRETT Self - patient is the insured
--- OUTSIDE RECORDS SUMMARY | 2025-01-07 01:41 | XMS_ITS | Encounter Summary ---
Author Organization [facility] Healthcare Address [address] [place] [address] Care Team Providers Care Ocean Export Coordinator Name Role Phone Taty West Unavailable [phone] Esperanza Moffett NP Unavailable [phone] Darnell Blanchard Primary Care Provider + Ranjan Watson MD Primary Care Provider [phone] Encounter Details Date Type Department Care Team (Late st Contact Info) Description 06/07/2024 Orders Only [facility] [facility] [place] [facility] [address] [place] [address] David Perera MD [address] [place] [address] Social History Tobacco Use Types Packs/Day [...] on file 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 Gender Identity Not on file Sexual Orientation [...] on filedocumented in this encounter Care Teams Ocean Export Coordinator Relationship Specialty Start Date End Date Darnell Blanchard PA [address] [place] [address] PCP - General Internal Medicine 10/13/23 06/20/24 Ranjan Watson MD [address] [place] [address] PCP - General Family Practice 06/21/24 Taty West PA [address] [facility] [address] [place] [address] Gastroenterology 09/26/23 Esperanza Moffett NP [address] [facility] [address] [place] [address] Neurology 09/26/23 documented as of this encounter
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
--- OUTSIDE RECORDS SUMMARY | 2025-01-07 01:41 | XMS_ITS | Clinical Summary ---
Author Organization [facility] Address [address] [place] [address] Phone Care Team Providers Care Bulldogger Name Role Phone Gallo France MD Primary Care Provider [phone]- [phone] Allergies No known active allergies Medications HYDROcodone-jagdish [...] Comments Blood Pressure 119/55 07/27/2021 5:50 PM CTRS Pulse 97 07/27/2021 5:50 PM CTRS Temperature 36.3 C (97.4 F) 07/27/2021 3:53 PM CTRS Respiratory Rate 32 07/27/2021 3:53 PM CTRS Oxygen Saturation 100% 07/27/2021 5:50 PM CTRS Inhaled Oxygen Concentration - - Weight 57.2 kg (126 lb) 07/27/2021 3:53 PM CTRS Height 149.9 cm (4' 11) 07/27/2021 3:53 PM CTRS Body Mass Index 25.45 07/27/2021 3:53 PM CTRS Plan of Treatment Health Maintenance Due Date [...] this topic Insurance MEDICAID [place] Care Teams Bulldogger Relationship Specialty Start Date End Date Gallo France MD [address] [place] [address] [place] [address] PCP - General Manufacturing Intern 07/27/21
--- OUTSIDE RECORDS SUMMARY | 2025-01-07 01:41 | XMS_ITS | Encounter Summary ---
Author Organization [facility] Healthcare Address [address] [place] [address] Care Team Providers Care Talk Show Host Name Role Phone Taty West Unavailable [phone] Esperanza Moffett NP Unavailable [phone] Darnell Blanchard Primary Care Provider + Ranjan Watson MD Primary Care Provider [phone] Reason for Visit * Auth/Cert Specialty Diagnoses [...] Low iron [E61.1] Abdominal pain [R10.9] Procedures DC COLONOSCOPY FLX DX W/COLLJ SPEC WHEN PFRMD DC ESOPHAGOGASTRODUODENOSCOPY TRANSORAL DIAGNOSTIC COLONOSCOPY ESOPHAGOGASTRODUODENOSCOPY Referral ID Status Reason Start Date Expiration Date Visits Re quested Visits Authorized [id number] 1 1 Encounter Details Date Type Department Care Team (Late st Contact Info) Description 02/02/2024 Hospital Encounter [facility] [address] [place] [address] Jesus Tay MD [address] [place] [address] [address] Social History Tobacco Use Types Packs/Day Years [...] on file 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
--- NOTE | 2025-01-07 08:56 | SUR.PREOP ---
Patient states she was not able to afford the colonoscopy prep and would like to reschedule this at a later date.
[2025-01-07 09:20] VITALS: BMI 32.8
--- NOTE | 2025-01-07 09:24 | P.PNAN_ITS ---
Anes - Initial Pre Proc Eval Procedure: Operation Date: 01/07/25 10:30 Proposed Procedures p EGD & Screening Colonoscopy - Armando Cisneros MD Date/Time: 01/07/25 09:24 Surgeon: Armando Cisneros MD Pre Op Diagnosis: EGD Patient Data Age: 59 Gender: F Height: 1.5 m Weight: 73.7 kg Allergies Allergy/AdvReac Type Severity Reaction Status Date / Time No Known Allergies Allergy Verified 01/07/25 09:18 Home Medications ?Medication ?Instructions ?Recorded ?Confirmed ?Type aspirin 81 mg tablet,delayed 81 mg PO DAILY #30 tabs 03/29/19 01/07/25 Rx release ferrous sulfate 325 mg (65 mg 325 mg PO DAILY #30 tabs 03/29/19 01/07/25 Rx iron) tablet montelukast 10 mg tablet 10 mg PO DAILY 11/12/23 01/07/25 History duloxetine 60 mg capsule,delayed 60 mg PO DAILY 12/09/23 01/07/25 History release esomeprazole magnesium 20 mg 40 mg PO DAILY 12/09/23 01/07/25 History capsule,delayed release ondansetron 4 mg disintegrating 4 mg PO Q8H PRN nausea and 12/10/23 01/01/25 Rx tablet vomiting #30 tabs nitroglycerin 0.4 mg sublingual 0.4 mg sublingual Q5M PRN chest 07/15/24 01/01/25 History tablet pain atorvastatin 40 mg tablet 40 mg PO DAILY #90 tabs 08/10/24 01/07/25 Rx albuterol sulfate 90 mcg/actuation 1 inh inhalation Q4H PRN shortness 09/10/24 01/07/25 Rx aerosol inhaler (Ventolin HFA) of breath or wheezing #8.5 grams fluticasone propionate 230 2 puff inhalation Q12H #12 grams 09/20/24 01/07/25 Rx mcg-salmeterol 21 mcg/actuation HFA inhaler (Advair HFA) albuterol sulfate 2.5 mg/3 mL 2.5 mg (3 mL) inhalation Q4H PRN 11/06/24 01/07/25 Rx (0.083 %) solution for nebulization shortness of breath or wheezing #90 mL hydrocodone 5 mg-acetaminophen 325 1 tablet PO Q8H PRN pain #30 tabs 12/06/24 01/07/25 Rx mg tablet dicyclomine 20 mg tablet See Rx Instructions .Route 12/13/24 01/07/25 Rx .COMPLEX #90 tabs cefdinir 300 mg capsule 300 mg PO Q12H 7 days #14 caps 12/30/24 01/07/25 Rx famotidine 20 mg tablet 20 mg PO BID #60 tabs 12/31/24 01/07/25 Rx levetiracetam 500 mg tablet 500 mg PO BID #60 tabs 12/31/24 01/07/25 Rx losartan 25 mg tablet 12.5 mg PO DAILY 12/31/24 01/01/25 History varenicline tartrate 1 mg tablet 1 mg PO BID #56 tabs 12/31/24 01/07/25 Rx (Chantix) lidocaine 5 % topical patch 1 patch topical DAILY PRN pain 01/01/25 01/07/25 History pregabalin 100 mg capsule 100 mg PO TID PRN pain #75 caps 01/01/25 01/07/25 Rx quetiapine 25 mg tablet (Seroquel) 25 mg PO QHS #30 tabs 01/01/25 01/01/25 Rx Patient hx anesthesia problems: none Family hx anesthesia problems: none Results Review: All pre-operative results and documents have been reviewed as part of the pre- operative evaluation. [facility] Past Medical History Medical History Paroxysmal A-fib in 2019 when had COVID Rotator cuff injury Shoulder pain Shoulder injury Biceps tendonitis Rotator cuff tendinitis Rotator cuff tear Cough Obesity Tobacco abuse quit 2016 Back pain IBS (irritable bowel syndrome) Asthma Hypercholesterolemia SLAP lesion of right shoulder Pharyngitis Otalgia of left ear Otalgia of both ears Essential (primary) hypertension Fibromyalgia Gastro-esophageal reflux disease with esophagitis Mixed hyperlipidemia Surgical History Surgical History History of right knee surgery related to fracture H/O dilation and curettage History of carpal tunnel release of both wrists History of section H/O: hysterectomy Status post shoulder surgery Family History Family History Sibling Patient's brother is in good health Family history of malignant neoplasm Father Family history of alcoholism Mother Family history of malignant neoplasm of breast in first degree relative Other Family history of arthritis Hypertension Social History Social History Years smoked: 49 Smoking status: Former smoker Tobacco type: cigarettes Second hand tobacco smoke exposure: Yes Smoking end date: 05/23/15 Additional smoking assessment comments: on chantex Alcohol intake: never Substance use: never Substance use type: marijuana Other substance usage details: 1-2 TIMES A WEEK Do You Feel Safe in your Home?: Yes Lack of Transportation: No Lack of Food: Never True Current Housing: I Have Housing Concerned About Future Housing: No Difficulty Paying Gas/Electric Bills: No Difficulty Paying for Meds: YES Currently Unemployed: No Education: High School Diploma/GED Difficulty w/ Childcare or Family Care: No Living arrangements: with family Gender identity (if verbalized by the patient): Female Spiritual care concerns: No Anes - Eval Final PreProcedure Day of Procedure 01/07/25 09:24 Patient weight: obese Heart: regular rate and rhythm Lungs: clear to auscultation Airway: Mallampati scale class II Neurological: alert and oriented Last oral intake: >/= 8 hours ASA classification: III Emergent: no Anesthetic plan: proceed Anesthesia type and monitoring: general GIVS and standard monitoring Results Review: All pre-operative results and documents have been reviewed as part of the pre- operative evaluation. Informed Consent: The patient's anesthetic plan and its attendant risks and benefits were discussed with the patient/family/POA. Questions were solicited and answers provided to the satisfaction of the patient/family/POA.
[2025-01-07] MEDS: LACTATED RINGERS 1,000 ML 150 ML IV CONT (09:28)
[2025-01-07] MEDS: SIMETHICONE ORAL SUSPENSION 20 MG/0.3 ML 30 ML BOTTLE 1.8 ML PO (09:29)
--- NOTE | 2025-01-07 10:25 | PM.IMHP ---
H&P: HPI History of Present Illness Date/Time: 01/07/25 10:25 Chief Complaint: Vomiting -GERD Narrative: the patient suffers from chronic GERD, currently taking Nexium. Last week she came to the emergency room for episodes of nausea and vomiting probably associated with a urinary tract infection that was diagnosed. She states that she vomited bright red blood at That time, however this is not mentioned in her Emergency Room chart. she comes today for EGD. Review of Systems Review of Systems: All systems reviewed & are unremarkable except as noted in HPI and below PMFSH Past Medical History Medical History Paroxysmal A-fib in 2019 when had COVID Rotator cuff injury Shoulder pain Shoulder injury Biceps tendonitis Rotator cuff tendinitis Rotator cuff tear Cough Obesity Tobacco abuse quit 2016 Back pain IBS (irritable bowel syndrome) Asthma Hypercholesterolemia SLAP lesion of right shoulder Pharyngitis Otalgia of left ear Otalgia of both ears Essential (primary) hypertension Fibromyalgia Gastro-esophageal reflux disease with esophagitis Mixed hyperlipidemia Surgical History Surgical History History of right knee surgery related to fracture H/O dilation and curettage History of carpal tunnel release of both wrists History of section H/O: hysterectomy Status post shoulder surgery Family History Family History Sibling Patient's brother is in good health Family history of malignant neoplasm Father Family history of alcoholism Mother Family history of malignant neoplasm of breast in first degree relative Other Family history of arthritis Hypertension Social History Social History Years smoked: 49 Smoking status: Former smoker Tobacco type: cigarettes Second hand tobacco smoke exposure: Yes Smoking end date: 05/23/15 Additional smoking assessment comments: on chantex Alcohol intake: never Substance use: never Substance use type: marijuana Other substance usage details: 1-2 TIMES A WEEK Do You Feel Safe in your Home?: Yes Lack of Transportation: No Lack of Food: Never True Current Housing: I Have Housing Concerned About Future Housing: No Difficulty Paying Gas/Electric Bills: No Difficulty Paying for Meds: YES Currently Unemployed: No Education: High School Diploma/GED Difficulty w/ Childcare or Family Care: No Living arrangements: with family Gender identity (if verbalized by the patient): Female Spiritual care concerns: No Meds Home Medications and Allergies Home Medications ?Medication ?Instructions ?Recorded ?Confirmed ?Type aspirin 81 mg tablet,delayed 81 mg PO DAILY #30 tabs 03/29/19 01/07/25 Rx release ferrous sulfate 325 mg (65 mg 325 mg PO DAILY #30 tabs 03/29/19 01/07/25 Rx iron) tablet montelukast 10 mg tablet 10 mg PO DAILY 11/12/23 01/07/25 History duloxetine 60 mg capsule,delayed 60 mg PO DAILY 12/09/23 01/07/25 History release esomeprazole magnesium 20 mg 40 mg PO DAILY 12/09/23 01/07/25 History capsule,delayed release ondansetron 4 mg disintegrating 4 mg PO Q8H PRN nausea and 12/10/23 01/01/25 Rx tablet vomiting #30 tabs nitroglycerin 0.4 mg sublingual 0.4 mg sublingual Q5M PRN chest 07/15/24 01/01/25 History tablet pain atorvastatin 40 mg tablet 40 mg PO DAILY #90 tabs 08/10/24 01/07/25 Rx albuterol sulfate 90 mcg/actuation 1 inh inhalation Q4H PRN shortness 09/10/24 01/07/25 Rx aerosol inhaler (Ventolin HFA) of breath or wheezing #8.5 grams fluticasone propionate 230 2 puff inhalation Q12H #12 grams 09/20/24 01/07/25 Rx mcg-salmeterol 21 mcg/actuation HFA inhaler (Advair HFA) albuterol sulfate 2.5 mg/3 mL 2.5 mg (3 mL) inhalation Q4H PRN 11/06/24 01/07/25 Rx (0.083 %) solution for nebulization shortness of breath or wheezing #90 mL hydrocodone 5 mg-acetaminophen 325 1 tablet PO Q8H PRN pain #30 tabs 12/06/24 01/07/25 Rx mg tablet dicyclomine 20 mg tablet See Rx Instructions .Route 12/13/24 01/07/25 Rx .COMPLEX #90 tabs cefdinir 300 mg capsule 300 mg PO Q12H 7 days #14 caps 12/30/24 01/07/25 Rx famotidine 20 mg tablet 20 mg PO BID #60 tabs 12/31/24 01/07/25 Rx levetiracetam 500 mg tablet 500 mg PO BID #60 tabs 12/31/24 01/07/25 Rx losartan 25 mg tablet 12.5 mg PO DAILY 12/31/24 01/01/25 History varenicline tartrate 1 mg tablet 1 mg PO BID #56 tabs 12/31/24 01/07/25 Rx (Chantix) lidocaine 5 % topical patch 1 patch topical DAILY PRN pain 01/01/25 01/07/25 History pregabalin 100 mg capsule 100 mg PO TID PRN pain #75 caps 01/01/25 01/07/25 Rx quetiapine 25 mg tablet (Seroquel) 25 mg PO QHS #30 tabs 01/01/25 01/01/25 Rx Allergies Allergy/AdvReac Type Severity Reaction Status Date / Time No Known Allergies Allergy Verified 01/07/25 09:18 Exam Const: General: cooperative and healthy appearing Resp: Effort & Inspection: normal respiratory effort and able to speak in complete sentences Auscultation: clear to auscultation bilaterally Cardio: Rate: regular rate Rhythm: regular rhythm GI: Inspection: normal to inspection GI Palp: No No hepatosplenomegaly present Auscultation: normal bowel sounds Rectal Exam: deferred Skin: General skin exam: normal color Psych: Appearance: grossly normal Mental Status: mental status grossly normal Assessment and Plan Assessment and plan (1) Gastro-esophageal reflux disease with esophagitis: Code(s): K21.0 - Gastro-esophageal reflux disease with esophagitis Status: Acute Assessment and Plan: The patient is deemed a good candidate for the procedure. Consent signed. Will proceed.
--- NOTE | 2025-01-07 10:37 | S_PTH ---
PATIENT: Ginna Sandra LOC: DIAZ #:[id number] AGE/SX: 59/F ROOM: RE01/07/[address]: Armando Cisneros MD : 1965 BED: DIS: 01/07/2025 SPEC #: [id number] RECD: 01/07/25 11:53 STATUS: HE REQ #: [id number] KEYANA: 01/07/25 10:[address]: Armando Cisneros DEPT: [facility] Surgical RECD BY: Trinidad Gallagher ENTERED: 01/07/25 11:54 SP TYPE: Surgical OTHR DR: Ranjan Watson MD Tissues: A - Gastric Biopsy B - Gastric Biopsy Procedures: Hematoxylin and Eosin Stain Gross and Microscopic Level 4
[2025-01-07 10:40] VITALS: BP 93/49; PULSE 76; RESP 16; O2SAT 99
[2025-01-07 10:50] VITALS: BP 103/57; PULSE 76; RESP 16; O2SAT 99
[2025-01-07 11:00] VITALS: BP 100/50; PULSE 73; RESP 20; O2SAT 100
== END 2025-01-07 11:16 | disposition home or self-care (01) ==
PROVIDERS: PCP Family Medicine; Referring Provider Family Medicine; Visit Provider Internal Medicine Gastroenterology
PROC: 0DJ08ZZ Inspection of Upper Intestinal Tract, Via Natural or Artificial Opening Endoscopic (ICD-10-PCS; CPT 43235; principal; 2025-01-07 10:30)
DX: K21.9 Gastro-esophageal reflux disease without esophagitis (principal); K29.30 Chronic superficial gastritis without bleeding; K31.89 Other diseases of stomach and duodenum; I10 Essential (primary) hypertension; E78.2 Mixed hyperlipidemia; I48.0 Paroxysmal atrial fibrillation; K58.9 Irritable bowel syndrome, unspecified; J45.909 Unspecified asthma, uncomplicated; M79.7 Fibromyalgia; F12.90 Cannabis use, unspecified, uncomplicated; E66.9 Obesity, unspecified; Z68.32 Body mass index [BMI] 32.0-32.9, adult; Z79.82 Long term (current) use of aspirin; Z79.51 Long term (current) use of inhaled steroids; Z79.891 Long term (current) use of opiate analgesic; Z98.890 Other specified postprocedural states; Z87.891 Personal history of nicotine dependence; Z80.3 Family history of malignant neoplasm of breast
CPT/HCPCS: 43235; 88305; J2003; J2704; J7120

== ENCOUNTER 2025-01-23 11:12 | Outpatient (CLI) | payer MEDICARE, MEDICAID, SELFPAY ==
[2025-01-23 12:06] LABS: Hematocrit 30.4 % (37.0-47.0); Hemoglobin 9.2 g/dL (12.0-15.0); Immature Granulocyte Percent A 0.5 % (0-0.5); Lymphocytes Absolute Auto 1.66 K/mm3 (0.9-3.2); Mean Corpuscular HGB Conc 30.3 g/dl (32-36); Mean Corpuscular Hemoglobin 27.8 pg (26-34); Mean Corpuscular Volume 91.8 fl (80-100); Nucleated Red Blood Cells Absolute Auto 0.000 K/mm3 (0.0-0.012); Nucleated Red Blood Cells Perc 0.0 % (0.0-0.2); Platelet Count Result 220 k/mm3 (150-375); Red Blood Count 3.31 M/mm3 (4.2-5.4); White Blood Count 6.5 K/mm3 (4.5-10.0)
[2025-01-23 12:07] LABS: Add Urine Microscopic? YES; Appearance Urine Cloudy (Clear); Glucose Urine UA Negative (Negative); Leukocyte Esterase Ur 2+ LEU/UL (Negative); Need Manual Microscopic Reviewed; Nitrate Urine Negative (Negative); Specific Grav Ur 1.025 (1.001-1.035)
--- OUTSIDE RECORDS SUMMARY | 2025-01-23 12:55 | XMS_ITS | Encounter Summary ---
Author Organization [facility] Healthcare Address [address] [place] [address] Care Team Providers Care Acid Leveler Name Role Phone Brett Taty Flores PA Unavailable [phone] Esperanza Moffett BRAKE SPECIALIST Unavailable [phone] Ranjan Watson MD Primary Care Provider [phone] Encounter Details Date Type Department Care Team (Late st Contact Info) Description 01/03/2025 Telephone [facility] Cardiology [address] [place] [address] Jl Demarco MD [address] [facility] [address] [place] [address] Social History Tobacco Use Types [...] on file 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 Gender Identity Not on file Sexual Orientation Not on file documented as of this encounter Miscellaneous Notes * Telephone Encounter - Bibi Walters MA - 01/03/2025 12:49 PM CDT [...] on filedocumented in this encounter Care Teams Acid Leveler Relationship Specialty Start Date End Date Ranjan Watson MD [address] [place] [address] PCP - General Family Practice 06/21/24 Taty West PA [address] [place] [address] [address] [place] [address] Gastroenterology 09/26/23 Esperanza Moffett NP [address] [place] [address] [address] [place] [address] Neurology 09/26/23 documented as of this encounter
--- OUTSIDE RECORDS SUMMARY | 2025-01-23 12:55 | XMS_ITS | Encounter Summary ---
Author Organization [facility] Healthcare Address [address] [place] [address] Care Team Providers Care Spinner Iron Name Role Phone Taty West Unavailable [phone] Esperanza Moffett NP Unavailable [phone] Darnell Blanchard Primary Care Provider + Ranjan Watson MD Primary Care Provider [phone] Reason for Visit * Auth/Cert Specialty Diagnoses [...] Low iron [E61.1] Abdominal pain [R10.9] Procedures UT COLONOSCOPY FLX DX W/COLLJ SPEC WHEN PFRMD UT ESOPHAGOGASTRODUODENOSCOPY TRANSORAL DIAGNOSTIC COLONOSCOPY ESOPHAGOGASTRODUODENOSCOPY Referral ID Status Reason Start Date Expiration Date Visits Re quested Visits Authorized [id number] 1 1 Encounter Details Date Type Department Care Team (Late st Contact Info) Description 02/02/2024 Hospital Encounter [facility] [address] [place] [address] Jesus Tay MD [address] [place] [address] [address] Social History Tobacco Use Types Packs/Day Years [...] on file 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 Gender Identity Not on file Sexual Orientation [...] site documented in this encounter Care Teams Spinner Iron Relationship Specialty Start Date End Date Darnell Blanchard PA [address] [place] [address] PCP - General Internal Medicine 10/13/23 06/20/24 Ranjan Watson MD [address] [place] [address] PCP - General Family Practice 06/21/24 Taty West PA [address] [facility] [address] [place] [address] Gastroenterology 09/26/23 Esperanza Moffett NP [address] [facility] [address] [place] [address] Neurology 09/26/23 documented as of this encounter
--- OUTSIDE RECORDS SUMMARY | 2025-01-23 12:55 | XMS_ITS | Clinical Summary ---
Author Organization [facility] Address [address] [facility] [place] [address] Care Team Providers Care Self Sealing Fuel Tank Repairer Name Role Phone Chay Peñaloza MD Primary Care Provider [phone] [facility],non-owned Affiliates and Associated Physician Practices is amultiple site organization consisting of ambulatory clinics and hospital sitesin [place], [place], [place] and [place]. This disclosure is being madepursuant to the Care Everywhere program and may not contain all information available regarding this patient. Last updated 18.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 Gender Identity Not on file Sexual Orientation Not on file Last Filed Vital Signs Vital Sign Reading Time Taken Comments Blood Pressure 128/76 08/01/2020 7:28 PM ROLLOUT MANAGER Pulse 102 08/01/2020 7:28 PM ROLLOUT MANAGER Temperature 36.7 C (98.1 F) 08/01/2020 7:28 PM ROLLOUT MANAGER Respiratory Rate 20 08/01/2020 7:28 PM ROLLOUT MANAGER Oxygen Saturation 92% 08/01/2020 7:28 PM ROLLOUT MANAGER Inhaled Oxygen Concentration - - Weight 73.5 kg (162 lb) 05/28/2017 11:53 AM ROLLOUT MANAGER Height 149.9 cm (4' 11) 05/28/2017 11:53 AM ROLLOUT MANAGER Body Mass Index 32.72 05/28/2017 11:53 AM ROLLOUT MANAGER Plan of Treatment Health Maintenance Due [...] 2024 07/28/2020 DEPRESSION SCREENING 05/23/2024 INFLUENZA VACCINE (#1) 2025 , 02/10/2019, 02/28/2018 Respiratory Syncytial Virus (RSV) Vaccine [...] age to complete this topic [place] [facility] Address: [address] [address] [facility] Care Teams Self Sealing Fuel Tank Repairer Relationship Specialty Start Date End Date Chay Peñaloza MD [address] [facility] [address] [facility] [address] [place] [id number] PCP - General 08/11/21
--- OUTSIDE RECORDS SUMMARY | 2025-01-23 12:56 | XMS_ITS | Clinical Summary ---
Author Organization [facility] Address [address] [place] [address] Phone Care Team Providers Care Fire Alarm Dispatcher Name Role Phone Gallo France MD Primary Care Provider [phone]- [phone] Allergies No known active allergies Medications HYDROcodone-jagdish [...] Comments Blood Pressure 119/55 07/27/2021 5:50 PM TORTS LAW PROFESSOR Pulse 97 07/27/2021 5:50 PM TORTS LAW PROFESSOR Temperature 36.3 C (97.4 F) 07/27/2021 3:53 PM TORTS LAW PROFESSOR Respiratory Rate 32 07/27/2021 3:53 PM TORTS LAW PROFESSOR Oxygen Saturation 100% 07/27/2021 5:50 PM TORTS LAW PROFESSOR Inhaled Oxygen Concentration - - Weight 57.2 kg (126 lb) 07/27/2021 3:53 PM TORTS LAW PROFESSOR Height 149.9 cm (4' 11) 07/27/2021 3:53 PM TORTS LAW PROFESSOR Body Mass Index 25.45 07/27/2021 3:53 PM TORTS LAW PROFESSOR Plan of Treatment Health Maintenance Due Date Last Done Comments Hepatitis C Virus (HCV) Screening 1965 TdaP Immunization 1965 Cologuard 2008 Colonoscopy 2008 Colorectal Cancer Screening 2008 Immunochemical Fecal Occult Blood 2008 Zoster Immunization (2 of 2) 03/06/2018 01/09/2018, 11/07/2017 Pneumococcal Immunization (50+ years) (2 of 2 - PCV) 02/28/2019 02/28/2018 Influenza Immunization (#1) 2025 12/0 05/2020, 03/01/2020, 02/10/2019, Additional history exists SARS-COV-2 Immunization (2024- season) 2025 01/27/2021, 01/06/2021, 07/28/2020 Respiratory Syncytial Virus (RSV) [...] this topic Insurance MEDICAID [place] Care Teams Fire Alarm Dispatcher Relationship Specialty Start Date End Date Gallo France MD [address] [place] [address] [place] [address] PCP - General Synthetic Staple Extruder 07/27/21
--- OUTSIDE RECORDS SUMMARY | 2025-01-23 12:56 | XMS_ITS | Encounter Summary ---
Author Organization [facility] Healthcare Address [address] [place] [address] Care Team Providers Care Research Hydraulic Engineer Name Role Phone Taty West Unavailable [phone] Esperanza Moffett NP Unavailable [phone] Darnell Blanchard Primary Care Provider + Ranjan Watson MD Primary Care Provider [phone] Encounter Details Date Type Department Care Team (Late st Contact Info) Description 06/07/2024 Orders Only [facility] Health Information Management [address] [place] [id number] David Perera MD [address] [place] [address] Social History Tobacco Use Types [...] on file 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 Gender Identity Not on file Sexual Orientation Not on file documented as of this encounter Plan of Treatment Not on file documented as of this encounter Procedures Procedure Name Priority Date/Time Associated Diagnosis Comments SCAN - LABS 06/07/2024 CARDIOLOGY DOCUMENT SCAN 06/07/2024 documented in this encounter Results * SCAN - LABS (06/07/2024) us Provider Scanning Final Result * Cardiology Document Scan (06/07/2024) Anatomical Region Laterality Modality Other David Perera MD CV CARDIAC SERVICES PROCEDURES E dited Result - Final documented in this encounter Visit Diagnoses Not on filedocumented in this encounter Care Teams Research Hydraulic Engineer Relationship Specialty Start Date End Date Darnell Blanchard PA [address] [place] [address] PCP - General Internal Medicine 10/13/23 06/20/24 Ranjan Watson MD [address] [facility] [place] [address] PCP - General Family Practice 06/21/24 Taty West PA [address] [place] [address] [address] [place] [address] Gastroenterology 09/26/23 Esperanza Moffett NP [address] [place] [address] [address] [place] [address] Neurology 09/26/23 documented as of this encounter
== END 2025-01-23 11:13 | disposition home or self-care (01) ==
LOC: ANHLAB 11:13
PROVIDERS: PCP Family Medicine; Visit Provider Family Medicine
DX: N39.0 Urinary tract infection, site not specified (principal); R03.1 Nonspecific low blood-pressure reading
CPT/HCPCS: 36415; 81001; 85025; 87077; 87086; 87186

== ENCOUNTER 2025-01-28 16:17 | Outpatient (CLI) | payer MEDICARE, MEDICAID, SELFPAY ==
--- OUTSIDE RECORDS SUMMARY | 2025-01-28 15:30 | XMS_ITS | Encounter Summary ---
Author Organization [facility] Healthcare Address [address] [place] [address] Care Team Providers Care Community Relations Assistant Name Role Phone Brett Taty Flores PA Unavailable [phone] Esperanza Moffett [employer] MATERIAL Unavailable [phone] Ranjan Watson MD Primary Care Provider [phone] Reason for Visit * Reason Comments Hypotension Per patient. 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 Gender Identity Not on file Sexual Orientation Not on file documented as of this encounter Last Filed Vital Signs Vital Sign Reading Time Taken Comments Blood Pressure 102/56 01/28/2025 3:45 PM CDT Pulse 89 01/28/2025 3:45 PM CDT Temperature - - Respiratory Rate - - Oxygen Saturation 98% 01/28/2025 3:45 PM CDT Inhaled Oxygen Concentration - - Weight 76.2 kg (168 lb) 01/28/2025 3:45 PM CDT Height 149.9 cm (4' 11) 01/28/2025 3:45 PM CDT Body Mass Index 33.93 01/28/2025 3:45 PM CDT documented in this encounter Progress Notes * Sandy Zuniga NP - 01/28/2025 3:30 PM CDT Images from the original note were not included. [facility] [address] [place] [address] Date of Visit: 01/28/2025 Patient ID: Ginna Romero 1965 Chief Complaint Patient presents with Hypotension Per patient. Ginna Romero is a 59 y.o. female who is an established patient of Dr. Demarco with a history of NSTEMI coming to the office for concern of hypotension. History of Present Illness: Ginna Romero is a 59 y.o. female with a history of non STEMI. Recently admitted for chest discomfort. EKG was normal without acute changes. Echo showed moderate to severe MR. Patient was seen by Dr. Brewer. Patient is known to have seizure disorder. Patient was admitted for seizure-like activity. Cardiology consulted for chest pain and elevated troponin. In route to the hospital after the seizure she felt some retrosternal chest discomfort which resolved spontaneously. EKG was normal. Troponins were minimally elevated. She does give a history of intermittent retrosternal chest pain with moderate to severe exertion. She returns from that hospitalization still having intermittent chest pains. She states the chest pain started about 6 or 7 months ago. She calls it a stabbing and severe tightness. It will radiate to the left side of her chest. She is also very short of breath at that time. She also complains of nausea and sweatiness during these episodes. They occur about 4 times per month but have become more f requent and more severe. She also describes baseline shortness breath by doing activity such as heavy lifting. She denies any palpitations, paroxysmal nocturnal dyspnea, syncope. She does describe a little bit of lower extremity swelling for which she uses compression stockings. In 2019 she had a bout of atrial fibrillation but that was at a time in which she was COVID positive. Follow-up note 06/21/2024: She had a cardiac catheterization which showed some nonobstructive disease. Jay showed 2+/moderate MR but not severe. She continues to have some occasional sharp stabbing chest pain lasting for 15 minutes at time worsened by movement. She has a little bit of swelling involving the left leg which is not new or different. No significant shortness breath, syncope, presyncope, paroxysmal nocturnal dyspnea, orthopnea, palpitations. She has continue to avoid smoking. She has feel very tired since the addition of metoprolol and her blood pressure has been in the 90s Follow-up note 09/20/2024: She has some stabbing chest pain which lasts for sec or so but also somepounding in her chest which also lasts for sec. Otherwise been doing okay. She is very anxious about her cardiac health. She has no syncope, presyncope, paroxysmal nocturnal dyspnea, orthopnea, pedaledema. Office visit with [employer] MAT[employer] 01/28/2025: Her PCP advised her to have sooner follow-up with us due to hypotension. Her blood pressures were down in the range of 83/45 to 97/62. She felt lightheaded, dizzy andhad headaches. Five days ago she saw PCP who advised her to put her losartan on hold and follow-up with us. Her blood pressure has improved to 1 13/64 at home. PCP is also currently treating her for a UTI. There was an ER visit on 12/30/2024 for nausea and vomiting at which time it looks like she had abnormal urinalysis, blood pressure 127/55, and her BMP showed K3.9, creatinine 0.8, EGFR greaterthan 60. Medical History: Past Medical History: Diagnosis Date Anxiety GERD (gastroesophageal reflux disease) Hypertension IBS (irritable bowel syndrome) Low back pain Murmur Polycystic kidney disease Past Surgical History: Procedure Laterality Date HAND SURGERY HYSTERECTOMY SHOULDER ARTHROSCOPY W/ SUPERIOR LABRAL ANTERIOR POSTERIOR LESION REPAIR R shoulder SKIN GRAFT All body TONSILLECTOMY Social History Tobacco Use Smoking Status Every Day Current packs/day: 1.00 Average packs/day: 0.8 packs/day for 88.0 years (68.0 ttl pk-yrs) Types: Cigarettes Smokeless Tobacco Never Social History Tobacco Use Smoking status: Every Day Current packs/day: 1.00 Average packs/day: 0.8 packs/day for 88.0 years (68.0 ttl pk-yrs) Types: Cigarettes Smokeless tobacco: Never Substance and Sexual Activity Drug use: None Sexual activity: None Alcohol Use: Not At Risk (09/23/2023) AUDIT-C Frequency of Alcohol Consumption: Never Average Number of Drinks: Not on file Frequency of Binge Drinking: Not on file Family History Problem Relation Age of Onset Cancer Mother breast Heart attack Mother Alcohol abuse Sister Drug abuse Sister Alcohol abuse Brother Drug abuse Brother Cancer Maternal Grandmother breast Tuberculosis Maternal Grandmother Review of Systems Constitutional: Positive for weight gain. Negative for malaise/fatigue and weight loss. Cardiovascular: Negative for chest pain, leg swelling, near-syncope, orthopnea, palpitations, paroxysmal nocturnal dyspnea and syncope. Respiratory: Negative for cough, shortness of breath and sleep disturbances due to breathing. Hematologic/Lymphatic: Negative for bleeding problem. Does not bruise/bleed easily. Neurological: Positive for dizziness, headaches and light-headedness. Vital Signs: BP 102/56 (BP Location: Left arm, Patient Position: Sitting) Pulse 89 Ht 149.9 cm (4' 11) Wt76.2 kg (168 lb) SpO2 98% BMI 33.93 kg/m?? Physical Exam Constitutional: General: She is not in acute distress. Appearance: She is well-developed. She is obese. HENT: Head: Normocephalic and atraumatic. Eyes: General: No scleral icterus. Conjunctiva/sclera: Conjunctivae normal. Neck: Vascular: No JVD. Trachea: No tracheal deviation. Cardiovascular: Rate and Rhythm: Normal rate and regular rhythm. Heart sounds: Normal heart sounds. No murmur heard. Pulmonary: Effort: Pulmonary effort is normal. No respiratory distress. Breath sounds: Normal breath sounds. Comments: Diminished but clear Skin: General: Skin is warm and dry. Neurological: Mental Status: She is alert and oriented to person, place, and time. Psychiatric: Mood and Affect: Mood normal. Behavior: Behavior normal. No Known Allergies Current Outpatient Medications: albuterol HFA (PROVENTIL HFA,VENTOLIN HFA,PROAIR HFA) 90 mcg/actuation inhaler, INHALE 2 PUFFS BY MOUTH FOUR TIMES DAILY NEEDED FOR SHORTNESS OF BREATH, Disp: , Rfl: aspirin 81 mg chewable tablet, Take 1 tablet (81 mg total) by mouth daily, Disp: , Rfl: atorvastatin (LIPITOR) 40 mg tablet, Take 1 tablet (40 mg total) by mouth daily, Disp: , Rfl: DULoxetine DR (CYMBALTA) 60 mg capsule, Take 1 tablet by mouth daily, Disp: , Rfl: esomeprazole DR (NexIUM) 40 mg capsule, Take by mouth, Disp: , Rfl: ferrous sulfate 325 mg (65 mg of elemental iron) tablet, Take by mouth, Disp: , Rfl: HYDROcodone-acetaminophen (NORCO) 5-325 mg per tablet, Take 1 tablet by mouth every 6 (six) hours as needed, Disp: , Rfl: levETIRAcetam (KEPPRA) 500 mg tablet, TAKE 1 TABLET(500 MG) BY MOUTH TWICE DAILY, Disp: 60 tablet, Rfl: 5 nitroglycerin (NITROSTAT) 0.4 mg SL tablet, PLACE 1 TABLET UNDER THE TONGUE EVERY 5 MINUTES NEEDED FOR CHEST PAIN(MAX= 3 TABLETS), Disp: 50 tablet, Rfl: 0 pregabalin (LYRICA) 100 mg capsule, Take 1 capsule (100 mg total) by mouth 3 (three) times a day, Disp: , Rfl: QUEtiapine (SEROquel) 25 mg tablet, Take 1 tablet (25 mg total) by mouth nightly, Disp: , Rfl: Lab Results Component Value Date POTASSIUM 3.9 12/07/2023 BUNSER 19 12/07/2023 CREATININE 0.79 12/07/2023 Lab Results Component Value Date WBC 5.8 12/07/2023 HGB 10.7 (L) 12/07/2023 HCT 33.6 (L) 12/07/2023 MCV 85.9 12/07/2023 No results found for this or any previous visit (from the past 4 hours). Lab Results Component Value Date POCCHOL 138 09/20/2024 POCHDL 39 (A) 09/20/2024 POCTRIG 99 09/20/2024 POCLDL 80 09/20/2024 POCNONHDL 100 09/20/2024 POCCHLPL 138 09/20/2024 Assessment: Diagnoses and all orders for this visit: Hypotension, unspecified hypotension type (Primary) - Basic metabolic panel; Future Urinary tract infection without hematuria, site unspecified Plan/Recommendations: She became symptomatically hypotensive on the low-dose losartan. I am wondering if recurrent UTI iscontributing to her hypotension. PCP is currently treating the UTI and I want her to get a repeat BMP to make sure that she has not developed acute kidney injury since her ER visit 1 month ago. Remain off losartan and I will follow up with her over the phone and I have the results of the BMP. Keep the previously scheduled follow-up visit with Dr. Demarco in 2 months and I reminded her to call to reschedule her carotid ultrasound. 01/28/2025 ALTAF Novak- Nurse Practitioner with [facility] Cardiology This note is dictated and transcribed using [employer] Direct Software. Reading Instructor variancesmay occur. Despite proofreading, typographical errors may occur. documented in this encounter Plan of Treatment Scheduled Orders Name Type Priority Associated Diagnoses Orde r Schedule Basic metabolic panel Lab Routine Hypotension, unspecified hypotension type Expected: 01/28/2025, Expires: 01/28/2026 documented as of this encounter Visit Diagnoses Diagnosis Hypotension, unspecified hypotension type- Primary Urinary tract infection without hematuria, site unspecified documented in this encounter Discontinued Medications Medication Sig Discontinue Reason Start Date End Da te multivitamin capsule Take 1 capsule by mouth daily No longer taking - Do not display on AVS 01/28/2025 tiZANidine (ZANAFLEX) 4 mg tablet TAKE 1 TABLET BY MOUTH THREE TIMES DAILY NEEDED FOR MUSCLE PAIN No longer taking - Do not display on AVS 01/28/2025 oxyCODONE-acetaminophen (PERCOCET) 5-325 mg per tabletIndications:Pain Take 1 tablet by mouth every 4 (four) hours as needed for pain No longer taking - Do not display on AVS 12/07/2023 01/28/2025 escitalopram (LEXAPRO) 10 mg tablet Take 1 tablet (10 mg total) by mouth daily No longer taking - Do not display on AVS 01/28/2025 spironolactone (ALDACTONE) 50 mg tablet Take 0.5 tablets (25 mg total) by mouth daily No longer taking - Do not display on AVS 01/28/[address] (PROTONIX) 40 mg EC tabletIndications:Mucosi tis Prophylaxis Take 1 tablet (40 mg total) by mouth daily No longer taking - Do not display on AVS 09/27/2023 01/28/2025 losartan (COZAAR) 25 mg tabletIndications:[place] 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,Primary hypertension,Nonrheumati c mitral valve regurgitation Take 0.5 tablets (12.5 mg total) by mouth daily No longer taking - Do not display on AVS 09/20/2024 01/28/2025 documented as of this encounter Care Teams Community Relations Assistant Relationship Specialty Start Date End Date Ranjan Watson MD [address] [place] [address] PCP - General Family Practice 06/21/24 Taty West PA [address] [place] [address] [address] [place] [address] Gastroenterology 09/26/23 Esperanza Moffett NP [address] [place] [address] [address] [place] [address] Neurology 09/26/23 documented as of this encounter
--- OUTSIDE RECORDS SUMMARY | 2025-01-28 16:20 | XMS_ITS | Encounter Summary ---
Author Organization [facility] Healthcare Address [address] [place] [address] Care Team Providers Care Boat Repairer Name Role Phone aTty West Unavailable [phone] Esperanza Moffett NP Unavailable [phone] Darnell Blanchard Primary Care Provider + Ranjan Watson MD Primary Care Provider [phone] Encounter Details Date Type Department Care Team (Late st Contact Info) Description 06/07/2024 Orders Only [facility] Health Information Management [address] [place] [id number] David Perera MD [address] [place] [address] Social History Tobacco Use Types [...] on file 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 Gender Identity Not on file Sexual Orientation [...] on filedocumented in this encounter Care Teams Boat Repairer Relationship Specialty Start Date End Date Darnell Blanchard PA [address] [place] [address] PCP - General Internal Medicine 10/13/23 06/20/24 Ranjan Watson MD [address] [facility] [address] PCP - General Family Practice 06/21/24 Taty West PA [address] [place] [address] [address] [place] [address] Gastroenterology 09/26/23 Esperanza Moffett NP [address] [place] [address] [address] [place] [address] Neurology 09/26/23 documented as of this encounter
--- OUTSIDE RECORDS SUMMARY | 2025-01-28 16:20 | XMS_ITS | Patient Health Record ---
Author Organization [facility] Address [address] [place] [address] Care Team Providers Care Sports Activities Foul Judge Name Role Phone Chay Peñaloza Primary Care Provider Allergies No Known Allergies Results Component Value Reference Range Notes Xray : Shoulder, right Reviewed date:01/17/2025 11:12:29 AM Interpretation: Performing Lab: Notes/Report: Reason For Referral Reason right shoulder adhes haroon capsulitis with possible rotator cuff injury due to fall 02/29/24. Diagnosis 1 Adhesive capsulitis of right shoulder (M75.01) Referral Organization [facility] Referring Provider First Name Chay Referring Provider Last Name Jh Referring Provider Speciality Internal M edicine Referred Provider Specialty Physical The rapist General Notes Referral sent to [facility] Therapy. Letter sent to patient. Clinical Notes [facility], [address] [place] [address], ph: [phone], fax: [phone] Referral Priority Routine Medications Medication SIG (Take, [...] W/U Status Risk Notes Problem Tobacco user (620314134) Nicotine dependence, unspecified, uncomplicated (F17.200) Active confirmed Problem Mood disorder (89162504) Mood disorder (F39) Active confirmed Problem Chronic pain (66711490) Chronic pain (G89.29) Active confirmed Vital Signs Heart Rate 114 /min 03/01/2024 Respiratory Rate 16 /min 03/01/2024 Blood pressure diastolic 90 mm Hg 03/01/2024 Oximetry 98 % 03/01/2024 Height 60 in 03/01/2024 Blood pressure systolic 140 mm Hg 03/01/2024 Weight 147.6 lbs 03/01/2024 BMI 28.82 kg/m2 03/01/2024 Encounters Encounter Location Date Provider Diagnosis [facility] [address] [place] [address] 02/03/2024 Chay Peñaloza [facility] [address] [place] [address] 02/03/2024 Chay Peñaloza Cervicalgia M54.2 an d Eustachian tube dysfunction, right H69.[address] [place] [address] 03/01/2024 Chay Peñaloza Right shoulder pain M25.511 ; Adhesive capsulitis of right shoulder M75.01 and Nicotine dependence, unspecified, uncomplicated F17.[address] [place] [address] 02/03/2024 Chay Peñaloza [address] [address] 02/07/2024 Chay Peñaloza [address] [address] 02/07/2024 Chay Peñaloza [address] [address] 02/07/2024 Chay Peñaloza Eustachian tube dysfunction, right H69.81 and Cervicalgia M54.2 Assessments Encounter Date Diagnosis (ICD Code) Assessment Notes Treatment Notes Treatment Clinical Notes Section Notes 02/03/2024 Cervicalgia (ICD-10 - M54.2) 02/03/2024 Eustachian tube dysfunction, right (ICD-10 - H69.81) 02/07/2024 Eustachian tube dysfunction, right (ICD-10 - H69.81) 03/01/2024 Adhesive capsulitis of right shoulder (ICD-10 - M75.01) 03/01/2024 Right shoulder pain (ICD-10 - M25.511) ICE INTERMITTENTLY AT 30 MIN INTERVALS FOR FIRST 48-72 HOURS AFTER INJURY, THEN HEAT. 02/07/2024 Cervicalgia (ICD-10 - M54.2) 03/01/2024 Nicotine dependence, unspecified, uncomplicated (ICD-10 - F17.200) 03/01/2024 Other NO LABS RECEIVED FROM [facility]. DISCUSSED WITH HER THAT WILL NEED BLOOD DRAW AT F/U IN 6 WEEKS IF RESULTS NOT RECEIVED BY THEN. Plan Of Treatment No Information Insurance Providers Payer Name Payer Address Payer Phone Subscriber Number Group Number Insured Name Patient Relationship to Insured Coverage Start Date Coverage End Date MEDICAID [address] [place] [address] [id number] Ginna Allan Self - patient is the insured 4 [employer] [address] [phone] [id number] Ginna Allan Self - patient is the insured 4 4 MEDICAID [employer] [address] [place] [address] [id number] Ginna Allan Self - patient is the insured 4 Medical (General) History Surgical History Surgery Date(Month/Year) appendectomy tonsillectomy right knee repair 2c-section partial hysterectomy bilateral carpel tunnel ulner nerve release slap tear repair right shoulder Hospitalization History Reason Date(Month/Year) seizure 09/2023 Sylvie
--- OUTSIDE RECORDS SUMMARY | 2025-01-28 16:20 | XMS_ITS | Encounter Summary ---
Author Organization [facility] Healthcare Address [address] [place] [address] Care Team Providers Care Sifter Operator Name Role Phone Taty West Unavailable [phone] Esperanza Moffett NP Unavailable [phone] Darnell Blanchard Primary Care Provider + Ranjan Watson MD Primary Care Provider [phone] Reason for Visit * Auth/Cert Specialty Diagnoses [...] Low iron [E61.1] Abdominal pain [R10.9] Procedures IN COLONOSCOPY FLX DX W/COLLJ SPEC WHEN PFRMD IN ESOPHAGOGASTRODUODENOSCOPY TRANSORAL DIAGNOSTIC COLONOSCOPY ESOPHAGOGASTRODUODENOSCOPY Referral ID Status Reason Start Date Expiration Date Visits Re quested Visits Authorized [id number] 1 1 Encounter Details Date Type Department Care Team (Late st Contact Info) Description 02/02/2024 Hospital Encounter [facility] [address] [place] [address] Jesus Tay MD [address] [place] [address] [address] Social History Tobacco Use Types Packs/Day Years [...] on file 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 Gender Identity Not on file Sexual [...] site documented in this encounter Care Teams Sifter Operator Relationship Specialty Start Date End Date Darnell Blanchard PA [address] [place] [address] PCP - General Internal Medicine 10/13/23 06/20/24 Ranjan Watson MD [address] [place] [address] PCP - General Family Practice 06/21/24 Taty West PA [address] [facility] [address] [place] [address] Gastroenterology 09/26/23 Esperanza Moffett NP [address] [facility] [address] [place] [address] Neurology 09/26/23 documented as of this encounter
--- OUTSIDE RECORDS SUMMARY | 2025-01-28 16:20 | XMS_ITS | Encounter Summary ---
Author Organization [facility] Healthcare Address [address] [place] [address] Care Team Providers Care Counter Checker Name Role Phone Brett Taty Flores PA Unavailable [phone] Esperanza Moffett TRUCK DESPATCHER Unavailable [phone] Ranjan Watson MD Primary Care Provider [phone] Encounter Details Date Type Department Care Team (Late st Contact Info) Description 01/03/2025 Telephone [facility] Medical Group Cardiology [address] [place] [address] Jl Demarco MD [address] [facility] [address] [place] [address] Social History Tobacco Use Types [...] on file 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
--- OUTSIDE RECORDS SUMMARY | 2025-01-28 16:20 | XMS_ITS | Clinical Summary ---
Author Organization [facility] Address [address] [place] [address] Care Team Providers Care Production Machine Shop Supervisor Name Role Phone Chay Peñaloza MD Primary Care Provider [phone] Source Comments [facility],non-owned Affiliates and Associated Physician Practices is amultiple site organization consisting of ambulatory clinics and hospital sitesin [place], [place], [place] and [place]. This disclosure is being madepursuant to the Care Everywhere program and may not contain all information available regarding this patient. 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 Gender Identity Not on file Sexual Orientation Not on file Last Filed Vital Signs Vital Sign Reading Time Taken Comments Blood Pressure 128/76 08/01/2020 7:28 PM RAW STOCK DRIER TENDER Pulse 102 08/01/2020 7:28 PM RAW STOCK DRIER TENDER Temperature 36.7 C (98.1 F) 08/01/2020 7:28 PM RAW STOCK DRIER TENDER Respiratory Rate 20 08/01/2020 7:28 PM RAW STOCK DRIER TENDER Oxygen Saturation 92% 08/01/2020 7:28 PM RAW STOCK DRIER TENDER Inhaled Oxygen Concentration - - Weight 73.5 kg (162 lb) 05/28/2017 11:53 AM RAW STOCK DRIER TENDER Height 149.9 cm (4' 11) 05/28/2017 11:53 AM RAW STOCK DRIER TENDER Body Mass Index 32.72 05/28/2017 11:53 AM RAW STOCK DRIER TENDER Plan of Treatment Health Maintenance Due [...] 2013 ZOSTER VACCINE (1 of 2) 2013 DEPRESSION SCREENING 05/23/2024 COVID-19 VACCINE (2 - 2024-2 6 season) 2025 07/28/2020 INFLUENZA VACCINE (#1) 2025 , 02/10/2019, 02/28/2018 [...] age to complete this topic Insurance [facility] Member Subscriber Plan / Payer (Ef fective 2020-Present) Name:Heidi Barrett Relation to Subscriber:Self Name:Heidi Barrett Payer ID:[id number] (NAIC) Group ID:Not on file Type:Medicaid Managed Care Address: [address] [address] [facility] Member Subscriber Plan / Payer (Ef fective for All Dates) Name:Heidi Barrett Relation to Subscriber:Self Name:HEIDI BARRETT Payer ID:Not on file Group ID:Not on file Type:Medicaid [place] Address: [address] [address] Care Teams Production Machine Shop Supervisor Relationship Specialty Start Date End Date Chay Peñaloza MD [address] [facility] [address] [facility] [address] [place] [address] PCP - General 08/11/21
--- OUTSIDE RECORDS SUMMARY | 2025-01-28 16:20 | XMS_ITS | Clinical Summary ---
Author Organization [facility] Address [address] [place] [address] Care Team Providers Care Green Chain Worker Name Role Phone Taty West Unavailable [phone] Esperanza Moffett NP Unavailable [phone] Ranjan Watson MD Primary Care Provider [phone] Allergies No known active allergies Medications aspirin 81 mg chewable tablet Take 1 tablet (81 mg total) by mouth daily Active atorvastatin (LIPITOR) 40 mg tablet Take 1 tablet (40 mg total) by mouth daily Active albuterol HFA (PROVENTIL HFA,VENTOLIN HFA,PROAIR HFA) 90 mcg/actuation inhaler INHALE 2 PUFFS BY MOUTH FOUR TIMES DAILY NEEDED FOR SHORTNESS OF BREATH 05/28/19 18 Active pregabalin (LYRICA) 100 mg capsule Take 1 capsule (100 mg total) by mouth 3 (three) times a day Active DULoxetine DR (CYMBALTA) 60 mg capsule Take 1 tablet by mouth daily Active esomeprazole DR (NexIUM) 40 mg capsule Take by mouth 06/01/19 19 Active HYDROcodone-aceta minophen (NORCO) 5-325 mg per tablet Take 1 tablet by mouth every 6 (six) hours as needed 07/28/19 22 Active ferrous sulfate 325 mg (65 mg of elemental iron) tablet Take by mouth 06/01/19 19 Active nitroglycerin (NITROSTAT) 0.4 mg SL tabletIndications :Chest tightness PLACE 1 TABLET UNDER THE TONGUE EVERY 5 MINUTES NEEDED FOR CHEST PAIN(MAX= 3 TABLETS) 50 tablet 06/26/19 25 Active QUEtiapine (SEROquel) 25 mg tablet Take 1 tablet (25 mg total) by mouth nightly Active levETIRAcetam (KEPPRA) 500 mg tabletIndications :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) TAKE 1 TABLET(500 MG) BY MOUTH TWICE DAILY 60 tablet 5 12/08/19 25 Active multivitamin capsule Take 1 capsule by mouth daily Discontinu ed(No longer taking - Do not display on AVS) escitalopram (LEXAPRO) 10 mg tablet Take 1 tablet (10 mg total) by mouth daily Discontinu ed(No longer taking - Do not display on AVS) pantoprazole DR (PROTONIX) 40 mg EC tabletIndications :Mucositis Prophylaxis Take 1 tablet (40 mg total) by mouth daily 30 tablet 09/27/19 Discontinu ed(No longer taking - Do not display on AVS) spironolactone (ALDACTONE) 50 mg tablet Take 0.5 tablets (25 mg total) by mouth daily Discontinu ed(No longer taking - Do not display on AVS) oxyCODONE-acetami nophen (PERCOCET) 5-325 mg per tabletIndications :Pain Take 1 tablet by mouth every 4 (four) hours as needed for pain 20 tablet 12/07/19 24 Discontinu ed(No longer taking - Do not display on AVS) tiZANidine (ZANAFLEX) 4 mg tablet TAKE 1 TABLET BY MOUTH THREE TIMES DAILY NEEDED FOR MUSCLE PAIN Discontinu ed(No longer taking - Do not display on AVS) losartan (COZAAR) 25 mg tabletIndications :Coronary artery disease involving [place] coronary artery of [place] heart without angina pectoris,Primary hypertension,Nonr heumatic mitral valve regurgitation Take 0.5 tablets (12.5 mg total) by mouth daily 15 tablet 11 09/21/19 25 Discontinu ed(No longer taking - Do not display on AVS) Active Problems Problem Noted Date Diagnosed Date Dizziness 09/20/2024 Coronary artery disease invo lving [place] coronary artery of [place] heart without angina pectoris 06/21/2024 Tobacco abuse [...] Encounters Date Type Department Care Team Description 01/28/2025 3:30 PM CDT Office Visit [facility] Medical [facility] Cardiology [address] [place] [address] Sandy Zuniga NP Hypotension, unspecified hypotension type (Primary Dx); Urinary tract infection without hematuria, site unspecified 01/03/2025 Telephone [facility] Cardiology [address] [place] [address] Jl Demarco MD from Last [...] on file 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 Gender Identity Not on file Sexual Orientation Not on file Obstetrics History Last Filed Vital Signs Vital Sign Reading Time Taken Comments Blood Pressure 102/56 01/28/2025 3:45 PM CDT Pulse 89 01/28/2025 3:45 PM CDT Temperature 36.6 C (97.9 F) 12/07/2023 11:08 AM CDT Respiratory Rate 16 12/07/2023 11:08 AM CDT Oxygen Saturation 98% 01/28/2025 3:45 PM CDT Inhaled Oxygen Concentration - - Weight 76.2 kg (168 lb) 01/28/2025 3:45 PM CDT Height 149.9 cm (4' 11) 01/28/2025 3:45 PM CDT Body Mass Index 33.93 01/28/2025 3:45 PM CDT Plan of Treatment Health Maintenance Due [...] PCV) 02/28/2019 02/28/2018 Covid-19 Vaccine (6 - 2024-2 6 season) 2025 02/22/2022, 01/27/2021, 01/06/2021, Additional history exists Influenza Vaccine (#1) 2025 , 04/22/2021, 03/01/2020, Additional history exists Insurance IDPA IDPA [facility] [employer] Advance Directives For more information, please contact: [phone] * Full Code (Latest Code Status on File) Date Activated Date Inactivated Comments 09/24/2023 12:54 AM 09/26/2023 7:18 PM * Full Code Date Activated Date Inactivated Comments 12/17/2020 6:54 AM 12/18/2020 10:48 PM Care Teams Green Chain Worker Relationship Specialty Start Date End Date Ranjan Watson MD [address] [place] [address] PCP - General Family Practice 06/21/24 Taty West PA [address] [place] [address] [place] [address] Gastroenterology 09/26/23 Esperanza Moffett NP [address] [place] [address] [address] [place] [address] Neurology 09/26/23
--- OUTSIDE RECORDS SUMMARY | 2025-01-28 16:21 | XMS_ITS | Clinical Summary ---
Author Organization [facility] Address [address] [place] [address] Phone Care Team Providers Care Senior Java Ui Developer Name Role Phone Gallo France MD Primary Care Provider [phone] Allergies No known active allergies Medications HYDROcodone-jagdish [...] Comments Blood Pressure 119/55 07/27/2021 5:50 PM JOURNEYMAN MEAT CUTTER Pulse 97 07/27/2021 5:50 PM JOURNEYMAN MEAT CUTTER Temperature 36.3 C (97.4 F) 07/27/2021 3:53 PM JOURNEYMAN MEAT CUTTER Respiratory Rate 32 07/27/2021 3:53 PM JOURNEYMAN MEAT CUTTER Oxygen Saturation 100% 07/27/2021 5:50 PM JOURNEYMAN MEAT CUTTER Inhaled Oxygen Concentration - - Weight 57.2 kg (126 lb) 07/27/2021 3:53 PM JOURNEYMAN MEAT CUTTER Height 149.9 cm (4' 11) 07/27/2021 3:53 PM JOURNEYMAN MEAT CUTTER Body Mass Index 25.45 07/27/2021 3:53 PM JOURNEYMAN MEAT CUTTER Plan of Treatment Health Maintenance Due Date [...] this topic Insurance MEDICAID [place] Care Teams Senior Java Ui Developer Relationship Specialty Start Date End Date Gallo France MD [address] [place] [address] [place] [address] PCP - General President Financial Institution 07/27/21
--- OUTSIDE RECORDS SUMMARY | 2025-01-28 16:21 | XMS_ITS | Patient Health Record ---
Author Organization [facility] Address [address] [facility] [address] [place] [address] Care Team Providers Care Industrial Painter Name Role Phone Ron Galaviz Unavailable [phone] Reason For Referral No Information Medications Medication SIG (Take, Route, Frequency, Duration) Notes Start Date End Date Status Doxycycline Hyclate 100 MG Tablet Oral Active HYDROcodone-Acetaminophen 5-325 MG Tablet Oral Active methylPREDNISolone 4 MG Tablet Therapy Pack Oral Active Amoxicillin-Pot Clavulanate 875-125 MG Tablet Oral Active Ofloxacin 0.30% Solution Otic Active Benzonatate 100 MG Capsule Oral Active Cyclobenzaprine HCl 10 MG Tablet Oral Active Famotidine 20 MG Tablet Oral Active Atorvastatin Calcium 40 MG Tablet Oral Active Dicyclomine HCl 20 MG Tablet Oral Active amLODIPine Besylate 10 MG Tablet Oral Active Atorvastatin Calcium 20 MG Tablet Oral Active RABEprazole Sodium 20 MG Tablet Delayed Release Oral Activ e FLUBLOK QUAD (PF) 180 MCG (45 MCG X 4)/0.5 ML IM SYRINGE *Reorder from Twitch for eRx and Interaction Alerts* Active busPIRone HCl 7.5 MG Tablet Oral Active Etodolac 300 MG Capsule Oral Active Atorvastatin Calcium 80 MG Tablet Oral Active Social History Social History Additional Details Category Social Info Options Details Migrated Social History Migrated Social History Tobacco Years: Former smoker 05/14/2020 Plan Of Treatment No Information Insurance Providers Payer Name Payer Address Payer Phone Subscriber Number Group Number Insured Name Patient Relationship to Insured Coverage Start Date Coverage End Date [employer] [address] [place] [address] [id number] HEIDI BARRETT Self - patient is the insured
[2025-01-28 16:54] LABS: Hematocrit 30.9 % (37.0-47.0); Hemoglobin 9.3 g/dL (12.0-15.0); Immature Granulocyte Percent A 0.3 % (0-0.5); Lymphocytes Absolute Auto 2.01 K/mm3 (0.9-3.2); Mean Corpuscular HGB Conc 30.1 g/dl (32-36); Mean Corpuscular Hemoglobin 27.8 pg (26-34); Mean Corpuscular Volume 92.2 fl (80-100); Nucleated Red Blood Cells Absolute Auto 0.000 K/mm3 (0.0-0.012); Nucleated Red Blood Cells Perc 0.0 % (0.0-0.2); Platelet Count Result 225 k/mm3 (150-375); Red Blood Count 3.35 M/mm3 (4.2-5.4); White Blood Count 6.0 K/mm3 (4.5-10.0)
[2025-01-28 17:20] LABS: Alanine Aminotransferase 10 U/L (6-35); Albumin Level 3.8 g/dL (3.5-5.1); Alkaline Phosphatase 111 U/L (38-126); Anion Gap 6 mmol/L (4-12); Aspartate Amino Transferase 16 U/L (14-36); Bilirubin,Total 0.2 mg/dL (0.2-1.3); Blood Urea Nitrogen 18 mg/dL (7-17); Calcium 9.2 mg/dL (8.4-10.2); Carbon Dioxide 25 mmol/L (22-30); Chloride 107 mmol/L (98-107); Estimated Glomerular Filt Rate > 60; Glucose 102 mg/dL (65-110); Potassium 4.4 mmol/L (3.4-5.0); Sodium 138 mmol/L (137-145); Total Protein 6.4 g/dL (6.3-8.2)
[2025-01-28 17:35] LABS: Schistocytes None Seen
[2025-01-28 17:36] LABS: Band Neutrophils Percent 0 % (0-6); Hypochromasia 1+
[2025-01-28 17:37] LABS: Anisocytosis 1+
[2025-01-28 18:14] LABS: Vitamin B12 234.0 pg/mL (239-931)
== END 2025-01-28 16:18 | disposition home or self-care (01) ==
PROVIDERS: PCP Family Medicine; Referring Provider Nurse Practitioner Adult Health; Visit Provider Family Medicine
DX: E78.2 Mixed hyperlipidemia (principal); I10 Essential (primary) hypertension; E66.9 Obesity, unspecified; E61.1 Iron deficiency; J45.909 Unspecified asthma, uncomplicated; I95.9 Hypotension, unspecified
CPT/HCPCS: 36415; 80053; 82607; 85025

== ENCOUNTER 2025-03-12 16:04 | Outpatient (CLI) | payer MEDICARE, MEDICAID, SELFPAY ==
[2025-03-12 16:51] LABS: Hematocrit 38.8 % (37.0-47.0); Hemoglobin 12.0 g/dL (12.0-15.0); Immature Granulocyte Percent A 0.3 % (0-0.5); Lymphocytes Absolute Auto 1.75 K/mm3 (0.9-3.2); Mean Corpuscular HGB Conc 30.9 g/dl (32-36); Mean Corpuscular Hemoglobin 27.0 pg (26-34); Mean Corpuscular Volume 87.4 fl (80-100); Nucleated Red Blood Cells Absolute Auto 0.000 K/mm3 (0.0-0.012); Nucleated Red Blood Cells Perc 0.0 % (0.0-0.2); Platelet Count Result 215 k/mm3 (150-375); Red Blood Count 4.44 M/mm3 (4.2-5.4); White Blood Count 6.2 K/mm3 (4.5-10.0)
[2025-03-12 17:54] LABS: Vitamin B12 746.0 pg/mL (239-931)
--- OUTSIDE RECORDS SUMMARY | 2025-03-12 19:42 | XMS_ITS | Clinical Summary ---
Author Organization [facility] Address [address] [place] [address] Care Team Providers Care Pulmonary Disease Specialist Name Role Phone Taty West PA Unavailable [phone] Esperanza Moffett NP Unavailable Ranjan Watson MD Primary Care Provider [phone] Allergies No known active allergies Medications aspirin 81 mg chewable tablet Take 1 tablet (81 mg total) by mouth daily Active atorvastatin (LIPITOR) 40 mg tablet Take 1 tablet (40 mg total) by mouth daily Active albuterol HFA (PROVENTIL HFA,VENTOLIN HFA,PROAIR HFA) 90 mcg/actuation inhaler INHALE 2 PUFFS BY MOUTH FOUR TIMES DAILY NEEDED FOR SHORTNESS OF BREATH 8 Active pregabalin (LYRICA) 100 mg capsule Take [...] iron) tablet Take by mouth 9 Active nitroglycerin (NITROSTAT) 0.4 mg SL tabletIndication s:Chest tightness PLACE 1 TABLET UNDER THE TONGUE EVERY 5 MINUTES NEEDED FOR CHEST PAIN(MAX= 3 TABLETS) 50 tablet 5 Active QUEtiapine (SEROquel) 25 mg tablet Take 1 tablet (25 mg total) by mouth nightly Active levETIRAcetam (KEPPRA) 500 mg tabletIndication s: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) TAKE 1 TABLET(500 MG) BY MOUTH TWICE DAILY 60 tablet 5 5 Active Active Problems Problem Noted Date Diagnosed Date Dizziness 09/20/2024 Coronary artery disease invo lving platinum coronary artery of platinum heart without angina pectoris 06/21/2024 Tobacco abuse [...] Encounters Date Type Department Care Team Description 02/01/2025 Telephone [facility] Cardiology [address] [place] [address] Sandy Zuniga NP 01/28/2025 3:30 PM CDT Office Visit [facility] Cardiology [address] [place] [address] Sandy Zuniga NP Hypotension, unspecified hypotension type (Primary Dx); Urinary tract infection without hematuria, site unspecified 01/03/2025 Telephone [facility] Cardiology [address] [place] [address] Jl Demarco MD from Last [...] on file 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 Gender Identity Not on file Sexual Orientation [...] 2 - PCV) 02/28/2019 02/28/2018 Covid-19 Vaccine ( - 2024-2 6 season) 2025 02/22/2022, 01/27/2021, 01/06/2021, Additional history exists Influenza Vaccine (#1) 2025 , 04/22/2021, 03/01/2020, Additional history exists Procedures Procedure Name Priority Date/Time Associated Diagnosis Comments BASIC METABOLIC PANEL Routine 01/28/2025 Hypotension, unspecified hypotension type from Last 3 Months Results * Basic metabolic panel (01/28/2025) SCRIBED Sodium 138 135 - 145 mmol/L EXTERNAL LAB SCRIBED Potassium 4.4 3.3 - 5.2 mmol/L EXTERNAL LAB SCRIBED Chloride 107 97 - 110 mmol/L EXTERNAL LAB SCRIBED Carbon Dioxide 25 22 - 32 mmol/L EXTERNAL LAB SCRIBED Anion Gap 6 2 - 15 mmol/L EXTERNAL LAB SCRIBED Urea Nitrogen (BUN) 18 6 - 25 mg/dL EXTERNAL LAB SCRIBED Creatinine 0.77 0.60 - 1.10 mg/dL EXTERNAL LAB SCRIBED Glucose 102 70 - 199 mg/dL EXTERNAL LAB SCRIBED Calcium 9.2 8.5 - 10.3 mg/dL EXTERNAL LAB SCRIBED eGFR >60 >60 mL/min/1.7 3 m2 EXTERNAL LAB Blood 01/28/2025 us Sandy Zuniga NP LAB BLOOD ORDERABLES Marybel vallecillo Result EXTERNAL LAB from Last 3 Months Insurance IDPA IDPA [facility] [employer] ADVANTAGE Advance Directives For more information, please contact: [phone] * Full Code (Latest Code Status on File) Date Activated Date Inactivated Comments 09/24/2023 12:54 AM 09/26/2023 7:18 PM * Full Code Date Activated Date Inactivated Comments 12/17/2020 6:54 AM 12/18/2020 10:48 PM Care Teams Pulmonary Disease Specialist Relationship Specialty Start Date End Date Ranjan Watson MD [address] [place] [address] PCP - General Family Practice 06/21/24 Taty West PA [address] [place] [address] [place] [address] Gastroenterology 09/26/23 Esperanza Moffett, THERMOMETER TESTER [address] [place] [address] [place] [address] Neurology 09/26/23
--- OUTSIDE RECORDS SUMMARY | 2025-03-12 19:42 | XMS_ITS | Clinical Summary ---
Author Organization [facility] [employer] Address [address] [place] [address] Care Team Providers Care Casing Inspector Name Role Phone Chay Peñaloza MD Primary Care Provider [phone] Source Comments [facility] [employer],non-owned Affiliates and Associated Physician Practices is amultiple site organization consisting of ambulatory clinics and hospital sitesin [place], [place], [place] and [place]. This disclosure is being madepursuant to the Care Everywhere program and may not contain all information available regarding this patient. Last updated 18.[facility] [employer] Allergies No known active allergies Medications [...] mg by mouth 2 times daily Active [place]-3 Fatty Acids (FISH OIL PO) Active Social History Tobacco Use Types Packs/Day Years Used Date Smoking Tobacco: Passive Smo ke Exposure - Never Smoker Smokeless Tobacco: Never Comments No Sex and Gender Information Value Date Recorded Sex Assigned at Not on file Legal Sex Female 6:28 PM COOKER OPERATOR Gender Identity Not on file Sexual Orientation Not on file Last Filed Vital Signs Vital Sign Reading Time Taken Comments Blood Pressure 128/76 08/01/2020 7:28 PM COOKER OPERATOR Pulse 102 08/01/2020 7:28 PM COOKER OPERATOR Temperature 36.7 C (98.1 F) 08/01/2020 7:28 PM COOKER OPERATOR Respiratory Rate 20 08/01/2020 7:28 PM COOKER OPERATOR Oxygen Saturation 92% 08/01/2020 7:28 PM COOKER OPERATOR Inhaled Oxygen Concentration - - Weight 73.5 kg (162 lb) 05/28/2017 11:53 AM COOKER OPERATOR Height 149.9 cm (4' 11) 05/28/2017 11:53 AM COOKER OPERATOR Body Mass Index 32.72 05/28/2017 11:53 AM COOKER OPERATOR Plan of Treatment Health Maintenance Due [...] age to complete this topic Insurance [facility] [facility] Care Teams Casing Inspector Relationship Specialty Start Date End Date Chay Peñaloza MD [address] [facility] [address] [place] [address] PCP - General 08/11/21
--- OUTSIDE RECORDS SUMMARY | 2025-03-12 19:42 | XMS_ITS | Encounter Summary ---
Author Organization [facility] Address [address] [place] [address] Care Team Providers Care Planting Material Carrier Name Role Phone Taty West Unavailable [phone] Esperanza Moffett NP Unavailable [phone] Darnell Blanchard Primary Care Provider + Ranjan Watson MD Primary Care Provider [phone] Encounter Details Date Type Department Care Team (Late st Contact Info) Description 06/07/2024 Orders Only [facility] [place] [address] [place] [address] David Perera MD [address] [place] [address] Social History Tobacco Use Types [...] on file 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 Gender Identity Not on file Sexual [...] on filedocumented in this encounter Care Teams Planting Material Carrier Relationship Specialty Start Date End Date Darnell Blanchard PA [address] [place] [address] PCP - General Internal Medicine 10/13/23 06/20/24 Ranjan Watson MD [address] [facility] [place] [address] PCP - General Family Practice 06/21/24 Taty West PA [address] [place] [address] [address] [place] [address] Gastroenterology 09/26/23 Esperanza Moffett NP [address] [place] [address] [address] [place] [address] Neurology 09/26/23 documented as of this encounter
--- OUTSIDE RECORDS SUMMARY | 2025-03-12 19:43 | XMS_ITS | Clinical Summary ---
Author Organization [facility] Address [address] [place] [address] Phone Care Team Providers Care Investment Associate Name Role Phone Gallo France MD Primary Care Provider [phone]- [phone] Allergies No known active allergies Medications HYDROcodone-jagdish [...] Comments Blood Pressure 119/55 07/27/2021 5:50 PM RETURNED GOODS INSPECTOR Pulse 97 07/27/2021 5:50 PM RETURNED GOODS INSPECTOR Temperature 36.3 C (97.4 F) 07/27/2021 3:53 PM RETURNED GOODS INSPECTOR Respiratory Rate 32 07/27/2021 3:53 PM RETURNED GOODS INSPECTOR Oxygen Saturation 100% 07/27/2021 5:50 PM RETURNED GOODS INSPECTOR Inhaled Oxygen Concentration - - Weight 57.2 kg (126 lb) 07/27/2021 3:53 PM RETURNED GOODS INSPECTOR Height 149.9 cm (4' 11) 07/27/2021 3:53 PM RETURNED GOODS INSPECTOR Body Mass Index 25.45 07/27/2021 3:53 PM RETURNED GOODS INSPECTOR Plan of Treatment Health Maintenance Due Date [...] this topic Insurance MEDICAID [place] Care Teams Investment Associate Relationship Specialty Start Date End Date Gallo France MD [address] [place] [address] [place] [address] PCP - General Lead Rider 07/27/21
== END 2025-03-12 16:05 | disposition home or self-care (01) ==
LOC: ANHLAB 16:04
PROVIDERS: PCP Family Medicine; Visit Provider Family Medicine
DX: M54.50 Low back pain, unspecified (principal); I10 Essential (primary) hypertension; D64.9 Anemia, unspecified
CPT/HCPCS: 36415; 82607; 85025

== ENCOUNTER 2025-04-17 00:11 | Day surgery (SDC) | payer MEDICARE, MEDICAID, SELFPAY ==
[2025-04-09 10:39] VITALS: BMI 35.6
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
--- OUTSIDE RECORDS SUMMARY | 2025-04-17 00:20 | XMS_ITS | Clinical Summary ---
Author Organization [facility] Address [address] [place] [address] Phone Care Team Providers Care Sharepoint Trainer Name Role Phone Gallo France MD Primary Care Provider [phone]- [phone] Allergies No known active allergies Medications HYDROcodone-jagdish [...] Comments Blood Pressure 119/55 07/27/2021 5:[address] SUPERVISOR Pulse 97 07/27/2021 5:[address] GANG SUPERVISOR Temperature 36.3 C (97.4 F) 07/27/2021 3:[address] GANG SUPERVISOR Respiratory Rate 32 07/27/2021 3:[address] GANG SUPERVISOR Oxygen Saturation 100% 07/27/2021 5:[address] GANG SUPERVISOR Inhaled Oxygen Concentration - - Weight 57.2 kg (126 lb) 07/27/2021 3:[address] GANG SUPERVISOR Height 149.9 cm (4' 11) 07/27/2021 3:[address] GANG SUPERVISOR Body Mass Index 25.45 07/27/2021 3:[address] GANG SUPERVISOR Plan of Treatment Health Maintenance Due Date Last Done Comments Hepatitis C Virus (HCV) Screening 1963 TdaP Immunization 1963 Varicella Immunization (1 of 2 - 13+ 2-dose series) 1976 Cologuard 2008 Colonoscopy 2008 Colorectal Cancer Screening 2008 Immunochemical Fecal Occult Blood 2008 Zoster Immunization (2 of 2) 03/06/2018 01/09/2018, 11/07/2017 Pneumococcal Immunization (50+ years) (2 of 2 - PCV) 02/28/2019 02/28/2018 Influenza Immunization (#1) 2025 12/0 05/2020, 03/01/2020, 02/10/2019, Additional history exists SARS-COV-2 Immunization ( season) 2025 01/27/2021, 01/06/2021, 07/28/2020 Respiratory Syncytial [...] age to complete this topic Insurance MEDICAID [place] Care Teams Sharepoint Trainer Relationship Specialty Start Date End Date Gallo France MD [facility] [address] PCP - General Crime Victim Specialist 07/27/21
--- OUTSIDE RECORDS SUMMARY | 2025-04-17 00:20 | XMS_ITS | Clinical Summary ---
Author Organization [facility] Address [address] [place] [address] Care Team Providers Care Skylights Assembler Name Role Phone Taty West Unavailable [phone] Esperanza Moffett NP Unavailable [phone] Ranjan Watson MD Primary Care Provider [phone] Allergies No known active allergies Medications aspirin [...] TWICE DAILY 60 tablet 5 5 Active cyanocobalamin (Vitamin B-12) 1,000 mcg tabletIndication s:Prevention of Vitamin B12 Deficiency Take 1 tablet (1,000 mcg total) by mouth daily Active Active Problems Problem Noted Date Diagnosed Date Hypersomnolence 04/08/2025 Dizziness 09/20/2024 Coronary artery disease invo lving hoonah coronary artery of [place]oon[place] heart without angina pectoris 06/21/2024 Tobacco abuse [...] Encounters Date Type Department Care Team Description 04/15/2025 Telephone [facility] Cardiology [address] [place] [address] [place] [phone] Jl Demarco MD 04/08/2025 10:45 AM BURLAP SPREADER Office Visit [facility] Cardiology [address] [place] [address] [place] [phone] Jl Demarco MD Coronary artery disease involving hoonah coronary artery of [place]oon[place] heart without angina pectoris (Primary Dx); Hyperlipidemia LDL goal <70; Nonrheumatic mitral valve regurgitation; Primary hypertension; Tobacco abuse; Hypersomnolence; Dizziness 02/01/2025 Telephone [facility] Cardiology [address] [place] [address] [place] [phone] Sandy Zuniga NP 01/28/2025 3:30 PM CDT Office Visit [facility] Cardiology [address] [place] [address] [place] [phone] Sandy Zuniga NP Hypotension, unspecified hypotension type (Primary Dx); Urinary tract infection without hematuria, site unspecified from Last 3 Months Surgical History Surgery [...] on file Legal Sex Female 10:58 AM BURLAP SPREADER Gender Identity Not on file Sexual Orientation Not on file Last Filed Vital Signs Vital Sign Reading Time Taken Comments Blood Pressure 104/56 04/08/2025 10:52 AM BURLAP SPREADER Pulse 91 04/08/2025 10:52 AM BURLAP SPREADER Temperature 36.6 C (97.9 F) 12/07/2023 11:08 AM CDT Respiratory Rate 16 12/07/2023 11:08 AM CDT Oxygen Saturation 98% 04/08/2025 10:52 AM BURLAP SPREADER Inhaled Oxygen Concentration - - Weight 78.5 kg (173 lb) 04/08/2025 10:52 AM BURLAP SPREADER Height 149.9 cm (4' 11) 04/08/2025 10:52 AM BURLAP SPREADER Body Mass Index 34.94 04/08/2025 10:52 AM BURLAP SPREADER Plan of Treatment Health Maintenance Due Date [...] LAB from Last 3 Months Insurance IDPA IDMS [facility] MEDICARE ADVANTAGE Advance Directives For more information, please contact: [phone] * Full Code (Latest Code Status on File) Date Activated Date Inactivated Comments 09/24/2023 12:54 AM 09/26/2023 7:18 PM * Full Code Date Activated Date Inactivated Comments 12/17/2020 6:54 AM 12/18/2020 10:48 PM Care Teams Skylights Assembler Relationship Specialty Start Date End Date Ranjan Watson MD [address] [facility] [place] [address] PCP - General Family Practice 06/21/24 Taty West PA [address] [place] [address] [address] [place] [address] Gastroenterology 09/26/23 Esperanza Moffett NP [address] [place] [address] [address] [place] [address] Neurology 09/26/23
--- OUTSIDE RECORDS SUMMARY | 2025-04-17 00:20 | XMS_ITS | Clinical Summary ---
Author Organization [facility] [employer] Address [address] [facility] [place] [address] Care Team Providers Care Gear Room Keeper Name Role Phone Chay Peñaloza MD Primary Care Provider [phone] Source Comments [facility] [employer]non-owned Affiliates and Associated Physician Practices is amultiple site organization consisting of ambulatory clinics and hospital sitesin [place], [place], [place] and [place]. This disclosure is being madepursuant to the Care Everywhere program and may not contain all information available regarding this patient. 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 Sex Female 6:28 PM PARTNER MANAGER Gender Identity Not on file Sexual Orientation Not on file Last Filed Vital Signs Vital Sign Reading Time Taken Comments Blood Pressure 128/76 08/01/2020 7:28 PM PARTNER MANAGER Pulse 102 08/01/2020 7:28 PM PARTNER MANAGER Temperature 36.7 C (98.1 F) 08/01/2020 7:28 PM PARTNER MANAGER Respiratory Rate 20 08/01/2020 7:28 PM PARTNER MANAGER Oxygen Saturation 92% 08/01/2020 7:28 PM PARTNER MANAGER Inhaled Oxygen Concentration - - Weight 73.5 kg (162 lb) 05/28/2017 11:53 AM PARTNER MANAGER Height 149.9 cm (4' 11) 05/28/2017 11:53 AM PARTNER MANAGER Body Mass Index 32.72 05/28/2017 11:53 AM PARTNER MANAGER Plan of Treatment Health Maintenance Due [...] 04/14/1981 DTAP/TDAP/TD VACCINES (1 - Tdap) 1982 PAP SMEAR 1984 Cervical Cancer Screening 1993 PAP with HPV 1993 PNEUMOCOCCAL VACCINE 50+ (1 of 1 - [...] to complete this topic Insurance [facility] [place] Address: [facility] [id number] [place] [address] [facility] Care Teams Gear Room Keeper Relationship Specialty Start Date End Date Chay Peñaloza MD [address] [facility] [address] [place] [address] PCP - General 08/11/21
--- OUTSIDE RECORDS SUMMARY | 2025-04-17 00:20 | XMS_ITS | Encounter Summary ---
Author Organization [facility] Address [address] [place] [address] Care Team Providers Care Laborer Pie Bakery Name Role Phone Taty West Unavailable [phone] Esperanza Moffett NP Unavailable [phone] Darnell Blanchard Primary Care Provider + Ranjan Watson MD Primary Care Provider [phone] Encounter Details Date Type Department Care Team (Late st Contact Info) Description 06/07/2024 Orders Only [facility] Health Information Management [address] [place] [address] David Perera MD [address] [place] [address] Social History Tobacco Use Types [...] on file 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 Gender Identity Not on file Sexual Orientation [...] on filedocumented in this encounter Care Teams Laborer Pie Bakery Relationship Specialty Start Date End Date Darnell Blanchard PA [address] [place] [address] PCP - General Internal Medicine 10/13/23 06/20/24 Ranjan Watson MD [address] [facility] [place] [address] PCP - General Family Practice 06/21/24 Taty West PA [address] [place] [address] [address] [place] [address] Gastroenterology 09/26/23 Esperanza Moffett NP [address] [place] [address] [address] [place] [address] Neurology 09/26/23 documented as of this encounter
--- OUTSIDE RECORDS SUMMARY | 2025-04-17 00:20 | XMS_ITS | Patient Health Record ---
Author Organization [facility] Address [address] [place] [address] Care Team Providers Care Manager Engagement Name Role Phone Chay Peñaloza Primary Care Provider [phone] Allergies No Known Allergies Reason For Referral No Information Medications Medication [...] W/U Status Risk Notes Problem Tobacco user (594246983) Nicotine dependence, unspecified, uncomplicated (F17.200) Active confirmed Problem Mood disorder (81751557) Mood disorder (F39) 4 Active confirmed Problem Chronic pain (13072000) Chronic pain (G89.29) Active confirmed Plan Of Treatment No Information Insurance Providers Payer Name Payer Address Payer Phone Subscriber Number Group Number Insured Name Patient Relationship to Insured Coverage Start Date Coverage End Date MEDICAID [address] [facility] [place] [address] [id number] Ginna Allan Self - patient is the insured [address] [address] [id number] Ginna Allan Self - patient is the insured 4 4 [facility] [address] [place] [address] [id number] Ginna Allan Self - patient is the insured 4 Medical (General) History Surgical History Surgery Date(Month/Year) appendectomy tonsillectomy right knee repair 2c-section partial hysterectomy bilateral carpel tunnel ulner nerve release slap tear repair right shoulder Hospitalization History Reason Date(Month/Year) seizure 09/2023 Covid
--- OUTSIDE RECORDS SUMMARY | 2025-04-17 00:21 | XMS_ITS | Data Portability ---
Author Organization [place] - [facility], Main Office Address [address] [place] [address] Care Team Providers Care Coal Hauler Name Role Phone ANDREE BLANCHARD Primary Care Provider ANDREE BLANCHARD Referring Provider [phone] Assessment No assessment recorded. Plan of Treatment Reminders Order Date Submit Date Provider Last Modified By Organization Details Last Modified Time Details Appointments None recorded. Lab vitamin B12 + folate, serum or blood 2023 024 [facility] 2 [facility] (Lab), [address] [place], [address], 4 08:35:23 vitamin D, 25-hydroxy, total, serum 2023 024 [email or web address] 2 [facility] (Lab), [address] [place], [address], 4 08:35:23 magnesium, serum or plasma 2023 024 [email or web address] 2 [facility] (Lab), [address] [place], [address], 4 08:35:23 lipid panel, serum 2023 024 [facility] 2 [facility] (Lab), [address] [place], [address], 4 08:35:23 CMP, serum or plasma 2023 024 [email or web address] 2 [facility] (Lab), [address] [place], [address], 4 08:35:23 CK (creatine kinase), total, serum 2023 024 [email or web address] 2 [facility] (Lab), [address] [place], [address], 4 08:35:24 TSH, serum or plasma 2023 024 [email or web address] 2 [facility] (Lab), [address] [place], [address], 4 08:35:24 CBC w/ auto diff 2023 024 [email or web address] 2 [facility] (Lab), [address] [place], [address], 4 08:35:24 glycohemogl obin, total, blood 2023 024 [email or web address] 2 [facility] (Lab), [address] [place], [address], 4 08:35:24 Referral physical therapist referral - sciatica, physical therapy has helped before Please call pt to schedule 2023 024 [email or web address] 256 [facility], [address], [place], [address], 4 08:53:59 cardiologis t referral - BP drops suddenly . Please eval and treat. Please call patient to schedule an appointment . Thank you 2023 024 [email or web address] [facility] Referral Fax Line, [address], [place], [address], 4 08:45:29 neurologist referral - Frequent falls. Please eval and treat. Please call patient to schedule an appointment . Thank you 2023 024 [email or web address] Otto Douglas MD, [address], [place], [address], 4 08:50:[address] referral - vascular lesion left forearm . Please biopsy . Please call patient to schedule an appointment . Thank you 2023 024 [email or web address] [facility], [address] [facility], [place], [address], 4 08:51:58 pain management referral - BULGING DISCS LUMBAR RADICULOPAT HY. Please call patient to schedule appointment . 2023 024 [email or web address] Rogers Herrera MD, [address] [facility] , [place], [address], 4 08:57:06 Procedures None recorded. Surgeries None recorded. Imaging MAMMO, screening, digital, bilateral - *Please call pt to schedule* 2023 024 [email or web address] 256 [facility], [address] [place] [address] Dr, [place], [address], 4 09:57:50 MRI, brain + brain stem, w/wo contrast - *Please call pt to schedule* 2023 024 [email or web address] 256 [facility] (Radiology), [address] [place], [address], 4 09:21:44 Medication Orders Chantix Starting Month Box 0.5 mg (11)-1 mg (42) tablets in dose pack 2023 024 [facility] #61388, [address] [facility], [place], [place], [id number], 4 09:45:34 hydrocodone 5 mg-acetamin ophen 325 mg tablet 2023 024 [facility] #48016, [address] [place], [place], [id number], 4 09:33:20 hydrocodone 5 mg-acetamin ophen 325 mg tablet 2023 024 [email or web address], [address] [place], [place], [id number], 4 09:14:13 ferrous sulfate 325 mg (65 mg iron) tablet 2023 024 [facility] #36487, [address] [place], [place], [id number], 4 10:18:55 naproxen 500 mg tablet 2023 024 [facility] #59406, [address] [place], [place], [id number], 4 10:22:44 cyclobenzap rine 10 mg tablet 2023 024 [facility] #95290, [address] [place], [place], [id number], 4 10:18:58 aripiprazol e 2 mg tablet 2023 024 [facility] #35665, [address] [place], [place], [id number], 4 10:18:56 triamcinolo ne acetonide 0.1 % topical ointment 2023 024 [facility] #33616, [address] [place], [place], [id number], 4 10:25:00 hydrocodone 5 mg-acetamin ophen 325 mg tablet 2023 024 [facility] #68966, [address] [place], [place], [id number], 4 09:14:13 aripiprazol e 2 mg tablet 2023 024 [email or web address] 200 [facility] #35691, [address] [place], [place], [id number], 4 10:50:23 Chantix Starting Month Box 0.5 mg (11)-1 mg (42) tablets in dose pack 2023 024 [facility] #04643, [address] [place], [place], [id number], 4 10:00:23 hydrocodone 5 mg-acetamin ophen 325 mg tablet 2023 024 [facility] #22362, [address] [place], [place], [id number], 4 09:14:13 Contrave 8 mg-90 mg tablet,exte nded release 2023 024 [facility] #65606, [address] [place], [place], [id number], 4 09:57:51 Depo-Medrol 80 mg/mL suspension for injection 2023 024 [email or web address] Not available 4 10:03:41 duloxetine 60 mg capsule,del ayed release 2023 024 [facility] #94244, [address] [place], [place], [id number], 4 09:31:30 Rexulti 0.5 mg tablet 2023 024 [facility], [address] [place], [id number], 09:59:43 Patient TargetsNo targets recorded. Patient Instructions Encounter Date Encounter Id Patient Instructions Last Modified By Organization Details Last Modified Time 05/26/2023 [id number] recheck BP here free in 7 days [email or web address] Not available 05/28/2023 17:34:41 07/25/2023 [id number] recheck BP on own [email or web address] Not avai lable 07/31/2023 16:35:11 01/19/2024 [id number] counseled , wrot e down book [employer] ......, get a therapist , sarah shelton . call neuro about her falls , she has his number . she has a walker. 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 [email or web address] Not available 01/23/2024 15:58:47 Reason for Referral Pain Management Referral for Prolapsed lumbar intervertebral disc BULGING DISCS LUMBAR RADICULOPATHY. Please call patient to schedule appointment. Referring Physician: Family Sendy Pavon, Encounter Date: 05/26/2023 Neurologist Referral for Rec urrent falls Frequent falls. Please eval and treat. Please call patient to schedule an appointment. Thank you Referring Physician: Family Sendy Pavon, Encounter Date: 08/31/2023 Domain Architect Referral for S kin lesion vascular lesion left forearm . Please biopsy . Please call patient to schedule an appointment. Thank you Referring Physician: Family Sendy Pavon, Encounter Date: 08/31/2023 Nurses Assistant Referral for He art murmur BP drops [...] more view No observ ation record ed. [email or web address] [facility] [address] [facility] [address], [place], [address], 08/04/2023 10:51:12 07/25/19 24 07/25/2023 CT, abdom en + pelvi s, w/ contr ast No observ ation record ed. [email or web address] [facility] [address], [place], [address], 08/31/2023 10:16:35 05/04/20 24 05/03/2024 XR, chest , 2 view No observ ation record ed. [email or web address] [facility] [address] [facility] [address], [place], [address], 05/11/2024 09:25:09 Result Notes None recorded. Problems Name Problem SNOMED Code Status Onset Date Resolution Date Notes Provider Name and Address Organization Details Recorded Time Hyperchole sterolemia 23531739 Active 2020 Not Available [facility] 3 08:10:17 Asthma 862752513 Active 2020 Not Available [facility] 3 08:10:17 Gastroesop hageal reflux disease 198923248 Active 2020 Not Available [facility] 3 08:10:17 Depressive disorder 99889242 Active 2020 Not Available [facility] 3 08:10:18 Hypertensi ve disorder 71992745 Active 2020 Not Available [facility] 3 08:10:18 Anxiety 74545102 Active 2020 Not Available [facility] 3 08:10:18 Pulmonary emphysema 08317092 Active 2020 Not Available [facility] 3 08:10:18 Heart murmur 31388288 Active 2020 Not Available [facility] 3 08:10:18 Seizure 68757691 Active 2020 Not Available [facility] 3 08:10:18 Pain of left hand 3594180661108 03 Active 2021 Not Available [facility] 3 08:10:18 Contusion of left hand 8013633448768 9109 Active 2021 Not Available [facility] 3 08:10:17 Complex regional pain syndrome 895287325 Active 2021 Not Available [facility] 3 08:10:17 Carpal tunnel syndrome of left wrist 2170604541144 02 Active 2021 Not Available [facility] 3 08:10:18 Carpal tunnel syndrome 44717834 Active 2021 Not Available [facility] 3 08:10:18 Pain of left hip joint 6464104442892 00 Active 2021 Not Available [facility] 3 08:10:18 Trochanter ic bursitis of left hip 3041486293003 03 Active 2021 Not Available [facility] 3 08:10:18 Pain of left thigh 9138632754673 05 Active 2022 Not Available [facility] 3 08:10:18 Pain of left calf 5568434304764 109 Active 2022 Not Available [facility] 3 08:10:17 Overweight 332279241 Active 2022 Not Available [facility] 3 08:10:18 Acute sinusitis 49928823 Active 2022 Not Available [facility] 3 08:10:17 Lumbago with sciatica 704479790 Active 2022 Not Available [facility] 3 08:10:17 Spinal stenosis of lumbar region 60318779 Active 2022 Not Available [facility] 3 08:10:17 Acute serous otitis media of right ear 1933917194854 105 Active 2022 Not Available [facility] 3 08:10:17 Pain of left knee joint 3303816550564 07 Active 2022 Not Available [facility] 3 08:10:18 Obesity 264013200 Active 2022 Not Available [facility] 3 08:10:18 Swelling of lower leg 222662213 Active 2022 Not Available [facility] 3 08:10:18 Chronic low back pain 186294866 Active 2022 Not Available [facility] 3 08:10:18 Chronic neck pain 1042911537426 Active 2022 Not Available [facility] 3 08:10:17 Nausea 901194283 Active 2022 Not Available [facility] 3 08:10:18 Urinary symptoms 513244611 Active 2022 Not Available [facility] 3 08:10:18 Lumbosacra l radiculopa thy 7664207 Active 2022 Not Available [facility] 3 08:10:18 Acute folliculit is 810234106 Active 2022 Not Available [facility] 3 08:10:17 Acute serous otitis media of left ear 5898506228030 101 Active 2022 Not Available [facility] 3 08:10:17 Diarrhea 14679586 Active 2022 Not Available [facility] 3 08:10:18 Pain in left lower limb 483043560 Active 2022 Not Available [facility] 3 08:10:18 Neuropathy 777932247 Active 2022 Not Available [facility] 3 08:10:18 Hyperlipid emia 91052783 Active 2022 Not Available [facility] 3 08:10:18 Bronchitis 38323626 Active 2022 Not Available [facility] 3 08:10:18 Nicotine dependence 99433047 Active 2023 [facility] [address] [facility] [facility] [address], [place], [address] , [place] [facility] 4 09:32:47 Prolapsed lumbar interverte bral disc 725918235 Active 2023 [facility] [address], [place], [address] , [employer] [facility] 4 09:39:23 Recurrent falls 930201209 Active 2023 [facility] [address], [place], [address] , [employer] [facility] 4 10:17:05 Skin lesion 44892310 Active 2023 [facility] [address], [place], [address] , [employer] [facility] 4 10:24:00 Spasm 35424122 Active 2023 [facility] [address], [place], [address] , [employer] [facility] 4 09:24:33 Screening for malignant neoplasm of breast Active 2023 [facility] [address], [place], [address] , [employer] [facility] 4 09:29:49 At increased risk of nutritiona l deficit 802908144 Active 2023 [facility] [address], [place], [address] , [employer] [facility] 4 09:36:48 Hypotensiv e syncope 98378629 Active 2023 [facility] [address], [place], [address] , [employer] [facility] 4 09:39:50 Obese 649543590 Active 2023 [facility] [address], [place], [address] , [employer] [facility] 4 16:03:03 Fracture of phalanx of foot 24958199 Active 2023 Paul Jolly RN null, [employer] [facility] 4 14:39:34 Dysuria 99715709 Active 2023 [facility] [address], [address], [place], [address] , [employer] [facility] 4 17:12:29 Adult health examinatio n Active 2023 [facility] [address], [place], [address] , [email or web address] 09:58:15 Normal grief reaction 249544584 Active 2023 [facility] [address], [place], [address] , [employer] 10:10:33 Problem Notes None recorded. Procedures Surgical History Date Name Laterality Status Provider Name and Address Organization Details Recorded Time 02/15/20 Family Practice Trigger Point Injection completed Gallo France MD [address], [place], [address], [email or web address] 02/14/2023 18:35:31 10/13/19 Family Practice Trigger Point Injection completed Gallo France MD [address], [place], [address], [email or web address] 10/12/2022 18:26:29 Dilation and curettage completed Not Available [facility] 07/21/2022 07:41:20 Carpal tunnel completed [facility] Available [facility] 07/21/2022 07:41:20 neuroplasty of ulnar nerve at elbow completed Not Available [facility] 07/21/2022 07:41:20 Shoulder completed Not Available [facility] 07:41:20 Skin Graft completed Not Available [facility] 07/21/2022 07:41:20 Hysterectomy completed Not Available [facility] 07/21/2022 07:41:20 completed Not Available [facility] 0 07/21/2022 07:41:20 Knee completed Not Available [facility] 05/2022 07:41:20 Imaging Results None recorded. Procedure Notes None recorded. Medical Equipment None [...] Not Available dicyclomi ne 20 mg tablet active Not Available Not Available Not Available Kenalog 10 mg/mL suspensio n for injection In office injectio n administ ered by the provider 05/27 completed [facility]: [id number] 4-20 Not Available Not Available Not Available amlodipin [...] Not Available monteluka st 10 mg tablet active Not Available Not Available Not Available mupirocin 2 % topical ointment APPLY [...] Not Available Not Available No t Available pregabali n 50 mg capsule TAKE 1 [...] Available Not Available Not Available Fluzone Quad 8982-4295 60 mcg (15 mcg x 4)/0.5 mL IM suspensio n 06/15 /2021 completed Not Available Not Available Not Available Rexulti 0.5 mg tablet Take by oral route for 30 days. 08/30 completed Not Available Not Available Not Available Vitals Date Recorded Systolic And Diastolic Provider Name and Address Organization Details Last Updated DateTime 05/26/2023 188/101 mm[Hg] [facility] [address] [facility], [place], [address], [facility] 05/28/2023 17:34:24 Date Recorded Body height Body mass index (BMI) Body weight Body temperature Heart rate Oxygen saturation Provider Name and Address Organization Details Last Updated DateTime 4 149.86 cm 33.5 kg/m2 32643.3 3 g 99.5 [degF] 89 /min 97 % Kallie Lawson MA [place] [employer] [facility] [employer] 4 09:06:46 Date Recorded Body height Body mass index (BMI) Body weight Body temperature Heart rate Respiratory rate Oxygen saturation Systolic And Diastolic Provider Name and Address Organization Details Last Updated DateTime 4 149.86 cm 33.5 kg/m2 28177.3 3 g 97.7 [degF] 98 /min 20 /min 98 % 160/96 mm[Hg] Jadyn Sierra RN [facility] 4 10:35:40 Date Recorded Body height Body mass index (BMI) Body weight Body temperature Heart rate Oxygen saturation Systolic And Diastolic Provider Name and Address Organization Details Last Updated DateTime 4 149.86 cm 33.3 kg/m2 75534.7 4 g 97.8 [degF] 86 /min 98 % 138/86 mm[Hg] Mariam Jackman RN [facility] 4 10:03:26 Date Recorded Body height Body mass index (BMI) Body weight Body temperature Heart rate Oxygen saturation Respiratory rate Systolic And Diastolic Provider Name and Address Organization Details Last Updated DateTime 4 149.86 cm 31.9 kg/m2 37622.5 9 g 98.3 [degF] 79 /min 98 % 16 /min 112/80 mm[Hg] Mariam Jackman RN [facility] 4 09:16:52 Date Recorded Body height Body mass index (BMI) Body weight Body temperature Heart rate Oxygen saturation Respiratory rate Systolic And Diastolic Provider Name and Address Organization Details Last Updated DateTime 4 149.86 cm 29.3 kg/m2 78179.8 9 g 98.3 [degF] 104 /min 97 % 16 /min 202/90 mm[Hg] Mariam Jackman RN [place] [facility] 4 09:27:47 Social History Question Answer Notes LastModified by [employer] Details LastModified Time Tobacco Smoking Status Current Every Day Smoker Not Available [facility] 07/21/2022 07:41:01 What Is Your Level Of Caffeine Consumption? None [id number] Information not available 07/21/2022 In The 14 Days Before Symptom Onset, Have You Had Close Contact With A Laboratory-confirm ed COVID-19 While That Case Was Ill? No [id number] 026 Information not available 07/21/2022 In The 14 Days Before Symptom Onset, Have You Had Close Contact With A Person Who Is Under Investigation For COVID-19 While That Person Was Ill? No MIGRATION.[id number] 026 Information not available 07/21/2022 What Type Of Diet Are You Following? REGULAR MIGRATION.[id number] 026 Information not available 07/21/2022 How Much Tobacco Do You Smoke? 1 PPD MIGRATION.[id number] 026 Information not available 07/21/2022 Has Tobacco Cessation Counseling Been Provided? No MIGRATION.[id number] 026 Information not available 07/21/2022 How Many Years Have You Smoked Tobacco? 46 MIGRATION.3463139 026 Information not available 07/21/2022 Have You Recently Traveled Abroad? No MIGRATION.3970234 026 Information not available 07/21/2022 Do You Have Any Dietary Restrictions? No MIGRATION.3290079 026 Information not available 07/21/2022 Sex: Unknown Functional Status Question Answer Note LastModified by [employer] Details LastModified Time Do you use any illicit or recreational drugs? No MIGRATION.[id number] 26 Information not available 07/21/2022 Do you or have you ever used any other forms of tobacco or nicotine? No MIGRATION.48745045 26 Information not available 07/21/2022 What is your level of alcohol consumption? None MIGRATION.75901834 26 Information not available 07/21/2022 What is your exercise level? Moderate MIGRATION.27147950 26 Information not available 07/21/2022 Mental Status None recorded. Family History Relationship Description Onset Age of this Age Resolved Age Notes LastModified by Organization Details LastModified Time Mother Family history of malignant neoplasm [id number].028 [id number] Not available 07/21/2022 07:41:22 Maternal Grandmother Family history of malignant neoplasm MIGRATION.925 [id number] Not available 07/21/2022 07:41:22 Maternal Aunt Family history of malignant neoplasm MIGRATION.456 [id number] Not available 07/21/2022 07:41:22 Sister Family history of malignant neoplasm MIGRATION.929 [id number] Not available 07/21/2022 07:41:22 Sister Leukemia MIGRATION.425 [id number] Not available 07/21/2022 07:41:22 Unspecified Relation Leukemia MIGRATION.800 [id number] Not available 07/21/2022 07:41:22 Paternal Grandmother Family history of malignant neoplasm MIGRATION.493 [id number] Not available 07/21/2022 07:41:22 Brother Kidney stone MIGRATION.0 30 [id number] Not available 07/21/2022 07:41:22 Medical History Condition Response BLINDNESS N RHEUMATIC FEVER Y KIDNEY STONES Y BLADDER PROBLEMS N MRSA N OTHER # 1 N POLIO N LUNG DISEASE/DISORDER N RADIATION / CHEMOTHERAPY N COPD N Other # 2 N BLOOD DISEASES N SURGERY Y EAR OR HEARING PROBLEMS N MUMPS N BOWEL PROBLEMS Y FEMALE PROBLEMS / INFECTIONS N DEPRESSION (INCLUDING POST ) Y STROKE/TIA N THYROID DISEASE N ULCERS [...] HAVE YOU BEEN HOSPITALIZED OR SEEN IN [facility] IN THE PAST YEAR ? N [...] mcg/0.3 mL dose 01/27/2021 completed Not Available [facility] 3 08:10:19 COVID-19, mRNA, LNP-S, PF, 30 mcg/0.3 mL dose 01/06/2021 completed Not Available [facility] 3 08:10:19 COVID-19 vaccine, vector-nr, rS-Ad26, PF, 0.5 mL 07/29/2020 completed Not Available [facility] 3 08:10:19 Past Encounters Encounter ID Performer Location Encounter Start Date Encounter Closed Date Diagnosis/Indication Diagnosis SNOMED-CT Code Diagnosis ICD10 Code Diagnosis IMO Codes Diagnosis Note [id number] Gallo France MD [facility] [address] [place] [address] 11/04/2020 00:00:00 11/04/2020 21:32:25 [id number] Gallo France MD [facility] [address] [place] [address] 11/17/2020 00:00:00 11/17/2020 21:36:[id number] [facility] [place] [address] [facility] [place] [address] 01/05/2021 00:00:00 01/05/2021 22:12:[id number] [facility] [place] [address] [place] [address] [place] [address] 01/14/2021 00:00:00 01/14/2021 17:31:51 [id number] [facility] General Surgery [address] [facility], [address] [address] 01/22/2021 00:00:00 01/22/2021 11:11:[id number] [facility] [place] [address] [place] [address] [place] [address] 02/12/2021 00:00:00 02/12/2021 09:55:24 [id number] [facility] [place] [address] [place] [address] [place] [address] 04/15/2021 00:00:00 04/15/2021 19:59:11 [id number] [facility] [place] [address] [place] [address] [place] [address] 04/23/2021 00:00:00 04/23/2021 19:45:[id number] [facility] [place] [address] [place] [address] [place] [address] 06/09/2021 00:00:00 06/10/2021 06:05:[id number] [facility] [place] [address] [place] [address] 06/11/2021 00:00:00 06/11/2021 19:01:56 [id number] [facility] [place] [address] [place] [address] 06/26/2021 00:00:00 06/26/2021 11:06:[id number] [facility] [place] [address] [place] [address] 07/02/2021 00:00:00 07/02/2021 18:57:55 [id number] Gallo France MD [facility] Practice [place] [address] [place] [address] [place] [address] 07/20/2021 00:00:00 07/20/2021 19:22:25 [id number] [facility] [place] [address] [facility] [address] [place] [address] 07/21/2021 00:00:00 07/21/2021 12:18:43 [id number] Gallo France MD [facility] [place] [address] [place] [address] [place] [address] 07/30/2021 00:00:00 07/30/2021 19:11:05 [id number] [facility] [place] [address] [place] [address] 08/11/2021 00:00:00 08/11/2021 12:37:[id number] [facility] [place] [address] [place] [address] 08/13/2021 00:00:00 08/13/2021 19:15:[id number] [facility] [place] [place] [address], [place] [address] 08/27/2021 00:00:00 08/27/2021 09:26:[id number] [facility]o [place] [address] [place] [address] 09/08/2021 00:00:00 09/08/2021 09:06:10 [id number] Gallo France [address] [facility] Family [facility] [place] [address] [place] [address] 09/21/2021 00:00:00 09/21/2021 11:15:[id number] [facility] [place] [address] , [place] [address] 09/30/2021 00:00:00 09/30/2021 09:12:[id number] [facility] [place] [facility] [place] [address] 12/07/2021 00:00:00 12/07/2021 18:45:05 [id number] [facility] [place] [address] [place] [address] 01/04/2022 00:00:00 01/04/2022 09:30:03 [id number] [facility] [place] [facility] [place] [address] 03/08/2022 00:00:00 03/08/2022 19:28:09 [id number] [facility] [place] [address] [place] [address] 04/06/2022 00:00:00 04/06/2022 09:40:58 [id number] Gallo France MD [facility] [place] [address] [place] [address] 04/23/2022 00:00:00 04/23/2022 18:50:45 [id number] [facility] Orth[facility] [place] [address] [place] [address] 05/18/2022 00:00:00 05/18/2022 15:43:37 [id number] Gallo France MD [facility] [place] [address] [place] [address] 05/27/2022 00:00:00 05/27/2022 20:37:24 [id number] Gallo France MD [facility] [place] [facility] [place] [address] 06/10/2022 00:00:00 06/10/2022 09:24:19 [id number] [address] [facility] [place] [address] [place] [address] 06/24/2022 00:00:00 06/24/2022 09:09:46 [id number] Gallo France MD [facility] [place] [facility] [place] [address] 07/08/2022 00:00:00 07/08/2022 19:38:43 [id number] Gallo France MD [facility] [place] [address] [place] [address] [place] [address] 08/05/2022 08:36:00 08/05/2022 09:11:17 Pain of left thigh [id number] 30034 M79.652 Use heat to area and NSAIDs Pain of left calf 632372 9288 505847 M79.662 [id number] Gallo France MD [facility] [place] [address] [place] [address] 09/24/2022 08:53:07 09/24/2022 09:23:14 Spinal stenosis of lumbar region 12072089 M48.062 Pain of left thigh 68110 29971 52252 M79.652 Use heat to area and NSAIDs Acute sero us otitis media of right ear [id number] 322232 H65.01 Pain of le ft knee joint 8692706252 21390 M25.562 Obesity 501155764 E66.9 [id number] Gallo France MD [facility] [place] [address] [place] [address] 10/12/2022 09:24:21 10/12/2022 09:55:53 Chronic neck pain 5087442552 107 M54.2 Trigger point injections done x 2 Nausea 331149862 R11.0 [id number] Gallo France MD [facility] [place] [address] [place] [address] 12/23/2022 08:58:45 12/23/2022 09:18:20 Lumbosacral radiculopathy 8078327 M54.17 Continue hydrocodon e Acute folliculitis 22463 7007 L73.9 Acute sero us otitis media of right ear 5349384762 192995 H65.01 Diarrhea 72202002 R19.7 Chronic neck pain 800624 2350 107 M54.2 f/u for trigger point injections in [id number] Gallo France MD [facility] [place] [address] [place] [address] 02/03/2023 11:04:07 02/03/2023 11:32:42 Pain in left lower limb 177875881 M79.605 Acute sinusitis 45884432 J01.90 [id number] Gallo France MD [facility] [place] [address] [place] [address] 02/14/2023 09:11:02 02/14/2023 10:13:34 Neuropathy 359264158 G62.9 Chronic low back pain 27 7278689 M54.50 Overweight 046558516 E66 .3 Pain in le ft lower limb 987127651 M79.605 Use hydrocodon e as needed. [id number] Gallo France MD [facility] [place] [facility] [place] [address] 03/15/2023 14:51:35 03/15/2023 15:45:24 Asthma 515824054 J45.909 Spasm of back muscles 20 0453278 M62.830 Overweight 669759834 E66 .3 Neuropathy 083880266 G62 .9 Will increase pregabalin to 100 mg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
--- NOTE | 2025-04-17 12:02 | SUR.PREOP ---
Note on chart stating that patient would like to speak to social media content specialist while she is here. When I asked patient about this request, she states she has already received resources and paperwork and has been in touch with someone already.
[2025-04-17 12:05] VITALS: BP 112/82; PULSE 75; RESP 16; TEMP 36.4; O2SAT 100; BMI 35.2
[2025-04-17] MEDS: LACTATED RINGERS 1,000 ML 150 ML IV CONT (12:19)
--- NOTE | 2025-04-17 13:14 | PM.IMHP ---
H&P: HPI History of Present Illness Date/Time: 04/17/25 13:14 Chief Complaint: History of colon polyps Narrative: The patient has a history of colonic polyps, the last colonoscopy was in 2016. Review of Systems Review of Systems: All systems reviewed & are unremarkable except as noted in HPI and below PMFSH Past Medical History Medical History Paroxysmal A-fib in 2019 when had COVID Rotator cuff injury Shoulder pain Shoulder injury Biceps tendonitis Rotator cuff tendinitis Rotator cuff tear Cough Obesity Tobacco abuse quit 2016 Back pain IBS (irritable bowel syndrome) Asthma Hypercholesterolemia SLAP lesion of right shoulder Pharyngitis Otalgia of left ear Otalgia of both ears Essential (primary) hypertension Fibromyalgia Gastro-esophageal reflux disease with esophagitis Mixed hyperlipidemia Surgical History Surgical History History of appendectomy History of right knee surgery related to fracture H/O dilation and curettage History of carpal tunnel release of both wrists History of section H/O: hysterectomy Status post shoulder surgery Family History Family History Sibling Patient's brother is in good health Family history of malignant neoplasm Father Family history of alcoholism Mother Family history of malignant neoplasm of breast in first degree relative Other Family history of arthritis Hypertension Social History Social History Years smoked: 45 Smoking status: Current every day smoker Tobacco type: cigarettes Second hand tobacco smoke exposure: Yes Smoking end date: 05/23/15 Alcohol intake: never Substance use: current Substance use type: marijuana Other substance usage details: 1-2/week Lack of Transportation: No Lack of Food: Never True Current Housing: I Have Housing Concerned About Future Housing: No Difficulty Paying Gas/Electric Bills: No Difficulty Paying for Meds: YES Currently Unemployed: No Education: High School Diploma/GED Difficulty w/ Childcare or Family Care: No Living arrangements: with family Gender identity (if verbalized by the patient): Female Spiritual care concerns: No Meds Home Medications and Allergies Home Medications ?Medication ?Instructions ?Recorded ?Confirmed ?Type aspirin 81 mg tablet,delayed 81 mg PO DAILY #30 tabs 03/29/19 04/17/25 Rx release montelukast 10 mg tablet 10 mg PO DAILY 11/12/23 04/17/25 History duloxetine 60 mg capsule,delayed 60 mg PO DAILY 12/09/23 04/17/25 History release ondansetron 4 mg disintegrating 4 mg PO Q8H PRN nausea and 12/10/23 04/09/25 Rx tablet vomiting #30 tabs nitroglycerin 0.4 mg sublingual 0.4 mg sublingual Q5M PRN chest 07/15/24 04/09/25 History tablet pain albuterol sulfate 90 mcg/actuation 1 inh inhalation Q4H PRN shortness 09/10/24 04/17/25 Rx aerosol inhaler (Ventolin HFA) of breath or wheezing #8.5 grams fluticasone propionate 230 2 puff inhalation Q12H #12 grams 09/20/24 04/09/25 Rx mcg-salmeterol 21 mcg/actuation HFA inhaler (Advair HFA) albuterol sulfate 2.5 mg/3 mL 2.5 mg (3 mL) inhalation Q4H PRN 11/06/24 04/17/25 Rx (0.083 %) solution for nebulization shortness of breath or wheezing #90 mL losartan 25 mg tablet 12.5 mg PO DAILY 12/31/24 04/09/25 History Held on 01/01/25. Instructions: .Provider Order dicyclomine 20 mg tablet See Rx Instructions .Route 01/07/25 04/17/25 Rx .COMPLEX #270 tabs esomeprazole magnesium 20 mg 40 mg (2 x 20 mg) PO DAILY #90 caps 01/24/25 04/17/25 Rx capsule,delayed release atorvastatin 40 mg tablet 40 mg PO DAILY #90 tabs 02/11/25 04/17/25 Rx famotidine 20 mg tablet 20 mg PO BID #180 tabs 02/11/25 04/17/25 Rx ferrous sulfate 325 mg (65 mg 325 mg PO DAILY #90 tabs 02/11/25 04/17/25 Rx iron) tablet lidocaine 5 % topical patch 1 patch topical .every 8 hours PRN 03/25/25 04/09/25 Rx pain #15 ea pregabalin 100 mg capsule 100 mg PO TID PRN pain #75 caps 03/27/25 04/17/25 Rx levetiracetam 500 mg tablet See Rx Instructions .Route 04/02/25 04/17/25 Rx .COMPLEX #60 tabs tizanidine 4 mg capsule 4 mg PO TID PRN muscle spasticity 04/08/25 04/09/25 Rx #270 caps cyanocobalamin (vitamin B-12) 1,000 mcg PO DAILY 04/09/25 04/09/25 History 1,000 mcg tablet (Vitamin B-12) quetiapine 25 mg tablet (Seroquel) 25 mg PO PRN Sleep 04/09/25 04/09/25 History varenicline tartrate 1 mg tablet See Rx Instructions .Route 04/10/25 Rx .COMPLEX #168 tabs hydrocodone 5 mg-acetaminophen 325 1 tablet PO Q8H PRN pain #30 tabs 04/16/25 Rx mg tablet Allergies Allergy/AdvReac Type Severity Reaction Status Date / Time No Known Allergies Allergy Verified 04/17/25 11:58 Vital Signs Vital Signs - 24 hr 04/17/25 12:05 Temperature 97.6 F Pulse Rate 75 Respiratory Rate 16 Blood Pressure 112/82 Pulse Oximetry 100 Oxygen Delivery Room Air Exam Const: General: cooperative and healthy appearing Resp: Effort & Inspection: normal respiratory effort and able to speak in complete sentences Auscultation: clear to auscultation bilaterally Cardio: Rate: regular rate Rhythm: regular rhythm GI: Inspection: normal to inspection GI Palp: No No hepatosplenomegaly present Auscultation: normal bowel sounds Rectal Exam: deferred Skin: General skin exam: normal color Psych: Appearance: grossly normal Mental Status: mental status grossly normal Assessment and Plan Assessment and plan (1) Colon adenoma: Code(s): D12.6 - Benign neoplasm of colon, unspecified Status: Acute Assessment and Plan: The patient is deemed a good candidate for the procedure. Consent signed. Will proceed.
--- NOTE | 2025-04-17 13:33 | WPDANESEPPF ---
Anes - Initial Pre Proc Eval Procedure: Operation Date: 04/17/25 13:00 Proposed Procedures p Screening Colonoscopy - Armando Cisneros MD Date/Time: 04/17/25 13:33 Surgeon: Armando Cisneros MD Pre Op Diagnosis: Encounter for screening for malignant neoplasm of Patient Data Age: 59 Gender: F Height: 1.5 m Weight: 79 kg Last Vital Signs Temp 97.6 F 04/17/25 12:05 Pulse 75 04/17/25 12:05 Resp 16 04/17/25 12:05 BP 112/82 04/17/25 12:05 Pulse Ox 100 04/17/25 12:05 O2 Del Method Room Air 04/17/25 12:05 Allergies Allergy/AdvReac Type Severity Reaction Status Date / Time No Known Allergies Allergy Verified 04/17/25 11:58 Home Medications ?Medication ?Instructions ?Recorded ?Confirmed ?Type aspirin 81 mg tablet,delayed 81 mg PO DAILY #30 tabs 03/29/19 04/17/25 Rx release montelukast 10 mg tablet 10 mg PO DAILY 11/12/23 04/17/25 History duloxetine 60 mg capsule,delayed 60 mg PO DAILY 12/09/23 04/17/25 History release ondansetron 4 mg disintegrating 4 mg PO Q8H PRN nausea and 12/10/23 04/09/25 Rx tablet vomiting #30 tabs nitroglycerin 0.4 mg sublingual 0.4 mg sublingual Q5M PRN chest 07/15/24 04/09/25 History tablet pain albuterol sulfate 90 mcg/actuation 1 inh inhalation Q4H PRN shortness 09/10/24 04/17/25 Rx aerosol inhaler (Ventolin HFA) of breath or wheezing #8.5 grams fluticasone propionate 230 2 puff inhalation Q12H #12 grams 09/20/24 04/09/25 Rx mcg-salmeterol 21 mcg/actuation HFA inhaler (Advair HFA) albuterol sulfate 2.5 mg/3 mL 2.5 mg (3 mL) inhalation Q4H PRN 11/06/24 04/17/25 Rx (0.083 %) solution for nebulization shortness of breath or wheezing #90 mL losartan 25 mg tablet 12.5 mg PO DAILY 12/31/24 04/09/25 History Held on 01/01/25. Instructions: .Provider Order dicyclomine 20 mg tablet See Rx Instructions .Route 01/07/25 04/17/25 Rx .COMPLEX #270 tabs esomeprazole magnesium 20 mg 40 mg (2 x 20 mg) PO DAILY #90 caps 01/24/25 04/17/25 Rx capsule,delayed release atorvastatin 40 mg tablet 40 mg PO DAILY #90 tabs 02/11/25 04/17/25 Rx famotidine 20 mg tablet 20 mg PO BID #180 tabs 02/11/25 04/17/25 Rx ferrous sulfate 325 mg (65 mg 325 mg PO DAILY #90 tabs 02/11/25 04/17/25 Rx iron) tablet lidocaine 5 % topical patch 1 patch topical .every 8 hours PRN 03/25/25 04/09/25 Rx pain #15 ea pregabalin 100 mg capsule 100 mg PO TID PRN pain #75 caps 03/27/25 04/17/25 Rx levetiracetam 500 mg tablet See Rx Instructions .Route 04/02/25 04/17/25 Rx .COMPLEX #60 tabs tizanidine 4 mg capsule 4 mg PO TID PRN muscle spasticity 04/08/25 04/09/25 Rx #270 caps cyanocobalamin (vitamin B-12) 1,000 mcg PO DAILY 04/09/25 04/09/25 History 1,000 mcg tablet (Vitamin B-12) quetiapine 25 mg tablet (Seroquel) 25 mg PO PRN Sleep 04/09/25 04/09/25 History varenicline tartrate 1 mg tablet See Rx Instructions .Route 04/10/25 Rx .COMPLEX #168 tabs hydrocodone 5 mg-acetaminophen 325 1 tablet PO Q8H PRN pain #30 tabs 04/16/25 Rx mg tablet Patient hx anesthesia problems: none Family hx anesthesia problems: none Results Review: All pre-operative results and documents have been reviewed as part of the pre-operative evaluation. ON LICENSE OF [facility] Past Medical History Medical History Paroxysmal A-fib in 2019 when had COVID Rotator cuff injury Shoulder pain Shoulder injury Biceps tendonitis Rotator cuff tendinitis Rotator cuff tear Cough Obesity Tobacco abuse quit 2016 Back pain IBS (irritable bowel syndrome) Asthma Hypercholesterolemia SLAP lesion of right shoulder Pharyngitis Otalgia of left ear Otalgia of both ears Essential (primary) hypertension Fibromyalgia Gastro-esophageal reflux disease with esophagitis Mixed hyperlipidemia Surgical History Surgical History History of appendectomy History of right knee surgery related to fracture H/O dilation and curettage History of carpal tunnel release of both wrists History of section H/O: hysterectomy Status post shoulder surgery Family History Family History Sibling Patient's brother is in good health Family history of malignant neoplasm Father Family history of alcoholism Mother Family history of malignant neoplasm of breast in first degree relative Other Family history of arthritis Hypertension Social History Social History Years smoked: 45 Smoking status: Current every day smoker Tobacco type: cigarettes Second hand tobacco smoke exposure: Yes Smoking end date: 05/23/15 Alcohol intake: never Substance use: current Substance use type: marijuana Other substance usage details: 1-2/week Lack of Transportation: No Lack of Food: Never True Current Housing: I Have Housing Concerned About Future Housing: No Difficulty Paying Gas/Electric Bills: No Difficulty Paying for Meds: YES Currently Unemployed: No Education: High School Diploma/GED Difficulty w/ Childcare or Family Care: No Living arrangements: with family Gender identity (if verbalized by the patient): Female Spiritual care concerns: No Anes - Eval Final PreProcedure Day of Procedure 04/17/25 13:33 Patient weight: obese Lungs: normal air movement Airway: special considerations (Edentulous. ) Neurological: alert and oriented Last oral intake: >/= 8 hours ASA classification: III Emergent: no Anesthetic plan: proceed Anesthesia type and monitoring: general GIVS and standard monitoring Results Review: All pre-operative results and documents have been reviewed as part of the pre-operative evaluation. Informed Consent: The patient's anesthetic plan and its attendant risks and benefits were discussed with the patient/family/POA. Questions were solicited and answers provided to the satisfaction of the patient/family/POA.
--- NOTE | 2025-04-17 13:35 | S_PTH ---
PATIENT: Ginna Sandra LOC: [facility] Abreu#:[id number] AGE/SX: 59/F ROOM: RE04/17/[address]: Armando Cisneros MD : 1965 BED: DIS: 04/17/2025 SPEC #: [id number] RECD: 04/17/25 14:35 STATUS: HE REQ #: [id number] KEYANA: 04/17/25 13:[address]: Armando Cisneros DEPT: [facility] Surgical RECD BY: Trinidad Gallagher ENTERED: 04/17/25 14:35 SP TYPE: Surgical OTHR DR: Ranjan Watson MD Tissues: A - Colon Polypectomy Procedures: Hematoxylin and Eosin Stain Gross and Microscopic Level 4
[2025-04-17 13:38] VITALS: BP 93/56; PULSE 79; RESP 18; O2SAT 98
[2025-04-17 13:48] VITALS: BP 104/55; PULSE 70; RESP 19; O2SAT 100
[2025-04-17 13:58] VITALS: BP 116/56; PULSE 64; RESP 20; O2SAT 100
== END 2025-04-17 14:12 | disposition home or self-care (01) ==
PROVIDERS: PCP Family Medicine; Referring Provider Family Medicine; Visit Provider Internal Medicine Gastroenterology
PROC: 0DJD8ZZ Inspection of Lower Intestinal Tract, Via Natural or Artificial Opening Endoscopic (ICD-10-PCS; CPT 45378; principal; 2025-04-17 13:00)
DX: Z12.11 Encounter for screening for malignant neoplasm of colon (principal); D12.2 Benign neoplasm of ascending colon; I10 Essential (primary) hypertension; K21.9 Gastro-esophageal reflux disease without esophagitis; E78.2 Mixed hyperlipidemia; I48.0 Paroxysmal atrial fibrillation; K58.9 Irritable bowel syndrome, unspecified; J45.909 Unspecified asthma, uncomplicated; M79.7 Fibromyalgia; F17.210 Nicotine dependence, cigarettes, uncomplicated; E66.9 Obesity, unspecified; Z68.35 Body mass index [BMI] 35.0-35.9, adult; Z79.82 Long term (current) use of aspirin; Z79.51 Long term (current) use of inhaled steroids; Z79.891 Long term (current) use of opiate analgesic; Z98.890 Other specified postprocedural states; Z80.3 Family history of malignant neoplasm of breast
CPT/HCPCS: 45385; 88305; J2003; J2704; J7120

== ENCOUNTER 2025-04-28 11:22 | Emergency (ER) | payer MEDICARE, MEDICAID, SELFPAY ==
[2025-04-28] VITALS (28 sets, daily range): BP systolic 83–112; BP diastolic 36–79; PULSE 62–95; RESP 15–32; TEMP 36.2; O2SAT 96–100
--- NOTE | ~2025-04-28 | XR_ITS ---
Examination: XR chest 2V Clinical History: cough, cp Comparison: 07/15/2024 Technique: PA and Lateral Findings: Cardiomediastinal silhouette normal size and configuration. Lungs clear. No acute bony abnormality. Chronic right rib fractures IMPRESSION: 1. No acute cardiopulmonary findings. Reviewed, dictated and finalized at location R. EILLANCE OPERATOR
--- NOTE | 2025-04-28 11:23 | ECG_ITS ---
Test Date: 2025-04-28 11:31:55 Measurements Intervals [place] Rate: 75 P: -4 PA: 135 QRS: 70 QRSD: 91 T: 66 QT: 411 QTc: 460 Interpretive Statements SINUS RHYTHM NORMAL ECG No previous ECG available for comparison Electronically Signed On 04-28-2025 19:28:38 CARE COMPANION by Felton Sanders D.O.
[2025-04-28 11:36] LABS: Hematocrit 37.6 % (37.0-47.0); Hemoglobin 11.8 g/dL (12.0-15.0); Immature Granulocyte Percent A 0.4 % (0-0.5); Lymphocytes Absolute Auto 2.12 K/mm3 (0.9-3.2); Mean Corpuscular HGB Conc 31.4 g/dl (32-36); Mean Corpuscular Hemoglobin 26.9 pg (26-34); Mean Corpuscular Volume 85.8 fl (80-100); Nucleated Red Blood Cells Absolute Auto 0.000 K/mm3 (0.0-0.012); Nucleated Red Blood Cells Perc 0.0 % (0.0-0.2); Platelet Count Result 216 k/mm3 (150-375); Red Blood Count 4.38 M/mm3 (4.2-5.4); White Blood Count 6.7 K/mm3 (4.5-10.0)
[2025-04-28 11:48] LABS: INR 0.9; Partial Thromboplastin Time 29.7 Seconds (22.3-36.8); Prothrombin Time 12.8 Seconds (11.1-14.7)
[2025-04-28 11:53] LABS: Alanine Aminotransferase 20 U/L (6-35); Albumin Level 4.3 g/dL (3.5-5.1); Alkaline Phosphatase 102 U/L (38-126); Anion Gap 10 mmol/L (4-12); Aspartate Amino Transferase 17 U/L (14-36); Bilirubin,Total 0.3 mg/dL (0.2-1.3); Blood Urea Nitrogen 12 mg/dL (7-17); Calcium 9.4 mg/dL (8.4-10.2); Carbon Dioxide 19 mmol/L (22-30); Chloride 110 mmol/L (98-107); Estimated Glomerular Filt Rate > 60; Glucose 99 mg/dL (65-110); Lipase 194 U/L (23-300); Potassium 3.6 mmol/L (3.4-5.0); Sodium 139 mmol/L (137-145); Total Protein 7.5 g/dL (6.3-8.2)
[2025-04-28 12:03] LABS: Troponin I < 0.012 ng/mL (0.000-0.034)
[2025-04-28] MEDS: IPRATROPIUM BR 0.02% INH SOLN 0.5 MG/2.5 ML VIAL 1 MG INHALATION (12:20)
[2025-04-28] MEDS: ALBUTEROL SULFATE NEB 2.5 MG/3 ML INH 10 MG INHALATION (12:20)
--- OUTSIDE RECORDS SUMMARY | 2025-04-28 12:22 | XMS_ITS | Data Portability ---
Author Organization [place] - [facility] [place], Main Office Address [address] [place] [address] Care Team Providers Care Wardrobe Attendant Name Role Phone ANDREE BLANCHARD Primary Care Provider ANDREE BLANCHARD Referring Provider [phone] Assessment No assessment recorded. Plan of Treatment Reminders Order Date Submit Date Provider Last Modified By Organization Details Last Modified Time Details Appointments None recorded. Lab vitamin B12 + folate, serum or blood 2023 024 [email or web address] 2 [facility] (Lab), [address] [place], [address], 4 08:35:23 vitamin D, 25-hydroxy, total, serum 2023 024 [email or web address] 2 [facility] (Lab), [address] [place], [address], 4 08:35:23 magnesium, serum or plasma 2023 024 [email or web address] 2 [facility] (Lab), [address] [place], [address], 4 08:35:23 lipid panel, serum 2023 024 [email or web address] 2 [facility] (Lab), [address] [place], [address], 4 08:35:23 CMP, serum or plasma 2023 024 [email or web address] 2 [facility] (Lab), [address] [place], [address], 4 08:35:23 CK (creatine kinase), total, serum 2023 024 [email or web address] 2 [facility] (Lab), [address] [place], [address], 4 08:35:24 TSH, serum or plasma 2023 024 [email or web address] 2 [facility] (Lab), [address] [place], [address], 4 08:35:24 CBC w/ auto diff 2023 024 [email or web address] 2 [facility] (Lab), [address] [place], [address], 4 08:35:24 glycohemogl obin, total, blood 2023 024 [email or web address] 2 [facility] (Lab), [address] [place], [address], 4 08:35:24 Referral physical therapist referral - sciatica, physical therapy has helped before Please call pt to schedule 2023 024 [email or web address] 256 [facility] Physical Therapy, [address], [place], [address], 4 08:53:59 cardiologis t referral - BP drops suddenly . Please eval and treat. Please call patient to schedule an appointment . Thank you 2023 024 [email or web address] [facility] Referral Fax Line, [address], [place], [address], 4 08:45:29 neurologist referral - Frequent falls. Please eval and treat. Please call patient to schedule an appointment . Thank you 2023 024 [email or web address] Otto Douglas MD, [address], [place], [address], 4 08:50:[address] referral - vascular lesion left forearm . Please biopsy . Please call patient to schedule an appointment . Thank you 2023 024 [email or web address] [facility], [address] [facility] [address], [place], [address], 4 08:51:58 pain management referral - BULGING DISCS LUMBAR RADICULOPAT HY. Please call patient to schedule appointment . 2023 024 [email or web address] Rogers Herrera MD, [address] [facility] , [place], [address], 4 08:57:06 Procedures None recorded. Surgeries None recorded. Imaging MAMMO, screening, digital, bilateral - *Please call pt to schedule* 2023 024 [email or web address] 256 [facility], [address] [place] [address] [address], [place], [address], 4 09:57:50 MRI, brain + brain stem, w/wo contrast - *Please call pt to schedule* 2023 024 [email or web address] 256 [facility] (Radiology), [address] [place], [address], 4 09:21:44 Medication Orders Chantix Starting Month Box 0.5 mg (11)-1 mg (42) tablets in dose pack 2023 024 [facility]150, [address] [facility], [place], [place], [id number], 4 09:45:34 hydrocodone 5 mg-acetamin ophen 325 mg tablet 2023 024 [facility] #25835, [address], [place], [id number], 4 09:33:20 hydrocodone 5 mg-acetamin ophen 325 mg tablet 2023 024 [email or web address], [address], [place], [id number], 4 09:14:13 ferrous sulfate 325 mg (65 mg iron) tablet 2023 024 [facility] #35201, [address], [place], [id number], 4 10:18:55 naproxen 500 mg tablet 2023 024 [facility] #55087, [address], [place], [id number], 4 10:22:44 cyclobenzap rine 10 mg tablet 2023 024 [facility] #88223, [address], [place], [id number], 4 10:18:58 aripiprazol e 2 mg tablet 2023 024 [facility] #86955, [address], [place], [id number], 4 10:18:56 triamcinolo ne acetonide 0.1 % topical ointment 2023 024 [facility] #86657, [address], [place], [id number], 4 10:25:00 hydrocodone 5 mg-acetamin ophen 325 mg tablet 2023 024 [facility]2378, [address], [place], [id number], 4 09:14:13 aripiprazol e 2 mg tablet 2023 024 [email or web address] 200 [facility] #89544, [address], [place], [id number], 4 10:50:23 Chantix Starting Month Box 0.5 mg (11)-1 mg (42) tablets in dose pack 2023 024 [facility]32655, [address], [place], [id number], 4 10:00:23 hydrocodone 5 mg-acetamin ophen 325 mg tablet 2023 024 [facility]48443, [address], [place], [id number], 4 09:14:13 Contrave 8 mg-90 mg tablet,exte nded release 2023 024 [facility]141, [address], [place], [id number], 4 09:57:51 Depo-Medrol 80 mg/mL suspension for injection 2023 024 [email or web address] Not available 4 10:03:41 duloxetine 60 mg capsule,del ayed release 2023 024 [facility] #97581, [address], [place], [id number], 4 09:31:30 Rexulti 0.5 mg tablet 2023 024 [facility]73610, [address] [place], [id number], 09:59:43 Patient TargetsNo targets recorded. Patient Instructions Encounter Date Encounter Id Patient Instructions Last Modified By Organization Details Last Modified Time 05/26/2023 [id number] recheck BP here free in 7 days [email or web address] Not available 05/28/2023 17:34:41 07/25/2023 [id number] recheck BP on own [email or web address] Not avai lable 07/31/2023 16:35:11 01/19/2024 [id number] counseled , wrot e down book [employer] ......, get a therapist , sarah shelton . call neuro about her falls , she has his number . she has a walker. 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 [email or web address] Not available 01/23/2024 15:58:47 Reason for Referral Pain Management Referral for Prolapsed lumbar intervertebral disc BULGING DISCS LUMBAR RADICULOPATHY. Please call patient to schedule appointment. Referring Physician: Family Sendy Pavon, Encounter Date: 05/26/2023 Neurologist Referral for Rec urrent falls Frequent falls. Please eval and treat. Please call patient to schedule an appointment. Thank you Referring Physician: Family Sendy Pavon, Encounter Date: 08/31/2023 Manager Gas Referral for S kin lesion vascular lesion left forearm . Please biopsy . Please call patient to schedule an appointment. Thank you Referring Physician: Family Sendy Pavon, Encounter Date: 08/31/2023 Milker Machine Referral for He art murmur BP drops [...] more view No observ ation record ed. [facility] [address], [place], [address], 08/04/2023 10:51:12 07/25/19 24 07/25/2023 CT, abdom en + pelvi s, w/ contr ast No observ ation record ed. [email or web address] [facility] [address], [place], [address], 08/31/2023 10:16:35 05/04/20 24 05/03/2024 XR, chest , 2 view No observ ation record ed. [email or web address] [facility] [address], [place], [address], 05/11/2024 09:25:09 Result Notes None recorded. Problems Name Problem SNOMED Code Status Onset Date Resolution Date Notes Provider Name and Address Organization Details Recorded Time Hyperchole sterolemia 54957889 Active 2020 Not Available [facility] 3 08:10:17 Asthma 095216852 Active 2020 Not Available [facility] 3 08:10:17 Gastroesop hageal reflux disease 070918222 Active 2020 Not Available [facility] 3 08:10:17 Depressive disorder 37018360 Active 2020 Not Available [facility] 3 08:10:18 Hypertensi ve disorder 93943651 Active 2020 Not Available [facility] 3 08:10:18 Anxiety 44180316 Active 2020 Not Available [facility] 3 08:10:18 Pulmonary emphysema 94026846 Active 2020 Not Available [facility] 3 08:10:18 Heart murmur 89912872 Active 2020 Not Available [facility] 3 08:10:18 Seizure 05300316 Active 2020 Not Available [facility] 3 08:10:18 Pain of left hand 2645472255732 03 Active 2021 Not Available [facility] 3 08:10:18 Contusion of left hand 5722740205600 9109 Active 2021 Not Available [facility] 3 08:10:17 Complex regional pain syndrome 202063012 Active 2021 Not Available [facility] 3 08:10:17 Carpal tunnel syndrome of left wrist 3803085577581 02 Active 2021 Not Available [facility] 3 08:10:18 Carpal tunnel syndrome 50329219 Active 2021 Not Available [facility] 3 08:10:18 Pain of left hip joint 5697684959083 00 Active 2021 Not Available [facility] 3 08:10:18 Trochanter ic bursitis of left hip 9517361507276 03 Active 2021 Not Available [facility] 3 08:10:18 Pain of left thigh 9970506610816 05 Active 2022 Not Available [facility] 3 08:10:18 Pain of left calf 5392746045444 109 Active 2022 Not Available [facility] 3 08:10:17 Overweight 415966136 Active 2022 Not Available [facility] 3 08:10:18 Acute sinusitis 84948115 Active 2022 Not Available [facility] 3 08:10:17 Lumbago with sciatica 855218415 Active 2022 Not Available [facility] 3 08:10:17 Spinal stenosis of lumbar region 04653991 Active 2022 Not Available [facility] 3 08:10:17 Acute serous otitis media of right ear 8065945430377 105 Active 2022 Not Available [facility] 3 08:10:17 Pain of left knee joint 3133245006220 07 Active 2022 Not Available [facility] 3 08:10:18 Obesity 390781564 Active 2022 Not Available [facility] 3 08:10:18 Swelling of lower leg 737408341 Active 2022 Not Available [facility] 3 08:10:18 Chronic low back pain 595590254 Active 2022 Not Available [facility] 3 08:10:18 Chronic neck pain 2214316318130 Active 2022 Not Available [facility] 3 08:10:17 Nausea 641682404 Active 2022 Not Available [facility] 3 08:10:18 Urinary symptoms 420019797 Active 2022 Not Available [facility] 3 08:10:18 Lumbosacra l radiculopa thy 5746660 Active 2022 Not Available [facility] 3 08:10:18 Acute folliculit is 264372183 Active 2022 Not Available [facility] 3 08:10:17 Acute serous otitis media of left ear 2450954260306 101 Active 2022 Not Available [facility] 3 08:10:17 Diarrhea 57345871 Active 2022 Not Available [facility] 3 08:10:18 Pain in left lower limb 146787460 Active 2022 Not Available [facility] 3 08:10:18 Neuropathy 589076144 Active 2022 Not Available [facility] 3 08:10:18 Hyperlipid emia 17762432 Active 2022 Not Available [facility] 3 08:10:18 Bronchitis 06314788 Active 2022 Not Available [facility] 3 08:10:18 Nicotine dependence 82088047 Active [address] [address] [facility], [place], [address] , [place] [facility] 4 09:32:47 Prolapsed lumbar interverte bral disc 542615781 Active 2023 [facility] [address], [place], [address] , [email or web address] [facility] 4 09:39:23 Recurrent falls 870198240 Active 2023 [facility] [address], [place], [address] , [email or web address] [facility] 4 10:17:05 Skin lesion 33016483 Active 2023 [facility] [address], [place], [address] , [employer] [facility] 4 10:24:00 Spasm 47617315 Active 2023 [facility] [address], [place], [address] , [employer] [facility] 4 09:24:33 Screening for malignant neoplasm of breast Active 2023 [facility] [address], [place], [address] , [employer] [facility] 4 09:29:49 At increased risk of nutritiona l deficit 317620870 Active 2023 [facility] [address], [place], [address] , [employer] [facility] 4 09:36:48 Hypotensiv e syncope 56267894 Active 2023 [facility] [address], [place], [address] , [employer] [facility] 4 09:39:50 Obese 725991361 Active 2023 [facility] [address], [place], [address] , [employer] [facility] 4 16:03:03 Fracture of phalanx of foot 54100528 Active 2023 Paul Jolly RN null, [employer] [facility] [employer] 4 14:39:34 Dysuria 74510336 Active 2023 [facility] [address], [place], [address] , [employer] [facility] [employer] 4 17:12:29 Adult health examinatio n Active 2023 [facility] [address], [place], [address] , [employer] 09:58:15 Normal grief reaction 855132396 Active 2023 [facility] [address], [place], [address] , [employer] 10:10:33 Problem Notes None recorded. Procedures Surgical History Date Name Laterality Status Provider Name and Address Organization Details Recorded Time 02/15/20 Family Practice Trigger Point Injection completed Gallo France MD [address], [place], [address], [employer] 02/14/2023 18:35:31 10/13/19 Family Practice Trigger Point Injection completed Gallo France MD [address], [place], [address], [employer] 10/12/2022 18:26:29 Dilation and curettage completed Not Available [facility] 07/21/2022 07:41:20 Carpal tunnel completed Not Available [facility] 07/21/2022 07:41:20 neuroplasty of ulnar nerve [...] administ ered by the provider 05/27 completed [facility]: [id number] 4-20 Not Available Not Available Not [...] Available Not Available Not Available [facility] 2252-2475 60 mcg (15 mcg x 4)/0.5 mL IM suspensio n 06/15 /2021 completed Not Available Not Available Not Available [employer] 0.5 mg tablet Take by oral route for 30 days. 08/30 completed Not Available Not Available Not Available Vitals Date Recorded Systolic And Diastolic Provider Name and Address Organization Details Last Updated DateTime 05/26/2023 188/101 mm[Hg] [facility] [address] [facility], [place], [address], [facility] 05/28/2023 17:34:24 Date Recorded Body height Body mass index (BMI) Body weight Body temperature Heart rate Oxygen saturation Provider Name and Address Organization Details Last Updated DateTime 4 149.86 cm 33.5 kg/m2 55412.3 3 g 99.5 [degF] 89 /min 97 % Kallie Lawson MA [place] [facility] 4 09:06:46 Date Recorded Body height Body mass index (BMI) Body weight Body temperature Heart rate Respiratory rate Oxygen saturation Systolic And Diastolic Provider Name and Address Organization Details Last Updated DateTime 4 149.86 cm 33.5 kg/m2 58199.3 3 g 97.7 [degF] 98 /min 20 /min 98 % 160/96 mm[Hg] Jadyn Sierra RN [facility] 4 10:35:40 Date Recorded Body height Body mass index (BMI) Body weight Body temperature Heart rate Oxygen saturation Systolic And Diastolic Provider Name and Address Organization Details Last Updated DateTime 4 149.86 cm 33.3 kg/m2 34924.7 4 g 97.8 [degF] 86 /min 98 % 138/86 mm[Hg] Mariam Jackman RN [facility] 4 10:03:26 Date Recorded Body height Body mass index (BMI) Body weight Body temperature Heart rate Oxygen saturation Respiratory rate Systolic And Diastolic Provider Name and Address Organization Details Last Updated DateTime 4 149.86 cm 31.9 kg/m2 21263.5 9 g 98.3 [degF] 79 /min 98 % 16 /min 112/80 mm[Hg] Mariam Jackman RN [facility] 4 09:16:52 Date Recorded Body height Body mass index (BMI) Body weight Body temperature Heart rate Oxygen saturation Respiratory rate Systolic And Diastolic Provider Name and Address Organization Details Last Updated DateTime 4 149.86 cm 29.3 kg/m2 89594.8 9 g 98.3 [degF] 104 /min 97 % 16 /min 202/90 mm[Hg] Mariam Jackman RN [place] [facility] 4 09:27:47 Social History Question Answer Notes LastModified by [employer] Details LastModified Time Tobacco Smoking Status Current Every Day Smoker Not Available [facility] 07/21/2022 07:41:01 What Is Your Level Of Caffeine Consumption? None [id number] Information not available 07/21/2022 In The 14 Days Before Symptom Onset, Have You Had Close Contact With A Laboratory-confirm ed COVID-19 While That Case Was Ill? No [id number] Information not available 07/21/2022 In The 14 Days Before Symptom Onset, Have You Had Close Contact With A Person Who Is Under Investigation For COVID-19 While That Person Was Ill? No MIGRATION.[id number] 026 Information not available 07/21/2022 What Type Of Diet Are You Following? REGULAR MIGRATION.1005401 026 Information not available 07/21/2022 How Much Tobacco Do You Smoke? 1 PPD MIGRATION.[id number] 026 Information not available 07/21/2022 Has Tobacco Cessation Counseling Been Provided? No [id number].[id number] 026 Information not available 07/21/2022 How Many Years Have You Smoked Tobacco? 46 MIGRATION.1984037 026 Information not available 07/21/2022 Have You Recently Traveled Abroad? No MIGRATION.[id number] 026 Information not available 07/21/2022 Do You Have Any Dietary Restrictions? No MIGRATION.8570440 026 Information not available 07/21/2022 Sex: Unknown Functional Status Question Answer Note LastModified by [employer] Details LastModified Time Do you use any illicit or recreational drugs? No MIGRATION.[id number] 26 Information not available 07/21/2022 Do you or have you ever used any other forms of tobacco or nicotine? No MIGRATION.23587095 26 Information not available 07/21/2022 What is your level of alcohol consumption? None MIGRATION.32992793 26 Information not available 07/21/2022 What is your exercise level? Moderate MIGRATION.77655412 26 Information not available 07/21/2022 Mental Status None recorded. Family History Relationship Description Onset Age of this Age Resolved Age Notes LastModified by Organization Details LastModified Time Mother Family history of malignant neoplasm MIGRATION.[id number] Not available 07/21/2022 07:41:22 Maternal Grandmother Family history of malignant neoplasm MIGRATION.114 [id number] Not available 07/21/2022 07:41:22 Maternal Aunt Family history of malignant neoplasm MIGRATION.169 [id number] Not available 07/21/2022 07:41:22 Sister Family history of malignant neoplasm MIGRATION.255 [id number] Not available 07/21/2022 07:41:22 Sister Leukemia MIGRATION.064 [id number] Not available 07/21/2022 07:41:22 Unspecified Relation Leukemia MIGRATION.527 [id number] Not available 07/21/2022 07:41:22 Paternal Grandmother Family history of malignant neoplasm MIGRATION.852 [id number] Not available 07/21/2022 07:41:22 Brother Kidney stone MIGRATION.0 30 [id number] Not available 07/21/2022 07:41:22 Medical History Condition Response BLINDNESS N RHEUMATIC FEVER Y KIDNEY STONES Y BLADDER PROBLEMS N MRSA N OTHER # 1 N POLIO N LUNG DISEASE/DISORDER N RADIATION / CHEMOTHERAPY N COPD N Other # 2 N BLOOD DISEASES N SURGERY Y EAR OR HEARING PROBLEMS N MUMPS N FEMALE PROBLEMS / INFECTIONS N DEPRESSION (INCLUDING POST ) Y BOWEL PROBLEMS Y STROKE/TIA N THYROID DISEASE [...] GLAUCOMA N FOOT PROBLEM N DIVERTICULITIS N SLEEP APNEA N CHICKENPOX N ALLERGIES/HAYFEVER N INFECTIOUS DISEASE N PROSTATE N HEART ARRHYTHMIA N INSOMNIA Y HIGH CHOLESTEROL / HYPERLIPIDEMIA Y EYE PROBLEMS N HYPERTHYROIDISM N EATING DISORDER N EDEMA N CHRONIC PAIN SYNDROME N CAROTID BLOCKAGE N CONSTIPATION N BACK / NECK PROBLEMS Y HAVE YOU BEEN HOSPITALIZED OR SEEN IN [facility] IN THE PAST YEAR ? N ATHEROSCLEROSIS [...] DISORDER N ALZHEIMER'S DISEASE N PAIN N DEMENTIA N HERPES N SEIZURES/EPILEPSY Y HEADACHES/MIGRAINES Y VASCULAR DISEASE N PACEMAKER N DIZZINESS N HEART DISEASE/HEART PROBLEMS Y KIDNEY DISEASE N SCARLET FEVER N MULTIPLE SCLEROSIS N DEVELOPMENTAL OR BEHAVIORAL DISORDERS N MENTAL DISORDER/ILLNESS N CANCER: SPECIFY N CARDIAC ARRHYTHMIA N PNEUMONIA Y ATRIAL FIBRILLATION N Gall Stones N PULMONARY EMBOLISM N AUTOIMMUNE DISEASE N Gynecological HistoryNo gynecological history recorded. Obstetrics History GPAL:G 0 P 0 0 0 0 Immunizations Vaccine Type Date Status Note Provider Nam e and Address Organization Details Recorded Time COVID-19, mRNA, LNP-S, PF, 30 mcg/0.3 mL dose 01/27/2021 completed Not Available [facility] 3 08:10:19 COVID-19, mRNA, LNP-S, PF, 30 mcg/0.3 mL dose 01/06/2021 completed Not Available [facility] 3 08:10:19 COVID-19 vaccine, vector-nr, rS-Ad26, PF, 0.5 mL 07/29/2020 completed Not Available [facility] 3 08:10:19 Past Encounters Encounter ID Performer Location Encounter Start Date Encounter Closed Date Diagnosis/Indication Diagnosis SNOMED-CT Code Diagnosis ICD10 Code Diagnosis IMO Codes Diagnosis Note [id number] Gallo France MD [facility] Meg johnston [address] [place] [address] 11/04/2020 00:00:00 11/04/2020 21:32:25 [id number] Gallo France MD [facility] [place] [address] [place] [address] 11/17/2020 00:00:00 11/17/2020 21:36:40 [id number] Gallo France MD [facility] [place] [address] [facility] [place] [address] 01/05/2021 00:00:00 01/05/2021 22:12:46 [id number] Gallo France MD [facility] [place] [address] [place] [address] [place] [address] 01/14/2021 00:00:00 01/14/2021 17:31:51 [id number] Nick joya MD [facility] General Surgery [address] [facility], [address] [address] 01/22/2021 00:00:00 01/22/2021 11:11:03 [id number] Gallo France MD [facility] [place] [address] [place] [address] [place] [address] 02/12/2021 00:00:00 02/12/2021 09:55:24 [id number] Gallo France MD [facility] [place] [address] [place] [address] [place] [address] 04/15/2021 00:00:00 04/15/2021 19:59:11 [id number] Gallo France MD [facility] [place] [address] [place] [address] [place] [address] 04/23/2021 00:00:00 04/23/2021 19:45:07 [id number] Gallo France MD [facility] [place] [address] [place] [address] [place] [address] 06/09/2021 00:00:00 06/10/2021 06:05:46 [id number] Gallo France MD [facility] [place] [address] [place] [address] 06/11/2021 00:00:00 06/11/2021 19:01:56 [id number] Jim Moise MD [facility] [place] [address] [place] [address] 06/26/2021 00:00:00 06/26/2021 11:06:47 [id number] Gallo France MD [facility] [place] [address] [place] [address] 07/02/2021 00:00:00 07/02/2021 18:57:55 [id number] Gallo France MD [facility] Practice [place] [address] [place] [address] [place] [address] 07/20/2021 00:00:00 07/20/2021 19:22:25 [id number] Jim Moise MD [facility] [place] [address] [facility] [address] [place] [address] 07/21/2021 00:00:00 07/21/2021 12:18:43 [id number] Gallo France MD [facility] [place] [address] [place] [address] [place] [address] 07/30/2021 00:00:00 07/30/2021 19:11:05 [id number] Jim Moise MD [facility] [place] [address] [place] [address] 08/11/2021 00:00:00 08/11/2021 12:37:07 [id number] Gallo France MD [facility] [place] [address] [place] [address] 08/13/2021 00:00:00 08/13/2021 19:15:02 [id number] Gallo France MD [facility] [place] [address] [place] [address] 08/27/2021 00:00:00 08/27/2021 09:26:48 [id number] Jim Moise MD [facility] [place] [address] [facility] [address] [place] [address] 09/08/2021 00:00:00 09/08/2021 09:06:10 [id number] Gallo France MD [facility] Family [facility] [place] [address] , [place] [address] 09/21/2021 00:00:00 09/21/2021 11:15:46 [id number] Gallo France MD [facility] [place] [address] , [place] [address] 09/30/2021 00:00:00 09/30/2021 09:12:08 [id number] Gallo France MD [facility] [place] [facility] [place] [address] 12/07/2021 00:00:00 12/07/2021 18:45:05 [id number] Gallo France MD [facility] [place] [address] , [place] [address] 01/04/2022 00:00:00 01/04/2022 09:30:03 [id number] Gallo France MD [facility] [place] [facility] [place] [address] 03/08/2022 00:00:00 03/08/2022 19:28:09 [id number] Gallo France MD [facility] [place] [address] [place] [address] 04/06/2022 00:00:00 04/06/2022 09:40:58 [id number] Gallo France MD [facility] [place] [address] [place] [address] 04/23/2022 00:00:00 04/23/2022 18:50:45 [id number] Yo Blanchard MD [facility] [place] [address] [place] [address] 05/18/2022 00:00:00 05/18/2022 15:43:37 [id number] Gallo France MD [facility] [place] [address] [place] [address] 05/27/2022 00:00:00 05/27/2022 20:37:24 [id number] Gallo France MD [facility] [place] [facility] [place] [address] 06/10/2022 00:00:00 06/10/2022 09:24:19 [id number] Yo Blanchard MD [facility] [place] [address] [place] [address] 06/24/2022 00:00:00 06/24/2022 09:09:46 [id number] Gallo France MD [facility] [place] [facility] [place] [address] 07/08/2022 00:00:00 07/08/2022 19:38:43 [id number] Gallo France MD [facility] [place] [address] [place] [address] [place] [address] 08/05/2022 08:36:00 08/05/2022 09:11:17 Pain of left thigh [id number] 40106 M79.652 Use heat to area and NSAIDs Pain of left calf 716076 8922 490356 M79.662 [id number] Gallo France MD [facility] [place] [address] [place] [address] 09/24/2022 08:53:07 09/24/2022 09:23:14 Spinal stenosis of lumbar region 41199719 M48.062 Pain of left thigh 04583 36766 92044 M79.652 Use heat to area and NSAIDs Acute sero us otitis media of right ear 9448147870 034167 H65.01 Pain of le ft knee joint 3420611635 70693 M25.562 Obesity 491266526 E66.9 [id number] Gallo France MD [facility] [place] [address] [place] [address] 10/12/2022 09:24:21 10/12/2022 09:55:53 Chronic neck pain 2944629063 107 M54.2 Trigger point injections done x 2 Nausea 145903350 R11.0 [id number] Gallo France MD [facility] [place] [address] [place] [address] 12/23/2022 08:58:45 12/23/2022 09:18:20 Lumbosacral radiculopathy 1103940 M54.17 Continue hydrocodon e Acute folliculitis 50523 7007 L73.9 Acute sero us otitis media of right ear 2373801322 127932 H65.01 Diarrhea 28223298 R19.7 Chronic neck pain 860528 0991 107 M54.2 f/u for trigger point injections in [id number] Gallo France MD [facility] [place] [address] [place] [address] 02/03/2023 11:04:07 02/03/2023 11:32:42 Pain in left lower limb 323327067 M79.605 Acute sinusitis 36636095 J01.90 [id number] Gallo France MD [facility] [place] [address] [place] [address] 02/14/2023 09:11:02 02/14/2023 10:13:34 Neuropathy 620785114 G62.9 Chronic low back pain 27 4525385 M54.50 Overweight 183558722 E66 .3 Pain in le ft lower limb 779325709 M79.605 Use hydrocodon e as needed. [id number] Gallo France MD [facility] [place] [facility] [address] 03/15/2023 14:51:35 03/15/2023 15:45:24 Asthma 468915025 J45.909 Spasm of back muscles 20 3989846 M62.830 Overweight 933740650 E66 .3 Neuropathy 524636621 G62 .9 Will increase pregabalin to 100 mg TID [id number] Gallo France MD [facility] [place] [address] [place] [address] [place] [address] 04/26/2023 15:28:15 04/26/2023 16:12:07 Chronic low back pain 995531577 M54.50 Bronchitis 60413348 J40 Pain of le ft hip joint 2513486929 20485 M25.482 [id number] Gallo France MD [facility] [place] [facility] [address] 05/26/2023 08:49:34 05/26/2023 09:57:35 Pain of left calf 4847349776 149197 M79.662 Pain of le ft hip joint 8908191405 92170 M25.552 Overweight 780885404 E66 .3 Chronic low back pain 27 0593897 M54.50 Depressive disorder 3548 9007 F32.A Nicotine dependence 5629 4008 F17.200 Prolapsed lumbar intervertebral disc 292864345 M51.26 [id number] Gallo France MD [facility] [place] [address] [place] [address] [place] [address] 07/25/2023 10:26:01 07/25/2023 10:49:15 Prolapsed lumbar intervertebral disc 065889457 M51.26 Chronic low back pain 27 4739649 M54.50 Depressive disorder 3548 9007 F32.A Anxiety 57945117 F41.9 Asthma 620102843 J45.90 9 Chronic neck pain 975827 0484 107 M54.2 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 Gastroesop hageal reflux disease 296366090 K21.9 Hyperlipidemia 77199605 E78.5 Hypertensive disorder 38 472167 I10 Lumbosacra l radiculopathy 7377565 M54.17 Neuropathy 386775390 G62 .9 Nicotine dependence 5629 4008 F17.200 Spinal mt nosis of lumbar region 48672466 M48.062 Trochanter ic bursitis of left hip 3321447507 32573 M70.62 Obesity 886919944 E66.9 [id number] Pravin Motley MD [facility] [place] [address] [place] [address] [place] [address] 08/31/2023 09:35:52 08/31/2023 10:28:33 Recurrent falls 029615259 R29.6 Depressive disorder 3548 9007 F32.A Iron deficiency 79603714 E61.1 Spasm of back muscles 20 3105758 M62.830 Chronic low back pain 27 2116802 M54.50 Spinal mt nosis of lumbar region 60197946 M48.062 Skin lesion 01110319 L98 .9 left forearm Anxiety 29926201 F41.9 Asthma 820697216 J45.90 9 Complex re gional pain syndrome 345947814 G90.519 Gastroesop hageal reflux disease 283741049 K21.9 Hyperlipidemia 65606859 E78.5 Lumbago with sciatica 20 1758706 M54.42 Lumbosacra l radiculopathy 0651287 M54.17 Neuropathy 125467902 G62 .9 Nicotine dependence 5629 4008 F17.200 Obesity 513175768 E66.9 Prolapsed lumbar intervertebral disc 400814224 M51.26 Pulmonary emphysema 8743 3001 J43.9 [id number] Pravin Motley MD [facility] [place] [address] [place] [address] 10/19/2023 08:25:48 10/19/2023 09:46:11 Hyperlipidemia 98438592 E78.5 Neuropathy 465018453 G62 .9 Prolapsed lumbar intervertebral disc 787800478 M51.26 Seizure 14318126 R56.9 Spinal mt nosis of lumbar region 99189320 M48.062 Trochanter ic bursitis of left hip 0109579672 48511 M70.62 Gastroesop hageal reflux disease 113965446 K21.9 Heart murmur 62402232 R0 1.1 Screening for malignant neoplasm of breast 944172913 Z12.39 Chronic low back pain 27 9878587 M54.50 Anxiety 41820061 F41.9 At [facility] risk of nutritional deficit 945479820 Z91.89 Hypotensive syncope 5807 7008 R55 Asthma 469793265 J45.90 9 Chronic neck pain 491661 1164 107 M54.2 Depressive disorder 3548 9007 F32.A Obese 699298929 E66.9 [id number] Pravin Motley MD [facility] [place] [address] [facility] [place] [address] 01/19/2024 09:18:33 01/19/2024 09:52:55 Nicotine dependence 26623733 F17.200 Spinal mt nosis of lumbar region 38676725 M48.062 Adult heal th examination 341609545 Z00.00 Normal grief reaction 27 6629964 F43.20 Health Concerns Section Related Observation LastModified by Organization Detai ls LastModified Time None Recorded Concern Status LastModified by Organization Details LastModified Time None Recorded Advance Directives Directive None Recorded Payers Insurance Date Sequence Insurance Name Policy Number Policy Camp Covered Member ID Camp Member ID Guarantor Name 04/22/2024 1 [facility] (MEDICAID HMO) [id number] Ginna Romero [id number] Ginna Romero Notes Date Note Type Note Provider Name and Address Organization Details Recorded Time 05/26/2023 text/html ROS as noted in the HPI Had an ablation sciatic nerve , left . depressed , daughter is keeping grand kids away from her . hearing on the 10th [place] [facility] [place] [address] [place], [address], [facility] 05/28/2023 17:34:47 07/25/2023 text/html ROS as noted in the HPI no changes [facility] [place] [address], [place], [address], [facility] [employer] [facility] 07/31/2023 16:37:03 08/31/2023 text/html ROS as noted in the HPI fell out of bed , contusion on abdomen, no loc [facility] [place] [address] [place], [place], [address], [facility] [employer] [facility] 09/12/2023 16:20:31 10/19/2023 text/html ROS as noted in the HPI saw neurology , is on Keppra. [facility] [place] [address], [place], [address], [facility] [facility] 10/25/2023 16:03:46 01/19/2024 text/html ROS as noted [...] [facility] [place] [address], [place], [address], [facility] [employer] [facility] 01/23/2024 15:58:51 OBGyn Episode No OBEpisode recorded.
--- OUTSIDE RECORDS SUMMARY | 2025-04-28 12:22 | XMS_ITS | Clinical Summary ---
Author Organization [facility] Address [address] [place] [address] Phone Care Team Providers Care Horse Identifier Name Role Phone Gallo France MD Primary Care Provider +- [phone] Allergies No known active allergies Medications HYDROcodone-jagdish [...] Comments Blood Pressure 119/55 07/27/2021 5:50 PM CONSTRUCTION ENGINEER Pulse 97 07/27/2021 5:50 PM CONSTRUCTION ENGINEER Temperature 36.3 C (97.4 F) 07/27/2021 3:53 PM CONSTRUCTION ENGINEER Respiratory Rate 32 07/27/2021 3:53 PM CONSTRUCTION ENGINEER Oxygen Saturation 100% 07/27/2021 5:50 PM CONSTRUCTION ENGINEER Inhaled Oxygen Concentration - - Weight 57.2 kg (126 lb) 07/27/2021 3:53 PM CONSTRUCTION ENGINEER Height 149.9 cm (4' 11) 07/27/2021 3:53 PM CONSTRUCTION ENGINEER Body Mass Index 25.45 07/27/2021 3:53 PM CONSTRUCTION ENGINEER Plan of Treatment Health Maintenance Due Date [...] this topic Insurance MEDICAID [place] Care Teams Horse Identifier Relationship Specialty Start Date End Date Gallo France MD [address] [place] [address] [place] [address] PCP - General Mixing Tumbler Operator 07/27/21
--- OUTSIDE RECORDS SUMMARY | 2025-04-28 12:22 | XMS_ITS | Encounter Summary ---
Author Organization [facility] Healthcare Address [address] [place] [address] Care Team Providers Care Carpenter'S Assistant Name Role Phone Taty West Unavailable +[phone] Esperanza Moffett NP Unavailable [phone] Darnell Blanchard Primary Care Provider + Ranjan Watson MD Primary Care Provider [phone] Encounter Details Date Type Department Care Team (Late st Contact Info) Description 06/07/2024 Orders Only [facility] [place] [facility] [address] [place] [address] David Perera MD [address] [facility] [address] [facility] [address] [place] [address] Social History Tobacco Use Types [...] on file Legal Sex Female 10:58 AM PROJECT CONSTRUCTION ASSISTANT MANAGER Gender Identity Not on file Sexual [...] Scan (06/07/2024) Anatomical Region Laterality Modality Other us David Perera MD [facility] PROCEDURES E dited Result - Final documented in this encounter Visit Diagnoses Not on filedocumented in this encounter Care Teams Carpenter'S Assistant Relationship Specialty Start Date End Date Darnell Blanchard PA [address] [place] [address] PCP - General Internal Medicine 10/13/23 06/20/24 Ranjan Watson MD [address] [facility] [place] [address] PCP - General Family Practice 06/21/24 Taty West PA [address] [place] [address] [address] [place] [address] Gastroenterology 09/26/23 Esperanza Moffett NP [address] [place] [address] [address] [place] [address] Neurology 09/26/23 documented as of this encounter
--- OUTSIDE RECORDS SUMMARY | 2025-04-28 12:22 | XMS_ITS | Clinical Summary ---
Author Organization [facility] Address [address] [place] [address] Care Team Providers Care Oil Analyst Name Role Phone Taty West PA Unavailable [phone] Esperanza Moffett MANAGER PROJECT MANAGEMENT Unavailable Ranjan Watson MD Primary Care Provider [phone] Allergies No known active allergies Medications aspirin [...] Dizziness 09/20/2024 Coronary artery disease invo lving akhiok coronary artery of [place] heart without angina pectoris 06/21/2024 Tobacco abuse [...] Encounters Date Type Department Care Team Description 04/22/2025 9:30 AM APARTMENT COMMUNITY ASSISTANT MANAGER Ancillary Procedure [facility] Vascular and Vein Surgery at [address] [place] [address] Dizziness 04/22/2025 Results Follow-Up [facility] Cardiology [facility] [address] [place] [phone] Jl Colin MD US Carotids Duplex Bilateral, Portable/Home Sleep Study 2025 10:00 AM APARTMENT COMMUNITY ASSISTANT MANAGER - 2025 11:59 PM APARTMENT COMMUNITY ASSISTANT MANAGER Hospital Encounter [facility] [address] [place] [address] Hypersomnolence Discharge Disposition: Discharge to home or self care 04/15/2025 Telephone [facility] Cardiology [address] [place] [address] [place] [phone] Jl Colin MD 04/08/2025 10:45 AM APARTMENT COMMUNITY ASSISTANT MANAGER Office Visit [facility] Cardiology [address] [place] [address] [address] [place] [phone] Jl Colin MD Coronary artery disease involving akhiok coronary artery of akhi[place] heart without angina pectoris (Primary Dx); Hyperlipidemia LDL goal <70; Nonrheumatic mitral valve regurgitation; Primary hypertension; Tobacco abuse; Hypersomnolence; Dizziness 02/01/2025 Telephone [facility] Cardiology [address] [place] [address] [address] [place] [phone] Sandy Zuniga NP 01/28/2025 3:30 PM CDT Office Visit [facility] Cardiology [address] [place] [address] Sandy Zuniga NP Hypotension, unspecified [...] on file Legal Sex Female 10:58 AM APARTMENT COMMUNITY ASSISTANT MANAGER Gender Identity Not on file Sexual Orientation Not on file Last Filed Vital Signs Vital Sign Reading Time Taken Comments Blood Pressure 104/56 04/08/2025 10:52 AM APARTMENT COMMUNITY ASSISTANT MANAGER Pulse 91 04/08/2025 10:52 AM APARTMENT COMMUNITY ASSISTANT MANAGER Temperature 36.6 C (97.9 F) 12/07/2023 11:08 AM CDT Respiratory Rate 16 12/07/2023 11:08 AM CDT Oxygen Saturation 98% 04/08/2025 10:52 AM APARTMENT COMMUNITY ASSISTANT MANAGER Inhaled Oxygen Concentration - - Weight 78.5 kg (173 lb) 04/08/2025 10:52 AM APARTMENT COMMUNITY ASSISTANT MANAGER Height 149.9 cm (4' 11) 04/08/2025 10:52 AM APARTMENT COMMUNITY ASSISTANT MANAGER Body Mass Index 34.94 04/08/2025 10:52 AM APARTMENT COMMUNITY ASSISTANT MANAGER Plan of Treatment Health Maintenance Due [...] Procedure Name Priority Date/Time Associated Diagnosis Comments PORTABLE/HOME SLEEP STUDY Routine 04/23/2025 12:27 PM APARTMENT COMMUNITY ASSISTANT MANAGER Hypersomnolence US CAROTIDS DUPLEX BILATERAL Schedule Routine, Read Routine (OP Routine) 04/22/2025 9:59 AM APARTMENT COMMUNITY ASSISTANT MANAGER Dizziness BASIC METABOLIC PANEL Routine 01/28/2025 Hypotension, unspecified hypotension type from Last 3 Months Results * Portable/Home Sleep Study (04/23/2025 12:27 PM APARTMENT COMMUNITY ASSISTANT MANAGER) Impressions Maulik Johnson MD - 04/23/2025 12:27 PM APARTMENT COMMUNITY ASSISTANT MANAGER Indication for study: Ms. Barrett is a 60-year-old with chief complaints of snoring, unrefreshing sleep, restless sleep, and daytime fatigue and tiredness. The patient's [place] Sleepiness scale score is 10 Vital statistics: Age: 60 years BMI: 34.9 Procedure: Unless otherwise noted, respiratory events were scored in accordance with recommended parameters outlined in the AASM Manual for the Scoring of Sleep and Associated Events, Version 2.6 Hypopneas were scored in accordance with acceptable parameters as outline in Chapter IX, Part 1: HSAT utilizing Respiratory Flow and or Effort Parameters, Category H., Section 1b. This study was performed using a [place] apnea Link portable monitoring unit, a type 3 portable monitoring device. Variable monitored included nasal/oral pressure transduced airflow( PTAF), single respiratory effort (thoracic belt), snoring (derived from PTAF sensor) and pulse oximetry. Description of polysomnography findings: Patient had 10 hours and 50 minutes of monitored time. 9 hours and 7 minutes flow evaluation was present. 10 hours and 39 minutes oxygen saturation analysis was present. The apnea-hypopnea index 24.8. The AHI was 24.7 in the nonsupine position. There were 4 obstructive apneas and 222 hypopneas recorded. Baseline oxygen saturation 98%. Lowest oxygen saturation was 79%. Average oxygen saturation was 90%. The oxygen desaturation index was 24.1. 3 hours and 3 minutes oxygen saturation less than 88% documented. Pulse evaluation revealed maximum 115 beats per minute, minimum 49 beats per minute average of 81 beats per minute Impression: 1. Moderate obstructive sleep disorder breathing 2. 3 hours and 3 minutes oxygen saturation less than 88% documented. 3. Consider Positive Airway Pressure (PAP) devices such as continuous PAP (CPAP), auto-adjusting PAP (APAP), and bi-level PAP (Bi-PAP). 4. CPAP titration to determine optimal pressure required to alleviate sleep disordered breathing 5. Sleep hygiene should be reviewed to assess factors that may improve sleep quality. 6. Weight management and regular exercise should be initiated or continued 7. Avoid alcohol sedatives and other MATERIAL DISPOSITION INSPECTOR depression that may worsen sleep apnea and disrupt normal sleep architecture 8. Patients with sleep apnea may have significant daytime hypersomnolence. If that is the case, driving or handling heavy machinery should be avoided until the apnea and excessive sleepiness have resolved. Limitations of the study: 1. A sleep EEG was not recorded; therefore, the actual amount of time spent in sleep, stages of sleep and respiratory events associated with arousals cannot be determined by this study. 2. All indexes are computed against monitoring time, not total sleep time. For this reason, the degree of severity may be underestimated 3. The severity of the sleep apnea may vary from night to night depending on body position during sleep, REM sleep and sleep efficiency. These factors should be taken into consideration. Narrative Johnson, Ajitesh, MD - 04/23/2025 12:27 PM APARTMENT COMMUNITY ASSISTANT MANAGER OCST for review us Jl Colin MD SLEEP CENTER ORDERABLES F inal Result * US Carotids Duplex Bilateral (04/22/2025 9:59 AM APARTMENT COMMUNITY ASSISTANT MANAGER) Anatomical Region Laterality Modality Vascular Bilateral Ultrasound 04/22/2025 9:43 AM APARTMENT COMMUNITY ASSISTANT MANAGER Narrative 04/22/2025 10:56 AM APARTMENT COMMUNITY ASSISTANT MANAGER Vascular & Vein Surgery [address] [facility] [place] [address] Carotid Duplex Ultrasound Report Patient Name: HEIDI BARRETT P : 1965 (60y ) Study Date: 04/22/2025 9:43:08 AM Sex: F Quality Technician: Location: [facility] Ref Provider: JL COLIN Quality: Adequate Order Provider: JL COLIN PROCEDURES: Carotid Report: Carotid duplex examination of the extracranial arteries was performed using 2D, color and spectral Doppler. INDICATIONS: R42 Dizziness and giddiness. HISTORY: HTN. HLD. CAD. COMPARISONS: No previous exams. MEASUREMENTS: Right Value Left Value RT Prox CCA PSV 97 cm/sec LT Prox CCA PSV 106 cm/sec RT Prox CCA EDV 22 cm/sec LT Prox CCA EDV 34 cm/sec RT Distal CCA PSV 58 cm/sec LT Distal CCA PSV 66 cm/sec RT Distal CCA EDV 21 cm/sec LT Distal CCA EDV 27 cm/sec RT Prox ICA PSV 132 cm/sec Lt Bulb PSV 114 cm/sec RT Prox ICA EDV 38 cm/sec Lt Bulb EDV 37 cm/sec RT Mid ICA PSV 94 cm/sec LT Prox ICA PSV 95 cm/sec RT Mid ICA EDV 37 cm/sec LT Prox ICA EDV 38 cm/sec RT Distal ICA PSV 89 cm/sec LT Mid ICA PSV 126 cm/sec RT Distal ICA EDV 28 cm/sec LT Mid ICA EDV 34 cm/sec RT ECA Prx PSV 128 cm/sec LT Distal ICA PSV 93 cm/sec RT ICA/CCA 2.28 ratio LT Distal ICA EDV 32 cm/sec Rt Vert Dst PSV 79 cm/sec LT ECA Prx PSV 69 cm/sec LT ICA/CCA 1.91 ratio Lt Vert Dst PSV 46 cm/sec FINDINGS: Rt Common Carotid Artery: Duplex imaging of the right common carotid artery is within normal limits without evidence of atherosclerotic disease. Rt Internal Carotid Artery: The plaque in the right internal carotid artery appears to be heterogeneous, calcified and irregular. Significant atherosclerotic changes of the right internal carotid artery with elevated peak systolic velocity and end diastolic velocity, as above. 50-69% stenosis. Rt External Carotid Artery: Patent right external carotid artery with evidence of atherosclerotic disease present. Rt Vertebral Artery: The right vertebral artery is patent with antegrade flow. Lt Common Carotid Artery: Duplex imaging of the left common carotid artery is within normal limits without evidence of atherosclerotic disease. Lt Internal Carotid Artery: The plaque in the left internal carotid artery appears to be heterogeneous and smooth. Significant atherosclerotic changes of the left internal carotid artery with elevated peak systolic velocity and end diastolic velocity, as above. 50-69% stenosis. Lt External Carotid Artery: Patent left external carotid artery with evidence of atherosclerotic disease present. Lt Vertebral Artery: The left vertebral artery is patent with antegrade flow. Comments: Brachial artery systolic blood pressure is 104 on the right, 109 on the left. Unable to visualize a 0.63 cm segment of the right proximal ICA due to calcific shadowing. CONCLUSIONS: 1. The right internal carotid artery disease is consistent with moderate 50-69% stenosis. 2. The left internal carotid artery disease is consistent with moderate 50-69% stenosis. 3. Normal, antegrade flow is noted in bilateral vertebral arteries. ATTESTATION: I have reviewed and interpreted the pertinent images and measurements of this study. I attest to the conclusions in the final report that is provided above. Electronically Signed By: Cody Guerra MD 04/22/2025 10:55:30 AM APARTMENT COMMUNITY ASSISTANT MANAGER Procedure Note Cody Guerra MD - 04/22/2025 Vascular & Vein Surgery [address] [facility] [place] [address] Carotid Duplex Ultrasound Report Patient Name: HEIDI BARRETT P : 1965 (60y ) Study Date: 04/22/2025 9:43:08 AM Sex: F Quality Technician: Location: [facility] Ref Provider: JL COLIN Quality: Adequate Order Provider: JL COLIN PROCEDURES: Carotid Report: Carotid duplex examination of the extracranial arterieswas performed using 2D, color and spectral Doppler. INDICATIONS: R42 Dizziness and giddiness. HISTORY: HTN. HLD. CAD. COMPARISONS: No previous exams. MEASUREMENTS: Right Value Left Value RT Prox CCA PSV 97 cm/sec LT Prox CCA PSV 106 cm/sec RT Prox CCA EDV 22 cm/sec LT Prox CCA EDV 34 cm/sec RT Distal CCA PSV 58 cm/sec LT Distal CCA PSV 66 cm/sec RT Distal CCA EDV 21 cm/sec LT Distal CCA EDV 27 cm/sec RT Prox ICA PSV 132 cm/sec Lt Bulb PSV 114 cm/sec RT Prox ICA EDV 38 cm/sec Lt Bulb EDV 37 cm/sec RT Mid ICA PSV 94 cm/sec LT Prox ICA PSV 95 cm/sec RT Mid ICA EDV 37 cm/sec LT Prox ICA EDV 38 cm/sec RT Distal ICA PSV 89 cm/sec LT Mid ICA PSV 126 cm/sec RT Distal ICA EDV 28 cm/sec LT Mid ICA EDV 34 cm/sec RT ECA Prx PSV 128 cm/sec LT Distal ICA PSV 93 cm/sec RT ICA/CCA 2.28 ratio LT Distal ICA EDV 32 cm/sec Rt Vert Dst PSV 79 cm/sec LT ECA Prx PSV 69 cm/sec LT ICA/CCA 1.91 ratio Lt Vert Dst PSV 46 cm/sec FINDINGS: Rt Common Carotid Artery: Duplex imaging of the right common carotidartery is within normal limits without evidence of atherosclerotic disease. Rt Internal Carotid Artery: The plaque in the right internal carotidartery appears to be heterogeneous, calcified and irregular. Significant atheroscleroticchanges of the right internal carotid artery with elevated peak systolic velocity and enddiastolic velocity, as above. 50-69% stenosis. Rt External Carotid Artery: Patent right external carotid artery withevidence of atherosclerotic disease present. Rt Vertebral Artery: The right vertebral artery is patent with antegradeflow. Lt Common Carotid Artery: Duplex imaging of the left common carotid arteryis within normal limits without evidence of atherosclerotic disease. Lt Internal Carotid Artery: The plaque in the left internal carotid arteryappears to be heterogeneous and smooth. Significant atherosclerotic changes of the leftinternal carotid artery with elevated peak systolic velocity and end diastolicvelocity, as above. 50-69% stenosis. Lt External Carotid Artery: Patent left external carotid artery withevidence of atherosclerotic disease present. Lt Vertebral Artery: The left vertebral artery is patent with antegradeflow. Comments: Brachial artery systolic blood pressure is 104 on the right, 109on the left. Unable to visualize a 0.63 cm segment of the right proximal ICA due tocalcific shadowing. CONCLUSIONS: 1. The right internal carotid artery disease is consistent with [id number]% stenosis. 2. The left internal carotid artery disease is consistent with mdmojomm41-67% stenosis. 3. Normal, antegrade flow is noted in bilateral vertebral arteries. ATTESTATION: I have reviewed and interpreted the pertinent images and measurements ofthis study. I attest to the conclusions in the final report that is provided above. Electronically Signed By: Cody Guerra MD 04/22/2025 10:55:30 AM APARTMENT COMMUNITY ASSISTANT MANAGER us Jl Colin MD IMG US PROCEDURES Final R esult * Basic metabolic panel (01/28/2025) SCRIBED Sodium [...] mL/min/1.7 3 m2 EXTERNAL LAB Blood 01/28/2025 Sandy Zuniga NP LAB BLOOD ORDERABLES Marybel l Result EXTERNAL LAB from Last 3 Months Insurance IDPA IDTX [facility] MEDICARE ADVANTAGE Advance Directives For more information, please contact: [phone] * Full Code (Latest Code Status on File) Date Activated Date Inactivated Comments 09/24/2023 12:54 AM 09/26/2023 7:18 PM * Full Code Date Activated Date Inactivated Comments 12/17/2020 6:54 AM 12/18/2020 10:48 PM Care Teams Oil Analyst Relationship Specialty Start Date End Date Ranjan Watson MD [address] [place] [address] PCP - General Family Practice 06/21/24 Taty West PA [address] [place] [address] [address] [place] [address] Gastroenterology 09/26/23 Esperanza Moffett NP [address] [place] [address] [address] [place] [address] Neurology 09/26/23
--- OUTSIDE RECORDS SUMMARY | 2025-04-28 12:22 | XMS_ITS | Patient Health Record ---
Author Organization [facility] Address [address] [place] [address] Phone [phone] Care Team Providers Care Fitting Room Inspector Name Role Phone Chay Peñaloza Primary Care Provider Allergies No Known Allergies Reason For Referral No Information Medications Medication SIG (Take, Route, Frequency, Duration) Notes Start Date End Date Diagnosis (ICD Code) Status Baclofen 20 MG Tablet 1 tablet Administer without regards to meals as needed Orally Twice a day; Duration: 30 days As needed neck and back pain 02/03/2024 Cervicalgia (ICD_10 - M54.2) Active Ferrous Sulfate 325 (65 Fe) MG Tablet 1 tablet Orally Three times a Week Active Aspirin 81 81 MG Tablet Delayed Release 1 tablet Orally Once a day Active NexIUM 20 MG Capsule Delayed Release 1 capsule Orally Once a day Active hydrOXYzine Pamoate 50 MG Capsule 1 capsule at bedtime as needed Orally Once a day; Duration: 15 days As needed INSOMNIA 01/20/2024 Mood disorder (ICD_10 - F39) Active Atorvastatin Calcium 40 MG Tablet 1 tablet Orally Once a day Active ARIPiprazole 10 MG Tablet 1 tablet Orally Once a day Active Pregabalin 100 MG Capsule 1 capsule Orally Once a day Active Escitalopram Oxalate 20 MG Tablet 1 tablet Orally Once a day Active Dicyclomine HCl 20 MG Tablet 1 tablet Orally Three times a day Active levETIRAcetam 500 MG Tablet 1 tablet Orally every 12 hrs Active DULoxetine HCl 60 MG Capsule Delayed Release Particles 1 capsule Orally Once a day Active Spironolactone 50 MG Tablet 1 tablet Orally Once a day Active Pantoprazole Sodium 40 MG Tablet Delayed Release 1 tablet Orally Once a day Active ZyrTEC 10 MG Tablet Chewable 1 tablet Orally Once a day Active Montelukast Sodium 10 MG Tablet 1 tablet Orally Once a day Active Fluticasone Propionate 50 MCG/ACT Suspension 2 SPRAYS DAILY EACH NOSTRIL Nasally at night 02/03/2024 Eustachian tube dysfunction, right (ICD_10 - H69.81) Active Zinc 50 MG Tablet 1 tablet Orally Once a day Active Acetaminophen 500 MG Tablet two tablets Orally every 6 hrs As needed pain (maximum of 6 tablets in 24 hours) 03/01/2024 Right shoulder pain (ICD_10 - M25.511) Active tiZANidine HCl 4 MG Tablet 1 tablet Orally three times a day; Duration: 30 days As needed muscle pain 03/01/2024 Right shoulder pain (ICD_10 - M25.511) Active Varenicline Tartrate 1 MG Tablet 1 tablet after eating with a full glass of water (BEGIN AFTER COMPLETING 0.5 MG TAB) Orally Twice a day; Duration: 30 days Nicotine dependence, unspecified, uncomplicated (ICD_10 - F17.200) Active Social History Tobacco Use: Social History Observation Description Date Details (start date - stop date) Current Smoker NA - NA Sex Observation Social History Observation Description Sex Observation Female Sexual Orientation Social History Observation Description Sexual Orientation Straight or heterose xual Gender Identity Social History Observation Description Gender Identity Female Social History Miscellaneous Social Info Question Answer Notes Method of learning: Preferred method of learning: Demo nstration Primary Social History Social Info Question Answer Notes Employment Status Employment Status: On Disability Illicit Substance Usage Illicit Substance Usage: No Alcohol Use Alcohol Use Frequency: Never Tobacco Use: Social Info Question Answer Notes Tobacco Control (Standard) Tobacco use: Current smoker How often do you smoke cigarettes? Every day How many cigarettes a day do you smoke? 6-10 Problems Problem Type SNOMED Code ICD Code Dates Problem Status W/U Status Risk Notes Problem Tobacco user (714861979) Nicotine dependence, unspecified, uncomplicated (F17.200) Added On:2023 Active confirmed Problem Mood disorder (61832988) Mood disorder (F39) Added On:2023 Onset Date: 4 Active confirmed Problem Chronic pain (58067471) Chronic pain (G89.29) Added On:2023 Active confirmed Plan Of Treatment No Information Insurance Providers Payer Name Payer Address Payer Phone Subscriber Number Group Number Insured Name Patient Relationship to Insured Coverage Start Date Coverage End Date MEDICAID [address] [place] [address] [id number] Ginna Allan Self - patient is the insured [address] [phone] [id number] Ginna Allan Self - patient is the insured 4 4 MEDICAID [employer] [address] [place] [address] [id number] Ginna Allan Self - patient is the insured 4 Medical (General) History Surgical History Surgery Date(Month/Year) appendectomy tonsillectomy right knee repair 2c-section partial hysterectomy bilateral carpel tunnel ulner nerve release slap tear repair right shoulder Hospitalization History Reason Date(Month/Year) seizure 09/2023 Sylvie
--- NOTE | 2025-04-28 14:10 | ECG_ITS ---
Test Date: 2025-04-28 14:24:07 Measurements Intervals [place] Rate: 69 P: 17 NC: 142 QRS: 74 QRSD: 96 T: 65 QT: 431 QTc: 465 Interpretive Statements SINUS RHYTHM BASELINE ARTIFACT- I, III ,AVR, AVL, V1 NORMAL ECG Compared to ECG 04/28/2025 11:31:55 NO SIGNIFICANT CHANGE Electronically Signed On 04-28-2025 19:38:50 FELL CUTTER by Felton Sanders D.O.
[2025-04-28 14:47] LABS: Troponin I < 0.012 ng/mL (0.000-0.034)
--- NOTE | 2025-04-28 15:24 | ED.CHESTPAIN ---
HPI - Chest Pain General Chief Complaint: Chest Pain Stated Complaint: CP Time Seen by Provider: 04/28/25 12:09 History of Present Illness HPI narrative: Patient presents here with sensation of chest tightness, difficulty breathing. Has been dealing with a slight cough, she does also have COPD. Has her inhaler Related Data Home Medications ?Medication ?Instructions ?Recorded ?Confirmed ?Last Taken ?Type montelukast 10 mg tablet 10 mg PO DAILY 11/12/23 04/17/25 04/17/25 History duloxetine 60 mg capsule,delayed 60 mg PO DAILY 12/09/23 04/17/25 04/17/25 History release nitroglycerin 0.4 mg sublingual 0.4 mg sublingual Q5M PRN chest 07/15/24 04/09/25 Unknown History tablet pain losartan 25 mg tablet 12.5 mg PO DAILY 12/31/24 04/09/25 Unknown History Held on 01/01/25. Instructions: .Provider Order cyanocobalamin (vitamin B-12) 1,000 mcg PO DAILY 04/09/25 04/09/25 Unknown History 1,000 mcg tablet (Vitamin B-12) quetiapine 25 mg tablet (Seroquel) 25 mg PO PRN Sleep 04/09/25 04/09/25 Unknown History Allergies Allergy/AdvReac Type Severity Reaction Status Date / Time No Known Allergies Allergy Verified 04/28/25 11:28 Review of Systems Review of Systems: All systems reviewed & are unremarkable except as noted in HPI and below PMFSH Past Medical History Medical History Paroxysmal A-fib in 2019 when had COVID Rotator cuff injury Shoulder pain Shoulder injury Biceps tendonitis Rotator cuff tendinitis Rotator cuff tear Cough Obesity Tobacco abuse quit 2016 Back pain IBS (irritable bowel syndrome) Asthma Hypercholesterolemia SLAP lesion of right shoulder Pharyngitis Otalgia of left ear Otalgia of both ears Essential (primary) hypertension Fibromyalgia Gastro-esophageal reflux disease with esophagitis Mixed hyperlipidemia Surgical History Surgical History History of appendectomy History of right knee surgery related to fracture H/O dilation and curettage History of carpal tunnel release of both wrists History of section H/O: hysterectomy Status post shoulder surgery Family History Family History Sibling Patient's brother is in good health Family history of malignant neoplasm Father Family history of alcoholism Mother Family history of malignant neoplasm of breast in first degree relative Other Family history of arthritis Hypertension Social History Social History Years smoked: 45 Smoking status: Current every day smoker Tobacco type: cigarettes Second hand tobacco smoke exposure: Yes Smoking end date: 05/23/15 Alcohol intake: never Substance use: current Substance use type: marijuana Other substance usage details: 1-2/week Lack of Transportation: No Lack of Food: Never True Current Housing: I Have Housing Concerned About Future Housing: No Difficulty Paying Gas/Electric Bills: No Difficulty Paying for Meds: YES Currently Unemployed: No Education: High School Diploma/GED Difficulty w/ Childcare or Family Care: No Living arrangements: with family Gender identity (if verbalized by the patient): Female Spiritual care concerns: No Exam Narrative: EXAMINATION OF ORGAN SYSTEMS/BODY AREAS: Constitutional: Vital signs per nursing GENERAL: Appears short of breath HEAD: Normal with no signs of head trauma. EYES: EOMI, conjunctiva normal ENT: Hearing grossly intact LUNGS: Some diminished breath sounds/wheezing, short of breath with speech HEART: [Regular rate and rhythm] ABD: [Soft], [nontender to palpation] EXT: Normal range of motion SKIN: [No rashes or lesions.] NEURO: [Alert. No gross focal sensory or strength deficits.] PSYCH: Normal affect Course Vital Signs Vital signs: Vital Signs Temperature 97.2 F L 04/28/25 11:24 Pulse Rate 95 04/28/25 11:24 Respiratory Rate 32 H 04/28/25 11:24 Blood Pressure 112/55 L 04/28/25 11:24 Pulse Oximetry 100 04/28/25 11:24 Oxygen Delivery Room Air 04/28/25 11:24 Temperature 97.2 F L 04/28/25 11:24 Pulse Rate 74 04/28/25 13:31 Respiratory Rate 20 04/28/25 13:31 Blood Pressure 108/36 L 04/28/25 13:31 Pulse Oximetry 98 04/28/25 13:31 Oxygen Delivery Room Air 04/28/25 11:24 MDM MDM Narrative Medical decision making narrative: Patient presents with increased shortness of breath, with some chest tightness and discomfort with coughing. Has tried her albuterol without much improvement. On exam she does appear quite short of breath, some wheezing to lungs, no obvious swelling or pain to her legs and no history of her disease. Chest x-ray clear without signs of pneumonia. EKG - 12-Lead: Performed at 1131. Interpreted by me. [Sinus rhythm]. Rate [75]. [Normal] axis. HI-interval [normal]. QRS duration [normal]. QTc [normal]. [No ST segment elevation or depression]. [T-wave normal]. Impression: No EKG evidence of acute ischemia or dysrhythmia. Repeat 3 hours later. EKG - 12-Lead: Performed at 1424. Interpreted by me. [Sinus rhythm]. Rate 69. [Normal] axis. HI-interval [normal]. QRS duration [normal]. QTc [normal]. [No ST segment elevation or depression]. [T-wave normal]. Impression: No EKG evidence of acute ischemia or dysrhythmia. Two troponins both negative, labs within acceptable limits. After breathing treatments and steroids, patient on re-evaluation feels much better, she is now resting comfortably, speaking full sentences, no longer feels short of breath. Happy to home with return precautions, follow-up to PCP, prescriptions for prednisone. Differential Diagnosis Differential Diagnosis: Pneumonia, COPD exacerbation, CHF, ACS etc Lab Data 04/28/25 11:31 04/28/25 11:31 Labs: Lab Results 04/28/25 04/28/25 Range/Units 11:31 14:13 WBC 6.7 (4.5-10.0) K/mm3 RBC 4.38 (4.2-5.4) M/mm3 Hgb 11.8 L (12.0-15.0) g/dL Hct 37.6 (37.0-47.0) % MCV 85.8 (80-100) fl MCH 26.9 (26-34) pg MCHC 31.4 L (32-36) g/dl RDW 15.4 H (11.5-14.5) % Plt Count 216 (150-375) k/mm3 MPV 9.6 (7.4-10.4) fl Immature Gran % (Auto) 0.4 (0-0.5) % Neut % (Auto) 55.8 (45.5-73.1) % Lymph % (Auto) 31.7 (18.3-44.2) % [place] % (Auto) 9.3 H (2.6-8.5) % Eos % (Auto) 1.8 (0-4.4) % Baso % (Auto) 1.0 (0.2-1.2) % Lymph # (Auto) 2.12 (0.9-3.2) K/mm3 [place] # (Auto) 0.6 (0.1-0.6) K/mm3 Eos # (Auto) 0.1 (0-0.3) K/mm3 Baso # (Auto) 0.1 (0.0-0.1) K/mm3 Abs Immat Gran (auto) 0.03 (0.00-0.031) K/mm3 Absolute Neuts (auto) 3.7 (1.3-6.7) K/mm3 Absolute Nucleated RBC 0.000 (0.0-0.012) K/mm3 Nucleated RBC % 0.0 (0.0-0.2) % PT 12.8 (11.1-14.7) Seconds INR 0.9 APTT 29.7 (22.3-36.8) Seconds D-Dimer 0.33 (<0.48) ug/mL Sodium 139 (137-145) mmol/L Potassium 3.6 (3.4-5.0) mmol/L Chloride 110 H (98-107) mmol/L Carbon Dioxide 19 L (22-30) mmol/L Anion Gap 10 (4-12) mmol/L BUN 12 D (7-17) mg/dL Creatinine 0.81 (0.7-1.0) mg/dL Estim Creat Clear Calc Not Reportable Estimated GFR > 60 (59 - ) Glucose 99 (65-110) mg/dL Calcium 9.4 (8.4-10.2) mg/dL Total Bilirubin 0.3 (0.2-1.3) mg/dL AST 17 (14-36) U/L ALT 20 (6-35) U/L Alkaline Phosphatase 102 (38-126) U/L Troponin I < 0.012 < 0.012 (0.000-0.034) ng/mL Total Protein 7.5 (6.3-8.2) g/dL Albumin 4.3 (3.5-5.1) g/dL Lipase 194 (23-300) U/L Imaging Data Radiologist's impression: ITS Impressions Chest X-Ray 04/28/25 12:24 IMPRESSION: 1. No acute cardiopulmonary findings. Discharge Plan Discharge Clinical Impression: Acute bronchitis Patient Disposition: Home Condition: Stable Instructions: Chest Pain (ED), Acute Bronchitis (ED) Additional Instructions: Please follow up with your doctor; take the medications as prescribed. You can always return for any further issues. Patient Language: Malay Prescriptions: New prednisone 20 mg tablet 40 mg PO DAILY 4 Days Qty: 8 0RF No Action montelukast 10 mg tablet 10 mg PO DAILY nitroglycerin 0.4 mg tablet, sublingual 0.4 mg sublingual Q5M PRN (Reason: chest pain) aspirin 81 mg tablet,delayed release (DR/EC) 81 mg PO DAILY Qty: 30 0RF fluticasone propion-salmeterol [Advair HFA] 230-21 mcg/actuation HFA aerosol inhaler 2 puff inhalation Q12H Qty: 12 1RF Rx Instructions: administer with spacer losartan 25 mg tablet 12.5 mg PO DAILY albuterol sulfate 2.5 mg /3 mL (0.083 %) solution for nebulization 2.5 mg inhalation Q4H PRN (Reason: shortness of breath or wheezing) Qty: 90 0RF duloxetine 60 mg capsule,delayed release(DR/EC) 60 mg PO DAILY cyanocobalamin (vitamin B-12) [Vitamin B-12] 1,000 mcg tablet 1,000 mcg PO DAILY quetiapine [Seroquel] 25 mg tablet 25 mg PO PRN albuterol sulfate [Ventolin HFA] 90 mcg/actuation HFA aerosol inhaler 1 inh inhalation Q4H PRN (Reason: shortness of breath or wheezing) Qty: 8.5 1RF dicyclomine 20 mg tablet See Rx Instructions .ROUTE .COMPLEX Qty: 270 1RF Dose Instruction: TAKE 1 TABLET BY MOUTH THREE TIMES A DAY Rx Instructions: TAKE 1 TABLET BY MOUTH THREE TIMES A DAY esomeprazole magnesium 20 mg capsule,delayed release(DR/EC) 40 mg PO DAILY Qty: 90 1RF atorvastatin 40 mg tablet 40 mg PO DAILY Qty: 90 1RF famotidine 20 mg tablet 20 mg PO BID Qty: 180 1RF ferrous sulfate 325 mg (65 mg iron) tablet 325 mg PO DAILY Qty: 90 3RF lidocaine 5 % adhesive patch,medicated 1 patch topical .every 8 hours PRN (Reason: pain) Qty: 15 1RF Rx Instructions: leave on most painful area for up to 12 hrs levetiracetam 500 mg tablet See Rx Instructions .ROUTE .COMPLEX Qty: 60 4RF Dose Instruction: TAKE 1 TABLET BY MOUTH TWICE A DAY Rx Instructions: TAKE 1 TABLET BY MOUTH TWICE A DAY tizanidine 4 mg capsule 4 mg PO TID PRN (Reason: muscle spasticity) Qty: 270 1RF varenicline tartrate 1 mg tablet See Rx Instructions .ROUTE .COMPLEX Qty: 168 0RF Dose Instruction: TAKE 1 TABLET BY MOUTH TWICE A DAY Rx Instructions: TAKE 1 TABLET BY MOUTH TWICE A DAY hydrocodone-acetaminophen 5-325 mg tablet 1 tablet PO Q8H PRN (Reason: pain) Qty: 30 0RF ondansetron 4 mg tablet,disintegrating 4 mg PO Q8H PRN (Reason: nausea and vomiting) Qty: 30 0RF pregabalin 100 mg capsule 100 mg PO TID PRN (Reason: pain) Qty: 75 0RF Follow-up/Referrals: Ranjan Watson MD [Primary Care Provider, Family Practice] - 2 Days
== END 2025-04-28 16:05 | disposition home or self-care (01) ==
PROVIDERS: Emergency Medicine; Emergency Provider Emergency Medicine; PCP Family Medicine
DX: J20.9 Acute bronchitis, unspecified (principal); J44.0 Chronic obstructive pulmonary disease with (acute) lower respiratory infection; J45.909 Unspecified asthma, uncomplicated; E78.5 Hyperlipidemia, unspecified; I10 Essential (primary) hypertension; M79.7 Fibromyalgia; K21.9 Gastro-esophageal reflux disease without esophagitis
CPT/HCPCS: 36415; 71046; 80053; 83690; 84484; 85025; 85380; 85610; 85730; 93005; 94640; 99284; J7512

== ENCOUNTER 2025-05-18 16:11 | Emergency (ER) | payer MEDICARE, MEDICAID, SELFPAY ==
--- NOTE | ~2025-05-18 | XR_ITS ---
EXAMINATION: XR chest 2V DATE: 05/18/2025 16:30 INDICATION: Cough, back pain. TECHNIQUE: Frontal and lateral views of the chest were obtained. COMPARISON: Chest x-ray 04/28/2025 FINDINGS: Borderline size heart. Severe atherosclerotic aorta. No acute pulmonary findings. Old rib fractures on the right side. IMPRESSION: 1. No acute findings. Chronic findings as mentioned above similar to prior chest x-ray. Reviewed, dictated and finalized at location T. E RELIEF DRIVER IMPRESSION: 1. No acute findings. Chronic findings as mentioned above similar to prior [facility] t x-ray.
[2025-05-18 16:21] VITALS: BP 134/99; PULSE 85; RESP 20; TEMP 36.4; O2SAT 100
--- NOTE | 2025-05-18 16:23 | ED.URI ---
HPI - URI/Sore Throat General Chief Complaint: Upper Respiratory Infection Stated Complaint: hurts to breathe/back pain Time Seen by Provider: 05/18/25 16:30 Source: patient Mode of arrival: ambulatory Limitations: no limitations History of Present Illness HPI Narrative: Ginna is a 60-year-old female patient presenting to the clinic today with complaints of cough, painful inspiration, shortness of breath, and left upper back pain x2 days.. She reports she woke up this morning and was having worsening of back pain radiating up into the left side of her chest. Has history of asthma/COPD. Is coughing up a yellow nasty phlegm. Also reporting itchiness in her throat. She just finished antibiotics 2-3 days ago for a COPD exacerbation. Has been using albuterol inhaler at home little relief. Related Data Home Medications ?Medication ?Instructions ?Recorded ?Confirmed ?Last Taken ?Type montelukast 10 mg tablet 10 mg PO DAILY 11/12/23 05/02/25 04/17/25 History duloxetine 60 mg capsule,delayed 60 mg PO DAILY 12/09/23 05/02/25 04/17/25 History release nitroglycerin 0.4 mg sublingual 0.4 mg sublingual Q5M PRN chest 07/15/24 05/02/25 Unknown History tablet pain quetiapine 25 mg tablet (Seroquel) 25 mg PO PRN Sleep 04/09/25 05/02/25 Unknown History Allergies Allergy/AdvReac Type Severity Reaction Status Date / Time No Known Allergies Allergy Verified 05/18/25 16:13 Review of Systems Review of Systems: Pertinent positives per HPI. Patient denies any fever, chills, rash, headache, visual changes, dizziness, palpitations, nausea, vomiting, diarrhea, constipation, abdominal pain, or any urinary issues. [facility] Past Medical History Medical History Paroxysmal A-fib in 2019 when had COVID Rotator cuff injury Shoulder pain Shoulder injury Biceps tendonitis Rotator cuff tendinitis Rotator cuff tear Cough Obesity Tobacco abuse quit 2016 Back pain IBS (irritable bowel syndrome) Asthma Hypercholesterolemia SLAP lesion of right shoulder Pharyngitis Otalgia of left ear Otalgia of both ears Essential (primary) hypertension Fibromyalgia Gastro-esophageal reflux disease with esophagitis Mixed hyperlipidemia Surgical History Surgical History History of appendectomy History of right knee surgery related to fracture H/O dilation and curettage History of carpal tunnel release of both wrists History of section H/O: hysterectomy Status post shoulder surgery Family History Family History Sibling Patient's brother is in good health Family history of malignant neoplasm Father Family history of alcoholism Mother Family history of malignant neoplasm of breast in first degree relative Other Family history of arthritis Hypertension Social History Social History Years smoked: 45 Smoking status: Former smoker Tobacco type: cigarettes Second hand tobacco smoke exposure: Yes Smoking end date: 05/23/15 Alcohol intake: never Substance use: current Substance use type: marijuana Other substance usage details: 1-2/week Lack of Transportation: No Lack of Food: Never True Current Housing: I Have Housing Concerned About Future Housing: No Difficulty Paying Gas/Electric Bills: No Difficulty Paying for Meds: YES Currently Unemployed: No Education: High School Diploma/GED Difficulty w/ Childcare or Family Care: No Living arrangements: with family Gender identity (if verbalized by the patient): Female Spiritual care concerns: No Comments At the time of my signature, I reviewed and agree with the nursing past medical, surgical, social, and family history. There is no relevant family history pertinent to the patient complaint. Exam Narrative: General: Well-developed, obese, in no apparent distress Head: Normocephalic, atraumatic Eyes: Pupils equally round and reactive to light bilaterally, EOM intact, sclera and conjunctive clear, no discharge, lids normal Ears: TMs intact and clear, ear canals clear, no drainage, grossly hearing normal. Nose: Nares patent, clear nasal discharge, mild inflammation, no sinus tenderness. Mouth: Oral pharynx without lesions or masses, good dentition, MMM. Neck: Supple, trachea midline, no enlargement of anterior or posterior cervical nodes, no thyroid masses or goiter palpable. Cardio: Regular rate and rhythm, s1 and s2 normal, no murmur appreciated. Resp: Diminished breath sounds in lower bases, no rhonchi, rales, wheezing or rubs Course Course Level of Care: Express Care Visit Vital Signs Vital signs: Vital Signs Temperature 36.4 C 05/18/25 16:21 Pulse Rate 85 05/18/25 16:21 Respiratory Rate 20 05/18/25 16:21 Blood Pressure 134/99 H 05/18/25 16:21 Pulse Oximetry 100 05/18/25 16:21 Oxygen Delivery Room Air 05/18/25 16:21 Temperature 36.4 C 05/18/25 16:21 Pulse Rate 85 05/18/25 16:21 Respiratory Rate 20 05/18/25 16:21 Blood Pressure 134/99 H 05/18/25 16:21 Pulse Oximetry 100 05/18/25 16:21 Oxygen Delivery Room Air 05/18/25 16:21 MDM MDM Narrative Medical decision making narrative: At the time of visit patient is resting comfortably on the exam table. Patient appears to be nontoxic. Complaints of cough, painful inspiration, shortness of breath, and left upper back pain x2 days.. She reports she woke up this morning and was having worsening of back pain radiating up into the left side of her chest. Has history of asthma/COPD. Is coughing up a yellow nasty phlegm. Also reporting itchiness in her throat. She just finished antibiotics 2-3 days ago for a COPD exacerbation. Has been using albuterol inhaler at home little relief. On exam patient has mild TMs intact and clear, clear nasal drainage, mild anterior turbinate inflammation, oral pharynx red with thrush like lesions to the oral pharynx, no cervical lymphadenopathy, lung sounds diminished, heart rates regular rate and rhythm. EKG, chest x-ray, COVID, and influenza testing was ordered. EKG: EKG shows sinus rhythm with a short UT interval with occasional PVC. No ST elevation or depression noted. Heart rate 77 beats per minute. No acute changes with comparison EKG Labs: COVID and influenza testing was negative. Diagnostics: Chest x-rays negative for any acute cardiopulmonary process Plan: I suspect patient has COPD exacerbation-likely pleuritic chest pain and oral thrush. Prescription for nystatin, doxycycline, and prednisone was sent to the pharmacy. Recommend follow-up with her PCP in 3-5 days. Go the emergency room if symptoms worsen Supportive measures were discussed with the patient and they voiced understanding discharge instructions and agrees to treatment plan. Return precautions reviewed Differential Diagnosis Differential Diagnosis: Differential diagnostic considerations for upper respiratory infection include upper respiratory infection, croup, otitis media, sinusitis, viral infection, bronchitis, influenza, pharyngitis, strep, uvulitis, COPD exacerbation, pneumonia, pleuritic chest pain, PE, acute AL, acute coronary syndrome. Lab Data Labs: Lab Results 05/18/25 Range/Units 16:19 POC Influenza A Ag Negative (Negative) POC Influenza B Ag Negative (Negative) POC SARS CoV-2 Ag Negative (Negative) Imaging Data Radiologist's impression: ITS Impressions Chest X-Ray 05/18/25 16:41 IMPRESSION: 1. No acute findings. Chronic findings as mentioned above similar to prior chest x-ray. ECG Data EKG #1: Attestation: I personally reviewed and interpreted this ECG as follows: ECG completion date: 05/18/25 ECG completion time: 17:24 Prior ECG tracings: available for review Interpretation: EKG shows sinus rhythm with a short UT interval with occasional PVCs. Last EKG showed normal sinus rhythm. Heart rate 77 beats per minute in the clinic today. ST elevation, depression, or T-wave inversion. UT interval is 113 milliseconds, QRS durations 106 milliseconds, QT-QTC is 415-447 milliseconds, P-R-T axis 24 73 58 Discharge Plan Discharge Clinical Impression: Oral thrush, COPD exacerbation Patient Disposition: Home Condition: Stable Instructions: Antibiotic Form, Pleurisy (ED), Oral Candidiasis (ED), COPD (Chronic Obstructive Pulmonary Disease) (ED) Additional Instructions: DuoNeb treatment given in the clinic today. EKG reassuring in the clinic today. Chest x-rays negative for any acute cardiopulmonary process. I suspect you have COPD exacerbation with likely pleuritic chest pain and thrush Take prescription medications only as prescribed-prednisone, doxycycline, nystatin swish and swallow Increase fluids and stay well hydrated May take Tylenol or motrin as directed on bottle for pain/fever May use Flonase 1 spray in each nare daily May take OTC antihistamines such as Zyrtec or Claritin daily as directed on bottle May apply Vicks vapor rub to chest to open sinuses Sinus rinses for congestion Cepacol spray, cough drops, throat lozenges, warm tea with honey/lemon, gargle salt water to soothe throat BRAT diet for diarrhea Clear liquids x 24 hours then advance as tolerated for nausea/vomiting Go to the ED if you develop a worsening in your condition- high fever not controlled by Tylenol or Motrin, dehydration, weakness, lethargy, shortness of breath, or chest pain. Follow up with your PCP in 3-5 days if symptoms persist. Patient Language: Irish Prescriptions: New doxycycline monohydrate 100 mg capsule 100 mg PO BID 7 Days Qty: 14 0RF prednisone 20 mg tablet 40 mg PO DAILY 5 Days Qty: 10 0RF nystatin 100,000 unit/mL suspension 5 ml PO QID 10 Days Qty: 200 0RF Rx Instructions: swish and swallow No Action montelukast 10 mg tablet 10 mg PO DAILY nitroglycerin 0.4 mg tablet, sublingual 0.4 mg sublingual Q5M PRN (Reason: chest pain) aspirin 81 mg tablet,delayed release (DR/EC) 81 mg PO DAILY Qty: 30 0RF fluticasone propion-salmeterol [Advair HFA] 230-21 mcg/actuation HFA aerosol inhaler 2 puff inhalation Q12H Qty: 12 1RF Rx Instructions: administer with spacer albuterol sulfate 2.5 mg /3 mL (0.083 %) solution for nebulization 2.5 mg inhalation Q4H PRN (Reason: shortness of breath or wheezing) Qty: 90 0RF duloxetine 60 mg capsule,delayed release(DR/EC) 60 mg PO DAILY quetiapine [Seroquel] 25 mg tablet 25 mg PO PRN albuterol sulfate [Ventolin HFA] 90 mcg/actuation HFA aerosol inhaler 1 inh inhalation Q4H PRN (Reason: shortness of breath or wheezing) Qty: 8.5 1RF dicyclomine 20 mg tablet See Rx Instructions .ROUTE .COMPLEX Qty: 270 1RF Dose Instruction: TAKE 1 TABLET BY MOUTH THREE TIMES A DAY Rx Instructions: TAKE 1 TABLET BY MOUTH THREE TIMES A DAY esomeprazole magnesium 20 mg capsule,delayed release(DR/EC) 40 mg PO DAILY Qty: 90 1RF atorvastatin 40 mg tablet 40 mg PO DAILY Qty: 90 1RF famotidine 20 mg tablet 20 mg PO BID Qty: 180 1RF ferrous sulfate 325 mg (65 mg iron) tablet 325 mg PO DAILY Qty: 90 3RF lidocaine 5 % adhesive patch,medicated 1 patch topical .every 8 hours PRN (Reason: pain) Qty: 15 1RF Rx Instructions: leave on most painful area for up to 12 hrs levetiracetam 500 mg tablet See Rx Instructions .ROUTE .COMPLEX Qty: 60 4RF Dose Instruction: TAKE 1 TABLET BY MOUTH TWICE A DAY Rx Instructions: TAKE 1 TABLET BY MOUTH TWICE A DAY tizanidine 4 mg capsule 4 mg PO TID PRN (Reason: muscle spasticity) Qty: 270 1RF varenicline tartrate 1 mg tablet See Rx Instructions .ROUTE .COMPLEX Qty: 168 0RF Dose Instruction: TAKE 1 TABLET BY MOUTH TWICE A DAY Rx Instructions: TAKE 1 TABLET BY MOUTH TWICE A DAY hydrocodone-acetaminophen 5-325 mg tablet 1 tablet PO Q8H PRN (Reason: pain) Qty: 30 0RF ondansetron 4 mg tablet,disintegrating 4 mg PO Q8H PRN (Reason: nausea and vomiting) Qty: 30 0RF pregabalin 100 mg capsule 100 mg PO TID PRN (Reason: pain) Qty: 75 0RF Follow-up/Referrals: Ranjan Watson MD [Primary Care Provider, [facility]] Time of Disposition: 17:31 Quality NIHSS Nursing Documentation ED NIHSS nursing documentation: reviewed/agree
[2025-05-18] MEDS: IPRATROPIUM BR 0.02% INH SOLN 0.5 MG/2.5 ML VIAL INHALATION (16:55)
[2025-05-18] MEDS: ALBUTEROL SULFATE NEB 2.5 MG/3 ML INH INHALATION (16:56)
[2025-05-18 17:05] LABS: EDCOVIDSCREEN Negative (Negative); EDINFLUASCREEN Negative (Negative); EDINFLUBSCREEN Negative (Negative)
--- NOTE | 2025-05-18 17:12 | ECG_ITS ---
Test Date: 2025-05-18 17:24:41 Measurements Intervals [place] Rate: 77 P: 24 NC: 113 QRS: 73 QRSD: 106 T: 58 QT: 415 QTc: 471 Interpretive Statements SINUS RHYTHM WITH SHORT NC INTERVAL WITH OCCASIONAL SUPRAVENTRICULAR PREMATURE COMPLEXES BORDERLINE ECG Compared to ECG 04/28/2025 14:24:07 NO SIGNIFICANT CHANGE Electronically Signed On 05-19-2025 08:08:01 COMMERCIAL CONSTRUCTION ESTIMATOR by Felton Sanders D.O.
[2025-05-18 17:30] VITALS: BP 123/78; PULSE 76; RESP 28; TEMP 36.9; O2SAT 100
== END 2025-05-18 17:43 | disposition home or self-care (01) ==
PROVIDERS: Emergency Provider Nurse Practitioner Family; PCP Family Medicine
DX: B37.0 Candidal stomatitis (principal); J44.1 Chronic obstructive pulmonary disease with (acute) exacerbation; Z20.822 Contact with and (suspected) exposure to COVID-19; I48.91 Unspecified atrial fibrillation; I10 Essential (primary) hypertension; E78.00 Pure hypercholesterolemia, unspecified; M79.7 Fibromyalgia; K21.00 Gastro-esophageal reflux disease with esophagitis, without bleeding; E78.2 Mixed hyperlipidemia; E66.9 Obesity, unspecified; Z68.34 Body mass index [BMI] 34.0-34.9, adult; Z87.891 Personal history of nicotine dependence
CPT/HCPCS: 71046; 87426; 87804; 93005; 94640; 99213; G0463